=== PATIENT | male | born 1950 | race Caucasian/White ===

== ENCOUNTER 2017-11-11 05:39 | Day surgery (SDC) | payer OTHER ==
[2017-11-09 16:08] LABS: Absolute Lymphocytes (CBC) 1.5 K/uL (0.7-4.9); Absolute Monocytes 0.9 K/uL (0.1-1.3); Absolute Neutrophil 3.8 K/uL (1.8-8.0); Basophils % 0.4 % (0-1.3); Eosinophils % 5.4 % (0-4.4); Hematocrit 43.4 % (39.6-49.0); MCH 30.7 pg (27.0-35.0); MCV 90.7 fL (80-100); RBC Red Blood Cell Count 4.79 M/uL (4.33-5.43)
[2017-11-09 16:54] LABS: BUN Blood Urea Nitrogen 26 mg/dL (6-20); Bicarbonate 24 mEq/L (21-31); Glucose Level 98 mg/dL (65-120); Potassium 4.2 mEq/L (3.6-5.0); Sodium Level 141 mEq/L (135-145)
--- NOTE | 2017-11-09 18:35 | RAD REPORT ---
EXAM DESCRIPTION: Juma Hanley And Artis (2 Views)11/09/2017 3:52 pm CLINICAL HISTORY: Hypertension/preop COMPARISON: None FINDINGS: The lungs appear clear of acute infiltrate. The heart is normal size. The aorta is tortuo us/ectatic IMPRESSION: No acute abnormalities displayed
--- NOTE | 2017-11-09 21:25 | EKG ---
Test Date: 2017-11-09 Test Time: 15:40:46 Formula Weigher: ZULEIKA MEASUREMENT RESULTS: Intervals: Rate: 59 FL: 196 QRSD: 86 QT: 392 QTc: 388 [place]: P: -6 FL: 196 QRS: -25 T: 7 INTERPRETIVE STATEMENTS: Sinus bradycardia with occasional premature ventricular complexes Minimal voltage criteria for LVH, may be normal variant Borderline ECG No previous ECG available for comparison Electronically Signed On 11-09-17 21:24:33 CDT by Orville Jesus
[2017-11-11] MEDS ORDERED: Ringers Lactate 1,000 ML IV ONE (06:34)
[2017-11-11] MEDS ORDERED: Ciprofloxacin 200mg IV 400 MG/200 ML IV.SOLN. IV ONE (06:35)
[2017-11-11] MEDS ORDERED: Ciprofloxacin 200mg IV 200 MG/100 ML IV.SOLN. IV ONE (06:42)
[2017-11-11] MEDS ORDERED: CIPROFLOXACIN 400mg IV 400 MG/200 ML BAG IV ONE (06:42)
[2017-11-11] MEDS ORDERED: PROPOFOL 200 MG/20 ML VIAL IV ONE (07:20)
[2017-11-11] MEDS ORDERED: LIDOCAINE 2% MPF 5 ML VIAL ONE (07:21)
[2017-11-11] MEDS ORDERED: MIDAZOLAM HCL 2 MG/2 ML INJ ONE (07:21)
[2017-11-11] MEDS ORDERED: ROCURONIUM 50 MG/5 ML VIAL IV ONE (07:22)
[2017-11-11] MEDS ORDERED: FENTANYL CITR 100 MCG/2 ML ONE (07:22)
[2017-11-11] MEDS ORDERED: EPHEDRINE SULF 50 MG/5 ML SYR ONE (07:53)
[2017-11-11] MEDS ORDERED: GLYCOPYRROLATE 0.2 MG/ML SYR ONE (08:25)
[2017-11-11] MEDS ORDERED: NEOSTIGMINE 1 MG/ML -5 ML SYRINGE ONE (08:26)
--- NOTE | 2017-11-11 08:32 | P.BOP ---
Preoperative diagnosis: tender right inguinal hernia, incarcerated umbilical hernia Postoperative diagnosis: same Primary procedure: 1. Laparoscopic repair of tender right inguinal hernia with mesh Secondary procedure: 2. Open repair of incarcerated umbilical hernia Supervisor Delivery Department: DECLAN BALDWIN Estimated blood loss: <10cc Specimen: umbilical hernia Findings: as above Anesthesia: General Complications: None Drain(s): Other Implants: 3d mesh R Transferred to: Recovery Room Condition: Good
[2017-11-11] MEDS ORDERED: ONDANSETRON 4 MG/2 ML VIAL ONE (09:08)
[2017-11-11] MEDS ORDERED: HYDROCODONE/APAP 5/325 MG TAB ONE (09:46)
--- NOTE | 2017-11-11 21:09 | DS ---
Date of Discharge: 11/11/2017 Diagnoses: Tender right inguinal hernia and incarcerated umbilical hernia. Procedures: Laparoscopic repair of tender right inguinal hernia with mesh and open repair of incarce rated umbilical hernia. Disposition: Home. Activity: As tolerated. No heavy lifting. Followup: Follow up in my office in 1 week. Call for appointment [phone]. Discharge Instructions: Keep the area dry for 48 hours and then may shower. Keep Steri-Strips intac t. Discharge Medications: Bactrim DS p.o. b.i.d. and Vicodin q.4 hours p.r.n. pain. BALDO/ELIZABETH Voice ID: [id number] Report ID: [id number]
--- NOTE | 2017-11-11 21:20 | OP ---
Date of Procedure: 11/11/2017 Surgeon: Vincent Dia MD Computerized [place] Recorder: Elizabeth Noel Preoperative Diagnosis: Tender right inguinal hernia and also incarcerated umbilical hernia. Postoperative Diagnosis: Tender right inguinal hernia and also incarcerated umbilical hernia. Procedures: 1.Laparoscopic repair of tender right inguinal hernia with mesh. 2.Open repair of incarcerated umbilical hernia. Estimated Blood Loss: Less than 10 cc. Specimen: Umbilical hernia. Findings: As above. Anesthesia: General plus local. Implant: A 3D mesh on the right side. Indications: This is the case of a 67-year-old patient, who comes to us with 2 problems as mentioned above. Benefits, alternatives, and risks of repair of right inguinal hernia and umbilical hernia fu lly explained to the patient, which include but are not limited to infection, bleeding, damage to adj acent structures, anesthesia complication, recurrence, chronic pain, chronic numbness, testicular dam age, AR, and even . He also understands this may not relieve any symptoms. He might need more than one surgical intervention. He understands importance of no heavy lifting and not gaining weight . He was also explained that we may use mesh over the area. Pros and cons of mesh placement were ex plained to him and all the questions were answered to his satisfaction. Description Of Procedure: The patient was brought to the operating room and placed in supine positio n. Anesthesia was done without complication. A time-out was called. Abdominal area and inguinal re gion were prepped and draped in sterile fashion. Marcaine 0.5% was injected for local anesthetic in the infraumbilical region. Incision was carried down to subcutaneous tissue. We opened anterior rec tus sheath on the right side. Retracted muscle laterally to expose the posterior rectus sheath. The extraperitoneal space was gently developed with blunt dissection and a balloon-tipped catheter, Spac emaker was placed in that area directed to the pubic symphysis. This was guided with a laparoscope p laced at the same time. Insufflation of the balloon was done under direct visualization. The balloo n was then removed and a space was placed over the area carefully. A 5-mm trocar was placed on the p ubic symphysis and another one between the first and the second one. The preperitoneal space was fur ther developed by exposing the inferior epigastric vessels and keeping them anterior. Singh's ligam ent was dissected laterally to the junction with iliac veins. The dissection continued inferiorly to the iliopubic tract, avoiding damage to the femoral branch of the genitofemoral nerve and lateral fe moral cutaneous nerve. The cord structures were carefully identified and skeletonized. The hernia w as identified and retracted into the peritoneal space. A 3D mesh was placed over the area right side fit to proper size covering direct and indirect spaces. This mesh was secured in place with SorbaFi x fixation device laterally and superior to the iliopubic tract and inferomedial to the Singh's liga ment. No bleeding. An anesthetic spray was placed over the area. At that moment, I proceeded to re move the trocars under direct vision. Deflated the area. We made sure that on the deflation we hold the inferior aspect of the mesh to avoid the hernia sac going through, and after that, I went to the umbilical region. We identified umbilical hernia that was carefully opened. The hernia sac was ope joaquín. Incarcerated omentum reduced back into the abdominal cavity. The hernia sac was removed. The fascial edges were cleaned, and I proceeded to close the area with #1 Vicryl [id number]. Also, we closed the inguinal incisions with #1 Vicryl. The area was irrigated and closed with 3-0 chromic and skin approximated with 3-0 chromic and Steri-Strips on top. Sponge count and instrument count we re correct. The patient tolerated the procedure well. The patient was sent to Recovery in stable condition. ANNE-MARIE Voice ID: [id number] Report ID: [id number]
== END 2017-11-11 10:05 | disposition home or self-care (01) ==
LOC: OR 05:39 → EDBD 07:30 → OR 10:05
PROVIDERS: ATTEND Surgery
PROC: 0YU54JZ Supplement Right Inguinal Region with Synthetic Substitute, Percutaneous Endoscopic Approach (ICD-10-PCS; principal; 2017-11-11 07:30)
PROC: 0WQF0ZZ Repair Abdominal Wall, Open Approach (ICD-10-PCS; 2017-11-11 07:30)
DX: K40.90 Unilateral inguinal hernia, without obstruction or gangrene, not specified as recurrent (principal); K42.0 Umbilical hernia with obstruction, without gangrene; I10 Essential (primary) hypertension; I25.10 Atherosclerotic heart disease of native coronary artery without angina pectoris; Z88.0 Allergy status to penicillin; Z95.5 Presence of coronary angioplasty implant and graft; Z80.1 Family history of malignant neoplasm of trachea, bronchus and lung; Z80.8 Family history of malignant neoplasm of other organs or systems
CPT/HCPCS: 36415; 49587; 49650; 71046; 80048; 85025; 88302; 93005; J0744 ×3; J2250; J2405; J2710; J3010

== ENCOUNTER 2020-03-02 08:20 | Inpatient (IN) | payer OTHER ==
--- NOTE | 2020-03-02 12:07 | R.PREADM ---
PRE-ADMISSION SCREENING FORM SCREENING DATE AND TIME 03/02/2020 08:32 (CDT) ANTICIPATED REHAB ADMISSION DATE 03/04/2020 REFERRING FACILITY [facility] REFERRAL DATE AND TIME 02/27/2020 02:42 (CDT) REFERRAL ROOM# [id number] A ACUTE ADMIT DATE 02/15/2020 Previous Rehabilitation(s): No. 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 Naldo Snyder M.D. MR# [id number] NAME LINA SALAMANCA ADDRESS [address] [place] [address] PHONE [facility] [id number] DATE OF 1950 AGE 69 SSN# [id number] GENDER male MARITAL STATUS RACE white PREF. LANGUAGE (IF NON-VIETNAMESE) Romanian ADMIT FROM 02 - [facility] PRE-HOSPITAL LIVING SETTING 01 - Home (private home/apt. board/care, assisted living, usp, transitional living) HOME TYPE AND DETAILS Type of home: single family house # of levels in the residence: 1 # of steps to enter the residence: 1 # of steps within the residence: 0 PRE-HOSPITAL LIVING WITH Friends FAMILY SUPPORT Yes PRIMARY FAMILY CONTACT NAME Zenaida Salamanca PRIMARY FAMILY CONTACT PHONE PRIMARY FAMILY CONTACT RELATIONSHIP Spouse IS PRIMARY FAMILY CONTACT AUTH. REP.? no 1ST EMERGENCY CONTACT Zenaida Salamanca 1ST CONTACT PHONE 1ST CONTACT RELATIONSHIP Spouse IS 1ST CONTACT AUTH. REP.? no PHONE 2ND CONTACT ON ADM.? no PATIENT EMPLOYMENT STATUS Retired (for age) PATIENT EMPLOYER No Employer PAYOR INFORMATION: 1ST PAYOR NAME MEDICARE 1ST PAYOR PHONE 1ST PAYOR INJURY/ILLNESS DUE TO ACCIDENT? No ANOTHER GREEN PARTY RESPONSIBLE? No PRIMARY REHAB/ACUTE DIAGNOSIS: [place], R Knee Arthroplasty ONSET DATE 02/15/2020 REHAB IMPAIRMENT CATEGORY (OLINDA): 14 Cardiac does NOT meet 60% rule PRIMARY DIAGNOSIS-RELATED SURGERIES: Elective R Knee Arthroplasty - performed by Dr Hal Bonds on 02/15/2020 SUMMARY OF ACUTE HOSPITALIZATION: Pt. is a 69 yo Right-handed white male. He has past medical history significant for VA and R knee arthroscopy that failed conservative treatm ent. He elected for surgery, and on 02/15/2020 was admitted to [facility] for R Knee Arthroplast y by Dr Hal Bonds. The day after surgery, the patient suffered from cardiac arrest. Pre-morbidly, Pt. was independent/mod-I in Transfers Control and Locomotion; and he had good Balance, Safety Awareness, Social Cognition, Sphincter Control, and Communication. Currently, he has deficits of Transfers Control, Balance, Locomotion, Safety Awareness, and Self-Care . Pt. is now referred to [facility] for acute in-patient rehabilitation in order to maximize patient's functional independence in activities of daily living, strength, ROM, and mobi lity. Patient has realistic goal of being discharged at assistance level 6-Rafael to reside at Home with Spo use. PAST MEDICAL HISTORY Osteoarthritis of R knee HTN CAD Cardiogenic shock (R57.0) Cardiac Arrest Acute Hypoxemic respiratory failure Acute Renal Failure AFIB Pulmonary edema due to chemicals, gases, fumes and vapors (J68.1) Systolic CHF DVT of upper R extremity Leukocytosis HYPOKALEMIA HLD Diabetes Elevated LFT's PAST SURGICAL HISTORY: R KNEE REPLACEMENT abdominal sx amputation, R arm pacemaker inccertion, stent placement x 2 Spine SX MEDICATION ALLERGIES: Penicillin ENVIRONMENTAL ALLERGIES: None Known - Substance Allergies None Known - Other Allergies None Known CODE STATUS: DNR/DNI WEIGHT/HEIGHT/BMI: WEIGHT 253 lbs HEIGHT 5' 10" BMI 36.3 DIET: - Diet Type Regular - Diet - Solid Texture Regular - Diet - Liquid Texture Regular - Tube Feed N/A SKIN DIAGRAM: Incision on Right knee; extent - average; stage - NS(Not Stageable). Treatment - Per Physician's Orde rs. REVIEW OF SYSTEMS: - Gen Alert and awake Lying in bed No apparent distress Oriented to: person, time, and place - Vital Signs Vital signs stable, afebrile - CVS RRR VITAL SIGNS Temperature: 96.9 F SBP/DBP: 110/73 Pulse: 84 Resp: 20 Vital signs stable, afebrile MEDICATIONS/TREATMENT: Other- See attached MAR (Medication Administration Record). CURRENT SPHINCTER CONTROL: Pre-hospital bladder status: continent # of bladder accidents in the last 7 days prior to screenin Pre-hospital bowel status: continent # of bowel accidents in the last 7 days prior to screenin Last Bowel Movement Date: 03/02/2020 DETAILED CURRENT FUNCTIONAL STATUS: - Walking score based on distance walked: 0(N/A) - Wheelchair score based on distance traveled: 0(N/A) QI SCORES: - Self-Care A. Eating 05-Setup or clean-up assistance B. Oral hygiene 05-Setup or clean-up assistance C. Toileting hygiene 01-Dependent E. Shower/bathe self 02-Substantial/maximal assistance F. Upper body dressing 02-Substantial/maximal assistance G. Lower body dressing 01-Dependent H. Putting on/taking off footwear 01-Dependent - Mobility A. Roll left and right 02-Substantial/maximal assistance B. Sit to lying 02-Substantial/maximal assistance C. Lying to sitting on side of bed 02-Substantial/maximal assistance D. Sit to stand 02-Substantial/maximal assistance E. Chair/twt-iw-ohmhi transfer 02-Substantial/maximal assistance F. Toilet transfer 02-Substantial/maximal assistance G. Car transfer 88-Not attempted due to medical condition or safety concerns J. Walk 50 feet with two turns 88-Not attempted due to medical condition or safety concerns K. Walk 150 feet 88-Not attempted due to medical condition or safety concerns L. Walking 10 feet on uneven surfaces 88-Not attempted due to medical condition or safety concerns M. 1 step (curb) 88-Not attempted due to medical condition or safety concerns N. 4 steps 88-Not attempted due to medical condition or safety concerns O. 12 steps 88-Not attempted due to medical condition or safety concerns P. Picking up object 88-Not attempted due to medical condition or safety concerns - Bladder and Bowel Bladder continence 0-Always continent Bowel continence 0-Always continent - Endurance Poor - Balance Poor - Safety Awareness Poor CURRENT FUNC. DEFICITS: Self-Care, Mobility, Endurance, Balance, and Safety Awareness THERAPY NOTES FROM ACUTE CARE: Attached. SPECIAL NEEDS: - Safety Concerns Skin breakdown precautions needed due to skin breakdown risk PATIENT NEEDS ACTIVE AND ONGOING THERAPEUTIC INTERVENTION OF MULTIPLE THERAPY DISCIPLINES, INCLUDING: - Dietary and Nutrition Adequate Nutrition. Nutritional Education. Nutritional Supplements. PATIENT NEEDS CLOSE MEDICAL SUPERVISION BY A REHABILITATION PHYSICIAN FOR: Coordination of Treatment Team Post-Op Complications Wound Care PATIENT REQUIRES 24X7 REHAB NURSING FOR MEDICAL AND FUNCTIONAL MGT. OF THE FOLLOWING DEFICITS: Disease Management Medication Management Patient/Family Education Providing Safe Environment Skin Integrity PATIENT REQUIRES INTENSIVE, COORDINATED INTERDISCIPLINARY APPROACH TO REHAB: Arranging Home Equipment/Services Discharge Planning Family Intervention/Training Licensed Mental Health Professional/Case Management PATIENT REHAB POTENTIAL: Anthony SALAMANCA is able and expected to receive 3 hours of individualized therapy daily on at least 5 of e very 7 days Anthony SALAMANCA'geno prognosis for significant practical improvement within a reasonable period of time appea rs Good Expected level of measurable improvement will be of a practical value to Anthony SALAMANCA's functional capa city or adaptations to impairments Has a viable Discharge Plan Medically appropriate; condition is sufficiently stable to participate in intensive rehab program DISCHARGE PLAN: - Estimated Length of Stay (days) 10. - Consensus on plan Discharge plan has been discussed with primary caregiver. Patient/Family is in agreement with the kimmie n. Primary caregiver is in agreement with the plan. - Patient/Family Goals Return home with assistance. - Planned Living Setting Upon Discharge Home, to live with Spouse. RECOMMENDED CARE LEVEL: IRF RECOMMENDATION DETAILS: Recommended Admission to Comprehensive Rehabilitation Program to Increase Functional [place] SCREENER'S COMPLETENESS CONFIRMATION: - Screening Confirmation The patient data collection on this preadmission screening form is finished PHYSICIANS REVIEW AND ADMISSION DETERMINATION Admit - Based on my review of the Pre-Admission Screening results, in my medical judgment and experie nce, I concur with the findings and recommend admission to [facility], as this patient requires an IRF level of care. SIGNATURE PANEL: Business Services Manager - [electronically] signed by April Hansen Research Administrator on 03/02/2020 at 11:45 (CD T) Clinical Liaison - [electronically] signed by Nanda Bills RN on 03/02/2020 at 11:58 (CDT) Physician Reviewer - [electronically] signed by Dr. Naldo Snyder M.D. on 03/02/2020 at 12:06 (CDT )
--- NOTE | 2020-03-04 17:19 | R.PREADM ---
PRE-ADMISSION SCREENING FORM SCREENING DATE AND TIME 03/04/2020 17:08 (CDT) ANTICIPATED REHAB ADMISSION DATE 03/06/[address] [facility] REFERRAL DATE AND TIME 03/04/2020 17:09 (CDT) REFERRAL ROOM# [id number] A ACUTE ADMIT DATE 02/15/2020 Previous Rehabilitation(s): No. 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 Naldo Snyder M.D. MR# [id number] NAME LINA SALAMANCA ADDRESS [address] [place] [address] PHONE [facility] [id number] DATE OF 1950 AGE 69 SSN# [id number] GENDER male MARITAL STATUS RACE white PREF. LANGUAGE (IF NON-POLISH) Luxembourgish ADMIT FROM 02 - [facility] PRE-HOSPITAL LIVING SETTING 01 - Home (private home/apt. board/care, assisted living, halfway, transitional living) HOME TYPE AND DETAILS Type of home: single family house # of levels in the residence: 1 # of steps to enter the residence: 1 # of steps within the residence: 0 PRE-HOSPITAL LIVING WITH Friends FAMILY SUPPORT Yes PRIMARY FAMILY CONTACT NAME Zenaida Salamanca PRIMARY FAMILY CONTACT PHONE PRIMARY FAMILY CONTACT RELATIONSHIP Spouse IS PRIMARY FAMILY CONTACT AUTH. REP.? no 1ST EMERGENCY CONTACT Zenaida Salamanca 1ST CONTACT PHONE 1ST CONTACT RELATIONSHIP Spouse IS 1ST CONTACT AUTH. REP.? no PHONE 2ND CONTACT ON ADM.? no PATIENT EMPLOYMENT STATUS Retired (for age) PATIENT EMPLOYER No Employer PAYOR INFORMATION: 1ST PAYOR NAME MEDICARE 1ST PAYOR PHONE 1ST PAYOR INJURY/ILLNESS DUE TO ACCIDENT? No ANOTHER REPUBLICAN RESPONSIBLE? No PRIMARY REHAB/ACUTE DIAGNOSIS: [place], R Knee Arthroplasty ONSET DATE 02/15/2020 REHAB IMPAIRMENT CATEGORY (OLINDA): 14 Cardiac does NOT meet 60% rule PRIMARY DIAGNOSIS-RELATED SURGERIES: Elective R Knee Arthroplasty - performed by Dr Hal Bonds on 02/15/2020 SUMMARY OF ACUTE HOSPITALIZATION: Pt. is a 69 yo Right-handed white male. He has past medical history significant for ND and R knee arthroscopy that failed conservative treatm ent. He elected for surgery, and on 02/15/2020 was admitted to [facility] for R Knee Arthroplast y by Dr Hal Bonds. The day after surgery, the patient suffered from cardiac arrest. Pre-morbidly, Pt. was independent/mod-I in Transfers Control and Locomotion; and he had good Balance, Safety Awareness, Social Cognition, Sphincter Control, and Communication. Currently, he has deficits of Transfers Control, Balance, Locomotion, Safety Awareness, and Self-Care . Pt. is now referred to [facility] for acute in-patient rehabilitation in order to maximize patient's functional independence in activities of daily living, strength, ROM, and mobi lity. Patient has realistic goal of being discharged at assistance level 6-Rafael to reside at Home with Spo use. PAST MEDICAL HISTORY Osteoarthritis of R knee HTN CAD Cardiogenic shock (R57.0) Cardiac Arrest Acute Hypoxemic respiratory failure Acute Renal Failure AFIB Pulmonary edema due to chemicals, gases, fumes and vapors (J68.1) Systolic CHF DVT of upper R extremity Leukocytosis HYPOKALEMIA HLD Diabetes Elevated LFT's PAST SURGICAL HISTORY: R KNEE REPLACEMENT abdominal sx amputation, R arm pacemaker inccertion, stent placement x 2 Spine SX MEDICATION ALLERGIES: Penicillin ENVIRONMENTAL ALLERGIES: None Known - Substance Allergies None Known - Other Allergies None Known CODE STATUS: DNR/DNI WEIGHT/HEIGHT/BMI: WEIGHT 253 lbs HEIGHT 5' 10" BMI 36.3 DIET: - Diet Type Regular - Diet - Solid Texture Regular - Diet - Liquid Texture Regular - Tube Feed N/A SKIN DIAGRAM: Incision on Right knee; extent - average; stage - NS(Not Stageable). Treatment - Per Physician's Orde rs. REVIEW OF SYSTEMS: - Gen Alert and awake Lying in bed No apparent distress Oriented to: person, time, and place - Vital Signs Vital signs stable, afebrile - CVS RRR VITAL SIGNS Temperature: 96.9 F SBP/DBP: 110/73 Pulse: 84 Resp: 20 Vital signs stable, afebrile MEDICATIONS/TREATMENT: Other- See attached MAR (Medication Administration Record). CURRENT SPHINCTER CONTROL: Pre-hospital bladder status: continent # of bladder accidents in the last 7 days prior to screenin Pre-hospital bowel status: continent # of bowel accidents in the last 7 days prior to screenin Last Bowel Movement Date: 03/02/2020 DETAILED CURRENT FUNCTIONAL STATUS: - Walking score based on distance walked: 0(N/A) - Wheelchair score based on distance traveled: 0(N/A) QI SCORES: - Self-Care A. Eating 05-Setup or clean-up assistance B. Oral hygiene 05-Setup or clean-up assistance C. Toileting hygiene 01-Dependent E. Shower/bathe self 02-Substantial/maximal assistance F. Upper body dressing 02-Substantial/maximal assistance G. Lower body dressing 01-Dependent H. Putting on/taking off footwear 01-Dependent - Mobility A. Roll left and right 02-Substantial/maximal assistance B. Sit to lying 02-Substantial/maximal assistance C. Lying to sitting on side of bed 02-Substantial/maximal assistance D. Sit to stand 02-Substantial/maximal assistance E. Chair/inq-yg-hqaqm transfer 02-Substantial/maximal assistance F. Toilet transfer 02-Substantial/maximal assistance G. Car transfer 88-Not attempted due to medical condition or safety concerns J. Walk 50 feet with two turns 88-Not attempted due to medical condition or safety concerns K. Walk 150 feet 88-Not attempted due to medical condition or safety concerns L. Walking 10 feet on uneven surfaces 88-Not attempted due to medical condition or safety concerns M. 1 step (curb) 88-Not attempted due to medical condition or safety concerns N. 4 steps 88-Not attempted due to medical condition or safety concerns O. 12 steps 88-Not attempted due to medical condition or safety concerns P. Picking up object 88-Not attempted due to medical condition or safety concerns - Bladder and Bowel Bladder continence 0-Always continent Bowel continence 0-Always continent - Endurance Poor - Balance Poor - Safety Awareness Poor CURRENT FUNC. DEFICITS: Self-Care, Mobility, Endurance, Balance, and Safety Awareness THERAPY NOTES FROM ACUTE CARE: Attached. SPECIAL NEEDS: - Safety Concerns Skin breakdown precautions needed due to skin breakdown risk PATIENT NEEDS ACTIVE AND ONGOING THERAPEUTIC INTERVENTION OF MULTIPLE THERAPY DISCIPLINES, INCLUDING: - Dietary and Nutrition Adequate Nutrition. Nutritional Education. Nutritional Supplements. PATIENT NEEDS CLOSE MEDICAL SUPERVISION BY A REHABILITATION PHYSICIAN FOR: Coordination of Treatment Team Post-Op Complications Wound Care PATIENT REQUIRES 24X7 REHAB NURSING FOR MEDICAL AND FUNCTIONAL MGT. OF THE FOLLOWING DEFICITS: Disease Management Medication Management Patient/Family Education Providing Safe Environment Skin Integrity PATIENT REQUIRES INTENSIVE, COORDINATED INTERDISCIPLINARY APPROACH TO REHAB: Arranging Home Equipment/Services Discharge Planning Family Intervention/Training Last Repairer/Case Management PATIENT REHAB POTENTIAL: Anthony SALAMANCA is able and expected to receive 3 hours of individualized therapy daily on at least 5 of e very 7 days Anthony SALAMANCA'geno prognosis for significant practical improvement within a reasonable period of time appea rs Good Expected level of measurable improvement will be of a practical value to Anthony SALAMANCA's functional capa city or adaptations to impairments Has a viable Discharge Plan Medically appropriate; condition is sufficiently stable to participate in intensive rehab program DISCHARGE PLAN: - Estimated Length of Stay (days) 10. - Consensus on plan Discharge plan has been discussed with primary caregiver. Patient/Family is in agreement with the kimmie n. Primary caregiver is in agreement with the plan. - Patient/Family Goals Return home with assistance. - Planned Living Setting Upon Discharge Home, to live with Spouse. RECOMMENDED CARE LEVEL: IRF RECOMMENDATION DETAILS: Recommended Admission to Comprehensive Rehabilitation Program to Increase Functional [place] SCREENER'S COMPLETENESS CONFIRMATION: - Screening Confirmation The patient data collection on this preadmission screening form is finished PHYSICIANS REVIEW AND ADMISSION DETERMINATION Admit - Based on my review of the Pre-Admission Screening results, in my medical judgment and experie nce, I concur with the findings and recommend admission to [facility], as this patient requires an IRF level of care. SIGNATURE PANEL: Air Control/Anti Air Warfare Officer - [electronically] signed by April Hansen Seed Specialist on 03/04/2020 at 17:10 (CD T) Air Control/Anti Air Warfare Officer - [electronically] signed by Cee Henriquez RN on 03/04/2020 at 17:12 (CDT) Physician Reviewer - [electronically] signed by Dr. Nalod Snyder M.D. on 03/04/2020 at 17:18 (CDT )
--- OUTSIDE RECORDS SUMMARY | 2020-03-04 18:21 | XMS REPORT | Clinical Summary ---
:1950 Author Organization [facility] Address [address] [place] [address] Care Team Providers Name Role Phone Adilson Primary Care Provider Allergies Active Allergy Reactions Severity Noted Date Comments Penicillins Unknown Reaction 12/01/2019 Medications Medication Sig Dispensed Refills Start End Status Date Date atorvastatin nightly. 0 Active (LIPITOR) 40 mg 0 tablet metFORMIN 500 mg 2 (two) 0 Activ e (GLUCOPHAGE) 500 times a day with 0 mg tablet meals. amIODarone Take 1 tablet 60 tablet 0 Activ e (PACERONE) 200 MG (200 mg total) by 0 020 tablet mouth every 12 (twelve) hours for 30 days. apixaban (ELIQUIS) Take 1 tablet 60 tablet 0 Active 2.5 mg tablet (2.5 mg total) by 0 020 mouth 2 (two) times a day for 30 days. BUMETanide (BUMEX) Take 1 tablet (1 30 tablet 0 03/14 3/2 Active 1 MG tablet mg total) by 0 020 mouth daily for 30 days. digOXIN (LANOXIN) Take 1 tablet 16 tablet 0 Active 125 mcg (0.125 mg) (125 mcg total) 0 020 tablet by mouth 4 (four) times a week for 30 days. metoprolol Take 0.5 tablets 30 tablet 0 Ac tive tartrate (12.5 mg total) 0 020 (LOPRESSOR) 25 mg by mouth 2 (two) tablet times a day for 30 days. spironolactone Take 1 tablet (25 60 tablet 0 Active (ALDACTONE) 25 MG mg total) by 0 020 tablet mouth 2 (two) times a day for 30 days. ticagrelor Take 1 tablet (90 60 tablet 0 A ctive (BRILINTA) 90 mg mg total) by 0 020 tablet mouth 2 (two) times a day for 30 days. potassium chloride Take 20 mEq by 30 tablet 0 Active 20 mEq tablet mouth 2 (two) 0 020 extended release times a day for 30 days. acetaminophen Take 2 tablets 20 tablet 0 A ctive (TYLENOL) 325 MG (650 mg total) by 0 020 tablet mouth every 6 (six) hours as needed for moderate pain for up to 30 days. aspirin (ECOTRIN) aspirin 0 Di scontinued 81 MG enteric 020 (Stop Taking at coated tablet Discha rge) amLODIPine 5 mg 2 (two) 0 Discon tinued (NORVASC) 5 mg times a day. 0 020 (S top Taking at tablet Discharge) olmesartan 40 mg daily. 0 Discon tinued (BENICAR) 20 MG 0 020 (Sto p Taking at tablet Discharge) triamcinolone triamcinolone 0 Di scontinued (KENALOG) 0.1 % acetonide 0.1 % 020 (Discontinued cream topical cream by ano ther clinician) nut.tx.comp. Take 1 Bottle by 1 Box 0 Discontinued immune systm,reg mouth 3 (three) 0 020 (Stop Taking at (Impact Advanced times a day for 5 Discharge) Recovery) 0.1 days. gram-1.12 kcal/mL liquid HYDROcodone-acetam acute pain. Take 50 tablet 0 02/11 3/2 Discontinued inophen (NORCO) 1-2 tab po q 4-6 0 020 (Stop Taking at 10-325 mg per hrs prn # 50 Dis charge) tabletIndications: acute pain promethazine Take 1 tablet (25 30 tablet 0 Discontinued (PHENERGAN) 25 MG mg total) by 0 020 (Stop Taking at tablet mouth every 6 Discha rge) (six) hours as needed for nausea or vomiting for up to 10 days. enoxaparin Inject 0.4 mL (40 14 Syringe 0 Discontinued (Lovenox) 40 mg total) under 0 020 ( Stop Taking at mg/0.4 mL syringe the skin daily Discharge) for 14 days. Active Problems Problem Noted Date Atrial fibrillation with RVR 02/26/2020 Pulmonary edema 02/26/2020 Acute systolic CHF (congestive heart failure) 02/26/20 20 Acute deep vein thrombosis (DVT) of right upper extrem ity 02/26/2020 Acute deep vein thrombosis (DVT) of left upper extremi ty 02/26/2020 Leukocytosis 02/26/2020 Hypokalemia 02/26/2020 Hypocalcemia 02/26/2020 HLD (hyperlipidemia) 02/26/2020 DM (diabetes mellitus) 02/26/2020 Elevated LFTs 02/26/2020 Cardiogenic shock 02/18/2020 Cardiac arrest 02/18/2020 Acute hypoxemic respiratory failure 02/18/2020 ARF (acute renal failure) 02/18/2020 Knee osteoarthritis 02/15/2020 Hypertension 02/15/2020 CAD (coronary artery disease) 02/15/2020 Primary osteoarthritis of right knee 01/11/2020 Overview: Added automatically from request for masha brown [id number] Encounters Date Type Specialty Care Team Description 02/15/2020 - Surgery Procedural Ty, Tim Left heart cath w lv 02/16/2020 Cardiology Mercedes Noonan MD gram cors [[id number] (CPT)] 02/15/2020 Surgery General Surgery Seferino Chaudhry RIGHT TOTAL KNEE MD Abraham ARTHROPLASTY 02/15/2020 Anesthesia Event General Surgery Benson Horn MD Sardina, Maydee, NP 02/15/2020 - Hospital Encounter General Internal Seferino Chaudhry Cardi ogenic shock (HCC) (Primary Dx); 03/04/2020 Medicine MD Abraham Primary osteoarthritis of right knee; [place]is, Cardiac arrest (HCC) Aiden Santos MD 02/10/2020 Pre-Admit Testing Pre-Admission Seferino Chaudhry Preop josy smart (Primary Appointment Testing WMD Ajith Dx) 02/10/2020 Telephone Orthopedic Surgery Sanjay Moon MA 02/10/2020 Orders Only Orthopedic Surgery [place], Primary o steoarthritis DOMINGA Patel of right knee ( Primary Dx) 02/09/2020 Telephone Orthopedic Surgery Ravi Pressley MA 02/09/2020 Travel 02/09/2020 Telephone Orthopedic Surgery Ravi Pressley MA 01/11/2020 Telephone Orthopedic Surgery Ravi Pressley MA 01/11/2020 Transcribe Orders Orthopedic Surgery Seferino Chaudhry Prim lidia osteoarthritis MD Abraham of right knee ( Primary Dx) 12/16/2019 Hospital Encounter Radiology Seferino Chaudhry Primary o steoarthritis MD Abraham of right knee 12/16/2019 Travel 12/06/2019 Travel 12/02/2019 Orders Only Orthopedic Surgery Seferino Chaudhry Primary o stearnaldothritis MD Abraham of right knee ( Primary Dx) 12/01/2019 Hospital Encounter Radiology Seferino Chaudhry MD 12/01/2019 Hospital Encounter Radiology Seferino Chaudhry MD 12/01/2019 Office Visit Orthopedic Surgery Seferino Chaudhry Primary o steoarthritis of right knee (Primary Dx); MD Abraham Acute pain of r ight knee 12/01/2019 Travel 11/21/2019 Travel after 03/04/2019 Family History Medical History Relation Name Comments Cancer Brother Brent Rose Brain Cancer Diabetes Daughter Zoey Rose Cancer Mother Miriam Rose Bone Cancer Relation Name Status Comments Brother Brent Rose Daughter Zoey Rose Father Mother Miriam Rose Social History Tobacco Use Types Packs/Day Years Used Date Never Smoker 0 0 Smokeless Tobacco: Never Used Alcohol Use Drinks/Week oz/Week Comments Yes 0 Glasses of wine 2.0 2 Cans of beer 0 Shots of liquor 0 Standard drinks or equivalent Sex Assigned at Date Recorded Not on file Job Start Date Occupation Industry Not on file Not on file Not on file Travel History Travel Start Travel End No recent travel history available. COVID-19 Exposure Response Date Recorded In the last month, have you been in contact with No / Unsure 02/09/2020 3:02 PM CDT someone who was confirmed or suspected to have Coronavirus / COVID-19? Last Filed Vital Signs Vital Sign Reading Time Taken Comments Blood Pressure 107/65 03/04/2020 11:07 AM CDT Pulse 73 03/04/2020 11:07 AM CDT Temperature 36.6 C (97.8 F) 03/04/2020 11:07 AM CDT Respiratory Rate 18 03/04/2020 11:07 AM CDT Oxygen Saturation 97% 03/04/2020 11:07 AM CDT Inhaled Oxygen Concentration - - Weight 111 kg (243 lb 14.4 oz) 03/04/2020 5:45 AM CDT Height 177.8 cm (5' 10") 02/17/2020 7:00 AM CDT Body Mass Index 35 02/17/2020 7:00 AM CDT Plan of Treatment Date Type Specialty Care Team Description 03/08/2020 Office Visit [place] [id number] [place] [phone] Health Maintenance Due Date Last Done Comments DIABETIC RETINAL EYE EXAM 1950 DIABETIC FOOT EXAM 1961 URINE MICROALBUMIN 1961 COLONOSCOPY SCREENING 2001 SHINGLES VACCINES (#1) 2001 65+ PNEUMOCOCCAL VACCINE (1 of 2 - PCV13) 2016 INFLUENZA VACCINE 04/12/2020 Implants Implanted Type Area Enamel Shader Device Shelf Model / Identifier Expiration Serial / Date Lot Device Vasclr Clsr Vasoactive Intstnl Peptd 6fr Angio- Seal - [id number] Cardiovascular N/A: 10/10/2020 [id number] / Implanted: Qty: 1 on 02/15/2020 by Tim Jo Jr., MD at [facility] Implants N/A / [id number] Stent Coronary Syst Synergy (Mr) 3.50mm X 38mm - [id number] Coronary Stents N/A: BS 02/14/2021 [id number] / Implanted: Qty: 1 on 02/15/2020 by Tim Jo Jr., MD at [facility] N/A INTERVENTIONAL / CARDIOLOGY [id number] Stent Coronary Syst Synergy (Mr) 3.00mm X 32mm - [id number] Coronary Stents N/A: BS 05/29/2021 [id number] / Implanted: Qty: 1 on 02/15/2020 by Tim Jo Jr., MD at [facility] N/A INTERVENTIONAL / CARDIOLOGY [id number] Series A Pat Std 34 3 Peg - [id number] IMPLANT Right: [employer] 08/25/2024 [id number] / Implanted: Qty: 1 on 02/15/2020 by Seferino Chaudhry MD at [facility] DEVICES Knee / [id number] Ciaranperry Charan Ilok Fem-Rt 72.5 - [id number] [id number] IMPLANT Right: [employer] ET[employer] 03/02/2029 [id number] / Implanted: Qty: 1 on 02/15/2020 by Seferino Chaudhry MD at [facility] DEVICES Knee / [id number] Biomet Cc Cruciate Tray 79mm - [id number] [id number] IMPLANT Right: [employer] 12/11/2029 [id number] / Implanted: Qty: 1 on 02/15/2020 by Seferino Chaudhry MD at [facility] DEVICES Knee / [id number] Matthewd Charan Tib Brg 10x79/83 - [id number] [id number] IMPLANT Right: [employer] 10/04/2024 [id number] / Implanted: Qty: 1 on 02/15/2020 by Seferino Chaudhry MD at [facility] DEVICES Knee / [id number] Total Knee Arthrplsty Signature - [id number] Orthopedic N/A: [employer] 06/13/2020 [id number] / Implanted: Qty: 1 on 02/15/2020 by Seferino Chaudhry MD at [facility] Trauma Implants N/A / [id number] Cement Bone Full Dose Simplex P Radiopaque - [id number] Surgical Bone Right: ANILA 09/09/2021 [id number] [id number] / Implanted: Qty: 1 on 02/15/2020 by Seferino Chaudhry MD at [facility] Cement Knee ORTHOPEDICS / HIPS-KNEES [id number] Cement Bone Full Dose Simplex P Radiopaque - [id number] Surgical Bone Right: ANILA 09/09/2021 [id number] 010 / Implanted: Qty: 1 on 02/15/2020 by Seferino Chaudhry MD at [facility] Cement Knee ORTHOPEDICS / HIPS-KNEES [id number] Stent 2013 No Info Card Description:STENT 2013 no info card Procedures Procedure Name Priority Date/Time Associated Diagnosis Comme nts POC GLUCOSE Routine 03/04/2020 11:07 Results for this AM CDT procedure are i n the results section. POC GLUCOSE Routine 03/04/2020 7:16 Results for this AM CDT procedure are i n the results section. ESTIMATED GFR Routine 03/04/2020 6:00 Results fo r this AM CDT procedure are i n the results section. COMPREHENSIVE METABOLIC Routine 03/04/2020 6:00 Results for this PANEL AM CDT procedure are i n the results section. CBC WITH PLATELET AND Routine 03/04/2020 6:00 Re sults for this DIFFERENTIAL AM CDT procedure are i n the results section. POC GLUCOSE Routine 03/03/2020 8:56 Results for this PM CDT procedure are i n the results section. POC GLUCOSE Routine 03/03/2020 4:56 Results for this PM CDT procedure are i n the results section. POC GLUCOSE Routine 03/03/2020 4:20 Results for this PM CDT procedure are i n the results section. XR KNEE 1 OR 2 VW RIGHT Routine 03/03/2020 12:08 Results for this PM CDT procedure are i n the results section. POC GLUCOSE Routine 03/03/2020 11:40 Results for this AM CDT procedure are i n the results section. POC GLUCOSE Routine 03/03/2020 8:03 Results for this AM CDT procedure are i n the results section. ESTIMATED GFR Routine 03/03/2020 6:10 Results fo r this AM CDT procedure are i n the results section. COMPREHENSIVE METABOLIC Routine 03/03/2020 6:10 Results for this PANEL AM CDT procedure are i n the results section. HC COMPLETE BLD COUNT Routine 03/03/2020 6:10 Re sults for this W/AUTO DIFF AM CDT procedure are i n the results section. POC GLUCOSE Routine 03/02/2020 9:19 Results for this PM CDT procedure are i n the results section. POC GLUCOSE Routine 03/02/2020 7:01 Results for this PM CDT procedure are i n the results section. POC GLUCOSE Routine 03/02/2020 3:53 Results for this PM CDT procedure are i n the results section. POC GLUCOSE Routine 03/02/2020 11:44 Results for this AM CDT procedure are i n the results section. POC GLUCOSE Routine 03/02/2020 8:11 Results for this AM CDT procedure are i n the results section. XR CHEST 2 VW Routine 03/02/2020 8:05 Results fo r this AM CDT procedure are i n the results section. B NATRIURETIC PEPTIDE Routine 03/02/2020 5:30 Re sults for this AM CDT procedure are i n the results section. ESTIMATED GFR Routine 03/02/2020 5:30 Results fo r this AM CDT procedure are i n the results section. MAGNESIUM LEVEL Routine 03/02/2020 5:30 Results for this AM CDT procedure are i n the results section. COMPREHENSIVE METABOLIC Routine 03/02/2020 5:30 Results for this PANEL AM CDT procedure are i n the results section. POC GLUCOSE Routine 03/01/2020 8:48 Results for this PM CDT procedure are i n the results section. URINE CULTURE Routine 03/01/2020 7:18 Results fo r this PM CDT procedure are i n the results section. URINALYSIS SCREEN AND Routine 03/01/2020 6:57 Re sults for this MICROSCOPY, WITH REFLEX PM CDT proc edure are in TO CULTURE the results section. POC GLUCOSE Routine 03/01/2020 5:11 Results for this PM CDT procedure are i n the results section. POC GLUCOSE Routine 03/01/2020 11:51 Results for this AM CDT procedure are i n the results section. OCCULT BLOOD, STOOL Routine 03/01/2020 10:37 Resu lts for this AM CDT procedure are i n the results section. POC GLUCOSE Routine 03/01/2020 7:57 Results for this AM CDT procedure are i n the results section. ESTIMATED GFR Routine 03/01/2020 6:30 Results fo r this AM CDT procedure are i n the results section. MAGNESIUM LEVEL Routine 03/01/2020 6:30 Results for this AM CDT procedure are i n the results section. COMPREHENSIVE METABOLIC Routine 03/01/2020 6:30 Results for this PANEL AM CDT procedure are i n the results section. LIPID PANEL Routine 03/01/2020 6:30 Results for this AM CDT procedure are i n the results section. COVID-19 QUALITATIVE Routine 03/01/2020 6:30 Res ults for this PCR AM CDT procedure are i n the results section. POC GLUCOSE Routine 02/29/2020 8:40 Results for this PM CDT procedure are i n the results section. POC GLUCOSE Routine 02/29/2020 5:06 Results for this PM CDT procedure are i n the results section. POC GLUCOSE Routine 02/29/2020 11:49 Results for this AM CDT procedure are i n the results section. POC GLUCOSE Routine 02/29/2020 7:55 Results for this AM CDT procedure are i n the results section. ESTIMATED GFR Routine 02/29/2020 5:15 Results fo r this AM CDT procedure are i n the results section. MAGNESIUM LEVEL Routine 02/29/2020 5:15 Results for this AM CDT procedure are i n the results section. HC COMPLETE BLD COUNT Routine 02/29/2020 5:15 Re sults for this W/AUTO DIFF AM CDT procedure are i n the results section. IONIZED CALCIUM Routine 02/29/2020 5:15 Results for this AM CDT procedure are i n the results section. COMPREHENSIVE METABOLIC Routine 02/29/2020 5:15 Results for this PANEL AM CDT procedure are i n the results section. POC GLUCOSE Routine 02/28/2020 8:42 Results for this PM CDT procedure are i n the results section. POC GLUCOSE Routine 02/28/2020 4:45 Results for this PM CDT procedure are i n the results section. POC GLUCOSE Routine 02/28/2020 11:21 Results for this AM CDT procedure are i n the results section. POC GLUCOSE Routine 02/28/2020 7:57 Results for this AM CDT procedure are i n the results section. ESTIMATED GFR Routine 02/28/2020 4:45 Results fo r this AM CDT procedure are i n the results section. HC COMPLETE BLD COUNT Routine 02/28/2020 4:45 Re sults for this W/AUTO DIFF AM CDT procedure are i n the results section. IONIZED CALCIUM Routine 02/28/2020 4:45 Results for this AM CDT procedure are i n the results section. COMPREHENSIVE METABOLIC Routine 02/28/2020 4:45 Results for this PANEL AM CDT procedure are i n the results section. XR CHEST 1 VW PORTABLE Routine 02/27/2020 8:48 R esults for this PM CDT procedure are i n the results section. POC GLUCOSE Routine 02/27/2020 8:35 Results for this PM CDT procedure are i n the results section. HC CVL NON-TUNNELED Routine 02/27/2020 8:00 Cardiogenic shock Results for this INSERT 5YRS OR > PM CDT (HCC) procedure a re in the results section. HI INSERT NON-TUNNEL CV Routine 02/27/2020 8:00 Cardiogenic s hock Results for this CATH PM CDT (HCC) procedure are i n the results section. POC GLUCOSE Routine 02/27/2020 4:48 Results for this PM CDT procedure are i n the results section. POC GLUCOSE Routine 02/27/2020 11:23 Results for this AM CDT procedure are i n the results section. POC GLUCOSE Routine 02/27/2020 7:31 Results for this AM CDT procedure are i n the results section. ESTIMATED GFR Routine 02/27/2020 4:45 Results fo r this AM CDT procedure are i n the results section. HC COMPLETE BLD COUNT Routine 02/27/2020 4:45 Re sults for this W/AUTO DIFF AM CDT procedure are i n the results section. IONIZED CALCIUM Routine 02/27/2020 4:45 Results for this AM CDT procedure are i n the results section. COMPREHENSIVE METABOLIC Routine 02/27/2020 4:45 Results for this PANEL AM CDT procedure are i n the results section. B NATRIURETIC PEPTIDE Routine 02/27/2020 4:45 Re sults for this AM CDT procedure are i n the results section. MAGNESIUM LEVEL Routine 02/27/2020 4:45 Results for this AM CDT procedure are i n the results section. XR CHEST 1 VW PORTABLE STAT 02/26/2020 11:41 R esults for this PM CDT procedure are i n the results section. ESTIMATED GFR STAT 02/26/2020 11:40 Results fo r this PM CDT procedure are i n the results section. BASIC METABOLIC PANEL STAT 02/26/2020 11:40 Re sults for this PM CDT procedure are i n the results section. LACTIC ACID LEVEL STAT 02/26/2020 11:40 Result s for this PM CDT procedure are i n the results section. HC COMPLETE BLD COUNT STAT 02/26/2020 11:40 Re sults for this W/AUTO DIFF PM CDT procedure are i n the results section. ARTERIAL BLOOD GAS STAT 02/26/2020 11:40 Resul ts for this PM CDT procedure are i n the results section. POC GLUCOSE Routine 02/26/2020 9:29 Results for this PM CDT procedure are i n the results section. POC GLUCOSE Routine 02/26/2020 5:27 Results for this PM CDT procedure are i n the results section. URINALYSIS SCREEN AND Routine 02/26/2020 1:46 Re sults for this MICROSCOPY, WITH REFLEX PM CDT proc edure are in TO CULTURE the results section. URINE CULTURE Routine 02/26/2020 1:46 Results fo r this PM CDT procedure are i n the results section. POC GLUCOSE Routine 02/26/2020 1:15 Results for this PM CDT procedure are i n the results section. CT ANGIOGRAM PE CHEST Routine 02/26/2020 12:52 Re sults for this PM CDT procedure are i n the results section. POC GLUCOSE Routine 02/26/2020 7:09 Results for this AM CDT procedure are i n the results section. HC COMPLETE BLD COUNT Routine 02/26/2020 6:35 Re sults for this W/AUTO DIFF AM CDT procedure are i n the results section. ESTIMATED GFR Timed 02/26/2020 6:35 Results fo r this AM CDT procedure are i n the results section. IONIZED CALCIUM Timed 02/26/2020 6:35 Results for this AM CDT procedure are i n the results section. PHOSPHORUS LEVEL Timed 02/26/2020 6:35 Results for this AM CDT procedure are i n the results section. MAGNESIUM LEVEL Timed 02/26/2020 6:35 Results for this AM CDT procedure are i n the results section. BASIC METABOLIC PANEL Timed 02/26/2020 6:35 Re sults for this AM CDT procedure are i n the results section. POC GLUCOSE Routine 02/25/2020 8:39 Results for this PM CDT procedure are i n the results section. POC GLUCOSE Routine 02/25/2020 4:28 Results for this PM CDT procedure are i n the results section. POC GLUCOSE Routine 02/25/2020 11:37 Results for this AM CDT procedure are i n the results section. ESTIMATED GFR Timed 02/25/2020 11:00 Results fo r this AM CDT procedure are i n the results section. IONIZED CALCIUM Timed 02/25/2020 11:00 Results for this AM CDT procedure are i n the results section. PHOSPHORUS LEVEL Timed 02/25/2020 11:00 Results for this AM CDT procedure are i n the results section. MAGNESIUM LEVEL Timed 02/25/2020 11:00 Results for this AM CDT procedure are i n the results section. BASIC METABOLIC PANEL Timed 02/25/2020 11:00 Re sults for this AM CDT procedure are i n the results section. POC GLUCOSE Routine 02/25/2020 8:57 Results for this AM CDT procedure are i n the results section. XR CHEST 1 VW PORTABLE Routine 02/25/2020 6:04 R esults for this AM CDT procedure are i n the results section. POC GLUCOSE Routine 02/25/2020 4:38 Results for this AM CDT procedure are i n the results section. ESTIMATED GFR Routine 02/25/2020 3:10 Results fo r this AM CDT procedure are i n the results section. PROTHROMBIN TIME WITH Routine 02/25/2020 3:10 Re sults for this INR AM CDT procedure are i n the results section. IONIZED CALCIUM Routine 02/25/2020 3:10 Results for this AM CDT procedure are i n the results section. PHOSPHORUS LEVEL Routine 02/25/2020 3:10 Results for this AM CDT procedure are i n the results section. MAGNESIUM LEVEL Routine 02/25/2020 3:10 Results for this AM CDT procedure are i n the results section. HC COMPLETE BLD COUNT Routine 02/25/2020 3:10 Re sults for this W/AUTO DIFF AM CDT procedure are i n the results section. BASIC METABOLIC PANEL Routine 02/25/2020 3:10 Re sults for this AM CDT procedure are i n the results section. POC GLUCOSE Routine 02/25/2020 1:04 Results for this AM CDT procedure are i n the results section. CT ABDOMEN PELVIS WO STAT 02/24/2020 11:23 Res ults for this CONTRAST PM CDT procedure are i n the results section. PREPARE RBC STAT 02/24/2020 9:15 PM CDT PARTIAL THROMBOPLASTIN STAT 02/24/2020 9:15 R esults for this TIME (PTT) PM CDT procedure are i n the results section. PROTHROMBIN TIME WITH STAT 02/24/2020 9:15 Re sults for this INR PM CDT procedure are i n the results section. TYPE AND SCREEN STAT 02/24/2020 9:15 Results for this PM CDT procedure are i n the results section. HEMOGLOBIN & HEMATOCRIT STAT 02/24/2020 9:15 Results for this PM CDT procedure are i n the results section. POC GLUCOSE Routine 02/24/2020 8:34 Results for this PM CDT procedure are i n the results section. ANTI XA, UNFRACTIONATED STAT 02/24/2020 7:25 Results for this PM CDT procedure are i n the results section. ESTIMATED GFR Routine 02/24/2020 7:25 Results fo r this PM CDT procedure are i n the results section. IONIZED CALCIUM Routine 02/24/2020 7:25 Results for this PM CDT procedure are i n the results section. PHOSPHORUS LEVEL Routine 02/24/2020 7:25 Results for this PM CDT procedure are i n the results section. MAGNESIUM LEVEL Routine 02/24/2020 7:25 Results for this PM CDT procedure are i n the results section. BASIC METABOLIC PANEL Routine 02/24/2020 7:25 Re sults for this PM CDT procedure are i n the results section. HC CVL NON-TUNNELED Routine 02/24/2020 6:47 Cardiogenic shock Results for this INSERT 5YRS OR > PM CDT (HCC) procedure a re in the results section. HI INSERT NON-TUNNEL CV Routine 02/24/2020 6:47 Cardiogenic s hock Results for this CATH PM CDT (HCC) procedure are i n the results section. HI INSERT Routine 02/24/2020 6:46 Cardiogenic shock Result s for this CATH,ART,PERCUT,SHORTTE PM CDT (HCC) proc edure are in RM the results section. US DUPLEX VENOUS UPPER STAT 02/24/2020 6:07 R esults for this EXTREMITY BILATERAL PM CDT procedur e are in the results section. FL MODIFIED BARIUM Routine 02/24/2020 11:34 Resul ts for this SWALLOW AM CDT procedure are i n the results section. MANUAL DIFFERENTIAL Routine 02/24/2020 7:10 Resu lts for this AM CDT procedure are i n the results section. PHOSPHORUS LEVEL Routine 02/24/2020 7:10 Results for this AM CDT procedure are i n the results section. MAGNESIUM LEVEL Routine 02/24/2020 7:10 Results for this AM CDT procedure are i n the results section. ESTIMATED GFR Routine 02/24/2020 7:10 Results fo r this AM CDT procedure are i n the results section. IONIZED CALCIUM Routine 02/24/2020 7:10 Results for this AM CDT procedure are i n the results section. COMPREHENSIVE METABOLIC Routine 02/24/2020 7:10 Results for this PANEL AM CDT procedure are i n the results section. CBC WITH PLATELET AND Routine 02/24/2020 7:10 Re sults for this DIFFERENTIAL AM CDT procedure are i n the results section. XR CHEST 1 VW PORTABLE Routine 02/24/2020 5:17 R esults for this AM CDT procedure are i n the results section. POC GLUCOSE Routine 02/24/2020 4:44 Results for this AM CDT procedure are i n the results section. POC GLUCOSE Routine 02/24/2020 1:50 Results for this AM CDT procedure are i n the results section. POC GLUCOSE Routine 02/23/2020 9:52 Results for this PM CDT procedure are i n the results section. ESTIMATED GFR Timed 02/23/2020 4:30 Results fo r this PM CDT procedure are i n the results section. PHOSPHORUS LEVEL Timed 02/23/2020 4:30 Results for this PM CDT procedure are i n the results section. MAGNESIUM LEVEL Timed 02/23/2020 4:30 Results for this PM CDT procedure are i n the results section. BASIC METABOLIC PANEL Timed 02/23/2020 4:30 Re sults for this PM CDT procedure are i n the results section. TTE COMPLETE, W Routine 02/23/2020 3:07 Results for this CONTRAST, W DOPPLER PM CDT procedur e are in ([id number]) the results section. XR CHEST 1 VW PORTABLE Routine 02/23/2020 5:16 R esults for this AM CDT procedure are i n the results section. MANUAL DIFFERENTIAL Routine 02/23/2020 5:15 Resu lts for this AM CDT procedure are i n the results section. ESTIMATED GFR Routine 02/23/2020 5:15 Results fo r this AM CDT procedure are i n the results section. B NATRIURETIC PEPTIDE Routine 02/23/2020 5:15 Re sults for this AM CDT procedure are i n the results section. PROTHROMBIN TIME WITH Routine 02/23/2020 5:15 Re sults for this INR AM CDT procedure are i n the results section. PHOSPHORUS LEVEL Routine 02/23/2020 5:15 Results for this AM CDT procedure are i n the results section. MAGNESIUM LEVEL Routine 02/23/2020 5:15 Results for this AM CDT procedure are i n the results section. IONIZED CALCIUM Routine 02/23/2020 5:15 Results for this AM CDT procedure are i n the results section. CBC WITH PLATELET AND Routine 02/23/2020 5:15 Re sults for this DIFFERENTIAL AM CDT procedure are i n the results section. COMPREHENSIVE METABOLIC Routine 02/23/2020 5:15 Results for this PANEL AM CDT procedure are i n the results section. POC GLUCOSE Routine 02/23/2020 4:44 Results for this AM CDT procedure are i n the results section. POC GLUCOSE Routine 02/22/2020 11:57 Results for this PM CDT procedure are i n the results section. ESTIMATED GFR STAT 02/22/2020 11:50 Results fo r this PM CDT procedure are i n the results section. BASIC METABOLIC PANEL STAT 02/22/2020 11:50 Re sults for this PM CDT procedure are i n the results section. MAGNESIUM LEVEL STAT 02/22/2020 11:50 Results for this PM CDT procedure are i n the results section. IONIZED CALCIUM STAT 02/22/2020 11:50 Results for this PM CDT procedure are i n the results section. ESTIMATED GFR STAT 02/22/2020 10:00 Results fo r this PM CDT procedure are i n the results section. IONIZED CALCIUM STAT 02/22/2020 10:00 Results for this PM CDT procedure are i n the results section. MAGNESIUM LEVEL STAT 02/22/2020 10:00 Results for this PM CDT procedure are i n the results section. BASIC METABOLIC PANEL STAT 02/22/2020 10:00 Re sults for this PM CDT procedure are i n the results section. POC GLUCOSE Routine 02/22/2020 8:16 Results for this PM CDT procedure are i n the results section. POC GLUCOSE Routine 02/22/2020 4:56 Results for this PM CDT procedure are i n the results section. ESTIMATED GFR Timed 02/22/2020 2:33 Results fo r this PM CDT procedure are i n the results section. BASIC METABOLIC PANEL Timed 02/22/2020 2:33 Re sults for this PM CDT procedure are i n the results section. POC GLUCOSE Routine 02/22/2020 12:54 Results for this PM CDT procedure are i n the results section. POC GLUCOSE Routine 02/22/2020 8:56 Results for this AM CDT procedure are i n the results section. XR CHEST 1 VW PORTABLE Routine 02/22/2020 5:19 R esults for this AM CDT procedure are i n the results section. POC GLUCOSE Routine 02/22/2020 4:59 Results for this AM CDT procedure are i n the results section. MANUAL DIFFERENTIAL Routine 02/22/2020 4:40 Resu lts for this AM CDT procedure are i n the results section. IONIZED CALCIUM Routine 02/22/2020 4:40 Results for this AM CDT procedure are i n the results section. ESTIMATED GFR Routine 02/22/2020 4:40 Results fo r this AM CDT procedure are i n the results section. PARTIAL THROMBOPLASTIN Routine 02/22/2020 4:40 R esults for this TIME (PTT) AM CDT procedure are i n the results section. PROTHROMBIN TIME WITH Routine 02/22/2020 4:40 Re sults for this INR AM CDT procedure are i n the results section. PHOSPHORUS LEVEL Routine 02/22/2020 4:40 Results for this AM CDT procedure are i n the results section. MAGNESIUM LEVEL Routine 02/22/2020 4:40 Results for this AM CDT procedure are i n the results section. CBC WITH PLATELET AND Routine 02/22/2020 4:40 Re sults for this DIFFERENTIAL AM CDT procedure are i n the results section. COMPREHENSIVE METABOLIC Routine 02/22/2020 4:40 Results for this PANEL AM CDT procedure are i n the results section. POC GLUCOSE Routine 02/22/2020 12:42 Results for this AM CDT procedure are i n the results section. ESTIMATED GFR Timed 02/21/2020 10:53 Results fo r this PM CDT procedure are i n the results section. PHOSPHORUS LEVEL Timed 02/21/2020 10:53 Results for this PM CDT procedure are i n the results section. IONIZED CALCIUM Timed 02/21/2020 10:53 Results for this PM CDT procedure are i n the results section. MAGNESIUM LEVEL Timed 02/21/2020 10:53 Results for this PM CDT procedure are i n the results section. BASIC METABOLIC PANEL Timed 02/21/2020 10:53 Re sults for this PM CDT procedure are i n the results section. POC GLUCOSE Routine 02/21/2020 8:54 Results for this PM CDT procedure are i n the results section. POC GLUCOSE Routine 02/21/2020 4:48 Results for this PM CDT procedure are i n the results section. ESTIMATED GFR Timed 02/21/2020 2:55 Results fo r this PM CDT procedure are i n the results section. PHOSPHORUS LEVEL Timed 02/21/2020 2:55 Results for this PM CDT procedure are i n the results section. IONIZED CALCIUM Timed 02/21/2020 2:55 Results for this PM CDT procedure are i n the results section. MAGNESIUM LEVEL Timed 02/21/2020 2:55 Results for this PM CDT procedure are i n the results section. BASIC METABOLIC PANEL Timed 02/21/2020 2:55 Re sults for this PM CDT procedure are i n the results section. POC GLUCOSE Routine 02/21/2020 12:42 Results for this PM CDT procedure are i n the results section. ESTIMATED GFR Timed 02/21/2020 8:35 Results fo r this AM CDT procedure are i n the results section. PHOSPHORUS LEVEL Timed 02/21/2020 8:35 Results for this AM CDT procedure are i n the results section. IONIZED CALCIUM Timed 02/21/2020 8:35 Results for this AM CDT procedure are i n the results section. MAGNESIUM LEVEL Timed 02/21/2020 8:35 Results for this AM CDT procedure are i n the results section. BASIC METABOLIC PANEL Timed 02/21/2020 8:35 Re sults for this AM CDT procedure are i n the results section. POC GLUCOSE Routine 02/21/2020 8:14 Results for this AM CDT procedure are i n the results section. POC GLUCOSE Routine 02/21/2020 5:29 Results for this AM CDT procedure are i n the results section. XR CHEST 1 VW PORTABLE Routine 02/21/2020 3:19 R esults for this AM CDT procedure are i n the results section. MANUAL DIFFERENTIAL Routine 02/21/2020 1:13 Resu lts for this AM CDT procedure are i n the results section. LACTIC ACID LEVEL Routine 02/21/2020 1:13 Result s for this AM CDT procedure are i n the results section. ESTIMATED GFR Routine 02/21/2020 1:13 Results fo r this AM CDT procedure are i n the results section. IONIZED CALCIUM, Routine 02/21/2020 1:13 Results for this ARTERIAL AM CDT procedure are i n the results section. PARTIAL THROMBOPLASTIN Routine 02/21/2020 1:13 R esults for this TIME (PTT) AM CDT procedure are i n the results section. PROTHROMBIN TIME WITH Routine 02/21/2020 1:13 Re sults for this INR AM CDT procedure are i n the results section. PHOSPHORUS LEVEL Routine 02/21/2020 1:13 Results for this AM CDT procedure are i n the results section. MAGNESIUM LEVEL Routine 02/21/2020 1:13 Results for this AM CDT procedure are i n the results section. ARTERIAL BLOOD GAS Routine 02/21/2020 1:13 Resul ts for this AM CDT procedure are i n the results section. CBC WITH PLATELET AND Routine 02/21/2020 1:13 Re sults for this DIFFERENTIAL AM CDT procedure are i n the results section. COMPREHENSIVE METABOLIC Routine 02/21/2020 1:13 Results for this PANEL AM CDT procedure are i n the results section. POC GLUCOSE Routine 02/21/2020 12:40 Results for this AM CDT procedure are i n the results section. POC GLUCOSE Routine 02/20/2020 9:11 Results for this PM CDT procedure are i n the results section. POC GLUCOSE Routine 02/20/2020 3:48 Results for this PM CDT procedure are i n the results section. POC GLUCOSE Routine 02/20/2020 11:39 Results for this AM CDT procedure are i n the results section. POC GLUCOSE Routine 02/20/2020 7:32 Results for this AM CDT procedure are i n the results section. XR CHEST 1 VW PORTABLE Routine 02/20/2020 6:48 R esults for this AM CDT procedure are i n the results section. POC GLUCOSE Routine 02/20/2020 5:26 Results for this AM CDT procedure are i n the results section. IONIZED CALCIUM, Routine 02/20/2020 2:30 Results for this ARTERIAL AM CDT procedure are i n the results section. ESTIMATED GFR Routine 02/20/2020 2:30 Results fo r this AM CDT procedure are i n the results section. PROTHROMBIN TIME WITH Routine 02/20/2020 2:30 Re sults for this INR AM CDT procedure are i n the results section. PHOSPHORUS LEVEL Routine 02/20/2020 2:30 Results for this AM CDT procedure are i n the results section. MAGNESIUM LEVEL Routine 02/20/2020 2:30 Results for this AM CDT procedure are i n the results section. ARTERIAL BLOOD GAS Routine 02/20/2020 2:30 Resul ts for this AM CDT procedure are i n the results section. COMPREHENSIVE METABOLIC Routine 02/20/2020 2:30 Results for this PANEL AM CDT procedure are i n the results section. HC COMPLETE BLD COUNT Routine 02/20/2020 2:30 Re sults for this W/AUTO DIFF AM CDT procedure are i n the results section. POC GLUCOSE Routine 02/20/2020 1:07 Results for this AM CDT procedure are i n the results section. POC GLUCOSE Routine 02/19/2020 8:56 Results for this PM CDT procedure are i n the results section. ESTIMATED GFR Timed 02/19/2020 8:00 Results fo r this PM CDT procedure are i n the results section. COMPREHENSIVE METABOLIC Timed 02/19/2020 8:00 Results for this PANEL PM CDT procedure are i n the results section. POC GLUCOSE Routine 02/19/2020 4:37 Results for this PM CDT procedure are i n the results section. POC GLUCOSE Routine 02/19/2020 12:09 Results for this PM CDT procedure are i n the results section. ECG 12-LEAD Routine 02/19/2020 10:13 Results for this AM CDT procedure are i n the results section. ESTIMATED GFR Timed 02/19/2020 9:48 Results fo r this AM CDT procedure are i n the results section. COMPREHENSIVE METABOLIC Timed 02/19/2020 9:48 Results for this PANEL AM CDT procedure are i n the results section. POC GLUCOSE Routine 02/19/2020 7:50 Results for this AM CDT procedure are i n the results section. XR CHEST 1 VW PORTABLE STAT 02/19/2020 6:11 R esults for this AM CDT procedure are i n the results section. POC GLUCOSE Routine 02/19/2020 5:07 Results for this AM CDT procedure are i n the results section. ESTIMATED GFR Routine 02/19/2020 3:30 Results fo r this AM CDT procedure are i n the results section. COMPREHENSIVE METABOLIC Routine 02/19/2020 3:30 Results for this PANEL AM CDT procedure are i n the results section. IONIZED CALCIUM, Routine 02/19/2020 3:30 Results for this ARTERIAL AM CDT procedure are i n the results section. HC COMPLETE BLD COUNT Routine 02/19/2020 3:30 Re sults for this W/AUTO DIFF AM CDT procedure are i n the results section. PHOSPHORUS LEVEL Routine 02/19/2020 3:30 Results for this AM CDT procedure are i n the results section. MAGNESIUM LEVEL Routine 02/19/2020 3:30 Results for this AM CDT procedure are i n the results section. ARTERIAL BLOOD GAS Routine 02/19/2020 3:30 Resul ts for this AM CDT procedure are i n the results section. LIDOCAINE LEVEL Routine 02/19/2020 3:30 Results for this AM CDT procedure are i n the results section. POC GLUCOSE Routine 02/19/2020 12:22 Results for this AM CDT procedure are i n the results section. ECG 12-LEAD STAT 02/18/2020 11:06 Results for this PM CDT procedure are i n the results section. ESTIMATED GFR STAT 02/18/2020 9:55 Results fo r this PM CDT procedure are i n the results section. COMPREHENSIVE METABOLIC STAT 02/18/2020 9:55 Results for this PANEL PM CDT procedure are i n the results section. IONIZED CALCIUM STAT 02/18/2020 9:55 Results for this PM CDT procedure are i n the results section. PHOSPHORUS LEVEL STAT 02/18/2020 9:55 Results for this PM CDT procedure are i n the results section. MAGNESIUM LEVEL STAT 02/18/2020 9:55 Results for this PM CDT procedure are i n the results section. POC GLUCOSE Routine 02/18/2020 8:39 Results for this PM CDT procedure are i n the results section. POC GLUCOSE Routine 02/18/2020 5:04 Results for this PM CDT procedure are i n the results section. POC GLUCOSE Routine 02/18/2020 11:47 Results for this AM CDT procedure are i n the results section. POC GLUCOSE Routine 02/18/2020 7:52 Results for this AM CDT procedure are i n the results section. POC GLUCOSE Routine 02/18/2020 5:24 Results for this AM CDT procedure are i n the results section. MANUAL DIFFERENTIAL Timed 02/18/2020 4:00 Resu lts for this AM CDT procedure are i n the results section. IONIZED CALCIUM Routine 02/18/2020 4:00 Results for this AM CDT procedure are i n the results section. PROTHROMBIN TIME WITH Routine 02/18/2020 4:00 Re sults for this INR AM CDT procedure are i n the results section. ESTIMATED GFR Routine 02/18/2020 4:00 Results fo r this AM CDT procedure are i n the results section. MAGNESIUM LEVEL Routine 02/18/2020 4:00 Results for this AM CDT procedure are i n the results section. PHOSPHORUS LEVEL Routine 02/18/2020 4:00 Results for this AM CDT procedure are i n the results section. COMPREHENSIVE METABOLIC Routine 02/18/2020 4:00 Results for this PANEL AM CDT procedure are i n the results section. CBC WITH PLATELET AND Timed 02/18/2020 4:00 Re sults for this DIFFERENTIAL AM CDT procedure are i n the results section. ARTERIAL BLOOD GAS Timed 02/18/2020 4:00 Resul ts for this AM CDT procedure are i n the results section. LIDOCAINE LEVEL Routine 02/18/2020 4:00 Results for this AM CDT procedure are i n the results section. XR CHEST 1 VW PORTABLE Routine 02/18/2020 3:59 R esults for this AM CDT procedure are i n the results section. XR ABDOMEN 1 VW STAT 02/18/2020 3:55 Results for this AM CDT procedure are i n the results section. POC GLUCOSE Routine 02/18/2020 12:55 Results for this AM CDT procedure are i n the results section. ARTERIAL BLOOD GAS Timed 02/17/2020 10:07 Resul ts for this PM CDT procedure are i n the results section. POC GLUCOSE Routine 02/17/2020 9:13 Results for this PM CDT procedure are i n the results section. MANUAL DIFFERENTIAL Timed 02/17/2020 9:00 Resu lts for this PM CDT procedure are i n the results section. CBC WITH PLATELET AND Timed 02/17/2020 9:00 Re sults for this DIFFERENTIAL PM CDT procedure are i n the results section. ESTIMATED GFR Timed 02/17/2020 9:00 Results fo r this PM CDT procedure are i n the results section. COMPREHENSIVE METABOLIC Timed 02/17/2020 9:00 Results for this PANEL PM CDT procedure are i n the results section. POC GLUCOSE Routine 02/17/2020 4:26 Results for this PM CDT procedure are i n the results section. MANUAL DIFFERENTIAL Routine 02/17/2020 3:55 Resu lts for this PM CDT procedure are i n the results section. ESTIMATED GFR Routine 02/17/2020 3:55 Results fo r this PM CDT procedure are i n the results section. ARTERIAL BLOOD GAS Routine 02/17/2020 3:55 Resul ts for this PM CDT procedure are i n the results section. BASIC METABOLIC PANEL Routine 02/17/2020 3:55 Re sults for this PM CDT procedure are i n the results section. CBC WITH PLATELET AND Routine 02/17/2020 3:55 Re sults for this DIFFERENTIAL PM CDT procedure are i n the results section. POC GLUCOSE Routine 02/17/2020 12:19 Results for this PM CDT procedure are i n the results section. CREATININE LEVEL, Routine 02/17/2020 10:33 Result s for this URINE, RANDOM AM CDT procedure are in the results section. PROTEIN, URINE, RANDOM Routine 02/17/2020 10:33 R esults for this AM CDT procedure are i n the results section. URINE EOSINOPHILS Routine 02/17/2020 10:33 Result s for this AM CDT procedure are i n the results section. SODIUM LEVEL, URINE, Routine 02/17/2020 10:33 Res ults for this RANDOM AM CDT procedure are i n the results section. POC GLUCOSE Routine 02/17/2020 8:35 Results for this AM CDT procedure are i n the results section. THYROID STIMULATING Timed 02/17/2020 8:15 Resu lts for this HORMONE AM CDT procedure are i n the results section. ESTIMATED GFR Timed 02/17/2020 8:15 Results fo r this AM CDT procedure are i n the results section. ARTERIAL BLOOD GAS Routine 02/17/2020 8:15 Resul ts for this AM CDT procedure are i n the results section. COMPREHENSIVE METABOLIC Timed 02/17/2020 8:15 Results for this PANEL AM CDT procedure are i n the results section. ECG 12-LEAD Routine 02/17/2020 6:57 Results for this AM CDT procedure are i n the results section. POC GLUCOSE Routine 02/17/2020 6:28 Results for this AM CDT procedure are i n the results section. POC GLUCOSE Routine 02/17/2020 5:20 Results for this AM CDT procedure are i n the results section. POC GLUCOSE Routine 02/17/2020 4:50 Results for this AM CDT procedure are i n the results section. POC GLUCOSE Routine 02/17/2020 4:21 Results for this AM CDT procedure are i n the results section. XR CHEST 1 VW PORTABLE Routine 02/17/2020 3:37 R esults for this AM CDT procedure are i n the results section. POC GLUCOSE Routine 02/17/2020 3:01 Results for this AM CDT procedure are i n the results section. MANUAL DIFFERENTIAL Routine 02/17/2020 2:30 Resu lts for this AM CDT procedure are i n the results section. MAGNESIUM LEVEL Routine 02/17/2020 2:30 Results for this AM CDT procedure are i n the results section. IONIZED CALCIUM Routine 02/17/2020 2:30 Results for this AM CDT procedure are i n the results section. CBC WITH PLATELET AND Routine 02/17/2020 2:30 Re sults for this DIFFERENTIAL AM CDT procedure are i n the results section. ESTIMATED GFR Routine 02/17/2020 2:30 Results fo r this AM CDT procedure are i n the results section. ARTERIAL BLOOD GAS Routine 02/17/2020 2:30 Resul ts for this AM CDT procedure are i n the results section. PROTHROMBIN TIME WITH Routine 02/17/2020 2:30 Re sults for this INR AM CDT procedure are i n the results section. PARTIAL THROMBOPLASTIN Routine 02/17/2020 2:30 R esults for this TIME (PTT) AM CDT procedure are i n the results section. LIDOCAINE LEVEL Routine 02/17/2020 2:30 Results for this AM CDT procedure are i n the results section. COMPREHENSIVE METABOLIC Routine 02/17/2020 2:30 Results for this PANEL AM CDT procedure are i n the results section. TROPONIN Routine 02/17/2020 2:30 Results for this AM CDT procedure are i n the results section. POC GLUCOSE Routine 02/17/2020 1:03 Results for this AM CDT procedure are i n the results section. POC GLUCOSE Routine 02/16/2020 11:57 Results for this PM CDT procedure are i n the results section. POC GLUCOSE Routine 02/16/2020 11:15 Results for this PM CDT procedure are i n the results section. POC GLUCOSE Routine 02/16/2020 10:16 Results for this PM CDT procedure are i n the results section. MAGNESIUM LEVEL Timed 02/16/2020 10:05 Results for this PM CDT procedure are i n the results section. LACTIC ACID LEVEL STAT 02/16/2020 10:05 Result s for this PM CDT procedure are i n the results section. ESTIMATED GFR Timed 02/16/2020 10:05 Results fo r this PM CDT procedure are i n the results section. COMPREHENSIVE METABOLIC Timed 02/16/2020 10:05 Results for this PANEL PM CDT procedure are i n the results section. POC GLUCOSE Routine 02/16/2020 9:43 Results for this PM CDT procedure are i n the results section. POC GLUCOSE Routine 02/16/2020 9:15 Results for this PM CDT procedure are i n the results section. POC GLUCOSE Routine 02/16/2020 9:14 Results for this PM CDT procedure are i n the results section. POC GLUCOSE Routine 02/16/2020 7:37 Results for this PM CDT procedure are i n the results section. POC GLUCOSE Routine 02/16/2020 6:06 Results for this PM CDT procedure are i n the results section. POC GLUCOSE Routine 02/16/2020 4:57 Results for this PM CDT procedure are i n the results section. POC GLUCOSE Routine 02/16/2020 4:01 Results for this PM CDT procedure are i n the results section. MANUAL DIFFERENTIAL Routine 02/16/2020 3:55 Resu lts for this PM CDT procedure are i n the results section. ESTIMATED GFR Timed 02/16/2020 3:55 Results fo r this PM CDT procedure are i n the results section. LIDOCAINE LEVEL Routine 02/16/2020 3:55 Results for this PM CDT procedure are i n the results section. PROTHROMBIN TIME WITH Routine 02/16/2020 3:55 Re sults for this INR PM CDT procedure are i n the results section. CBC WITH PLATELET AND Routine 02/16/2020 3:55 Re sults for this DIFFERENTIAL PM CDT procedure are i n the results section. HEPATIC FUNCTION PANEL Timed 02/16/2020 3:55 R esults for this PM CDT procedure are i n the results section. TROPONIN Timed 02/16/2020 3:55 Results for this PM CDT procedure are i n the results section. BASIC METABOLIC PANEL Timed 02/16/2020 3:55 Re sults for this PM CDT procedure are i n the results section. LACTIC ACID LEVEL Timed 02/16/2020 3:55 Result s for this PM CDT procedure are i n the results section. POC GLUCOSE Routine 02/16/2020 3:03 Results for this PM CDT procedure are i n the results section. POC GLUCOSE Routine 02/16/2020 2:02 Results for this PM CDT procedure are i n the results section. POC GLUCOSE Routine 02/16/2020 12:56 Results for this PM CDT procedure are i n the results section. POC GLUCOSE Routine 02/16/2020 12:08 Results for this PM CDT procedure are i n the results section. IABP PLACEMENT Routine 02/16/2020 11:57 Cardiogenic shock Resu lts for this AM CDT (HCC) procedure are i n the results section. ECG 12-LEAD STAT 02/16/2020 11:06 Results for this AM CDT procedure are i n the results section. POC GLUCOSE Routine 02/16/2020 10:29 Results for this AM CDT procedure are i n the results section. BLOOD CULTURE, AEROBIC Routine 02/16/2020 10:20 R esults for this & ANAEROBIC AM CDT procedure are i n the results section. XR CHEST 1 VW PORTABLE STAT 02/16/2020 10:04 R esults for this AM CDT procedure are i n the results section. ESTIMATED GFR STAT 02/16/2020 10:00 Results fo r this AM CDT procedure are i n the results section. ARTERIAL BLOOD GAS Routine 02/16/2020 10:00 Resul ts for this AM CDT procedure are i n the results section. IONIZED CALCIUM STAT 02/16/2020 10:00 Results for this AM CDT procedure are i n the results section. PHOSPHORUS LEVEL STAT 02/16/2020 10:00 Results for this AM CDT procedure are i n the results section. MAGNESIUM LEVEL STAT 02/16/2020 10:00 Results for this AM CDT procedure are i n the results section. BASIC METABOLIC PANEL STAT 02/16/2020 10:00 Re sults for this AM CDT procedure are i n the results section. BLOOD CULTURE, AEROBIC Routine 02/16/2020 10:00 R esults for this & ANAEROBIC AM CDT procedure are i n the results section. POC GLUCOSE Routine 02/16/2020 9:04 Results for this AM CDT procedure are i n the results section. POC GLUCOSE Routine 02/16/2020 8:29 Results for this AM CDT procedure are i n the results section. TTE COMPLETE, WO STAT 02/16/2020 8:28 Results for this CONTRAST, W DOPPLER AM CDT procedur e are in [id number]) the results section. ANESTHESIA PERIPHERAL Routine 02/16/2020 7:48 Re sults for this BLOCK AM CDT procedure are i n the results section. HI AN PERIPHERAL BLOCK Routine 02/16/2020 7:48 R esults for this PROCEDURE FOR PAIN AM CDT procedure are in the results section. HI AN PERIPHERAL BLOCK Routine 02/16/2020 7:47 R esults for this PROCEDURE FOR PAIN AM CDT procedure are in the results section. POC GLUCOSE Routine 02/16/2020 7:29 Results for this AM CDT procedure are i n the results section. URINE CULTURE Routine 02/16/2020 7:08 Results fo r this AM CDT procedure are i n the results section. URINALYSIS SCREEN AND Routine 02/16/2020 6:48 Re sults for this MICROSCOPY, WITH REFLEX AM CDT proc edure are in TO CULTURE the results section. POC GLUCOSE Routine 02/16/2020 6:00 Results for this AM CDT procedure are i n the results section. POC GLUCOSE Routine 02/16/2020 4:45 Results for this AM CDT procedure are i n the results section. MANUAL DIFFERENTIAL Routine 02/16/2020 4:30 Resu lts for this AM CDT procedure are i n the results section. IONIZED CALCIUM, Routine 02/16/2020 4:30 Results for this ARTERIAL AM CDT procedure are i n the results section. ESTIMATED GFR Routine 02/16/2020 4:30 Results fo r this AM CDT procedure are i n the results section. ARTERIAL BLOOD GAS Routine 02/16/2020 4:30 Resul ts for this AM CDT procedure are i n the results section. MAGNESIUM LEVEL Routine 02/16/2020 4:30 Results for this AM CDT procedure are i n the results section. BASIC METABOLIC PANEL Routine 02/16/2020 4:30 Re sults for this AM CDT procedure are i n the results section. CBC WITH PLATELET AND Routine 02/16/2020 4:30 Re sults for this DIFFERENTIAL AM CDT procedure are i n the results section. LIDOCAINE LEVEL Routine 02/16/2020 4:30 Results for this AM CDT procedure are i n the results section. LACTIC ACID LEVEL Timed 02/16/2020 4:30 Result s for this AM CDT procedure are i n the results section. US DUPLEX VENOUS LOWER STAT 02/16/2020 4:15 R esults for this EXTREMITY BILATERAL AM CDT procedur e are in the results section. POC GLUCOSE Routine 02/16/2020 3:19 Results for this AM CDT procedure are i n the results section. POC GLUCOSE Routine 02/16/2020 2:36 Results for this AM CDT procedure are i n the results section. IONIZED CALCIUM, STAT 02/16/2020 2:25 Results for this ARTERIAL AM CDT procedure are i n the results section. ESTIMATED GFR Timed 02/16/2020 2:25 Results fo r this AM CDT procedure are i n the results section. BASIC METABOLIC PANEL Timed 02/16/2020 2:25 Re sults for this AM CDT procedure are i n the results section. PARTIAL THROMBOPLASTIN STAT 02/16/2020 2:25 R esults for this TIME (PTT) AM CDT procedure are i n the results section. PROTHROMBIN TIME WITH STAT 02/16/2020 2:25 Re sults for this INR AM CDT procedure are i n the results section. PHOSPHORUS LEVEL STAT 02/16/2020 2:25 Results for this AM CDT procedure are i n the results section. MAGNESIUM LEVEL STAT 02/16/2020 2:25 Results for this AM CDT procedure are i n the results section. ARTERIAL BLOOD GAS STAT 02/16/2020 2:25 Resul ts for this AM CDT procedure are i n the results section. XR ABDOMEN 1 VW STAT 02/16/2020 1:36 Results for this AM CDT procedure are i n the results section. LACTIC ACID LEVEL Timed 02/16/2020 1:30 Result s for this AM CDT procedure are i n the results section. BETA HYDROXYBUTYRATE STAT 02/16/2020 1:30 Res ults for this AM CDT procedure are i n the results section. ECG 12-LEAD STAT 02/16/2020 12:56 Results for this AM CDT procedure are i n the results section. POC GLUCOSE Routine 02/16/2020 12:49 Results for this AM CDT procedure are i n the results section. CV PCI STENT Routine 02/15/2020 11:47 Results for this PM CDT procedure are i n the results section. CV LEFT HEART CATH LV Routine 02/15/2020 11:47 Re sults for this GRAM WITH CORS PM CDT procedure are in the results section. ARTERIAL BLOOD GAS STAT 02/15/2020 10:40 Resul ts for this PM CDT procedure are i n the results section. ECG 12-LEAD STAT 02/15/2020 9:48 Results for this PM CDT procedure are i n the results section. XR CHEST 1 VW PORTABLE STAT 02/15/2020 9:17 R esults for this PM CDT procedure are i n the results section. IONIZED CALCIUM, STAT 02/15/2020 9:12 Results for this ARTERIAL PM CDT procedure are i n the results section. ARTERIAL BLOOD GAS STAT 02/15/2020 9:12 Resul ts for this PM CDT procedure are i n the results section. HC CVL NON-TUNNELED Routine 02/15/2020 9:05 Cardiac arrest (H CC) Results for this INSERT 5YRS OR > PM CDT procedure a re in the results section. HI INSERT NON-TUNNEL CV Routine 02/15/2020 9:05 Cardiac arres t (HCC) Results for this CATH PM CDT procedure are i n the results section. ESTIMATED GFR STAT 02/15/2020 9:00 Results fo r this PM CDT procedure are i n the results section. B NATRIURETIC PEPTIDE STAT 02/15/2020 9:00 Re sults for this PM CDT procedure are i n the results section. TROPONIN STAT 02/15/2020 9:00 Results for this PM CDT procedure are i n the results section. LACTIC ACID LEVEL STAT 02/15/2020 9:00 Result s for this PM CDT procedure are i n the results section. PROTHROMBIN TIME WITH STAT 02/15/2020 9:00 Re sults for this INR PM CDT procedure are i n the results section. MAGNESIUM LEVEL STAT 02/15/2020 9:00 Results for this PM CDT procedure are i n the results section. HC COMPLETE BLD COUNT STAT 02/15/2020 9:00 Re sults for this W/AUTO DIFF PM CDT procedure are i n the results section. COMPREHENSIVE METABOLIC STAT 02/15/2020 9:00 Results for this PANEL PM CDT procedure are i n the results section. 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 POC GLUCOSE Routine 02/15/2020 8:46 Results for this PM CDT procedure are i n the results section. INTUBATION Routine 02/15/2020 8:00 Primary Results for this PM CDT osteoarthritis of procedure are in right knee the results section. POC GLUCOSE Routine 02/15/2020 7:52 Results for this PM CDT procedure are i n the results section. POC GLUCOSE Routine 02/15/2020 5:04 Results for this PM CDT procedure are i n the results section. SURGICAL PATHOLOGY Routine 02/15/2020 1:14 Resul ts for this REQUEST PM CDT procedure are i n the results section. HI AN ELECTIVE Routine 02/15/2020 11:07 Results f or this SUPRAGLOTTIC AIRWAY AM CDT procedur e are in the results section. POC GLUCOSE Routine 02/15/2020 9:11 Results for this AM CDT procedure are i n the results section. ECG PRE/POST OP Routine 02/10/2020 1:02 Preop testing Results for this PM CDT procedure are i n the results section. ESTIMATED GFR Routine 02/10/2020 12:54 Results fo r this PM CDT procedure are i n the results section. BASIC METABOLIC PANEL Routine 02/10/2020 12:54 Preop testing R esults for this PM CDT procedure are i n the results section. TYPE AND SCREEN Routine 02/10/2020 12:54 Preop testing Results for this PM CDT procedure are i n the results section. HEMOGLOBIN A1C Routine 02/10/2020 12:54 Preop testing Results for this PM CDT procedure are i n the results section. HC COMPLETE BLD COUNT Routine 02/10/2020 12:54 Preop testing R esults for this W/AUTO DIFF PM CDT procedure are i n the results section. COVID-19 QUALITATIVE Routine 02/10/2020 12:35 Preop testing Re sults for this PCR PM CDT procedure are i n the results section. MRI SIGNATURE KNEE Routine 12/16/2019 1:09 Primary Resul ts for this RIGHT PM CDT osteoarthritis of procedure are in right knee the results section. MRI LOWER EXTREMITY Routine 11/29/2019 1:03 Resu lts for this EXTERNAL STUDY PM CDT procedure are in the results section. XR LOWER EXTREMITY Routine 09/15/2019 1:03 Resul ts for this EXTERNAL STUDY PM CYCLE SPECIALIST procedure are in the results section. after 03/04/2019 Results POC glucose (03/04/2020 11:07 AM CDT)Only the most recent of111 resultswithin the time period is included. Pathologist Sig nature POC glucose 117 (H) 65 - 99 mg/dL DUNCAN FENG Comment: [facility] Administrative Support Specialist Name: Joey Shi Device ID: [id number] Chartable: RN Notified Specimen Blood Performing Organization Address City/State/Zipcode Phone Number [facility] DEPARTMENT OF PATHOLOGY [address] [facility] [place] [address] AND [facility] [id number] [place] [phone] [facility] Estimated GFR (03/04/2020 6:00 AM CDT)Only the most recent of40 resultswithin the time period is included. Estimated GFR 87 mL/min/1.73 [facility] Comment: m2 [facility] Catergory Units Interpretation HOS PITAL G1 >=90 Normal or high G2 60-89 Mildly decreased G3a 45-59 Mildly to moderately decreas ed G3b 30-44 Moderately to severely decre ased G4 15-29 Severely decreased G5 <15 Kidney failure The eGFR was calculated using the Chronic Kidney Disea se Epidemiology Collaboration (CKD-EPI) equation. Interpretation is based on recommendations of the National Kidney Foundation-Kidney Disease Outcomes Kyle lity Initiative (NKF-KDOQI) published in 2014. Specimen Performing Organization Address City/State/Zipcode Phone Number [facility] DEPARTMENT OF PATHOLOGY [address] [facility] [place] [address] AND GENOMIC MEDICINE [facility] [id number] [place] [phone] [place] [address] CBC with platelet and differential (03/04/2020 6:00 AM CDT)Only the most recent of22 resultswithin the time period is included. WBC 9.0 4.5 - 11.0 k/uL [facility] RBC 2.90 (L) 4.40 - 6.00 [facility] m/uL [facility] HGB 8.9 (L) 14.0 - 18.0 [facility] g/dL [facility] HCT 28.1 (L) 41.0 - 51.0 % [facility] MCV 96.9 82.0 - 100.0 fL [facility] MCH 30.7 27.0 - 34.0 pg [facility] MCHC 31.7 31.0 - 37.0 [facility] g/dL [facility] RDW - SD 57.9 (H) 37.0 - 55.0 fL [facility] MPV 10.6 6.9 - 11.0 fL [facility] Platelet count 337 150 - 400 K/uL [facility] Nucleated RBC 0.00 /100 WBC [facility] Neutrophils 76.7 (H) 39.0 - 69.0 % [facility] Lymphocytes 12.0 (L) 25.0 - 45.0 % [facility] Monocytes 9.4 0.0 - 10.0 % [facility] Eosinophils 1.1 0.0 - 5.0 % [facility] Basophils 0.2 0.0 - 1.0 % [facility] Immature granulocytes 0.6 0.0 - 1.0 % [facility] Specimen Blood Performing Organization Address City/[facility]/Zipcode Phone Number [facility] DEPARTMENT OF PATHOLOGY [address] [facility] [place] [address] AND GENOMIC MEDICINE [facility] [address] [facility] [address] [facility] Comprehensive metabolic panel (03/04/2020 6:00 AM CDT)Only the most recent of22 resultswithin the time period is included. Pathologist Sig nature Sodium 135 135 - 148 mEq/L [facility] Potassium 4.0 3.5 - 5.0 mEq/L [facility] Chloride 102 98 - 112 mEq/L [facility] CO2 26 24 - 31 mEq/L [facility] Anion gap 7@ANIO 7 - 15 mEq/L [facility] BUN 14 8 - 23 mg/dL [facility] Creatinine 0.90 0.70 - 1.20 [facility] mg/dL [facility] Glucose 94 65 - 99 mg/dL [facility] Calcium 8.2 (L) 8.8 - 10.2 mg/dL [facility] Protein 5.4 (L) 6.3 - 8.3 g/dL [facility] Albumin 2.7 (L) 3.5 - 5.0 g/dL [facility] A/G ratio 1.0 0.7 - 3.8 [facility] Alkaline phosphatase 71 40 - 129 U/L [facility] AST 35 10 - 50 U/L [facility] ALT 101 (H) 5 - 50 U/L [facility] Total bilirubin 1.5 (H) 0.2 - 1.2 mg/dL [facility] Specimen Blood Performing Organization Address [facility]/State/Zipcode Phone Number [facility] DEPARTMENT OF PATHOLOGY [address] [facility] [place] [address] AND GENOMIC MEDICINE [place] [facility] [address] [facility] [place] [address] 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 Alignment is satisfactory. No evidence of hardware liseth lure or loosening. Small joint effusion and prominent prepatellar soft ti ssue swelling. Small prepatellar surgical clip is noted . [id number] Procedure Note Interface, Radiology Results Incoming - 03/03/2020 12:15 PM CDT EXAMINATION: XR KNEE 1 OR 2 VW RIGHT INDICATION: TKR with bleeding COMPARISON:Most recent prior IMPRESSION: Status post right total knee arthroplast y with patellar resurfacing. Alignment is satisfactory. No evidence of hardware failure or loosening. Small joint effusion and prominent prepatellar soft tissue swelling. Small prepatellar surgical clip is noted. [id number] Performing Organization Address City/[facility]/Zipcode Phone Number [facility] [address] [place] [address] XR Chest 2 Vw (03/02/2020 8:05 AM CDT) Specimen Narrative Performed At EXAMINATION: XR CHEST 2 VW [facility] CLINICAL HISTORY: 69 years Male Shortn ess of breath COMPARISON: Chest radiograph 02/27/2020 IMPRESSION: 1.Right IJ central venous catheter is identified with the tip overlying the SVC. 2.The lungs are well-inflated with no focal consolidat ion or pneumothorax.. There is blunting of the left costophre nick sulcus, best seen on the lateral view, and may represent pleural th ickening or a pleural effusion with associated cindy sive subsegmental atelectasis. 3.The mediastinal silhouette is within n ormal limits. 4.No acute osseous abnormality. [facility]-[id number] Procedure Note Interface, Radiology Results Incoming - 03/02/2020 8:11 AM CDT EXAMINATION: XR CHEST 2 VW CLINICAL HISTORY: 69 years Male Shortne ss of breath COMPARISON: Chest radiograph 02/27/2020 IMPRESSION: 1.Right IJ central venous catheter is id entified with the tip overlying the SVC. 2.The lungs are well-inflated with no fo natalya consolidation or pneumothorax.. There is blunting of the left costophrenic sulcus, best seen on the lateral view, and may represent pleural thickening or a pleural effusion with associated compressive subsegmental atelectasis. 3.The mediastinal silhouette is within n ormal limits. 4.No acute osseous abnormality. [facility]-[id number] Performing Organization Address City/[facility]/Zipcode Phone Number [facility]LEX[facility] [address] [place] [address] B natriuretic peptide (03/02/2020 5:30 AM CDT)Only the most recent of4 results within the time period is included. Pathologist Sig nature BNP 1,024 (H) 0 - 100 pg/mL [facility] Specimen Blood Performing Organization Address [facility] Phone Number [facility] DEPARTMENT OF PATHOLOGY [address] [place] [address] X [phone] [place] [address] HOSPITAL Magnesium level (03/02/2020 5:30 AM CDT)Only the most recent of28 resultswithin the time period is included. Pathologist Sig ricky Magnesium 1.9 1.6 - 2.4 mg/dL [facility] Specimen Blood Performing Organization Address [facility] Phone Number [facility] DEPARTMENT OF PATHOLOGY [address] [place] [address] X [phone] [place] [phone] HOSPITAL Urine culture (03/01/2020 7:18 PM CDT)Only the most recent of3 resultswithin the time period is included. Urine culture Mixed ferny <=10-3 col/cc (A) [facility] isolate Comment: HOSPITAL Specimen Information Specimen Source: Urine Specimen Site: Clean catch Urine culture Pseudomonas aeruginosa [facility] isolate 10-5 cfu/ml HOSPITAL The performance characteristics of this assay on this isolate were validated by the Microbiology Laboratory at [facility]. This source has not been approve d by the U.S. Food and Drug Administration. The results are n ot intended to be used as the sole means for clinical kale gnosis or patient management. The Microbiology Laboratory i s authorized under the clinical Laboratory Improvement Amendments of 1988 (CLIA-88) to perform high complexit y testing. (A) Specimen Urine Organism Antibiotic Method Susceptibility Pseudomonas aeruginosa Amikacin MATHEUS <=8 mcg/m L: Susceptible Pseudomonas aeruginosa Aztreonam MATHEUS 4 mcg/mL: Susceptible Pseudomonas aeruginosa Ceftazidime MATHEUS <=2 mcg/m L: Susceptible Pseudomonas aeruginosa Ciprofloxacin MATHEUS 0.5 mcg/m L: Susceptible Pseudomonas aeruginosa Cefepime MATHEUS 2 mcg/mL: Susceptible Pseudomonas aeruginosa Gentamicin MATHEUS <=2 mcg/m L: Susceptible Pseudomonas aeruginosa Levofloxacin MATHEUS <=0.5 mcg /mL: Susceptible Pseudomonas aeruginosa Meropenem MATHEUS <=0.5 mcg /mL: Susceptible Pseudomonas aeruginosa Tobramycin MATHEUS <=2 mcg/m L: Susceptible Pseudomonas aeruginosa Piperacillin/Tazobactam MATHEUS 4 /4 mcg/mL: Susceptible Performing Organization Address City/State/Zipcode Phone Number [facility] DEPARTMENT OF PATHOLOGY AND [address] [place] [phone] GENOMIC MEDICINE [address] [address] Urinalysis screen and microscopy, with reflex to culture (03/01/2020 6:57 PM CDT)Only the most recent of3 resultswithin the time period is included. Specimen site Clean catch [facility] Color, UA Yellow [facility] Appearance, UA Clear [facility] Specific gravity, UA 1.016 1.001 - 1.030 [facility] pH, UA 6.0 5.0 - 9.0 [facility] Protein, UA Negative Negative [facility] Glucose, UA Negative Negative [facility] Ketones, UA Negative Negative [facility] Bilirubin, UA Negative Negative [facility] Blood, UA Large (A) Negative [facility] Nitrite, UA Negative Negative [facility] Urobilinogen, UA 4.0 (A) <2.0 E.U./dL [facility] Leukocyte esterase, Trace (A) Negative [facility] Epithelial cells, UA 1 /HPF [facility] WBC, UA 29 (H) 0 - 1 /HPF [facility] RBC, UA >200 (H) 0 - 5 /HPF [facility] Bacteria, UA Few None seen [facility] Yeast, UA None seen [facility] Yeast with None seen [facility] pseudohyphae, UA [facility] Hyaline casts, UA 0-2 /LPF [facility] Specimen Urine Performing Organization Address City/[facility]/Zipcode Phone Number [facility] DEPARTMENT OF PATHOLOGY [address] [facility] [place] [address] [facility] [id number] [place] [phone] [place] [address] Occult blood, stool (03/01/2020 10:37 AM CDT) Occult blood, Negative for occult blood. [place] [facility] stool Comment: [facility] Specimen Information HOSPITAL Specimen Source: Stool Specimen Site: Not otherwise specified Specimen Stool - Not otherwise specified Performing Organization Address City/[facility]/Zipcode Phone Number [facility] DEPARTMENT OF PATHOLOGY [address] [facility] [place] [address] [facility] [id number] [place] [phone] [facility] COVID-19 qualitative PCR (03/01/2020 6:30 AM CDT)Only the most recent of2 resultswithin the time period is included. Interpretation Negative results do not prec lude 2019-nCoV infection and should not be used as the sole basis for treatment or other patient management decisions. Negative results must be combined with clinical observations, patient history, and epidemiological [place] information. [facility] COVID-19 qualitative Not-Detected Not-Detecte [place] PCR result d [facility] COVID-19 qualitative See link below for [place] PCR PDF Lab [facility] ReportComment: Case HOSPITAL Number: [id number] Specimen Nasopharyngeal swab Performing Organization Address City/State/Zipcode Phone Number [facility] DEPARTMENT OF PATHOLOGY AND [address] [place] [phone] [facility] [address] [place] [address] [facility] Lipid panel (03/01/2020 6:30 AM CDT) Cholesterol 86 0 - 199 [place] mg/dL [facility] Triglycerides 78 0 - 149 [place] mg/dL [facility] HDL cholesterol 21 (L) 40 - 99,999 [place] mg/dL [facility] LDL cholesterol 50 0 - 99 mg/dL [facility] Lipid panel See below [place] interpretation Comment: [facility] Total Cholesterol (mg/dL) [facility] <200 Desirable 200-239 Borderline-high >=240 High Triglycerides (mg/dL) <150 Normal 150-199 Borderline-high 200-499 High >=500 Very high HDL Cholesterol (mg/dL) <40 Low (male) <50 Low (female) LDL Cholesterol (mg/dL) <100 Optimal 100-129 Near or above optimal 130-159 Borderline-high 160-189 High >=190 Very high Risk Catergories that modify LDL goals. Risk Catergories LDL goal (mg/d L) CHD and CHD risk equivalent <100 (10-year risk >20%) Multiple (2+) risk factors <130 (10-year risk =<20%) 0-1 risk factors <160 (<10-year risk) Defining levels of lipids in metabolic syndrome Triglycerides >=150 mg/dL HDL Cholesterol Men <40 mg /dL Women <50 mg/ dL Non-HDL cholesterol is a second target for therapy in persons with high triglycerides (>=200 mg/dL) Specimen Blood Performing Organization Address City/[facility]/Zipcode Phone Number [facility] DEPARTMENT OF PATHOLOGY [address] [place] [phone] Ionized calcium (02/29/2020 5:15 AM CDT)Only the most recent of19 resultswithin the time period is included. Pathologist [facility] nature pH 7.41 [facility] Ionized calcium 1.08 (L) 1.11 - 1.32 [facility] mmol/L [facility] Specimen Blood Performing Organization Address City/[facility]/Zipcode Phone Number [facility] DEPARTMENT OF PATHOLOGY [address] [place] [phone] AND GENOMIC MEDICINE [phone] [place] [address] XR Chest 1 Vw Portable (02/27/2020 8:48 PM CDT)Only the most recent of13 resultswithin the time period is included. Specimen Narrative Performed At Examination: XR CHEST 1 VW PORTABLE HM [facility] Clinical history: "placement of centra l line" Comparison: 02/26/2020 IMPRESSION: Right IJ line's tip is in the lower SVC. There are no new alveolar opacities within either lung . Left lower lung infiltration is slightly improved. No pneumotho races are identified. The cardiomediastinal silhouette is unch anged. The bones of the chest are unchanged. [id number] Procedure Note Hm Interface, Radiology Results Incoming - 02/27/2020 8:57 PM CDT Examination: XR CHEST 1 VW PORTABLE Clinical history: "placement of central line" Comparison: 02/26/2020 IMPRESSION: Right IJ line's tip is in the lower SVC. There are no new alveolar opacities with in either lung. Left lower lung infiltration is slightly improved. No pneumothoraces are identified. The cardiomediastinal silhouette is unch anged. The bones of the chest are unchanged. RM-PRATIERRA Performing Organization Address City/State/Zipcode Phone Number [facility] [address] [place] [address] Central Line Insertion (02/27/2020 8:00 PM CDT) Narrative Performed At Ibeth Field NP-C 020 1:30 AM Central Line Insertion Performed by: Ibeth Field NP- C Authorized by: Ibeth Field NP -C Consent: Consent obtained: Written Consent given by: Patient Risks discussed: Arterial puncture, bleeding, incorrect placement, infection, nerve damage and pneumothorax Alternatives discussed: Delayed trey atment [place] protocol: Procedure explained and questions ans wered to patient or proxy's satisfaction: yes Relevant documents present and verifi ed: yes Test results available and properly l abeled: yes Imaging studies available: yes Required blood products, implants, de vices, and special equipment available: yes Site/side marked: yes Immediately prior to procedure, a sy mcnally out was called: yes Patient identity confirmed: Hospital-assigned aspen ntification number and arm band Pre-procedure details: Hand hygiene: Hand hygiene performed prior to insertion Sterile barrier technique: All elemen ts of maximal sterile technique followed Skin preparation: Chloraprep and 2% chlorhexidine Skin preparation agent: Skin preparation agent comp letely dried prior to procedure Sedation: Sedation Type: Narcotic Narcotic(s) used:: Fentanyl (25 uq IV x 1) Anesthesia (see MAR for exact dosages): Anesthesia method: Local infiltrati on Local anesthetic: Lidocaine 1% w/o epi Procedure details: Catheter type: Triple lumen Catheter size: 7.5 Fr Catheter length (cm): 16 cm Catheter site: internal jugular vein Catheter Site Laterality: Right Patient position: Flat Landmarks identified: yes Ultrasound guidance: yes Sterile ultrasound techniques: Sterile gel and ster ile probe covers were used Number of attempts: 1 Successful placement: yes Post-procedure details: Post-procedure: Dressing applied an d line sutured Assessment: Blood return through all ports, no pn eumothorax on x-ray, placement verified by x-ray and free flu id flow Patient tolerance of procedure: Juan Manuel erated well, no immediate complications Lactic acid level (02/26/2020 11:40 PM CDT)Only the most recent of7 results within the time period is included. Pathologist [facility] Lactic acid 1.8 0.5 - 2.2 mmol/L [facility] Specimen Blood Performing Organization Address [facility] Phone Number [facility] DEPARTMENT OF PATHOLOGY [address] [facility] X [phone] [facility] [id number] [place] [phone] [facility] Arterial blood gas (02/26/2020 11:40 PM CDT)Only the most recent of14 results within the time period is included. Pathologist Sig nature pH, arterial 7.53 (H) 7.35 - 7.45 [facility] pCO2, arterial 29 (L) 35 - 45 mmHg [facility] pO2, arterial 133 (H) 80 - 90 mmHg [facility] Bicarbonate, 23.8 21.0 - 28.0 [facility] arterial mmol/L [facility] Base excess, 2 -2 - 2 mEq/L [facility] O2 saturation, 99 95 - 100 % [facility] arterial [facility] Specimen Blood Performing Organization Address [facility]/Zipcode Phone Number [facility] DEPARTMENT OF PATHOLOGY [phone] [place] [phone] [facility] [phone] [place] [phone] [place] [address] Basic metabolic panel (02/26/2020 11:40 PM CDT)Only the most recent of18 results within the time period is included. Pathologist Sig nature Sodium 141 135 - 148 mEq/L [facility] Potassium 3.6 3.5 - 5.0 mEq/L [facility] Chloride 109 98 - 112 mEq/L [facility] CO2 24 24 - 31 mEq/L [facility] Anion gap 8@ANIO 7 - 15 mEq/L [facility] BUN 27 (H) 8 - 23 mg/dL [facility] Creatinine 1.04 0.70 - 1.20 mg/dL [facility] Glucose 133 (H) 65 - 99 mg/dL [facility] Calcium 7.8 (L) 8.8 - 10.2 mg/dL [facility] Specimen Blood Performing Organization Address City/[facility]/Zipcode Phone Number [facility] DEPARTMENT OF PATHOLOGY [phone] [place] [address] X [phone] [place] [address] CT Angiogram Pe Chest (02/26/2020 12:52 PM CDT) Specimen Narrative Performed At EXAMINATION: RADIANT CT ANGIOGRAM PE CHEST CLINICAL HISTORY: PE suspected high pretest prob TECHNIQUE: CT angiographic images of the chest were obtained duri ng intravenous administration of iodinated contrast. Computerized ref ormatted images and 3-D MIP images were also obtained and archived (CT pulmonary embolus protocol). DOSE REDUCTION: CT imaging was performed with iterativ e reconstruction technique and/or automated exposure cont rol to reduce radiation dose. COMPARISON: CT abdomen pelvis without contrast from 02/24/2020 and single view chest from 02/25/2020 FINDINGS: 1.Pulmonary artery opacification is good. Evaluation f or pulmonary embolus within the segmental and subsegmental pulmonar y arteries specifically within the lower lobes is limited by resp iratory motion. No pulmonary embolus is seen within the ad n or lobar pulmonary arteries. There is no evidence of a sa ddle embolus. There is no evidence of ventricular sept al bulging. 2.Trace bilateral pleural effusions are noted, left gr eater than right, which are unchanged compared to previous CT from 02/24/2020. 3.Consolidation within the left lower lobe is noted li daine representing atelectasis. 4.The trachea main bronchi are clear. No peribronchial thickening. No bronchiectasis. 5.No pneumothorax. 6.No mediastinal, hilar, or axillary lym phadenopathy. 7.The thoracic aorta is normal in caliber. The cardiac size is mildly enlarged. No pericardial effusion. A trace amount of f luid is seen within the superior pericardial recesses . 8.The thyroid is unremarkable. 9.The bones of the chest are within norm al limits. 10.No hiatal hernia. Remaining, limited evaluation of the upper abdomen demonstrates reflux of contrast into the inferior vena cava and hepatic veins, which is nonspecific. Nonspecific bilateral per inephric stranding is noted. IMPRESSION: 1.Limited evaluation for pulmonary embolism due to res piratory motion, however, no pulmonary embolus is seen within the main or lobar pulmonary arteries. 2.Trace bilateral pleural effusions, right greater javier n left with associated atelectasis. [facility]-[id number] Procedure Note [facility], Radiology Results Incoming - 02/26/2020 1:04 PM CDT EXAMINATION: CT ANGIOGRAM PE CHEST CLINICAL HISTORY: PE suspected high pretest prob TECHNIQUE: CT angiographic images of the chest were obtained during intravenous administration of iodinated contrast. Computerized reformatted images and 3-D MIP images were also obtained and archived (CT pulmonary embolus protocol). DOSE REDUCTION: CT imaging was performed with iterative reconstruction technique and/or automated exposure control to reduce radiation dose. COMPARISON: CT abdomen pelvis without contrast from 02/24/2020 and single view chest from 02/25/2020 FINDINGS: 1.Pulmonary artery opacification is good . Evaluation for pulmonary embolus within the segmental and subsegmental pulmonary arteries specifically within the lower lobes is limited by respiratory motion. No pulmonary embolus is seen within the main or lobar pulmonary arteries. There is no ev idence of a saddle embolus. There is no evidence of ventricular septal bulging. 2.Trace bilateral pleural effusions are noted, left greater than right, which are unchanged compared to previous CT from 02/24/2020. 3.Consolidation within the left lower lo be is noted likely representing atelectasis. 4.The trachea main bronchi are clear. No peribronchial thickening. No bronchiectasis. 5.No pneumothorax. 6.No mediastinal, hilar, or axillary lym phadenopathy. 7.The thoracic aorta is normal in calibe r. The cardiac size is mildly enlarged. No pericardial effusion. A trace amount of fluid is seen within the superior pericardial recesses. 8.The thyroid is unremarkable. 9.The bones of the chest are within norm al limits. 10.No hiatal hernia. Remaining, limited evaluation of the upper abdomen demonstrates reflux of contrast into the inferior vena cava and hepatic veins, which is nonspecific. Nonspecific bilateral perinephric stranding is noted. IMPRESSION: 1.Limited evaluation for pulmonary embol ism due to respiratory motion, however, no pulmonary embolus is seen within the main or lobar pulmonary arteries. 2.Trace bilateral pleural effusions, rig ht greater than left with associated atelectasis. [facility]-[id number] Performing Organization Address [facility] Phone Number [facility] [address] [place] [address] Phosphorus level (02/26/2020 6:35 AM CDT)Only the most recent of18 results within the time period is included. Pathologist Sig nature Phosphorus 3.1 2.4 - 4.5 mg/dL [facility] Specimen Blood Performing Organization Address [facility] Phone Number [facility] DEPARTMENT OF PATHOLOGY [phone] [place] [address] X [phone] AND [facility] [phone] [place] [phone] [place] [address] Prothrombin time with INR (02/25/2020 3:10 AM CDT)Only the most recent of11 resultswithin the time period is included. Prothrombin time 16.6 (H) 11.5 - 14.5 [facility] INR 1.3 [place] Comment: JUNG SAUCEDO The International Normalized Ratio (INR) is a [facility] monitoring tool for patients who are stable on oral anticoagulant therapy. An INR of 2.0-3.0 is suggested for deep vein thrombosis/pulmonary embolism. Specimen Blood Performing Organization Address [facility] Phone Number [facility] DEPARTMENT OF PATHOLOGY [address] [place] [phone] AND [facility]ICINE [facility] [place] [address] [facility] [address] [place] [address] [facility] CT Abdomen Pelvis Wo Contrast (02/24/2020 11:23 PM CDT) Specimen Narrative Performed At Examination: CT ABDOMEN PELVIS WO CONT RAST RADIANT Clinical History: R O Spontaneous retrop eritoneal bleeding Comparison: None. Findings: CT scans are performed using radiation dose reduction techniques. Technical factors are evaluated and adjusted to ensu re appropriate moderation of exposure. Automated dose management te chnology is applied to adjust radiation exposure whi le achieving a diagnostic quality image. CT imaging was performed wit h iterative reconstruction techniques and/or automated exposure co ntrol to reduce radiation dose. CT scan of the abdomen and pelvis was performed withou t intravenous contrast. The liver, spleen, pancreas, and adrenal glands are un remarkable. Gallbladder shows vicarious excretion fr om prior study. The kidneys are within normal limits without hydroneph rosis or urinary calculus. The appendix is unremarkable. Scattered colonic divert iculi are noted. No bowel thickening or fat stranding is seen. No bowel dilatation is seen. No free air or fluid is seen. Urinary bladder is not w ell-distended due to Nino catheter. Mild subcutaneous edema is seen bilatera lly at the lateral aspect. No retroperitoneal or intraperitoneal he matoma or hemorrhage is seen. The visualized lung bases show small bilateral effusio ns and bilateral dependent atelectasis. IMPRESSION: 1. No retroperitoneal or intraperitoneal hematoma identified. 2. Mild diffuse subcutaneous edema. 3. Small bilateral pleural effusions wit h mild dependent atelectasis. [id number] Procedure Note Interface, Radiology Results Incoming - 02/24/2020 11:41 PM CDT Examination: CT ABDOMEN PELVIS WO CONTRAST Clinical History: R O Spontaneous retrop eritoneal bleeding Comparison: None. Findings: CT scans are performed using radiation d ose reduction techniques. Technical factors are evaluated and adjusted to ensure appropriate moderation of exposure. Automated dose management technology is applied to adjust radiation exposure while achie ving a diagnostic quality image. CT imaging was performed with iterative reconstruction techniques and/or automated exposure control to reduce radiation dose. CT scan of the abdomen and pelvis was pe rformed without intravenous contrast. The liver, spleen, pancreas, and adrenal glands are unremarkable. Gallbladder shows vicarious excretion from prior study. The kidneys are within normal limits wit hout hydronephrosis or urinary calculus. The appendix is unremarkable. Scattered colonic diverticuli are noted. No bowel thickening or fat stranding is seen. No bowel dilatation is seen. No free air or fluid is seen. Urinary bl adder is not well-distended due to Nino catheter. Mild subcutaneous edema is seen bilatera lly at the lateral aspect. No retroperitoneal or intraperitoneal he matoma or hemorrhage is seen. The visualized lung bases show small ruma ateral effusions and bilateral dependent atelectasis. IMPRESSION: 1. No retroperitoneal or intraperitoneal hematoma identified. 2. Mild diffuse subcutaneous edema. 3. Small bilateral pleural effusions wit h mild dependent atelectasis. [id number] Performing Organization Address City/[facility]/Zipcode Phone Number [facility] [address] [place] [address] Hemoglobin & hematocrit (02/24/2020 9:15 PM CDT) Pathologist Sig nature HGB 11.4 (L) 14.0 - 18.0 g/dL [facility] HCT 34.8 (L) 41.0 - 51.0 % [facility] Specimen Blood Performing Organization Address [facility]/Zipcode Phone Number [facility] DEPARTMENT OF PATHOLOGY [address] [place] [address] [phone] Partial thromboplastin time, activated (02/24/2020 9:15 PM CDT)Only the most recent of5 resultswithin the time period is included. PTT 202.5 (HH) 23.0 - 36.0 [facility] Comment: sec [facility] PTT therapeutic range for unfractionated heparin is HOSPITAL 61.0-112.0 seconds which corresponds to Anti-Xa 0.3-0.7 U/ml. PTT results called to and read back by JOSE FRANCISCO WALTERS, RN/MARGOTHU at 02/24/2020 21:41 by [facility] Specimen Blood Performing Organization Address [facility]/Zipcode Phone Number [facility] DEPARTMENT OF PATHOLOGY [address] [place] [phone] Type and screen (02/24/2020 9:15 PM CDT)Only the most recent of2 resultswithin the time period is included. Pathologist Sig nature ABO grouping AComment: Blood [place] [facility] is available. [facility] 02/24/20 22:13 Vi Myalil Rh type POS [facility] Antibody screen NEG [facility] (gel) [facility] Specimen Blood Performing Organization Address [facility] Phone Number [facility] DEPARTMENT OF PATHOLOGY [phone] [place] [phone] [facility] [phone] [place] [phone] [facility] Anti Xa, unfractionated (02/24/2020 7:25 PM CDT) Anti Xa, <0.10Comment: U/mL [place] unfractionated Therapeutic Range: [place] 0.30 - 0.70 U/mL [facility] Specimen Blood Performing Organization Address [facility] Phone Number [facility] DEPARTMENT OF PATHOLOGY [phone] [place] [phone] [facility] [phone] [place] [phone] [facility] Central Line Insertion (02/24/2020 6:47 PM CDT) Narrative Performed At Sophy Mcfarland NP 02/24/20 6:48 PM Central Line Insertion Performed by: Sophy Mcfarland NP Authorized by: Sophy Mcfarland N P Consent: Consent obtained: Verbal and writte n Consent given by: Patient Risks discussed: Arterial puncture, bleeding, incorrect placement, infection and nerve damage Alternatives discussed: No treatmen t [place] protocol: Procedure explained and questions ans wered to patient or proxy's satisfaction: yes Relevant documents present and verifi ed: yes Test results available and properly l abeled: yes Imaging studies available: yes Required blood products, implants, de vices, and special equipment available: yes Site/side marked: yes Immediately prior to procedure, a sy mcnally out was called: yes Patient identity confirmed: Verball y with patient, arm band and hospital-assigned identification number Pre-procedure details: Hand hygiene: Hand hygiene performed prior to insertion Sterile barrier technique: All elemen ts of maximal sterile technique followed Skin preparation: Chloraprep Skin preparation agent: Skin preparation agent comp letely dried prior to procedure Anesthesia (see MAR for exact dosages): Anesthesia method: None Procedure details: Catheter type: Triple lumen Catheter size: 6 Fr Catheter site: femoral vein Catheter Site Laterality: Right Ultrasound guidance: yes Sterile ultrasound techniques: Sterile gel and ster ile probe covers were used Number of attempts: 1 Successful placement: yes Post-procedure details: Post-procedure: Dressing applied Patient tolerance of procedure: Juan Manuel erated well, no immediate complications Comments: Quiana Martinez Arterial Line Insertion (02/24/2020 6:46 PM CDT)Only the most recent of2 resultswithin the time period is included. Narrative Performed At Sophy Mcfarland NP 02/24/20 6:47 PM Arterial Line Insertion Date/Time: 02/24/2020 6:46 PM Performed by: Sophy Mcfarland NP Authorized by: Sophy Mcfarland N P Consent: Consent obtained: Verbal and writte n Consent given by: Patient Risks discussed: Bleeding, ischemia , infection, pain and repeat procedure Indications: Indications: hemodynamic monitoring Pre-procedure details: Skin preparation: 2% Chlorhexidine Procedure details: Location: R femoral Needle gauge: 18 G Ultrasound guidance: yes Number of attempts: 1 Transducer: waveform confirmed Post-procedure details: Post-procedure: Sutured Patient tolerance of procedure: Juan Manuel erated well, no immediate complications Comments: Quiana Martinez Us duplex venous upper extremity (02/24/2020 6:07 PM CDT) Specimen Narrative Performed At EXAMINATION: US DUPLEX VENOUS UPPER EX TREMITY BILATERAL HM RADIANT CLINICAL HISTORY: Arm swelling or pain DVT suspected COMPARISON: None. TECHNIQUE: Grayscale, color Doppler, and spectral wa veform analysis of the bilateral upper extremity deep venou s systems was performed. FINDINGS: The left upper extremity, there is occlusive thrombus in the left axillary vein, cephalic vein, basilic vein, and ulnar vein. The left internal jugular vein, brachial vein, ra dial vein are patent. Patent right internal jugular, subclavian, axillary, b rachial, basilic, cephalic, and forearm. IMPRESSION: Occlusive left upper extremity deep vein thrombosis. Findings were discussed with PASTORA Spencer at 02/24/2020 6 :10 PM who verbalized understanding. [id number] Procedure Note Hm Interface, Radiology Results Incoming - 02/24/2020 6:15 PM CDT EXAMINATION: US DUPLEX VENOUS UPPER EXTREMITY BILATERAL CLINICAL HISTORY: Arm swelling or pain DVT suspected COMPARISON: None. TECHNIQUE: Grayscale, color Doppler, an d spectral waveform analysis of the bilateral upper extremity deep venous systems was performed. FINDINGS: The left upper extremity, there is occlu sive thrombus in the left axillary vein, cephalic vein, basilic vein, and ulnar vein. The left internal jugular vein, brachial vein, radial vein are patent. Patent right internal jugular, subclavia n, axillary, brachial, basilic, cephalic, and forearm. IMPRESSION: Occlusive left upper extremity deep vein thrombosis. Findings were discussed with PASTORA Spencer at 02/24/2020 6:10 PM who verbalized understanding. [facility] Performing Organization Address [facility] Phone Number [employer] [phone] [place] [address] [place] Modified Barium Swallow (02/24/2020 11:34 AM CDT) Specimen Narrative Performed At EXAMINATION: [place] MODIFIED BARIUM SWALLO W RADIANT CLINICAL HISTORY: Dysphagia unexplai joaquín COMPARISON: None. Reference air kerma: 8.75 mGy FINDINGS: The patient swallowed varying consistencies of barium under direct lateral fluoroscopic evaluation. The study was perform ed in conjunction with speech pathology. IMPRESSION: There is penetration with residue in the valleculae wi th swallowing the thin liquid consistency. The patient swallowed other c onsistencies of barium without evidence of laryngeal pen etration or aspiration. Please refer to Speech Pathology report for further details. [facility]-[id number] Procedure Note Interface, Radiology Results Incoming - 02/24/2020 3:51 PM CDT EXAMINATION: [place] MODIFIED BARIUM SWALLOW CLINICAL HISTORY: Dysphagia unexplaine d COMPARISON: None. Reference air kerma: 8.75 mGy FINDINGS: The patient swallowed varying consisten cies of barium under direct lateral fluoroscopic evaluation. The study was performed in conjunction with speech pathology. IMPRESSION: There is penetration with residue in the valleculae with swallowing the thin liquid consistency. The patient swallowed other consistencies of barium without evidence of laryngeal penetration or aspiration. Please refer to Speech Pathology report for further details. [facility]-[id number] Performing Organization Address [facility] Phone Number [employer] [phone] [place] [address] Manual differential (02/24/2020 7:10 AM CDT)Only the most recent of10 results within the time period is included. Manual differential PERFORMED [facility] Neutrophils 92.0 (H) 39.0 - 69.0 % [facility] Lymphocytes 4.0 (L) 25.0 - 45.0 % [facility] Monocytes 4.0 0.0 - 10.0 % [facility] Eosinophils 1.0 0.0 - 5.0 % [facility] Basophils 0.0 0.0 - 1.0 % [facility] Platelet slide review Decreased (A) [facility] Anisocytosis Moderate [facility] Polychromasia Moderate [facility] Spherocytes Occasional [facility] Ovalocytes Moderate [facility] Jakob cells Moderate (A) [facility] Enlarged platelets Moderate (A) [facility] Specimen Performing Organization Address City/State/Zipcode Phone Number [facility] DEPARTMENT OF PATHOLOGY [address] [facility], [place] [address] AND [facility] [address] [facility] [facility] [address] [address] [facility] Transthoracic Echocardiogram Complete, (w Contrast, Strain and 3D if needed) (02/23/2020 3:07 PM CDT) Pathologist Sig nature AoV Area, Vmax 3.46 cm2 SYNGO AoV Area, VTI 3.63 cm2 SYNGO AoV Mean PG 3.00 mmHg SYNGO AoV Peak PG 5.11 mmHg SYNGO AoV Vmax 1.13 m/s HM SYNGO AoV VTI 0.16 m HM SYNGO IVS,d 0.99 cm HM SYNGO IVS/LVPW,2D 0.98 HM SYNGO Left Atrium Dimension Anterior 3.20 cm HM SYNGO LV,d 5.36 cm HM SYNGO LV EF,2D 64.65 % HM SYNGO LV,s 3.79 cm HM SYNGO LVOT area 3.80 cm2 HM SYNGO LVOT Diam,S 2.20 cm HM SYNGO LVOT Vmax 1.03 m/s HM SYNGO LVOT VTI 0.15 m HM SYNGO LVPWD,d 1.01 cm HM SYNGO TR Vpeak 2.27 mm/s HM SYNGO MV E A ratio 2.82 HM SYNGO TR pk grad 20.61 mmHg HM SYNGO E wave decelartion time 180.00 msec HM SYNGO MV Peak A Gurvinder 0.30 m/s HM SYNGO MV valve area p 1/2 method 4.21 cm2 HM SYNGO MV Peak E Gurvinder 0.84 m/s HM SYNGO MV stenosis pressure 1/2 time 52.20 ms HM SYNGO AV LVOT peak gradient 4.24 mmHg HM SYNGO Ao Root,d,2D 4.10 cm HM SYNGO LV SYS VOL 61.56 ml HM SYNGO LV BUNN VOL 138.91 ml HM SYNGO LV SV Teich 2D 77.35 ml HM SYNGO LV Vol s Teich PSAX 61.56 ml HM SYNGO AoV Vmn 0.84 HM SYNGO LV FS Teich 2D 29.29 HM SYNGO MV AE ratio 0.35 HM SYNGO LV FS Cube 2D 29.29 HM SYNGO LVOT Vmn 0.62 HM SYNGO Aov area Vmn 2.79 cm2 HM SYNGO LVOT mean grad 2.00 mmHg HM SYNGO MAX Pred HR 151.27 HM SYNGO 85 of MPHR 128.58 HM SYNGO Ao d LA s ratio 1.28 HM SYNGO Calc MPHR 151.27 bpm HM SYNGO LV SV Cube 2D 99.55 ml HM SYNGO LV vol d cube 2D 153.99 ml HM SYNGO LV vol s cube 2D 54.44 ml HM SYNGO MV Decel slope 4.67 m/s2 HM SYNGO Pred Exer Dur R1 7.37 HM SYNGO Pred METS R1 7.69 HM SYNGO Velocity Ratio (V1/V2) 0.91 m/s HM SYNGO EF 55.68 % HM SYNGO E/A ratio 2.80 SYNGO Specimen Narrative Performed At This result has an attachment that is no t available. Left ventricular systolic function is moderately impaired. HM SYNGO Left Ventricular ejection fraction may be 40% There is mild sclerosis of the aortic valve leaflet s. Anteroapical moderate to severe hypokinesia No pericardial effusion Mild tricuspid insufficiency Performing Organization Address City/State/Zipcode Phone Number SYNGO [address] [place] [address], Ionized calcium, arterial (02/21/2020 1:13 AM CDT)Only the most recent of6 resultswithin the time period is included. Pathologist Sig nature Ionized calcium, 0.97 (L) 1.11 - 1.32 [facility] arterial mmol/L [facility] Specimen Blood Performing Organization Address City/[facility]/Zipcode Phone Number [facility] DEPARTMENT OF PATHOLOGY [address] [facility], [place] [address] AND [facility] [address] [facility] X [address] HOSPITAL ECG 12 lead (02/19/2020 10:13 AM CDT)Only the most recent of6 resultswithin the time period is included. Pathologist Sig nature Ventricular rate 86 [facility] Atrial rate 86 [facility] HI interval 144 [facility] QRSD interval 24 [facility] QT interval 242 [facility] QTC interval 289 [facility] P axis 1 25 [facility] QRS axis 1 0 [facility] T wave axis 54 [facility] EKG impression Sinus rhythm with marked sin us arrhythmia-Biatrial enlargement- Indeterminate axis--Abnormal ECG-In automated comparison with ECG of 18-FEB-2020 23:06,-Sinus rhythm has replaced Atrial fibrillation-Right H MUSE bundle branch block is no longer present-Criteria for Anteroseptal infarct are no longer present- Specimen Narrative Performed At This result has an attachment that is no t available. Performing Organization Address [facility] Phone Number [facility] MUSE [address] [place] [address] Lidocaine level (02/19/2020 3:30 AM CDT)Only the most recent of5 resultswithin the time period is included. Pathologist Sig nature Lidocaine 0.77 (L) 1.50 - 5.00 ug/mL [facility] Specimen Blood Performing Organization Address City/[facility]/Zipcode Phone Number [facility] DEPARTMENT OF PATHOLOGY AND [address] [place], [place] [address] [facility] [address] [place] [address] XR Abdomen 1 Vw (02/18/2020 3:55 AM CDT)Only the most recent of2 resultswithin the time period is included. Specimen Narrative Performed At EXAMINATION: XR ABDOMEN 1 VW RADIANT HISTORY: 69 years Male Feeding tube pl acement COMPARISON: Abdominal radiograph from 02/16/2020. FINDINGS: A feeding tube has been placed with the side port in t he body the stomach. A small bowel loop in the included upper abdo men is prominent measuring up to 2.9 cm in diameter. IMPRESSION: Feeding tube in place with side port in the body the stomach. [facility]-[id number] Procedure Note Hm Interface, Radiology Results Incoming - 02/18/2020 4:05 AM CDT EXAMINATION: XR ABDOMEN 1 VW HISTORY: 69 years Male Feeding tube kimmie cement COMPARISON: Abdominal radiograph from . FINDINGS: A feeding tube has been placed with the side port in the body the stomach. A small bowel loop in the included upper abdomen is prominent measuring up to 2.9 cm in diameter. IMPRESSION: Feeding tube in place with side port in the body the stomach. [facility]-[id number] Performing Organization Address City/[facility]/Zipcode Phone Number RADIANT [address] [place] [address] Urine eosinophils (02/17/2020 10:33 AM CDT) Pathologist Sig nature Eosinophils, urine NONE [facility] ITAL Specimen Urine Performing Organization Address City/[facility]/Zipcode Phone Number [facility] DEPARTMENT OF PATHOLOGY AND [address] [place], [place] [address] [address] Sodium level, urine, random (02/17/2020 10:33 AM CDT) Total volume, urine 10 mL [facility] Urine sodium <33 mEq/L [facility] Urine sodium excretion SEE COMMENT [facility] Comment: [place] Varies with diet. HOSPITAL Unable to calculate excretion due to low analyte ellen ntration. Specimen Urine Performing Organization Address City/State/Zipcode Phone Number [facility] DEPARTMENT OF PATHOLOGY [address] [facility] [place] [address] AND GENOMIC [facility] [address] [facility] [place] [address] [facility] Protein, urine, random (02/17/2020 10:33 AM CDT) Pathologist Sig nature Total volume, urine 10 mL [facility] Urine protein 178 mg/dL [facility] Urine protein excretion 18 mg/vol [facility] Specimen Urine Performing Organization Address City/[facility]/Zipcode Phone Number [facility] DEPARTMENT OF PATHOLOGY [address] [place] [address] [address] Creatinine level, urine, random (02/17/2020 10:33 AM CDT) Pathologist [facility] Total volume, urine 10 mL [facility] Urine creatinine 166 mg/dL [facility] Urine creatinine excretion 17 mg/vol [facility] Specimen Urine Performing Organization Address [facility] Phone Number [facility] DEPARTMENT OF PATHOLOGY [address] [place] [address] Thyroid stimulating hormone (02/17/2020 8:15 AM CDT) Pathologist [facility] TSH 0.51 0.27 - 4.20 uIU/mL [facility] Specimen Performing Organization Address [facility] Phone Number [facility] DEPARTMENT OF PATHOLOGY [address] [place] [address] X [facility] AND [address] Troponin (02/17/2020 2:30 AM CDT)Only the most recent of3 resultswithin the time period is included. Troponin >250.000 () 0.000 - 0.040 [facility] Comment: ng/mL [facility] In patients suspected of having a myocardial infarctio n, along with all other appropriate clinical measures and actions includ ing ECG and other diagnostics as appropriate, measure Ultra TnI at 0 hrs and at 3 hrs. Myocardial infarction VERY LIKELY The 0 hr TnI level is > 0.10 ng/mL Myocardial infarction LIKELY The 0 hr TnI level is > 0.04 ng/mL and 3 hr level is i ncreased or decreased by at least 0.020 ng/mL Myocardial infarction VERY UNLIKELY Both the 0 hr and 3 hr TnI levels <= 0.04 ng/mL(within normal limits) OR 0 hr is > 0.04 ng/mL and 3 hr is increased OR decreased by less than 0.020 ng/mL Final results called to and read back by PASTORA CELESTIN 02/17/2020 04:32 [place] Specimen Blood Performing Organization Address [facility]/Zipcode Phone Number [facility] DEPARTMENT OF PATHOLOGY [address] [place] [address] AND GENOMIC MEDICINE [address] Hepatic function panel (02/16/2020 3:55 PM CDT) [facility] Albumin 3.5 3.5 - 5.0 g/dL [facility] Total bilirubin 1.0 0.2 - 1.2 mg/dL [facility] Bilirubin direct 0.4 (H) 0.0 - 0.3 mg/dL [facility] Alkaline phosphatase 58 40 - 129 U/L [facility] Protein 5.6 (L) 6.3 - 8.3 g/dL [facility] ALT 346 (H) 5 - 50 U/L [facility] AST 987 (H) 10 - 50 U/L [facility] Specimen Blood Performing Organization Address City/[facility]/Zipcode Phone Number [facility] DEPARTMENT OF PATHOLOGY [address] [place] [address] [id number] [place] [address] IABP PLACEMENT (02/16/2020 11:57 AM CDT) Narrative Performed At Sigifredo Garcia Jr., MD 02/15 12:00 PM IABP placement Date/Time: 02/16/2020 11:57 AM Performed by: Sigifredo Garcia Jr., MD Authorized by: Sigifredo Garcia Jr, MD Consent: Consent obtained: Emergent situatio n Consent given by: Spouse Risks discussed: Pneumothorax, hemo rrhage, arrhythmia and local hematoma Alternatives discussed: No treatmen t and delayed treatment [place] protocol: Procedure explained and questions ans wered to patient or proxy's satisfaction: yes Relevant documents present and verifi ed: yes Test results available and properly l abeled: yes Imaging studies available: yes Required blood products, implants, de vices, and special equipment available: yes Immediately prior to procedure a time out was called: yes Site/side marked: yes Patient identity confirmed: Verbally with patient , arm band, provided demographic data and hospital-assigned i dentification number Pre-procedure details: Indications: Ventricular assist Anesthesia (see MAR for exact dosages): Anesthesia method: Local infiltrati on Local anesthetic: Lidocaine 1% WITH epi Procedure details: Skin preparation: Skin prepped with 2% chlorhexadine Skin prep agent dried: Skin prep agen t completely dried prior to procedure Sterile barriers: All five maximal sterile barriers used - gloves, gown, cap, mask and large sterile sheet Hand hygiene: Hand hygiene performed prior to IABP insertion Location: left femoral Site selection rationale: Wired out previous arterial line Patient position: Flat Catheter size: 7 Fr Number of attempts: 1 Successful placement: Yes Post-procedure: Post-procedure: Line sutured and st erile dressing applied Assessment: Blood return through all parts and pl acement verified by x-ray Patient tolerance: Patient tolerated the procedure well with no immediate complications Comments: Wired out previously placed arterial line. Blood culture, aerobic & anaerobic (02/16/2020 10:20 AM CDT)Only the most recent of2 resultswithin the time period is included. Blood culture No growth after 5 days of incubation. MICKI FENG isolate Comment: HOSPITAL Specimen Information Specimen Source: Blood Specimen Site: Unspecified Specimen Blood Performing Organization Address City/State/Zipcode Phone Number [facility] DEPARTMENT OF PATHOLOGY AND [address] [place], [place] [address] GENOMIC MEDICINE [facility] [address] [place] [address] Transthoracic Echocardiogram Complete, (w Contrast, Strain and 3D if needed) (02/16/2020 8:28 AM CDT) Pathologist Sig [facility] Ao Root Diameter 4.53 cm HM SYNGO AoV Area, Vmax 2.82 cm2 HM SYNGO AoV Area, VTI 3.16 cm2 HM SYNGO AoV Mean PG 4.05 mmHg HM SYNGO AoV Peak PG 6.40 mmHg HM SYNGO AoV Vmax 1.27 m/s HM SYNGO AoV VTI 0.14 m HM SYNGO IVS,d 1.25 cm HM SYNGO IVS/LVPW,2D 1.01 HM SYNGO Left Atrium Dimension Anterior 3.03 cm HM SYNGO LA Area d A4C 26.60 cm2 HM SYNGO LV,d 4.71 cm HM SYNGO LV EF,2D 63.07 % HM SYNGO LV,s 3.38 cm HM SYNGO LVOT area 3.40 cm2 HM SYNGO LVOT Diam,S 2.08 cm HM SYNGO LVOT Vmax 1.05 m/s HM SYNGO LVOT VTI 0.13 m HM SYNGO LVPWD,d 1.24 cm HM SYNGO TR Vpeak 1.27 mm/s HM SYNGO MV E A ratio 0.51 HM SYNGO TR pk grad 6.49 mmHg HM SYNGO E wave decelartion time 132.82 msec HM SYNGO MV Peak A Gurvinder 0.87 m/s HM SYNGO MV valve area p 1/2 method 5.71 cm2 HM SYNGO MV Peak E Gurvinder 0.45 m/s HM SYNGO MV stenosis pressure 1/2 time 38.52 ms HM SYNGO AV LVOT peak gradient 4.40 mmHg HM SYNGO Ascending aorta 4.28 cm HM SYNGO Ao Root Diameter 4.53 cm HM SYNGO LV SYS VOL 46.73 ml HM SYNGO LV BUNN VOL 102.83 ml HM SYNGO LV SV Teich 2D 56.11 ml HM SYNGO LV Vol s Teich PSAX 46.73 ml HM SYNGO AoV Vmn 0.98 HM SYNGO LV FS Teich 2D 28.25 HM SYNGO MV AE ratio 1.96 HM SYNGO LV FS Cube 2D 28.25 HM SYNGO LVOT Vmn 0.74 HM SYNGO Aov area Vmn 2.58 cm2 HM SYNGO LA Vol d MOD A4C 80.29 ml HM SYNGO LVOT mean grad 2.38 mmHg HM SYNGO MAX Pred HR 151.29 HM SYNGO 85 of MPHR 128.59 HM SYNGO Calc MPHR 151.29 bpm HM SYNGO LV SV Cube 2D 65.86 ml HM SYNGO LV vol d cube 2D 104.44 ml HM SYNGO LV vol s cube 2D 38.57 ml HM SYNGO MV Decel slope 3.36 m/s2 HM SYNGO Pred Exer Dur R1 7.37 HM SYNGO Pred METS R1 7.69 HM SYNGO Velocity Ratio (V1/V2) 0.83 m/s HM SYNGO EF 54.56 % HM SYNGO E/A ratio 0.52 HM SYNGO Specimen Narrative Performed At This result has an attachment that is no t available. Left ventricular systolic function is moderately impaired. HM SYNGO There is mild left ventricular hypertrophy Left Ventricular ejection fraction is 30 - 35%. No pericardial effusion Anteroapical hypokinesia Slightly difficult study Performing Organization Address City/State/[facility] Phone Number HM SYNGO [address] [place] [address], Peripheral Block (02/16/2020 7:48 AM CDT) Narrative Performed At Benson Horn MD 02/16/2020 7:48 AM Peripheral Block Performed by: Benson Horn MD Authorized by: Benson Horn MD Patient Location: Pre-op Reason for Block: at surgeon's request, post-op pain management Staff: Anesthesiologist: Benson Horn M D Performed by: Anesthesiologist Preprocedure: patient identified, IV hans cked, site and side verified, risks and benefits discussed, procedure verified, surgical consent complete, patient position confirmed, mo nitors and equipment checked, pre-op evaluation complete and site seferino ed Peripheral Nerve Block: Patient Position: Supine Prep: DuraPrep Block Type: Femoral (Adductor Canal Ca theter Right) Laterality: Right Injection Technique: Catheter insertio n Procedures: ultrasound guided Ultrasound documentation: Printed/plac ed in chart Local Infiltration (See MAR for details) : Ropivacaine Loss of Twitch: 0 mA Needle: Needle Type: Valeriy Needle Gauge: 19 G Needle Length: 10 cm Catheter at Skin Depth: 6 cm Assessment: Injection Assessment: Visualized needle/local ane sthetic surrounding nerve, visualized pertinent vascular str uctures and nerves, needle tip visualized at all times during injection of medication, intermittent aspiration during local anesthetic admin istration and no symptoms of intraneural/intravenous injection Heart Rate Change: No Slow Fractionated Injection: Yes Block outcome: No apparent complica tions, patient comfortable and patient tolerated procedure well Notes: Time Out done immediately before procedu re 20cc 0.5N and 4mg decadron Peripheral Block (02/16/2020 7:48 AM CDT) Narrative Performed At Benson Horn MD 02/16/2020 7:48 AM Peripheral Block Performed by: Benson Horn MD Authorized by: Benson Horn MD Patient Location: Block room Reason for Block: at surgeon's request, post-op pain management Staff: Anesthesiologist: Benson Horn M D Performed by: Anesthesiologist Preprocedure: patient identified, IV hans cked, site and side verified, risks and benefits discussed, procedure verified, surgical consent complete, patient position confirmed, mo nitors and equipment checked, pre-op evaluation complete, site marked and coagulatio n status reviewed Peripheral Nerve Block: Patient Position: Supine Prep: ChloraPrep Monitoring: Blood pressure monitoring, continuous pulse oximetry and heart rate Anesthesia block type: Right Anterior Fe moral Cutaneous. Laterality: Right Injection Technique: Single injection Procedures: ultrasound guided Ultrasound documentation: Printed/plac ed in chart Local Infiltration (See MAR for details) : Ropivacaine Needle: Needle Type: Long-bevel and Pajunk Needle Gauge: 22 G Needle Length: 10 cm Assessment: Injection Assessment: Visualized needle/local ane sthetic surrounding nerve, needle tip visualized at all times during injec tion of medication, visualized pertinent vascular structures and nerves, intermittent aspiration during local anesthetic admin istration and no symptoms of intraneural/intravenous injection Heart Rate Change: No Slow Fractionated Injection: Yes Block outcome: No apparent complica tions, patient comfortable and patient tolerated procedure well Notes: Time out Done Immediately Before Pro cedure Peripheral Block (02/16/2020 7:47 AM CDT) Narrative Performed At Benson Horn MD 02/16/2020 7:48 AM Peripheral Block Performed by: Benson Horn MD Authorized by: Benson Horn MD Patient Location: Block room Reason for Block: at surgeon's request, post-op pain management Staff: Anesthesiologist: Benson Horn M D Preprocedure: patient identified, IV hans cked, site and side verified, risks and benefits discussed, procedure verified, surgical consent complete, patient position confirmed, mo nitors and equipment checked, pre-op evaluation complete and site seferino ed Peripheral Nerve Block: Patient Position: Supine Prep: ChloraPrep Monitoring: Blood pressure monitoring, continuous pulse oximetry and heart rate Block Type: Sciatic (Right IPACK Sciat ic) Laterality: Right Injection Technique: Single injection Procedures: ultrasound guided Ultrasound documentation: Printed/plac ed in chart Local Infiltration (See MAR for details) : Bupivacaine Needle: Needle Type: Long-bevel Needle Gauge: 22 G Needle Length: 15 cm Assessment: Injection Assessment: Visualized needle/local ane sthetic surrounding nerve, visualized pertinent vascular str uctures and nerves, needle tip visualized at all times during injection of medication, intermittent aspiration during local anesthetic admin istration and no symptoms of intraneural/intravenous injection Heart Rate Change: No Slow Fractionated Injection: Yes Block outcome: No apparent complica tions, patient comfortable and patient tolerated procedure well Notes: Time out done immediately before Pro cedure used Us duplex venous lower extremity (02/16/2020 4:15 AM CDT) Specimen Narrative Performed At EXAMINATION: US DUPLEX VENOUS LOWER EX TREMITY BILATERAL HM RADIANT CLINICAL HISTORY: PE suspected low p retest prob COMPARISON: None. TECHNIQUE: Grayscale, color Doppler, and spectral wa veform analysis of the bilateral lower extremity deep venous systems was performed. The bilateral common femoral, superficial femoral, proxima l deep femoral, greater saphenous, and popliteal veins w ere evaluated. The calf vessels were also e valuated. FINDINGS: Right femoral vein mid and distal segments, right popl iteal vein, right peroneal vein, right posterior tibial left common femo ral vein, left deep femoral vein not visualized due to overlying bandages and lines. The right common femoral, visualized bilateral superfi cial femoral, and left popliteal veins are compressible. They demonstrat e normal venous waveforms and response to augmentation. There is flow in the visualized left calf veins. There is no evidence of a popliteal or B tavia's cyst. IMPRESSION: There is no evidence of deep venous thrombosis in the visualized veins of the bilateral lower extremities. Multiple bilateral lower extremity veins not visualized as above. [facility]-[id number] Procedure Note Interface, Radiology Results Incoming - 02/16/2020 4:51 AM CDT EXAMINATION: US DUPLEX VENOUS LOWER EXTREMITY BILATERAL CLINICAL HISTORY: PE suspected low pre test prob COMPARISON: None. TECHNIQUE: Grayscale, color Doppler, an d spectral waveform analysis of the bilateral lower extremity deep venous systems was performed. The bilateral common femoral, superficial femoral, proximal deep femoral, greater saphenous, and popliteal veins w ere evaluated. The calf vessels were also e valuated. FINDINGS: Right femoral vein mid and distal segmen ts, right popliteal vein, right peroneal vein, right posterior tibial left common femoral vein, left deep femoral vein not visualized due to overlying bandages and lines. The right common femoral, visualized ruma ateral superficial femoral, and left popliteal veins are compressible. They demonstrate normal venous waveforms and response to augmentation. There is flow in the visualized left calf veins. There is no evidence of a popliteal or B tavia's cyst. IMPRESSION: There is no evidence of deep venous thro mbosis in the visualized veins of the bilateral lower extremities. Multiple bilateral lower extremity veins not visualized as above. [facility]-[id number] Performing Organization Address City/[facility]/Zipcode Phone Number [facility] [address] [place] [address] Beta hydroxybutyrate (02/16/2020 1:30 AM CDT) Pathologist Sig nature Beta hydroxybutyrate 1.05 (H) 0.02 - 0.27 [facility] mmol/L [facility] Specimen Blood Performing Organization Address City/[facility]/Zipcode Phone Number [facility] DEPARTMENT OF PATHOLOGY [address] [facility], X [address] AND GENOMIC [facility] [address] [facility] [place] [address] 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 CARDIOLOGY NOTE RIN A 69-year-old gentleman admitted in the laborer [facility] of tachyarrhythmia. PROCEDURE IN DETAIL: The patient was seen in the laborer [place] [facility] under standard as eptic conditions with fluoroscopy. Under local anesthesia, we inserted a 6 -[place] sheath into right femoral artery. We then cannulated left coronary sys tem. Single view of this artery was obtained and showed a totally occluded LAD, right coronary catheter was used to cannulate the RCA. Single shot was obtai joaquín. Later on, LV angiogram was done in [place] and [place]IAN projections.. FINDINGS: Include the followin. There was anteroapical hypokinesia, ejection frac tion could be about 40%, possibly on pressors. 2. The right coronary artery was a small nondominant system. It was patent. 3. The circumflex was patent. Left main was patent . The ramus was patent. The LAD was totally occluded. RODRICK flow was 0. We then proceeded to coronary intervention. We start ed the procedure by giving this patient intracoronary Alteplase 2 mg and then we switched over to guiding catheter. We were able to cross the lesion with a 2. 5 balloon and a whisper wire, predilated the lesion. We also noted that dist ally, there was another lesion that we had to take care of in the mid LAD. A fter predilating the lesions, we then advanced a stent. The first stent w as deployed in the mid LAD that was deployed to about 3.4 mm in diameter. It wa s 32 mm long. A second stent was then deployed proximally. It was 38 mm laney g. It was deployed requiring a post-dilatation with an NC balloon to a 4. 2 mm in diameter. Repeat injection showed RODRICK flow improving from 0 to about 2 to 2.5. It was not very brisk flow. There was evidence of slow flow, no krista er what. Right sheath injection allowed us to attempt a closure device; paulino so, closure device did not take. CONCLUSION: 1. Acute myocardial infarction, anterior wall. 2. Totally occluded LAD, treated with coronary stent ing 4.2 x 38 mm long. Proximally, a 3.4 x 32 in the mid LAD. 3. Ejection fraction could be about 35% to 40%. PLAN OF MANAGEMENT: The patient will need an NG tube for Brilinta. We wi ll give this patient Angiomax until he gets to the floor and an NG tube is available. He was also given intracoronary alteplase twice during the angiopl asty and stent. Performing Organization Address City/State/Zipcode Phone Number [facility] [address] [place] [address] Central Line Insertion (02/15/2020 9:05 PM CDT) Narrative Performed At Tino Maurice NP-C 11:49 PM Central Line Insertion Performed by: Tino Maurice NP -C Authorized by: Tino Maurice N P-C Consent: Consent obtained: Verbal and emerge nt situation Consent given by: Healthcare agent Risks discussed: Arterial puncture, incorrect kimmie cement, nerve damage, bleeding and infection Alternatives discussed: No treatmen t [place] protocol: Procedure explained and questions ans wered to patient or proxy's satisfaction: yes Relevant documents present and verifi ed: yes Test results available and properly l abeled: yes Imaging studies available: yes Required blood products, implants, de vices, and special equipment available: yes Site/side marked: yes Immediately prior to procedure, a sy mcnally out was called: yes Patient identity confirmed: Lucio alejandra and hospital-assigned identification number Pre-procedure details: Skin preparation agent: Skin preparation agent comp letely dried prior to procedure Anesthesia (see MAR for exact dosages): Anesthesia method: Local infiltrati on Local anesthetic: Lidocaine 1% w/o epi Procedure details: Catheter type: Triple lumen Catheter size: 7 Fr Catheter length (cm): 16 Catheter site: femoral vein Catheter Site Laterality: Right Site selection rationale: Emergent; s/p cardiac a rrest with refractory V-fib Patient position: Trendelenburg Landmarks identified: yes Ultrasound guidance: yes Sterile ultrasound techniques: Sterile gel and ster ile probe covers were used Number of attempts: 1 Successful placement: yes Post-procedure details: Post-procedure: Dressing applied an d line sutured Assessment: Blood return through al l ports Patient tolerance of procedure: Juan Manuel erated well, no immediate complications Intubation (02/15/2020 8:00 PM CDT) Narrative Performed At Ibeth Field NP-C 02/15/20 20 11:19 PM Intubation Date/Time: 02/15/2020 8:00 PM Performed by: Ibeth Field NP- C Authorized by: Ibeth Field NP -C Consent: Consent obtained: Emergent situatio n Alternatives discussed: No treatmen t [place] protocol: Patient identity confirmed: Mauro pablo protocol, patient vented/unresponsive Pre-procedure details: Patient status: Unresponsive Mallampati score: 1 Pretreatment medications: None Induction: None Paralytics: None Procedure details: Preoxygenation: Bag valve mask CPR in progress: yes Intubation method: Oral Technique: Video laryngoscopy Grade view: 1 Difficult airway?: No Tube size (mm): 7.5 Tube type: Cuffed Number of attempts: 1 Ventilation between attempts: no Cricoid pressure: no Tube visualized through cords: yes Placement assessment: ETT to lip: 24 cm Tube secured with: ETT lu Breath sounds: Equal Placement verification: chest rise, c ondensation, CXR verification, direct visualization, equal breath sound s and ETCO2 detector CXR findings: ETT in proper place Post-procedure details: Patient tolerance of procedure: Juan Manuel erated well, no immediate complications Surgical pathology request (02/15/2020 1:14 PM CDT) [facility] DEPARTMENT OF PATHOLOGY AND GENOMIC MEDICINE Surgical pathology See link below [facility] DEPARTMENT OF report for PDF Lab PATHOLOGY AND Report GENOMIC MEDICINE Result status This is Final [facility] DEPARTMENT OF Report for PATHOLOGY AND [id number] GENOMIC MEDICINE Specimen Performing Organization Address City/State/Zipcode Phone Number [facility] DEPARTMENT OF PATHOLOGY [id number] [facility] [place] [address] AND GENOMIC MEDICINE Airway (02/15/2020 11:07 AM CDT) Narrative Performed At Sayra De La Garza CRNA 02/15/2020 11:08 AM Airway Performed by: Sayra De La Garza CRNA Authorized by: Benson Horn MD Location: OR Urgency: Elective Difficult Airway: No Resident/OUTSOLE COMPRESSOR/AA: Sayra De La Garza CRNA Performed by: resident/OUTSOLE COMPRESSOR/AA Preoxygenated with 100% O2: Yes Mask Ventilation: Not attempted Final Airway Type: Supraglottic airway Final LMA: I-Gel LMA Size: 5 Number of Attempts at Approach: 1 ECG Pre/Post Op (02/10/2020 1:02 PM CDT) Pathologist Sig nature Ventricular rate 78 [facility] Atrial rate 258 [facility] QRSD interval 86 [facility] QT interval 378 [facility] QTC interval 430 [facility] QRS axis 1 -39 [facility] T wave axis 36 [facility] EKG impression Atrial [facility] fibrillation-Left axis deviation-Nonspecific T wave abnormality , probably digitalis effect-Abnormal ECG-No previous ECGs available-Electronicall y Signed By Dann Boothe MD ([id number]) on 02/13/2020 9:12:49 AM Specimen Narrative Performed At This result has an attachment that is no t available. Performing Organization Address City/State/Zipcode Phone Number [facility] [address] [place] [address] Hemoglobin A1c (02/10/2020 12:54 PM CDT) Hemoglobin A1C 5.7 (H) 4.0 - 5.6 % DUNCAN FENG Comment: VANDERBILT HbA1c cutoffs for diagnosing diabetes: HO SPITAL 4.0% - 5.6% = normal 5.7% - 6.4% = increased risk for diabetes (prediabetes )9 >=6.5% = diabetes9 Goals for glycemic control (ADA 2016) < 7.0% Target for non adults with diabetes. More or less stringent targets may be appropriate for individual patients. <7.5% Target for Children and adolescents with type 1 diabetes. Specimen Blood Performing Organization Address City/State/Zipcode Phone Number [facility] DEPARTMENT OF PATHOLOGY [address] [facility] [employer] [id number] AND GENOMIC MEDICINE [facility] [address] [facility] [employer] [id number] HOSPITAL MRI Signature Knee Right (12/16/2019 1:09 PM CDT) Specimen Narrative Performed At EXAMINATION: MRI SIGNATURE KNEE RIGHT [facility] CLINICAL HISTORY: M17.11 Unilateral primary osteoart hritis right knee, osteoarthritis of the right knee COMPARISON: 11/29/2019 TECHNIQUE: Sagittal 3-D T1 weighted fat saturated high resolution images of the knee were obtained. Axial T1 weighted images of the ankle and hip were also obtained. The study was performed using the [employer] signature protocol for preoperative planning. FINDINGS: 1.Limited images through the knee demonstrate evidence of advanced tricompartmental osteoarthrosis, most severe in the me dial femorotibial compartment. Multiple intra-articular gabriel dies are noted. 2.Limited images through the ankle demonstrate no susp icious bony or soft tissue abnormality. 3.Limited images through the pelvis and hips demonstra te no suspicious bony abnormality. Diverticulosis involving the imaged portion of the sigmoid colon. IMPRESSION: Imaging performed for operative planning demonstrates advanced osteoarthrosis of the knee. HMRM-MPHYMAT Procedure Note Hm Interface, Radiology Results Incoming - 12/16/2019 2:49 PM CDT EXAMINATION: MRI SIGNATURE KNEE RIGHT CLINICAL HISTORY: M17.11 Unilateral ashley sanjay osteoarthritis right knee, osteoarthritis of the right knee COMPARISON: 11/29/2019 TECHNIQUE: Sagittal 3-D T1 weighted fat saturated high resolution images of the knee were obtained. Axial T1 weighted images of the ankle and hip were also obtained. The study was performed using the [employer] signature protocol for preoperative planning. FINDINGS: 1.Limited images through the knee demons trate evidence of advanced tricompartmental osteoarthrosis, most severe in the medial femorotibial compartment. Multiple intra-articular bodies are noted. 2.Limited images through the ankle demon strate no suspicious bony or soft tissue abnormality. 3.Limited images through the pelvis and hips demonstrate no suspicious bony abnormality. Diverticulosis involving the imaged portion of the sigmoid colon. IMPRESSION: Imaging performed for operative planning demonstrates advanced osteoarthrosis of the knee. HMRM-MPHYMAT Performing Organization Address [facility] Phone Number [facility] [address] [place] [address] MRI Lower Extremity External Study (11/29/2019 1:03 PM CDT) Specimen Narrative Performed At This exam was not acquired at a [facility] t facility and has not been HM [facility] interpreted by a Latter-Day Provider. T he exam was imported into our imaging system. 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 T he exam was imported into our imaging system. 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
--- OUTSIDE RECORDS SUMMARY | 2020-03-04 18:24 | XMS REPORT | Continuity of Care Document ---
:1950 Author Organization [facility] t Address [address] [place] [address] Care Team Providers Name Role Phone Adilson Primary Care Physician Abraham Chaudhry MD Attending Clinician Isis TA PAjith Attending Clinician Mercedes Jo MD Attending Clinician Kory TA M Attending Clinician Jeri JACOBO Attending Clinician Red ORR Attending Clinician Unavailable Mykel ORR Attending Clinician Unavailable Lupe Pressley MA Attending Clinician Unavailable HONEY Attending Clinician Unavailable YUE Admitting Clinician Unavailable Payers Payer Name Policy Policy Number Effective Expiration Source Type Date Date [facility] xxxxxxxxxx 2015 [facility] 00:00:00 Method ist LIFE INSURANCExxxxxxxxxx07/13-PresentCommercia l MEDICAREMEDICARE PART xxxxxxxxxxx 2016 [place] 00:[place]:00 [facility] Wwjpzdodadbu39/1/2016[place] [facility] Problems Condition Condition Condition Status Onset Resolution Last Treating Co mments Source Name Details Category Date Date Treatment Clinician Date Atrial Atrial Disease Active [place] fibrillati fibrillati 8-16 Me thodi on with on with 00:00: st RVR RVR 00 Pulmonary Pulmonary Disease Active Roxann ston edema edema 8-16 Methodi 00:00: st 00 Acute Acute Disease Active [place] systolic systolic 8-16 Method i CHF CHF 00:00: st (congestiv (congestiv 00 e heart e heart failure) failure) Acute deep Acute deep Disease Active H rj vein vein 816 Methodi thrombosis thrombosis 00:00: st (DVT) of (DVT) of 00 right right upper upper extremity extremity Acute deep Acute deep [facility] thrombosis thrombosis 00:00: st (DVT) of (DVT) of 00 left upper left upper extremity extremity Leukocytos Leukocytos Disease Active H rj is is 02-25 Methodi 00:00: st Hypokalemi Hypokalemi Disease Active H rj a a 02-25 Methodi 00:00: st Hypocalcem Hypocalcem Disease Active H rj ia ia 02-25 Methodi 00:00: st 00 HLD HLD Disease Active [place] (hyperlipi (hyperlipi 02-25 Me thodi demia) demia) 00:00: st DM DM Disease Active [place] (diabetes (diabetes 16 Meth fito mellitus) mellitus) 00:00: st 00 Elevated Elevated Disease Active [facility] on LFTs LFTs 02-25 Methodi 00:00: st Cardiogeni Cardiogeni [facility] shock c shock 02-17 Methodi 00:00: st 00 Cardiac Cardiac Disease Active [place] arrest arrest 02-17 Methodi 00:00: st 00 Acute Acute Disease Active [place] hypoxemic hypoxemic 02-17 Meth fito respirator respirator 00:00: st y failure y failure 00 ARF (acute ARF (acute Disease Active rj renal renal 02-17 Methodi failure) failure) 00:00: st 00 Knee Knee Disease Active [place] osteoarthr osteoarthr 8-05 Me thodi itis itis 00:00: st Hypertensi Hypertensi Disease Active H rj on on 02-14 Methodi 00:00: st 00 CAD CAD Disease Active [place] (coronary (coronary 805 Meth fito artery artery 00:00: st disease) disease) 00 Primary Primary Disease Active Overview: [place] osteoarthr osteoarthr 7 Added Me thodi itis of itis of 00:00: automatic st right knee right knee 00 ally from request for surgery [id number] Hyperlipid Hyperlipid Problem Active 2019-0 M [place]lexa [place] 7-12 da 00:00: [facility] History of History of Problem Resolve [facility] high high d ity of cholestero cholestero [place] [facility] ans Rupture of Rupture of Problem Active U nivers left left ity of biceps biceps [place] tendon, tendon, Physici initial initial ans encounter encounter Rotator Rotator Problem Active Univers cuff tear, cuff tear, it y of left left [place] Physici ans Left Left Problem Active [facility] shoulder shoulder ity of pain pain [place] Physici ans History of History of Problem Active M alexa right Right da below below [facility] elbow Elbow al amputation Amputation He alth Outreac h Program Allergies, Adverse Reactions, Alerts Allergy Allergy Status Severity Reaction(s) Onset Inactive Treating Comm ents Source Name Type Date Date Clinician Penicill Propensi Active Unknown [place] ins ty to Reaction 5- Methodi adverse 00:00: st reaction 00 s to drug Penicill Allergy Active Univers ins to drug ity of (finding [place] ) Physici ans Family History Family Member Diagnosis Comments Start Date Stop Date Source Natural brother Cancer [facility] ethodist Natural daughter Diabetes [facility] Natural mother Cancer [facility] thodist Social History Social Habit Start Date Stop Date Quantity Comments Source Sex Assigned At [facility] ethodist Exposure to Not sure [place] Metho dist SARS-CoV-2 (event) Alcohol intake 2020-02-17 2020-02-17 Current drinker [place] [facility] 00:00:00 00:00:00 of alcohol (finding) Smoking Status Start Date Stop Date Source Never smoker [facility] t Medications Ordered Filled Start Stop Current Ordering Indication Dosage Frequency Signature Comments Components Source Medication Medication Date Date Medication? Clinician (SIG) Name Name aspirin 2020- No aspirin Nikhil n (ECOTRIN) 03-04 Methodi 81 MG 14:01: 00:00 st enteric 30 :00 coated tablet amIODarone 2019- Yes 200mg Q.5D Take 1 Roxann ston (PACERONE) 03-04 tablet Method i 200 MG 00:00: 23:59 ([address] tablet 00 :00 total) by mouth every 12 (twelve) hours for 30 days. apixaban 2019-0 2020- Yes 2.5mg Q.5D Take 1 [place] (ELIQUIS) 03-04 tablet Methodi 2.5 mg 00:00: 23:59 (2.[address] tablet 00 :00 total) by mouth 2 (two) times a day for 30 days. metoprolol 2019-0 2020- Yes 12.5mg Q.5D Take 0.5 [place] tartrate 03-04 tablets Methodi (LOPRESSOR) 00:00: 23:59 (12.5 mg s t 25 mg 00 :00 total) by tablet mouth 2 (two) times a day for 30 days. spironolact 2019-0 2020- Yes 25mg Q.5D Take 1 R[place]ann ston one 03-04 tablet (25 [facility]i (ALDACTONE) 00:00: 23:59 mg total) st 25 MG 00 :00 by mouth 2 tablet (two) times a day for 30 days. ticagrelor 2020- Yes 90mg Q.5D Take 1 [place] (BRILINTA) 03-04 tablet (90 Me thodi 90 mg 00:00: 23:59 mg total) st tablet 00 :00 by mouth 2 (two) times a day for 30 days. potassium 2019- 2020- Yes 20meq Q.5D Take 20 [place] ston chloride 20 03-04 mEq by Metho di mEq tablet 00:00: 23:[address] extended 00 :00 (two) release times a day for 30 days. acetaminoph 2020- Yes 650mg Q6H Take 2 [place] en 03-04 tablets Methodi (TYLENOL) 00:00: 23:59 ([address] 325 MG 00 :00 total) by tablet mouth every 6 (six) hours as needed for moderate pain for up to 30 days. triamcinolo 2020- No triamcinol Nate foley 02-14 one Methodi (KENALOG) 17:19: 00:[address] 0.1 % cream 02 :00 0.1 % topical cream HYDROcodone 2019- No acute pain acute [place] -acetaminop 02-14 pain. Take M artis boone (NORCO) 00:00: 00:00 1-[address] 10-325 mg 00 :00 q 4-6 hrs per tablet prn # 50 promethazin 2019-0 2020- No 25mg Q6H Take 1 Roxann ston e 02-14 tablet (25 Methodi (PHENERGAN) 00:00: 00:00 mg total) st 25 MG 00 :00 by mouth tablet every 6 (six) hours as needed for nausea or vomiting for up to 10 days. enoxaparin 2019-0 2019- No 40mg QD Inject 0.4 [place] (Lovenox) 02-14 mL (40 mg Meth fito 40 mg/0.4 00:00: 00:00 total) st mL syringe 00 :00 under the skin daily for 14 days. nut.tx.comp 2019- 2020- No 1{bottl [id number] Take 1 [place] . immune 02-09 e} [id number] Bottle by Radha gill,reg 00:00: 00:[address] (Impact 00 :00 (three) Advanced times a Recovery) day for 5 0.1 days. gram-1.12 kcal/mL liquid olmesartan 2019-0 2020- No 40mg QD 40 mg [place] (BENICAR) 11-26 daily. Methodi 20 MG 00:00: 00:00 st tablet 00 :00 metFORMIN 2019-0 Yes 500mg Q.5D 500 mg 2 Roxann ston (GLUCOPHAGE 5-13 (two) Methodi ) 500 mg 00:00: times a st tablet 00 day with meals. amLODIPine 2019-0 2020- No 5mg Q.5D 5 mg 2 [place] (NORVASC) 5 11-08 (two) Method i mg tablet 00:00: 00:[address] 00 :00 day. atorvastati 2020-0 Yes QD nightly. [place] (LIPITOR) 4-24 Methodi 40 mg 00:00: st tablet 00 Olmesartan Olmesartan Yes Uni vers Medoxomil Medoxomil ity o f 20 MG Oral 20 MG Oral Tao as Tablet Tablet Physici ans metFORMIN metFORMIN Yes Unive rs HCl - 500 HCl - 500 ity o f MG Oral MG Oral [place] Tablet Tablet Physici ans amLODIPine amLODIPine Yes Uni vers Besylate 5 Besylate 5 ity of MG Oral MG Oral [place] Tablet Tablet Physici ans Atorvastati Atorvastati Yes U nivers n Calcium n Calcium ity o f 40 MG Oral 40 MG Oral Tao as Tablet Tablet Physici ans Aspirin 81 Aspirin 81 Yes Uni vers MG TABS MG TABS ity of [place] Physici ans amlodipine amlodipine No amlodipine [place] 5 mg tablet 5 mg tablet 5 mg d a Take 1 Take 1 tablet [facility] tablet tablet Take 1 al every day every day tablet Hea lth by oral by oral every day Outr eac route for route for by oral h 90 days. 90 days. route for Pr ogram 90 days. Asprin Ec Asprin Ec No 1 Q1D Asprin Ec [place] Low Dose 81 Low Dose 81 Low Dose da mg mg 81 mg [facility] tablet,janice tablet,janice tablet,del al yed release yed release ayed H ealth Take 1 Take 1 release Outreac tablet tablet Take 1 h every day every day tablet Pro gram by oral by oral every day route. route. by oral route. atorvastati atorvastati No atorvastat [place] n 40 mg n 40 mg in 40 mg da tablet Take tablet Take tablet [facility] 1 tablet 1 tablet Take 1 al every day every day tablet Hea lth by oral by oral every day Outr eac route for route for by oral h 90 days. 90 days. route for Pr ogram 90 days. indomethaci indomethaci No indomethac [place] n 25 mg n 25 mg in 25 mg da capsule capsule capsule [facility] p Take 1 Take 1 Take 1 al capsule 3 capsule 3 capsule 3 Health times a day times a day times a Outreac with food with food day with h as an as an food as an Program anti-inflam anti-inflam anti-infla matory matory mmatory metformin metformin No 1 BID metformin [place] 500 mg 500 mg 500 mg da tablet Take tablet Take tablet [facility] 1 tablet 1 tablet Take 1 al twice a day twice a day tablet Health by oral by oral twice a Outrea c route. route. day by h oral Program route. olmesartan olmesartan No olmesartan [place] 20 mg 20 mg 20 mg da tablet Take tablet Take tablet [facility] 1 tablet 1 tablet Take 1 al twice a day twice a day tablet Health by oral by oral twice a Outrea c route. route. day by h oral Program route. Immunizations Ordered Immunization Filled Immunization Date Status Commen ts Source Name Name Tdap Tdap 2019-02-25 Completed [place] 11:27:17 [facility] Vital Signs Vital Name Observation Time Observation Value Comments Source BP Diastolic 2019-09-09 00:00:00 88 mm[Hg] [place] [facility] Height 2019-09-09 00:00:00 70 [in_i] [place] [facility] BMI (Body Mass 2019-09-09 00:00:00 34.7 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 BP Systolic 2019-09-09 00:00:00 142 mm[Hg] [place] [facility] Body Weight 2019-09-09 00:00:00 242.1 [lb_av] [place] [facility] BP Diastolic 2019-06-14 00:00:00 85 mm[Hg] [place] [facility] Height 2019-06-14 00:00:00 70 [in_i] [place] [facility] BMI (Body Mass 2019-06-14 00:00:00 34.6 kg/m2 [place]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) [facility] BP Systolic 2019-06-14 00:00:00 161 mm[Hg] [place] [facility] Body Weight 2019-06-14 00:00:00 241 [lb_av] [place] [facility] Systolic blood 2020-03-04 11:07:47 107 mm[Hg] Nikhil cisneros [facility] pressure Diastolic blood 2020-03-04 11:07:47 65 mm[Hg] Dipti shah [facility] pressure Heart rate 2020-03-04 11:07:47 73 /min Nate Mixon Body temperature 2020-03-04 11:07:47 36.56 Rosa Maria Donya crowder [facility] Respiratory rate 2020-03-04 11:07:47 18 /min Donya crowder [facility] Oxygen saturation in 2020-03-04 11:07:47 97 /min Nate Mixon Arterial blood by Pulse oximetry Body weight 2020-03-04 05:45:20 110.632 kg Nate Mixon BMI 2020-03-04 05:45:20 35.00 kg/m2 Nate Mixon Body height 2020-02-17 07:00:00 177.8 cm Nate Mixon Body height 2019-09-29 13:58:00 70 [in_us] [facility] Physician s Weight 2019-09-29 13:58:00 242 [lb_av] [facility] Physician s Body mass index 2019-09-29 13:58:00 34.72 kg/m2 Unive rsity of (BMI) [Ratio] [place] Physicia ns Procedures Procedure Date / Time Performing Clinician Source Performed POC GLUCOSE 2020-03-04 11:07:00 Tito Marinelli ethodist POC GLUCOSE 2020-03-04 07:16:00 Tito Marinelli ethodist CBC WITH PLATELET AND 2020-03-04 06:00:00 Hanna Adams DIFFERENTIAL COMPREHENSIVE METABOLIC 2020-03-04 06:00:00 Hanna Adams [facility] PANEL ESTIMATED GFR 2020-03-04 06:00:00 Hanna Adams odist POC GLUCOSE 2020-03-03 20:56:00 Tito Marinelli ethodist POC GLUCOSE 2020-03-03 16:56:00 Tito Marinelli ethodist POC GLUCOSE 2020-03-03 16:20:00 Tito Marinelli ethodist XR KNEE 1 OR 2 VW RIGHT 2020-03-03 12:08:31 Hanna Adams [facility] POC GLUCOSE 2020-03-03 11:40:00 Tito Marinelli ethodist POC GLUCOSE 2020-03-03 08:03:00 Tito Marinelli ethodist HC COMPLETE BLD COUNT 2020-03-03 06:10:00 Hanna Adams W/AUTO DIFF COMPREHENSIVE METABOLIC 2020-03-03 06:10:00 Hanna Adams [facility] PANEL ESTIMATED GFR 2020-03-03 06:10:00 Hanna Adams Meth odist POC GLUCOSE 2020-03-02 21:19:00 Isis Tito Danielle Pearce ethodist POC GLUCOSE 2020-03-02 19:01:00 IsisTito ethodist POC GLUCOSE 2020-03-02 15:53:00 IsisTito ethodist POC GLUCOSE 2020-03-02 11:44:00 IsisTito ethodist POC GLUCOSE 2020-03-02 08:11:00 IsisRobelir Danielle Pearce ethodist XR CHEST 2 VW 2020-03-02 08:05:36 Ty, Tim Mercedes Dukes odist COMPREHENSIVE METABOLIC 2020-03-02 05:30:00 Jennifer Parish [facility] PANEL Tajdin MAGNESIUM LEVEL 2020-03-02 05:30:00 JemJennifer mcmillan Wa thodist Tajdin ESTIMATED GFR 2020-03-02 05:30:00 JemJennifer mcmillan Wa thodist Tajdin B NATRIURETIC PEPTIDE 2020-03-02 05:30:00 Mj Sandy [facility] POC GLUCOSE 2020-03-01 20:48:00 Isis Tito P. Nate Pearce ethodist URINE CULTURE 2020-03-01 19:18:00 Ty, Tim lange URINALYSIS SCREEN AND 2020-03-01 18:57:00 Ty, Tim cisneros [facility] MICROSCOPY, WITH REFLEX TO CULTURE POC GLUCOSE 2020-03-01 17:11:00 Tito Marinelli Nate Pearce ethodist POC GLUCOSE 2020-03-01 11:51:00 Tito Marinelli Nate Pearce ethodist OCCULT BLOOD, STOOL 2020-03-01 10:37:00 TyTimist POC GLUCOSE 2020-03-01 07:57:00 IsisRobelir Danielle Pearce ethodist COVID-19 QUALITATIVE PCR 2020-03-01 06:30:00 Jennifer Parish [facility] [place]din LIPID PANEL 2020-03-01 06:30:00 Tim Jo Meth odist COMPREHENSIVE METABOLIC 2020-03-01 06:30:00 Jennifer Parish cheikh [facility] PANEL Tajdin MAGNESIUM LEVEL 2020-03-01 06:30:00 Jennifer Parish Wa thodist Tajdin ESTIMATED GFR 2020-03-01 06:30:00 JemJennifer mcmillan [facility] thodist Tajdin POC GLUCOSE 2020-02-29 20:40:00 Tito Marinelli ethodist POC GLUCOSE 2020-02-29 17:06:00 Tito Marinelli ethodist POC GLUCOSE 2020-02-29 11:49:00 Tito Marinelli ethodist POC GLUCOSE 2020-02-29 07:55:00 Tito Marinelli ethodist COMPREHENSIVE METABOLIC 2020-02-29 05:15:00 Dana Skylar Moorechase salamanca [facility] PANEL IONIZED CALCIUM 2020-02-29 05:15:00 Syklar Cortez Wa thodist HC COMPLETE BLD COUNT 2020-02-29 05:15:00 Skylar Cortez [facility] W/AUTO DIFF MAGNESIUM LEVEL 2020-02-29 05:15:00 Tito Marinelli ethodist ESTIMATED GFR 2020-02-29 05:15:00 Tito Marinelli ethodist POC GLUCOSE 2020-02-28 20:42:00 Tito Marinelli ethodist POC GLUCOSE 2020-02-28 16:45:00 Tito Marinelli ethodist POC GLUCOSE 2020-02-28 11:21:00 Tito Marinelli ethodist POC GLUCOSE 2020-02-28 07:57:00 Tito Marinelli ethodist COMPREHENSIVE METABOLIC 2020-02-28 04:45:00 Skylar Cortez [facility] PANEL IONIZED CALCIUM 2020-02-28 04:45:00 Skylar Cortez Wa thodist HC COMPLETE BLD COUNT 2020-02-28 04:45:00 Skylar Cortez [facility] W/AUTO DIFF ESTIMATED GFR 2020-02-28 04:45:00 Skylar Cortez Wa thodist XR CHEST 1 VW PORTABLE 2020-02-27 20:48:03 Tito Marinelli [facility] POC GLUCOSE 2020-02-27 20:35:00 Tito Marinelli ethodist HC CVL NON-TUNNELED INSERT 2020-02-27 20:00:00 RashidaStevanIbeth Casi rj [facility] 5YRS OR > [place] POC GLUCOSE 2020-02-27 16:48:00 Tito Marinelli ethodist POC GLUCOSE 2020-02-27 11:23:00 Tito Marinelli ethodist POC GLUCOSE 2020-02-27 07:31:00 Tito Marinelli ethodist MAGNESIUM LEVEL 2020-02-27 04:45:00 Tim Jo Meth odist B NATRIURETIC PEPTIDE 2020-02-27 04:45:00 Ty, Tim cisneros [facility] COMPREHENSIVE METABOLIC 2020-02-27 04:45:00 Skylar Cortez Renato salamanca [facility] PANEL IONIZED CALCIUM 2020-02-27 04:45:00 Skylar Cortez Me thodist HC COMPLETE BLD COUNT 2020-02-27 04:45:00 Skylar Cortez [facility] W/AUTO DIFF ESTIMATED GFR 2020-02-27 04:45:00 Tim Jo Meth odist XR CHEST 1 VW PORTABLE 2020-02-26 23:41:40 Arley Flores [facility] Renate ARTERIAL BLOOD GAS 2020-02-26 23:40:00 Arley Flores M ethodist Renate HC COMPLETE BLD COUNT 2020-02-26 23:40:00 Arley Flores [facility] W/AUTO DIFF Renate LACTIC ACID LEVEL 2020-02-26 23:40:00 Arley Flores Wa thodist Renate BASIC METABOLIC PANEL 2020-02-26 23:40:00 Mark, Arley Lorenzoine ESTIMATED GFR 2020-02-26 23:40:00 Arley Flores odjannie Renate POC GLUCOSE 2020-02-26 21:29:00 Tito Marinelli Nate Pearce ethodist POC GLUCOSE 2020-02-26 17:27:00 Tito Marinelli Nate Pearce ethodist URINE CULTURE 2020-02-26 13:46:00 Skylar Cortez Christian Nate Wa thodist URINALYSIS SCREEN AND 2020-02-26 13:46:00 Skylar Cortez [facility] MICROSCOPY, WITH REFLEX TO CULTURE POC GLUCOSE 2020-02-26 13:15:00 Maffelupe, Emanuel lange CT ANGIOGRAM PE CHEST 2020-02-26 12:52:20 Skylar Cortez [facility] POC GLUCOSE 2020-02-26 07:09:00 Maffet, Emanuel Dukes odist BASIC METABOLIC PANEL 2020-02-26 06:35:00 Quiana Lacey [facility] MAGNESIUM LEVEL 2020-02-26 06:35:00 AbhijitQuiana Wa thodist PHOSPHORUS LEVEL 2020-02-26 06:35:00 AbhijitQuiana ethodist IONIZED CALCIUM 2020-02-26 06:35:00 AbhijitQuiana Wa thodist ESTIMATED GFR 2020-02-26 06:35:00 AbhijitQuiana Wa thodist HC COMPLETE BLD COUNT 2020-02-26 06:35:00 Maffet, Emanuel Mixon W/AUTO DIFF POC GLUCOSE 2020-02-25 20:39:00 Maffet, Emanuel Dukes odist POC GLUCOSE 2020-02-25 16:28:00 Maffet, Emanuel Sullivan Meth odist POC GLUCOSE 2020-02-25 11:37:00 Maffet, Emanuel Dukes odist BASIC METABOLIC PANEL 2020-02-25 11:00:00 Quiana Lacey [facility] MAGNESIUM LEVEL 2020-02-25 11:00:00 AbhijitQuiana Wa thodist PHOSPHORUS LEVEL 2020-02-25 11:00:00 AbhijitQuiana ethodist IONIZED CALCIUM 2020-02-25 11:00:00 Quiana Lacey Me thodist ESTIMATED GFR 2020-02-25 11:00:00 AbhijitQuiana Me thodist POC GLUCOSE 2020-02-25 08:57:00 Emanuel Chaudhry Meth odist XR CHEST 1 VW PORTABLE 2020-02-25 06:04:54 Nima Garcia [place] [facility] POC GLUCOSE 2020-02-25 04:38:00 Emanuel Chaudhry Meth odist BASIC METABOLIC PANEL 2020-02-25 03:10:00 JoseNima dillard [place] [facility] HC COMPLETE BLD COUNT 2020-02-25 03:10:00 JoseNima dillard [place] [facility] W/AUTO DIFF MAGNESIUM LEVEL 2020-02-25 03:10:00 Nima Garcia Met hodist PHOSPHORUS LEVEL 2020-02-25 03:10:00 Nima Garcia Me thodist IONIZED CALCIUM 2020-02-25 03:10:00 Nima Garcia Met hodist PROTHROMBIN TIME WITH INR 2020-02-25 03:10:00 Nima Garcia H rj [facility] ESTIMATED GFR 2020-02-25 03:10:00 Nima Garcia Met hodist POC GLUCOSE 2020-02-25 01:04:[address] ABDOMEN PELVIS WO 2020-02-24 23:23:55 Nima Garciato n [facility] CONTRAST HEMOGLOBIN & HEMATOCRIT 2020-02-24 21:15:00 Nima Garcia Roxann ston [facility] PROTHROMBIN TIME WITH INR 2020-02-24 21:15:00 Nima Garcia [place] [facility] PARTIAL THROMBOPLASTIN 2020-02-24 21:15:00 Nima Garcia [place] [facility] TIME (PTT) PREPARE RBC 2020-02-24 21:15:00 Nima Garcia Met hodist POC GLUCOSE 2020-02-24 20:34:00 Emanuel Chaudhry Meth odist BASIC METABOLIC PANEL 2020-02-24 19:25:00 Amira Herring [facility] MAGNESIUM LEVEL 2020-02-24 19:25:00 Amira Herring Nate Mixon PHOSPHORUS LEVEL 2020-02-24 19:25:00 Amira Herring Babs cisneros [facility] IONIZED CALCIUM 2020-02-24 19:25:00 HerringAmira Nate Mixon ESTIMATED GFR 2020-02-24 19:25:00 Amira Herring Nate [facility] ANTI XA, UNFRACTIONATED 2020-02-24 19:25:00 Jas Carcamo HC CVL NON-TUNNELED INSERT 2020-02-24 18:47:08 Sophy Mcfarland 5YRS OR > [place] INSERT 2020-02-24 18:46:11 Sophy Mcfarland odjannie CATH,ART,PERCUT,SHORTTERM [place] DUPLEX VENOUS UPPER 2020-02-24 18:07:53 Jas Carcamo EXTREMITY BILATERAL FL MODIFIED BARIUM SWALLOW 2020-02-24 11:34:51 Leta Marquez Destiny CBC WITH PLATELET AND 2020-02-24 07:10:00 Raeann Araujo DIFFERENTIAL COMPREHENSIVE METABOLIC 2020-02-24 07:10:00 Raeann Araujo PANEL IONIZED CALCIUM 2020-02-24 07:10:00 Raeann Araujo ESTIMATED GFR 2020-02-24 07:10:00 Raeann Araujo MAGNESIUM LEVEL 2020-02-24 07:10:00 Raeann Araujo PHOSPHORUS LEVEL 2020-02-24 07:10:00 Raeann Araujo MANUAL DIFFERENTIAL 2020-02-24 07:10:00 Raeann Araujo XR CHEST 1 VW PORTABLE 2020-02-24 05:17:23 Raeann Araujo POC GLUCOSE 2020-02-24 04:44:00 Emanuel Chaudhry odist POC GLUCOSE 2020-02-24 01:50:00 Emanuel Chaudhry odist POC GLUCOSE 2020-02-23 21:52:00 MaffetEmanuel Meth odist BASIC METABOLIC PANEL 2020-02-23 16:30:00 Lizzie Funk Renato salamanca [facility] MAGNESIUM LEVEL 2020-02-23 16:30:00 Lizzie Funk Nate [facility] PHOSPHORUS LEVEL 2020-02-23 16:30:00 Lizzie Funk [place] [facility] ESTIMATED GFR 2020-02-23 16:30:00 Lizzie Funk [facility] TTE COMPLETE, W CONTRAST, 2020-02-23 15:07:08 Jas Carcamo [facility] W DOPPLER ([id number]) XR CHEST 1 VW PORTABLE 2020-02-23 05:16:17 Rashida, Ibeth Resendez on [facility] [place] COMPREHENSIVE METABOLIC 2020-02-23 05:15:00 Rashida, Ibeth Naqvi ton [facility] PANEL [place] CBC WITH PLATELET AND 2020-02-23 05:15:00 Rashida, Ibeth Tejeda n [facility] DIFFERENTIAL [place] IONIZED CALCIUM 2020-02-23 05:15:00 Rashida, Ibeth [place] Meth odist [place] MAGNESIUM LEVEL 2020-02-23 05:15:00 Rashida, Ibeth [place] Meth odist [place] PHOSPHORUS LEVEL 2020-02-23 05:15:00 Rashida, Ibeth Sullivan Met hodist [place] PROTHROMBIN TIME WITH INR 2020-02-23 05:15:00 Rashida, Ibeth Gross ton [facility] [place] B NATRIURETIC PEPTIDE 2020-02-23 05:15:00 Ty, Tim Tejeda n [facility] ESTIMATED GFR 2020-02-23 05:15:00 Ty, Tim [place] Meth odist MANUAL DIFFERENTIAL 2020-02-23 05:15:00 Ty, Tim Sullivan [facility] POC GLUCOSE 2020-02-23 04:44:00 MaffetEmanuel Meth odist POC GLUCOSE 2020-02-22 23:57:00 MaffetEmanuel Meth odist IONIZED CALCIUM 2020-02-22 23:50:00 Raeann Araujo [facility] MAGNESIUM LEVEL 2020-02-22 23:50:00 Raeann Araujo [facility] BASIC METABOLIC PANEL 2020-02-22 23:50:00 Raeann Araujo ESTIMATED GFR 2020-02-22 23:50:00 Raeann Araujo [facility] BASIC METABOLIC PANEL 2020-02-22 22:00:00 Raeann Araujoist MAGNESIUM LEVEL 2020-02-22 22:00:00 Raeann Araujo IONIZED CALCIUM 2020-02-22 22:00:00 Raeann Araujo ESTIMATED GFR 2020-02-22 22:00:00 Raeann Araujo POC GLUCOSE 2020-02-22 20:16:00 Emanuel Chaudhry odist POC GLUCOSE 2020-02-22 16:56:00 Emanuel Chaudhry Meth odist BASIC METABOLIC PANEL 2020-02-22 14:33:00 Ibeth Field [facility] [place] ESTIMATED GFR 2020-02-22 14:33:00 Ibeth Field Meth odist [place] POC GLUCOSE 2020-02-22 12:54:00 MaffetEmanuel Meth odist POC GLUCOSE 2020-02-22 08:56:00 Emanuel Chaudhry odjannie XR CHEST 1 VW PORTABLE 2020-02-22 05:19:12 Ibeth Field on [facility] [place] POC GLUCOSE 2020-02-22 04:59:00 Emanuel Chaudhry odist COMPREHENSIVE METABOLIC 2020-02-22 04:40:00 Ibeth Field [facility] PANEL [place] CBC WITH PLATELET AND 2020-02-22 04:40:00 Ibeth Field n [facility] DIFFERENTIAL [place] MAGNESIUM LEVEL 2020-02-22 04:40:00 Ibeth Field odist [place] PHOSPHORUS LEVEL 2020-02-22 04:40:00 Ibeth Field hodist [place] PROTHROMBIN TIME WITH INR 2020-02-22 04:40:00 Ibeth Field [facility] [place] PARTIAL THROMBOPLASTIN 2020-02-22 04:40:00 Ibeth Field on [facility] TIME (PTT) Rayna ESTIMATED GFR 2020-02-22 04:40:[address] IONIZED CALCIUM 2020-02-22 04:40:00 El-Victor ManuelDaniel MANUAL DIFFERENTIAL 2020-02-22 04:40:00 Ibeth Fieldhinajovanny POC GLUCOSE 2020-02-22 00:42:00 Emanuel Chaudhry odist BASIC METABOLIC PANEL 2020-02-21 22:53:00 El-Qaddoumi, Daniel de la rosa [facility] MAGNESIUM LEVEL 2020-02-21 22:53:00 El-Qaddoumi, Daniel Sullivan [facility] IONIZED CALCIUM 2020-02-21 22:53:00 El-Qaddoumi, Daniel Sullivan [facility] PHOSPHORUS LEVEL 2020-02-21 22:53:00 El-QaddoumiDaniel n [facility] ESTIMATED GFR 2020-02-21 22:53:00 El-QamanuelouDaniel carlin [facility] POC GLUCOSE 2020-02-21 20:54:00 Emanuel Chaudhry odist POC GLUCOSE 2020-02-21 16:48:00 Emanuel Chaudhry odist BASIC METABOLIC PANEL 2020-02-21 14:55:00 El-Qaddoumi, Daniel de la rosa Advent MAGNESIUM LEVEL 2020-02-21 14:55:00 El-Qaddoumi, Daniel Sullivan [facility] IONIZED CALCIUM 2020-02-21 14:55:00 El-Qaddoumi, Daniel Sullivan [facility] PHOSPHORUS LEVEL 2020-02-21 14:55:00 El-Qaddoumi, Daniel Naqvito n Advent ESTIMATED GFR 2020-02-21 14:55:00 El-Qaddoumi, Daniel Sullivan [facility] POC GLUCOSE 2020-02-21 12:42:00 Emanuel Chaudhry Meth odist BASIC METABOLIC PANEL 2020-02-21 08:35:00 El-Qaddoumi, Daniel de la rosa Advent MAGNESIUM LEVEL 2020-02-21 08:35:00 El-QaDaniel wade Advent IONIZED CALCIUM 2020-02-21 08:35:00 El-QaddDaniel damian Advent PHOSPHORUS LEVEL 2020-02-21 08:35:00 El-QaddnatiDaniel n Advent ESTIMATED GFR 2020-02-21 08:35:00 Jg-Daniel Rush [facility] POC GLUCOSE 2020-02-21 08:14:00 Maffet, Emanuel Sullivan Meth odist POC GLUCOSE 2020-02-21 05:29:00 Maffet, Emanuel Sullivan Meth odist XR CHEST 1 VW PORTABLE 2020-02-21 03:19:49 Rashida, Ibeth Resendez on Advent [place] COMPREHENSIVE METABOLIC 2020-02-21 01:13:00 Rashida, Ibeth crowder [facility] PANEL [place] CBC WITH PLATELET AND 2020-02-21 01:13:00 RashidaIbeth [facility] DIFFERENTIAL [place] ARTERIAL BLOOD GAS 2020-02-21 01:13:00 Rashida, Ibeth Sullivan M ethodist [place] MAGNESIUM LEVEL 2020-02-21 01:13:00 RashidaIbeth Meth odist [place] PHOSPHORUS LEVEL 2020-02-21 01:13:00 Ibeth Field Met hodist [place] PROTHROMBIN TIME WITH INR 2020-02-21 01:13:00 RashidaIbeth Advent [place] PARTIAL THROMBOPLASTIN 2020-02-21 01:13:00 Ibeth Field on [facility] TIME (PTT) [place] IONIZED CALCIUM, ARTERIAL 2020-02-21 01:13:00 RashidaIbeth [facility] [place] ESTIMATED GFR 2020-02-21 01:13:00 Ibeth Field Meth odist [place] LACTIC ACID LEVEL 2020-02-21 01:13:00 El-QamanuelfloraraeganDaniel on Advent MANUAL DIFFERENTIAL 2020-02-21 01:13:00 Ibeth Field [facility] [place] POC GLUCOSE 2020-02-21 00:40:00 Maffet, Emanuel Sullivan Meth odist POC GLUCOSE 2020-02-20 21:11:00 MaffetEmanuel Meth odist POC GLUCOSE 2020-02-20 15:48:00 MaffetEmanuel Meth odist POC GLUCOSE 2020-02-20 11:39:00 MaffetEmanuel Meth odist POC GLUCOSE 2020-02-20 07:32:00 MaffeEmanuel andrade odist XR CHEST 1 VW PORTABLE 2020-02-20 06:48:38 Raeann Araujo [facility] POC GLUCOSE 2020-02-20 05:26:00 MaffeEmanuel andrade Meth odist HC COMPLETE BLD COUNT 2020-02-20 02:30:00 Raeann Araujo W/AUTO DIFF COMPREHENSIVE METABOLIC 2020-02-20 02:30:00 Raeann Araujo PANEL ARTERIAL BLOOD GAS 2020-02-20 02:30:00 Raeann Araujo Advent MAGNESIUM LEVEL 2020-02-20 02:30:00 Raeann Araujo PHOSPHORUS LEVEL 2020-02-20 02:30:00 Raeann Araujo PROTHROMBIN TIME WITH INR 2020-02-20 02:30:00 Raeann Araujo ESTIMATED GFR 2020-02-20 02:30:00 Raeann Araujo IONIZED CALCIUM, ARTERIAL 2020-02-20 02:30:00 Raeann Araujoist POC GLUCOSE 2020-02-20 01:07:00 MaffeEmanuel andrade Meth odist POC GLUCOSE 2020-02-19 20:56:00 MaffetEmanuel Meth odist COMPREHENSIVE METABOLIC 2020-02-19 20:00:00 Hal Bonds [facility] PANEL Vincent ESTIMATED GFR 2020-02-19 20:00:00 Hal Bonds odist Vincent POC GLUCOSE 2020-02-19 16:37:00 MaffeEmanuel andrade Meth odist POC GLUCOSE 2020-02-19 12:09:00 MaffetEmanuel Meth odist ECG 12-LEAD 2020-02-19 10:13:34 Amira Herring Nate [facility] COMPREHENSIVE METABOLIC 2020-02-19 09:48:00 Hal Bonds [facility] PANEL Vinctiarra ESTIMATED GFR 2020-02-19 09:48:00 Hal Bonds odjannie Pate POC GLUCOSE 2020-02-19 07:50:00 Emanuel Chaudhry odjannie XR CHEST 1 VW PORTABLE 2020-02-19 06:11:57 Raeann Araujo [facility] POC GLUCOSE 2020-02-19 05:07:00 MaffetEmanuel odist LIDOCAINE LEVEL 2020-02-19 03:30:00 Ibeth Field Nate Dukes odjannie [place] ARTERIAL BLOOD GAS 2020-02-19 03:30:00 Raeann Araujo on [facility] MAGNESIUM LEVEL 2020-02-19 03:30:00 Raeann Araujo [facility] PHOSPHORUS LEVEL 2020-02-19 03:30:00 Raeann Araujo [facility] HC COMPLETE BLD COUNT 2020-02-19 03:30:00 Raeann Araujo [place] Advent W/AUTO DIFF IONIZED CALCIUM, ARTERIAL 2020-02-19 03:30:00 Raeann Araujo COMPREHENSIVE METABOLIC 2020-02-19 03:30:00 Raeann Araujo [facility] PANEL ESTIMATED GFR 2020-02-19 03:30:00 Raeann Araujo [facility] POC GLUCOSE 2020-02-19 00:22:00 Emanuel Chaudhry ECG 12-LEAD 2020-02-18 23:06:30 Raeann Araujo [facility] MAGNESIUM LEVEL 2020-02-18 21:55:00 Raeann Araujo [facility] PHOSPHORUS LEVEL 2020-02-18 21:55:00 Raeann Araujo IONIZED CALCIUM 2020-02-18 21:55:00 Raeann Araujo [facility] COMPREHENSIVE METABOLIC 2020-02-18 21:55:00 Raeann Araujo [facility] PANEL ESTIMATED GFR 2020-02-18 21:55:00 Raeann Araujo [facility] POC GLUCOSE 2020-02-18 20:39:00 Maffet, Emanuel Sullivan Meth odist POC GLUCOSE 2020-02-18 17:04:00 Maffet, Emanuel Sullivan Meth odist POC GLUCOSE 2020-02-18 11:47:00 Maffet, Emanuel Sullivan Meth odist POC GLUCOSE 2020-02-18 07:52:00 Maffet, Emanuel Sullivan Meth odist POC GLUCOSE 2020-02-18 05:24:00 Maffet, Emanuel Sullivan Meth odist LIDOCAINE LEVEL 2020-02-18 04:00:00 Ibeth Field Meth odist [place] ARTERIAL BLOOD GAS 2020-02-18 04:00:00 Hal Bondsodist Rhondaent CBC WITH PLATELET AND 2020-02-18 04:00:00 Hal Bonds n Advent DIFFERENTIAL Vincent COMPREHENSIVE METABOLIC 2020-02-18 04:00:00 Lee Olson [facility] PANEL PHOSPHORUS LEVEL 2020-02-18 04:00:00 Denys Davis Met hodist Radha MAGNESIUM LEVEL 2020-02-18 04:00:00 Denys Davis Meth odist Radha ESTIMATED GFR 2020-02-18 04:00:00 Denys Davis Meth odist Radha PROTHROMBIN TIME WITH INR 2020-02-18 04:00:00 Denys Davis Advent Radha IONIZED CALCIUM 2020-02-18 04:00:00 Ibeth Field odist [place] MANUAL DIFFERENTIAL 2020-02-18 04:00:00 Hal Bonds Vincent XR CHEST 1 VW PORTABLE 2020-02-18 03:59:46 Allison Lees on Advent Javid XR ABDOMEN 1 VW 2020-02-18 03:55:57 Lee Olson Meth odist POC GLUCOSE 2020-02-18 00:55:00 MaffeEmanuel andrade Meth odist ARTERIAL BLOOD GAS 2020-02-17 22:07:00 Hal Bonds ethodist Vincent POC GLUCOSE 2020-02-17 21:13:00 Emanuel Chaudhry Meth odist COMPREHENSIVE METABOLIC 2020-02-17 21:00:00 Hal Bonds [facility] PANEL Vincent ESTIMATED GFR 2020-02-17 21:00:00 Hal Bonds Meth odist Vincent CBC WITH PLATELET AND 2020-02-17 21:00:00 Hal Bonds [facility] DIFFERENTIAL Vincent MANUAL DIFFERENTIAL 2020-02-17 21:00:00 Hal Bonds [facility] Vincent POC GLUCOSE 2020-02-17 16:26:00 Emanuel Chaudhry Meth odist CBC WITH PLATELET AND 2020-02-17 15:55:00 Hal Bonds n Advent DIFFERENTIAL Vincent BASIC METABOLIC PANEL 2020-02-17 15:55:00 Hal Bonds Advent Vincent ARTERIAL BLOOD GAS 2020-02-17 15:55:00 Hal Bonds M ethodist Vincent ESTIMATED GFR 2020-02-17 15:55:00 Hal Bonds Meth odist Vincent MANUAL DIFFERENTIAL 2020-02-17 15:55:00 Hal Bonds [facility] Vincent POC GLUCOSE 2020-02-17 12:19:00 Emanuel Chaudhry odist SODIUM LEVEL, URINE, 2020-02-17 10:33:00 Denys Davisist RANDOM Radha URINE EOSINOPHILS 2020-02-17 10:33:00 Denys Davis Me thodist Radha PROTEIN, URINE, RANDOM 2020-02-17 10:33:00 Denys Davis on Advent Radha CREATININE LEVEL, URINE, 2020-02-17 10:33:00 Denys Davisu ston Advent RANDOM Radha POC GLUCOSE 2020-02-17 08:35:00 Emanuel Chaudhry Meth odist COMPREHENSIVE METABOLIC 2020-02-17 08:15:00 Hal Bonds [facility] PANEL Vincent ARTERIAL BLOOD GAS 2020-02-17 08:15:00 Lee Olson ethodist ESTIMATED GFR 2020-02-17 08:15:00 Hal Bonds Meth odist Vincent THYROID STIMULATING 2020-02-17 08:15:00 [place], Hal Sullivan Advent HORMONE Vincent ECG 12-LEAD 2020-02-17 06:57:30 Allison Lees Meth odist Javid POC GLUCOSE 2020-02-17 06:28:00 Maffet, Emanuel Sullivan Meth odist POC GLUCOSE 2020-02-17 05:20:00 Maffet, Emanuel Sullivan Meth odist POC GLUCOSE 2020-02-17 04:50:00 Maffet, Emanuel Sullivan Meth odist POC GLUCOSE 2020-02-17 04:21:00 Maffet, Emanuel Sullivan Meth odist XR CHEST 1 VW PORTABLE 2020-02-17 03:37:20 Allison Lees on Advent Javid POC GLUCOSE 2020-02-17 03:01:00 Emanuel Chaudhry Meth odist TROPONIN 2020-02-17 02:30:00 Lee Olson Meth odist COMPREHENSIVE METABOLIC 2020-02-17 02:30:00 Lee Olson [facility] PANEL LIDOCAINE LEVEL 2020-02-17 02:30:00 Tim Jo Meth odist PARTIAL THROMBOPLASTIN 2020-02-17 02:30:00 Allison Lees on Advent TIME (PTT) Javid PROTHROMBIN TIME WITH INR 2020-02-17 02:30:00 Allison Lees Advent Javid ARTERIAL BLOOD GAS 2020-02-17 02:30:00 Lee Olson M ethodist ESTIMATED GFR 2020-02-17 02:30:00 Lee Olson Meth odist CBC WITH PLATELET AND 2020-02-17 02:30:00 Lee Olson n Advent DIFFERENTIAL IONIZED CALCIUM 2020-02-17 02:30:00 Lee Olson Meth odist MAGNESIUM LEVEL 2020-02-17 02:30:00 Lee Olson Meth odist MANUAL DIFFERENTIAL 2020-02-17 02:30:00 Lee Olson Advent POC GLUCOSE 2020-02-17 01:03:00 Maffelupe, Emanuel Sullivan Meth odist POC GLUCOSE 2020-02-16 23:57:00 MaffeEmanuel andrade Meth odist POC GLUCOSE 2020-02-16 23:15:00 MaffetEmanuel Meth odist POC GLUCOSE 2020-02-16 22:16:00 MafEmanuel jacob odist COMPREHENSIVE METABOLIC 2020-02-16 22:05:00 Hal Bonds [facility] PANEL Vincent ESTIMATED GFR 2020-02-16 22:05:00 Hal Bonds odist Vincent LACTIC ACID LEVEL 2020-02-16 22:05:00 Allison Lees Nate Me thodist Javid MAGNESIUM LEVEL 2020-02-16 22:05:00 Hal Bonds odist Vincent POC GLUCOSE 2020-02-16 21:43:00 Maffet, Emanuel Sullivan Meth odist POC GLUCOSE 2020-02-16 21:15:00 Maffet, Emanuel Sullivan Meth odist POC GLUCOSE 2020-02-16 21:14:00 Maffet, Emanuel Sullivan Meth odist POC GLUCOSE 2020-02-16 19:37:00 Maffet, Emanuel Sullivan Meth odist POC GLUCOSE 2020-02-16 18:06:00 Maffet, Emanuel Sullivan Meth odist POC GLUCOSE 2020-02-16 16:57:00 Maffet, Emanuel Sullivan Meth odist POC GLUCOSE 2020-02-16 16:01:00 Maffet, Emanuel Sullivan Meth odist LACTIC ACID LEVEL 2020-02-16 15:55:00 Amira Herring [facility] BASIC METABOLIC PANEL 2020-02-16 15:55:00 Amira Herring [place] [facility] TROPONIN 2020-02-16 15:55:00 Amira Herring [facility] HEPATIC FUNCTION PANEL 2020-02-16 15:55:00 Amira Herring [facility] CBC WITH PLATELET AND 2020-02-16 15:55:00 Hal Bonds [facility] DIFFERENTIAL Vincent PROTHROMBIN TIME WITH INR 2020-02-16 15:55:00 Hal Bonds [facility] Vincent LIDOCAINE LEVEL 2020-02-16 15:55:00 Hal Bonds odist Vincent ESTIMATED GFR 2020-02-16 15:55:00 Amira Herring [facility] MANUAL DIFFERENTIAL 2020-02-16 15:55:00 Hal Bonds Vincent POC GLUCOSE 2020-02-16 15:03:00 Maffet, Emanuel Sulliavn Meth odist POC GLUCOSE 2020-02-16 14:02:00 Maffet, Emanuel Sullivan Meth odist POC GLUCOSE 2020-02-16 12:56:00 Maffet, Emanuel Sullivan Meth odist POC GLUCOSE 2020-02-16 12:08:00 Maffet, Emanuel Sullivan Meth odist IABP PLACEMENT 2020-02-16 11:57:38 Sigifredo Garcia Meth odist Adis ECG 12-LEAD 2020-02-16 11:06:24 BryanTombeth Sullivan Meth odist POC GLUCOSE 2020-02-16 10:29:00 Maffet, Emanuel Sullivan Meth odist BLOOD CULTURE, AEROBIC & 2020-02-16 10:20:00 RashidaIbeth ANAEROBIC [place] XR CHEST 1 VW PORTABLE 2020-02-16 10:04:04 Sigifredo Garcia on Advent Adis BLOOD CULTURE, AEROBIC & 2020-02-16 10:00:00 RashidaIbeth Advent ANAEROBIC [place] BASIC METABOLIC PANEL 2020-02-16 10:00:00 Tino Maurice Advent [place] MAGNESIUM LEVEL 2020-02-16 10:00:00 Tino Maurice Meth odist [place] PHOSPHORUS LEVEL 2020-02-16 10:00:00 Josafat Tinomelita Sullivan Met hodist [place] IONIZED CALCIUM 2020-02-16 10:00:00 JosafatSabrinaTino Sullivan Meth odist [place] ARTERIAL BLOOD GAS 2020-02-16 10:00:00 Hal Bonds ethodist Vincent ESTIMATED GFR 2020-02-16 10:00:00 Josafat Tinomelita Sullivan Meth odist [place] POC GLUCOSE 2020-02-16 09:04:00 Maffet, Emanuel Sullivan Meth odist POC GLUCOSE 2020-02-16 08:29:00 Maffelupe, Emanuel Sullivan Meth odist TTE COMPLETE, WO CONTRAST, 2020-02-16 08:28:54 Hal Bonds DOPPLER ([id number]) Vincent ANESTHESIA PERIPHERAL 2020-02-16 07:48:35 Benson Horn BLOCK NH AN PERIPHERAL BLOCK 2020-02-16 07:48:15 Benson Horn on [facility] PROCEDURE FOR PAIN NH AN PERIPHERAL BLOCK 2020-02-16 07:47:49 Benson Horn on [facility] PROCEDURE FOR PAIN POC GLUCOSE 2020-02-16 07:29:00 Maffelupe, Emanuel Dukes odist URINE CULTURE 2020-02-16 07:08:00 Tino Maurice odist [place] URINALYSIS SCREEN AND 2020-02-16 06:48:00 Tino Maurice [facility] MICROSCOPY, WITH REFLEX TO [place] CULTURE POC GLUCOSE 2020-02-16 06:00:00 Maffelupe, Emanuel Dukes odist POC GLUCOSE 2020-02-16 04:45:00 Maffelupe, Emanuel Dukes odist LACTIC ACID LEVEL 2020-02-16 04:30:00 RashidaIbeth thodist [place] LIDOCAINE LEVEL 2020-02-16 04:30:00 Tim Jo odist CBC WITH PLATELET AND 2020-02-16 04:30:00 Tino Maurice [facility] DIFFERENTIAL [place] BASIC METABOLIC PANEL 2020-02-16 04:30:00 Tino Maurice [facility] [place] MAGNESIUM LEVEL 2020-02-16 04:30:00 Tino Maurice odist [place] ARTERIAL BLOOD GAS 2020-02-16 04:30:00 Tino Maurice ethodist [place] ESTIMATED GFR 2020-02-16 04:30:00 Tino Maurice odist [place] IONIZED CALCIUM, ARTERIAL 2020-02-16 04:30:00 Tino Maurice [facility] [place] MANUAL DIFFERENTIAL 2020-02-16 04:30:00 Tino Maurice [place] US DUPLEX VENOUS LOWER 2020-02-16 04:15:00 RashidaIbeth on Advent EXTREMITY BILATERAL [place] POC GLUCOSE 2020-02-16 03:19:00 MaffeEmanuel andrade odist POC GLUCOSE 2020-02-16 02:36:00 MaffeEmanuel andrade odist ARTERIAL BLOOD GAS 2020-02-16 02:25:00 Tino Maurice ethodist [place] MAGNESIUM LEVEL 2020-02-16 02:25:00 Tino Maurice odist [place] PHOSPHORUS LEVEL 2020-02-16 02:25:00 JosafatSabrinaTino Sullivan hodist Stephen PROTHROMBIN TIME WITH INR 2020-02-16 02:25:00 JosafatSabrinaTino Renato cheikh Advent [place] PARTIAL THROMBOPLASTIN 2020-02-16 02:25:00 Josafat Tino Resendez on Advent TIME (PTT) [place] BASIC METABOLIC PANEL 2020-02-16 02:25:00 Rashida, Ibeth Tejeda n Advent [place] ESTIMATED GFR 2020-02-16 02:25:00 Rashida, Ibeth Sullivan Meth odist [place] IONIZED CALCIUM, ARTERIAL 2020-02-16 02:25:00 Tino Mauriceist [place] XR ABDOMEN 1 VW 2020-02-16 01:36:41 Rashida, Ibeth Sullivan Meth odist [place] BETA HYDROXYBUTYRATE 2020-02-16 01:30:00 Rashida, Ibeth Sullivan [facility] [place] LACTIC ACID LEVEL 2020-02-16 01:30:00 Rashida, Ibeth Brothers thodist [place] ECG 12-LEAD 2020-02-16 00:56:20 JosafatTino Ernst odist [place] POC GLUCOSE 2020-02-16 00:49:00 Emanuel Chaudhry odist CV LEFT HEART CATH LV GRAM 2020-02-15 23:47:00 Ty, Tim Mixon WITH CORS CV PCI STENT 2020-02-15 23:47:00 Ty, Tim Dukes odist ARTERIAL BLOOD GAS 2020-02-15 22:40:00 Tino Maurice ethodist [place] ECG 12-LEAD 2020-02-15 21:48:01 Josafat Tinomelita Dukes odist [place] XR CHEST 1 VW PORTABLE 2020-02-15 21:17:03 Rashida, Ibeth Resendez on [facility] [place] ARTERIAL BLOOD GAS 2020-02-15 21:12:00 Rashida Ibethgeorge Pearce ethodist [place] IONIZED CALCIUM, ARTERIAL 2020-02-15 21:12:00 Rashida, Ibeth salamanca Advent Maghirafaely HC CVL NON-TUNNELED INSERT 2020-02-15 21:05:00 Tino Maurice 5YRS OR > Chen[place] COMPREHENSIVE METABOLIC 2020-02-15 21:00:00 Ibeth Field [facility] PANEL [place] HC COMPLETE BLD COUNT 2020-02-15 21:00:00 Ibeth Fieldciro n Advent W/AUTO DIFF [place] MAGNESIUM LEVEL 2020-02-15 21:00:00 Ibeth Field odist [place] PROTHROMBIN TIME WITH INR 2020-02-15 21:00:00 Ibeth Field Advent [place] LACTIC ACID LEVEL 2020-02-15 21:00:00 Ibeth Field Me thodist [place] TROPONIN 2020-02-15 21:00:00 Ibeth Field odist [place] B NATRIURETIC PEPTIDE 2020-02-15 21:00:00 Ibeth Field [facility] [place] ESTIMATED GFR 2020-02-15 21:00:00 Ibeth Field Ernst odist [place] NH INSERT 2020-02-15 20:50:00 Tino Maurice odist CATH,ART,PERCUT,SHORTTERM [place] POC GLUCOSE 2020-02-15 20:46:00 Emanuel Chaudhry odist INTUBATION 2020-02-15 20:00:00 RashidaIbeth carrasquillo Ernst odist [place] POC GLUCOSE 2020-02-15 19:52:00 Emanuel Chaudhry odist POC GLUCOSE 2020-02-15 17:04:00 Emanuel Chaudhry SURGICAL PATHOLOGY REQUEST 2020-02-15 13:14:00 Emanuel Chaudhry NH AN ELECTIVE 2020-02-15 11:07:39 Sayra De La Garza Met latosha SUPRAGLOTTIC AIRWAY [place] POC GLUCOSE 2020-02-15 09:11:00 Emanuel Chaudhry ECG PRE/POST OP 2020-02-10 13:02:49 Donna Carey Met latosha HC COMPLETE BLD COUNT 2020-02-10 12:54:00 Donna Carey on Advent W/AUTO DIFF HEMOGLOBIN A1C 2020-02-10 12:54:00 Donna Carey Met latosha TYPE AND SCREEN 2020-02-10 12:54:00 AurelioDonna Met latosha BASIC METABOLIC PANEL 2020-02-10 12:54:00 AurelioDonna Dipti on Advent ESTIMATED GFR 2020-02-10 12:54:00 Donna Carey Met latosha COVID-19 QUALITATIVE PCR 2020-02-10 12:35:00 Emanuel Chaudhry MRI SIGNATURE KNEE RIGHT 2019-12-16 13:09:42 Emanuel Chaudhry MRI LOWER EXTREMITY 2019-11-29 13:03:52 Emanuel Chaudhry EXTERNAL STUDY XR LOWER EXTREMITY 2019-09-15 13:03:36 Emanuel Chaudhry ethodist EXTERNAL STUDY XR, knee, 3 view 2019-09-09 00:00:00 [facility] MRI, shoulder, w/o 2019-09-09 00:00:00 [place] [facility] XR, shoulder, 2 or more 2019-08-29 00:00:00 Ledesma vidhya [facility] Colonoscopy 2018-10-11 00:00:00 [place] [facility]ial [facility] Phys[facility] History of Upper extremity [facility] amputation Physicians Hernia Repair W/mesh [place] [facility] Amputation of Upper [place] [facility] Plan of Care Planned Activity Planned Date Details Comments Source Future Scheduled 2020-04-12 INFLUENZA VACCINE Nikhil cisneros [facility] Test 00:00:00 [code = INFLUENZA VACCINE] Future Scheduled 2016 65+ PNEUMOCOCCAL Nate [facility] Test 00:00:00 VACCINE (1 of 2 - PCV13) [code = 65+ PNEUMOCOCCAL VACCINE (1 of 2 - PCV13)] Future Scheduled 2001 COLONOSCOPY SCREENING Renato salamanca Advent Test 00:00:00 [code = COLONOSCOPY SCREENING] Future Scheduled 2001 SHINGLES VACCINES Nikhil cisneros [facility] Test 00:00:00 (#1) [code = SHINGLES VACCINES (#1)] Future Scheduled 1961 DIABETIC FOOT EXAM [place] [facility] Test 00:00:00 [code = DIABETIC FOOT EXAM] Future Scheduled 1961 URINE MICROALBUMIN [place] [facility] Test 00:00:00 [code = URINE MICROALBUMIN] Future Scheduled 1951 DIABETIC RETINAL EYE Roxann ston [facility] Test 00:00:00 EXAM [code = DIABETIC RETINAL EYE EXAM] Medication 2020-03-05 BUMETanide (BUMEX) 1 [place] [facility] 00:00:00 MG tablet [code = 559644] Medication 2020-03-05 digOXIN (LANOXIN) 125 [place] [facility] 00:00:00 mcg (0.125 mg) tablet [code = 041975] Encounters Start End Encounter Admission Attending Care Care Encounter Source Date/Time Date/Time Type Type Clinicians Facility Department ID 2020-02-15 2020-03-04 Inpatient ISIS [facility] [id number] [place] 00:00:00 00:00:00 TITO 526 Method i 2020-02-10 2020-02-10 Outpatient MAFFET, [facility] [id number] [place] 00:00:00 00:00:00 EMANUEL 790 Method i 2019-12-16 2019-12-16 [id number] [place] 00:00:00 00:00:00 EMANUEL 190 Method i 2019-12-01 2019-12-01 [facility] [id number] [place] 00:00:00 00:00:00 EMANUEL 110 Method i 2019-12-01 2019-12-01 Outpatient MAFFET, [facility] [id number] [place] 00:00:00 00:00:00 EAMNUEL 711 Method i 2019-12-01 2019-12-01 [facility] [id number] [place] 00:00:00 00:00:00 EMANUEL 742 Method i 2019-09-29 2019-09-29 AppointELOISE [facility] [id number] [facility] 13:30:00 13:30:00 t; KIRT MÉNDEZ, - Sugar ity o cheyenne MORALEZ M.D. [address] ans 2019-09-09 2019-09-09 Sarah SHAH [place] - [id number] M atagor 00:00:00 00:00:00 Rose Cunha, [facility] TIRE SETTER: [address], [facility] [phone] Progr am , Ph. 2019-06-14 2019-06-14 Ravi SHAH [place] - [id number] 3 [place] 00:00:00 00:00:00 Matteo PA: Nataliya elias [address] [facility] [facility], [facility] [place] [phone] Progr am , Ph. Results Test Description Test Time Test Comments Results Result Comments Source POC glucose 2020-03-04 11:08:33 Test Item Value Reference Range Interpretation Comme nts POC glucose (test code = 117 mg/dL 65-99 H Ope rator Name: Joey Li [id number]) ID: [id number] hartable: RN Notified Lab Interpretation (test code = Abnormal 86980-2) [place] [facility] [id number] 07:17:59 Test Item Value Reference Range Interpretation Comments Sodium (test code = 2951-2) 135 135- 148 mEq/L Potassium (test code = 2823-3) 4.0 3.5- 5.0 mEq/L Chloride (test code = 2075-0) 102 98- 112 mEq/L CO2 (test code = 2027-9) 26 24- 31 mEq/L Anion gap (test code = 33217-8) 7@ANIO 7- 15 mEq/L BUN (test code = 3094-0) 14 mg/dL 8-23 Creatinine (test code = 2160-0) 0.90 mg/dL 0.7-1.2 Glucose (test code = 2345-7) 94 mg/dL 65-99 Calcium (test code = 88191-7) 8.2 mg/dL 8.8-10.2 L Protein (test code = 2885-2) 5.4 g/dL 6.3-8.3 L Albumin (test code = 1751-7) 2.7 g/dL 3.5-5 L A/G ratio (test code = 1759-0) 1.0 0.7-3.8 Alkaline phosphatase (test code = 71 U/L 40-129 6768-6) AST (test code = 1920-8) 35 U/L 10-50 ALT (test code = 1742-6) 101 U/L 5-50 H Total bilirubin (test code = 1.5 mg/dL 0.2-1.2 H 1974-08) Lab Interpretation (test code = Abnormal 73008-7) Nate MethodistEstimated [id number] 07:17:59 Test Item Value Reference Range Interpretation Comments Estimated GFR (test 87 mL/min/1.73 m2 [facility] code = 5488) InterpretationG 1 >=90 Normal or highG2 60-89 Mildly [id number] 45-59 Mildly to mode rately [id number] 30-44 Moderately to severely decreasedG4 15-29 Severely decre asedG5 <15 Kidn ey failureThe eGFR was calculated carmela alcaraz the Chronic Kidney Disease Epidemiology Co llaboration (CKD-EPI) equat ion. Interpretation is based on recommendations of the National Kidney Foundation-Kidn ey Disease Outcomes Qualit y Initiative (NKF-KDOQI) pub lished in 2014. [facility] with platelet and [id number] 06:31:14 Test Item Value Reference Range Interpretation Comments WBC (test code = 95107-0) 9.0 4.5- 11.0 k/uL RBC (test code = 22498-3) 2.90 m/uL 4.4-6 L HGB (test code = 718-7) 8.9 g/dL 14-18 L HCT (test code = 4544-3) 28.1 % 41-51 L MCV (test code = 787-2) 96.9 fL 82-100 MCH (test code = 785-6) 30.7 pg 27-34 MCHC (test code = 786-4) 31.7 g/dL 31-37 RDW - SD (test code = 05082-8) 57.9 fL 37-55 H MPV (test code = 18998-5) 10.6 fL 6.9-11 Platelet count (test code = 337 K/uL 150-400 59609-4) Nucleated RBC (test code = 57569-3) 0.00 /100 WBC Neutrophils (test code = 57274-9) 76.7 % 39-69 H Lymphocytes (test code = 76373-8) 12.0 % 25-45 L Monocytes (test code = 93894-7) 9.4 % 0-10 Eosinophils (test code = 95663-4) 1.1 % 0-5 Basophils (test code = 03320-6) 0.2 % 0-1 Immature granulocytes (test code = 0.6 % 0-1 31755-5) Lab Interpretation (test code = Abnormal 71455-1) [facility] K[facility] 1 Or 2 Vw [id number] 12:12:43Hm Interface, Radiology Results 03/03/2020 12:15 PM CDTEXAMINATION: XR KNEE 1 OR 2 VW RIGHTINDICATION: TKR with bleedingCOMPARISON:Most recent priorIMPRESSION:Status post right total knee arthroplasty with patellar resurfacing. Alignment is satisfactory. No evidence of hardware failure or loosening. Small joint effusion and prominent prepatellar soft tissue swelling. Small prepatellar surgical clip is noted.[id number] [facility] Chest 2 [id number] 08:08:32Hm Interface, Radiology Results 03/02/2020 8:11 AM CDTEXAMINATION: XR CHEST 2 VWCLINICAL HISTORY: 69 years Male Shortness of breathCOMPARISON: Chest radiograph 02/27/2020IMPRESSION:1.Right IJ central venous catheter is identified with the tip overlying the SVC.2.The lungs are well-inflated with no focal consolidation or pneumothorax.. There is blunting of the left costophrenic sulcus, best seen on the lateral view, and may represent pleural thickening or a pleural effusion with associated compressive subsegmental atelectasis.3.The mediastinal silhouette is within normal limits.4.No acute osseous abnormality.[id number] [facility] natriuretic [id number] 07:23:47 Test Item Value Reference Range Interpretation Comments BNP (test code = 98516-1) 1024 pg/mL 0-100 H Lab Interpretation (test code = Abnormal 99691-2) [facility] [id number] 07:23:31 Test Item Value Reference Range Interpretation Comments Magnesium (test code = 70204-3) 1.9 mg/dL 1.6-2.4 [place] [facility] screen and microscopy, with reflex to culture 2020-03-01 19:20:22 Test Item Value Reference Range Interpretation Comments Specimen site (test code = Clean catch [id number]) Color, UA (test code = 5778-6) Yellow Appearance, UA (test code = Clear 5767-9) Specific gravity, UA (test code = 1.016 1.001-1.030 5811-5) pH, UA (test code = 5803-2) 6.0 5.0-9.0 Protein, UA (test code = 97040-1) Negative Negative Glucose, UA (test code = 63012-4) Negative Negative Ketones, UA (test code = 2514-8) Negative Negative Bilirubin, UA (test code = Negative Negative 5770-3) Blood, UA (test code = 5794-3) Large Negative A Nitrite, UA (test code = 5802-4) Negative Negative Urobilinogen, UA (test code = 4.0 <2.0 E.U./dL A 93556-1) Leukocyte esterase, UA (test code Trace Negative A = 5799-2) Epithelial cells, UA (test code = 1 /HPF 5787-7) WBC, UA (test code = 5821-4) 29 0- 1 /HPF H RBC, UA (test code = 77644-2) >200 0- 5 /HPF H Bacteria, UA (test code = Few None seen 13452-3) Yeast, UA (test code = 18644-4) None seen Yeast with pseudohyphae, UA (test None seen code = 38720-3) Hyaline casts, UA (test code = 0-2 /LPF 5796-8) Lab Interpretation (test code = Abnormal 97824-8) [facility] Rose MarieistCOVID-19 qualitative [id number] 14:25:21 Test Item Value Reference Range Interpretation Comments Interpretation (test Negative results do code = 1768436) not preclude 2019-nCoV infection and should not be used as the sole basis for treatment or other patient management decisions. Negative results must be combined with clinical observations, patient history, and epidemiological information. COVID-19 qualitative Not-Detected Not-Detected PCR result (test code = 53330-1) COVID-19 qualitative See link below for C ase Number: PCR (test code = PDF Lab Report [id number]) Nate MixonOccult blood, ttsul5251-71-47 12:23:37 Test Item Value Reference Range Interpretation Comments Occult blood, Negative for Specimen stool (test occult blood. InformationSpe cimen code = Source: StoolSp ecimen 2334-1) Site: Not other andres specified [place] MethodistLipid robet4536-38-58 11:25:08 Test Item Value Reference Interpretation Comments Range Cholesterol (test 86 mg/dL 0-199 code = 2093-3) Triglycerides (test 78 mg/dL 0-149 code = 2571-8) HDL cholesterol 21 mg/dL 40-54032 L (test code = 2085-9) LDL cholesterol 50 mg/dL 0-99 (test code = 2089-1) Lipid panel See below Total Cholester ol (mg/dL) interpretation (test < 200 code = 37922-0) Desirable 200-239 Borderline -high >=240 Hi gh Triglyceri queenie (mg/dL) <150 No rmal 150-199 Borderline-high 200-499 High >=500 Very high HDL Choles terol (mg/dL) <40 Low (male) < 50 Low (female) L DL Cholesterol (mg /dL) <100 Optimal 1 00-129 Near or above o ptimal 130-159 Borderline-high 160-189 High >=190 Very high Risk Cat ergories that modify LDL goals.Risk Catergories LDL goal (mg/dL )CHD and CHD risk equiva lent <100 (10-year risk >20%)Multiple ( 2+) risk factors < 130 (10-year risk = <20%)0-1 risk factors <160 (<10-ye ar risk) Defining levels of lipids in metabolic syndromeTriglyc erides > =150 mg/dLHDL Choles terol Men <40 mg/dL Women <50 mg/dL Non-HDL cholest radha is a second target f or therapy in personswith high triglycerides ( >=200 mg/dL) Lab Interpretation Abnormal (test code = 69327-4) [place] MethodistIonized vbfcqtp9399-36-53 05:47:37 Test Item Value Reference Range Interpretation Comments pH (test code = 2753-2) 7.41 Ionized calcium (test code = 1.08 mmol/L 1.11-1.32 L ) Lab Interpretation (test code = Abnormal 47781-3) Nate MethodistXR Chest 1 Vw Anknmojg8417-69-93 20:53:56Hm Interface, Radiology Results 02/27/2020 8:57 PM CDTExamination: XR CHEST 1 VW PORTABLEClinical history: "placement of central line" Comparison: 02/26/2020 IMPRESSION: Right IJ line's tipis in the lower SVC.There are no new alveolar opacities within either lung. Left lower lung infiltration is slightly improved. No pneumothoraces are identified.The cardiomediastinal silhouette is unchanged. The bones of the chest are unchanged. [facility]iley MethodistCentral Line Txtmbutdk5656-43-29 20:00:00Ibeth Field NP-C 02/28/2020 1:30 AMCentral Line InsertionPerformed by: Ibeth Field NP-CAuthorized by: Ibeth Field NP-C Consent: Consent obtained: Written Consent given by: Patient Risks discussed: Arterial puncture, bleeding, incorrect placement, infection,nerve damage and pneumothorax Alternatives discussed: Delayed treatmentUniversal protocol: Procedure explained and questions answered to patient or proxy's satisfaction: yes Relevant documents present and verified: yes Test results available and properly labeled: yes Imaging studies available: yes Required blood products, implants, devices, and special equipment available: yes Site/side marked: yes Immediately prior to procedure, a time out was called: yes Patient identity confirmed: Hospital-assigned identification number and arm bandPre-procedure details: Hand hygiene:Hand hygiene performed prior to insertion Sterile barrier technique: All elements of maximal sterile technique followed Skin preparation: Chloraprep and 2% chlorhexidine Skin preparation agent:Skin preparation agent completely dried prior to procedure Sedation: Sedation Type: Narcotic Narcotic(s) used:: Fentanyl (25 uq IV x 1)Anesthesia (see MAR for exact dosages): Anesthesia method: Local infiltration Local anesthetic: Lidocaine 1% w/o epiProcedure details: Catheter type: Triple lumen Catheter size: 7.5 Fr Catheter length (cm): 16 cm Catheter site: internal jugular vein Catheter Site Laterality: Right Patient position: Flat Landmarks identified: yes Ultrasound guidance: yes Sterile ultrasound techniques: Sterile gel and sterile probe covers were used Number of attempts: 1 Successful placement: yes Post-procedure details: Post-procedure: Dressingapplied and line sutured Assessment: Blood return through all ports, no pneumothorax on x-ray, placement verified by x-ray and free fluid flow Patient tolerance of procedure: Tolerated well, no immediate complicationsSavannah MethodistLactic acid xmhkj6811-46-92 00:29:58 Test Item Value Reference Range Interpretation Comments Lactic acid (test code = 01626-2) 1.8 mmol/L 0.5-2.2 [place] MethodistBasic metabolic pgddv8042-06-23 00:10:04 Test Item Value Reference Range Interpretation Comments Sodium (test code = 2951-2) 141 135- 148 mEq/L Potassium (test code = 2823-3) 3.6 3.5- 5.0 mEq/L Chloride (test code = 2075-0) 109 98- 112 mEq/L CO2 (test code = 8-9) 24 24- 31 mEq/L Anion gap (test code = 82436-5) 8@ANIO 7- 15 mEq/L BUN (test code = 3094-0) 27 mg/dL 8-23 H Creatinine (test code = 2160-0) 1.04 mg/dL 0.7-1.2 Glucose (test code = 2345-7) 133 mg/dL 65-99 H Calcium (test code = 34038-0) 7.8 mg/dL 8.8-10.2 L Lab Interpretation (test code = Abnormal 41799-2) [place] MethodistArterial blood [id number] 23:52:53 Test Item Value Reference Range Interpretation Comments pH, arterial (test code = 2744-1) 7.53 7.35-7.45 H pCO2, arterial (test code = 29 35- 45 mmHg L 2019-02) pO2, arterial (test code = 133 80- 90 mmHg H 3-7) Bicarbonate, arterial (test code 23.8 mmol/L 21-28 = 1960-4) Base excess, arterial (test code 2 -2 - 2 mEq-L = 1925-7) O2 saturation, arterial (test 99 % 95-100 code = 2708-6) Lab Interpretation (test code = Abnormal 12201-3) [facility] Angiogram Pe Gkluz7561-14-58 13:01:09Hm Interface, Radiology Results 02/26/2020 1:04 PM CDTEXAMINATION:CT ANGIOGRAM PE CHESTCL INICAL HISTORY:PE suspected high pretest probTECHNIQUE:CT angiographic images of the chest were obtained during intravenous administration of iodinated contrast. Computerized reformatted images and 3-D MIP images were also obtained and archived (CT pulmonary embolus protocol).DOSE REDUCTION: CT imaging was performed with iterative reconstruction technique and/or automated exposure control to reduce radiation dose.COMPARISON:CT abdomen pelvis without contrast from 02/24/2020 and single view chest from 02/25/2020FINDINGS:1.Pulmonary artery opacification is good. Evaluation for pulmonary embolus withinthe segmental and subsegmental pulmonary arteries specifically within the lower lobes is limited by respiratory motion. No pulmonary embolus is seen within the main or lobar pulmonary arteries. There is no evidence of a saddle embolus. There is no evidence of ventricular septal bulging. 2.Trace bilateral pleural effusions are noted, left greater than right, which are unchanged compared to previous CTfrom 02/24/2020.3.Consolidation within the left lower lobe is noted likely representing atelectasis.4.The trachea main bronchi are clear. No peribronchial thickening. No bronchiectasis.5.No pneumothorax.6.No mediastinal, hilar, or axillary lymphadenopathy.7.The thoracic aorta is normal in caliber. The cardiac size is mildly enlarged. No pericardial effusion. A trace amount of fluid is seen within the superior pericardial recesses.8.The thyroid is unremarkable.9.The bones of the chest are within normal limits.10.No hiatal hernia. Remaining, limited evaluation of the upper abdomen demonstrates reflux o f contrast into the inferior vena cava and hepatic veins, which is nonspecific. Nonspecific bilateral perinephric stranding is noted.IMPRESSION:1.Limited evaluation for pulmonary embolism due to respiratory motion, however, no pulmonary embolus is seen within the main or lobar pulmonary arteries.2.Trace bilateral pleural effusions, right greater than left with associated atelectasis.[facility]-[id number] MethodistPhosphorus fhgdn3937-89-97 07:13:08 Test Item Value Reference Range Interpretation Comments Phosphorus (test code = 2777-1) 3.1 mg/dL 2.4-4.5 Nate TrotteristProthrombin time with JEY0748-23-06 03:33:15 Test Item Value Reference Range Interpretation Comments Prothrombin time (test 16.6 11.5- 14.5 sec H code = 5902-2) INR (test code = 1.3 [facility] 22516[facility]) Normalized Rati o (INR) is a therapeuti c monitoring tool for patients who ar e stable on oral anticoagulant t herapy. An INR of 2.0-3 .0 is suggested for d eep vein thrombosis/pulm onary embolism. Lab Interpretation Abnormal (test code = 37458-1) Sullivan MethodistCT Abdomen Pelvis Wo Ksbzgtoc8597-49-61 23:37:52Hm Interface, Radiology Results 02/24/2020 11:41 PM CDTExamination: CT ABDOMEN PELVIS WOCONTRASTClinical History: R O Spontaneous retroperitoneal bleedingComparison: None.Findings:CT scansare performed using radiation dose reduction techniques. Technical factors are evaluated and adjusted to ensure appropriate moderation of exposure. Automated dose management technology is applied to adjust radiation exposure while achieving a diagnostic quality image. CT imaging was performed with iterative reconstruction techniques and/or automated exposure control to reduce radiation dose.CT scanof the abdomen and pelvis was performed without intravenous contrast.The liver, spleen, pancreas, and adrenal glands are unremarkable. Gallbladder shows vicarious excretion from prior study.The kidneysare within normal limits without hydronephrosis or urinary calculus.The appendix is unremarkable. Scattered colonic diverticuli are noted. No bowel thickening or fat stranding is seen. No bowel dilatation is seen.No free air or fluid is seen. Urinary bladder is not well-distended due to Nino catheter.Mild subcutaneous edema is seen bilaterally at the lateral aspect.No retroperitoneal or intraperitoneal hematoma or hemorrhage is seen.The visualized lung bases show small bilateral effusions and bilateral dependent atelectasis.IMPRESSION:1. No retroperitoneal or intraperitoneal hematoma identified.2.Mild diffuse subcutaneous edema.3. Small bilateral pleural effusions with mild dependent atelectasis.[id number] MethodistType and vpjnmw2354-11-30 22:12:00 Test Item Value Reference Range Interpretation Comments ABO grouping (test code A Bloo d is available. = 883-9) 02/24/20 22:13 Vi Myalil Rh type (test code = POS 15393-9) Antibody screen (gel) NEG (test code = 890-4) Nate MethodistPartial thromboplastin time, xtluwhqya0859-50-33 21:41:55 Test Item Value Reference Range Interpretation Comments PTT (test code = 202.5 23.0- 36.0 sec HH PTT thera peutic range 3173-2) for unfractiona tawanna heparin is61.0- 112.0 seconds which corresponds to Anti-Xa0.3-0.7 U/ml.PTT result s called to and r ead back by JOSE FRANCISCO HINTON RN/L ICU at 02/24/2020 21: 41 by [facility]. Lab Interpretation Abnormal (test code = 00731-6) Nate MethodistHemoglobin & ujwkdforsq0239-31-65 21:26:53 Test Item Value Reference Range Interpretation Comments HGB (test code = 718-7) 11.4 g/dL 14-18 L HCT (test code = 4544-3) 34.8 % 41-51 L Lab Interpretation (test code = Abnormal 43450-1) Nate MethodistAnti Xa, [id number] 19:48:36 Test Item Value Reference Range Interpretation Comments Anti Xa, unfractionated <0.10 U/mL Ther apeutic Range: (test code = 3274-8) 0.30 - 0.70 U/mL Nate MethodistCentral Line Jvskqcvpq0024-55-91 18:47:08Sophy Mcfarland NP 02/24/2020 6:48 PMCentral Line InsertionPerformed by: Sophy Mcfarland NPAuthorized by: Sophy Mcfarland NP Consent: Consent obtained: Verbal and written Consent given by: Patient Risks discussed: Arterial puncture, bleeding, incorrect placement, infection and nerve damage Alternatives discussed: No treatmentUniversal protocol: Procedure explained and questions answered to patient or proxy's satisfaction: yes Relevant documents present and verified: yes Test results available and properly labeled: yes Imaging studies available: yes Required blood products, implants, devices, and special equipment available: yes Site/side marked: yes Immediately prior to procedure, a time out was called: yes Patient identity confirmed: Verbally with patient, arm band and hospital-assigned identification numberPre-procedure details: Hand hygiene: Hand hygiene performed prior to insertion Sterile barrier technique: All elements of m aximal sterile technique followed Skin preparation: Chloraprep Skin preparation agent: Skin preparation agent completely dried prior to procedure Anesthesia (see MAR for exact dosages): Anesthesia method: NoneProcedure details: Catheter type: Triple lumen Catheter size: 6 Fr Catheter site: femoral vein Catheter Site Laterality: Right Ultrasound guidance: yes Sterile ultrasound techniques: Sterile gel and sterile probe covers were used Number of attempts: 1 Successful placement: yes Post-procedure details: Post-procedure: Dressing applied Patient tolerance of procedure: Tolerated well, no immediate complicationsComments: Quiana MartinezistArterial Line Ijbhqobid1016-93-30 18:46:11RobSophy richard NP 02/24/2020 6:47 PMArterial Line InsertionDate/Time: 02/24/2020 6:46 PMPerformed by: Sophy Mcfarland NPAuthorized by: Sophy Mcfarland NP Consent: Consentobtained: Verbal and written Consent given by: Patient Risks discussed: Bleeding, ischemia, infection, pain and repeat procedureIndications: Indications: hemodynamic monitoring Pre-procedure det ails: Skin preparation: 2% ChlorhexidineProcedure details: Location: R femoral Needle gauge:18 G Ultrasound guidance: yes Number of attempts: 1 Transducer: waveform confirmed Post-procedure details: Post-procedure: Sutured Patient tolerance of procedure: Tolerated well, no immediate complicationsComments: Quiana MartinezistUs duplex venous upper fwmlvhthn3605-04-05 18:12:00Hm Interface, Radiology Results 02/24/2020 6:15 PM CDTEXAMINATION: US DUPLEX VENOUS UPPER EXTREMITY BILATERALCLINICAL HISTORY: Arm swelling or pain DVT suspectedCOMPARISON: None.TECHNIQUE: Grayscale, color Doppler, and spectral waveform analysis of the bilateral upper extremity deep venous systems was performed.FINDINGS:The left upper extremity, there is occlusive thrombus in the left axillary vein, cephalic vein, basilic vein, and ulnar vein. The left internal jugular vein, brachial vein, radial vein are patent.Patent right internal jugular, subclavian, axillary, brachial, basilic, cephalic, and forearm.IMPRESSION:Occlusive left upper extremity deep vein thrombosis.Findings were discussed with PASTORA Spencer at 02/24/2020 6:10 PM who verbalized understanding.[facility]-MPHYMATHousvel MixonFL Modified Barium Ezupcjl2252-77-87 15:48:10Hm Interface, Radiology Results 02/24/2020 3:51 PM CDTEXAMINATION: FL MODIFIED BARIUM SW ALLOWCLINICAL HISTORY: Dysphagia unexplained COMPARISON: None.Reference air kerma: 8.75 mGyFINDINGS: The patient swallowed varying consistencies of barium under direct lateral fluoroscopic evaluation. The study was performed in conjunction with speech pathology.IMPRESSION:There is penetration withresidue in the valleculae with swallowing the thin liquid consistency. The patient swallowed other consistencies of barium without evidence of laryngeal penetration or aspiration.Please refer to Speech Pathology report for further details.[facility]-[id number] MethodistManual ippcplrrpbca4691-95-97 07:48:49 Test Item Value Reference Range Interpretation Comments Manual differential (test code = PERFORMED 99277-4) Neutrophils (test code = 30230-9) 92.0 % 39-69 H Lymphocytes (test code = 53708-7) 4.0 % 25-45 L Monocytes (test code = 86175-8) 4.0 % 0-10 Eosinophils (test code = 10174-1) 1.0 % 0-5 Basophils (test code = 73032-9) 0.0 % 0-1 Platelet slide review (test code = Decreased A 15216-4) Anisocytosis (test code = 702-1) Moderate Polychromasia (test code = Moderate 30378-8) Spherocytes (test code = 802-9) Occasional Ovalocytes (test code = 774-0) Moderate Jakob cells (test code = 7790-9) Moderate A Enlarged platelets (test code = Moderate A 76495-0) Lab Interpretation (test code = Abnormal 14322-9) Nate TrotteristTransthoracic Echocardiogram Complete, (w Contrast, Strain and 3D if needed)2020-02-23 17:19:04 Test Item Value Reference Range Interpretation Comments AoV Area, Vmax (test 3.46 cm2 code = 3492765877) AoV Area, VTI (test 3.63 cm2 code = 9572016892) AoV Mean PG (test code 3.00 mmHg = 5765640785) AoV Peak PG (test code 5.11 mmHg = 2837922776) AoV Vmax (test code = 1.13 m/s 9455240913) AoV VTI (test code = 0.16 m 4986831213) IVS,d (test code = 0.99 cm 2319692567) IVS/LVPW,2D (test code 0.98 = 4665070597) Left Atrium Dimension 3.20 cm Anterior (test code = 6737072552) LV,d (test code = 5.36 cm 4607810870) LV EF,2D (test code = 64.65 % 1105175324) LV,s (test code = 3.79 cm 9483896566) LVOT area (test code = 3.80 cm2 9350766286) LVOT Diam,S (test code 2.20 cm = 0857880398) LVOT Vmax (test code = 1.03 m/s 9055935352) LVOT VTI (test code = 0.15 m 9222898030) LVPWD,d (test code = 1.01 cm 3403605363) TR Vpeak (test code = 2.27 mm/s 1191783628) MV E A ratio (test 2.82 code = 3711745186) TR pk grad (test code 20.61 mmHg = 0244048739) E wave decelartion 180.00 msec time (test code = 2499369333) MV Peak A Gurvinder (test 0.30 m/s code = 9469016959) MV valve area p 1/2 4.21 cm2 method (test code = 8333751093) MV Peak E Gurvinder (test 0.84 m/s code = 3448124735) MV stenosis pressure 52.20 ms 1/2 time (test code = 6565911900) AV LVOT peak gradient 4.24 mmHg (test code = 3189259946) Ao Root,d,2D (test 4.10 cm code = 2296071641) LV SYS VOL (test code 61.56 ml = 8788305374) LV BUNN VOL (test code 138.91 ml = 4435729494) LV SV Teich 2D (test 77.35 ml code = 0067192600) LV Vol s Teich PSAX 61.56 ml (test code = 1462833024) AoV Vmn (test code = 0.84 6917327495) LV FS Teich 2D (test 29.29 code = 9728867576) MV AE ratio (test code 0.35 = 4743070625) LV FS Cube 2D (test 29.29 code = 7427708581) LVOT Vmn (test code = 0.62 1135968232) Aov area Vmn (test 2.79 cm2 code = 1576932690) LVOT mean grad (test 2.00 mmHg code = 1076701339) MAX Pred HR (test code 151.27 = 7219750530) 85 of MPHR (test code 128.58 = 0092857606) Ao d LA s ratio (test 1.28 code = 9156989887) Calc MPHR (test code = 151.27 bpm 9702158212) LV SV Cube 2D (test 99.55 ml code = 5347639594) LV vol d cube 2D (test 153.99 ml code = 7753761212) LV vol s cube 2D (test 54.44 ml code = 9882895265) MV Decel slope (test 4.67 m/s2 code = 3825936482) Pred Exer Dur R1 (test 7.37 code = 1585615108) Pred METS R1 (test 7.69 code = 6839922488) Velocity Ratio (V1/V2) 0.91 m/s (test code = 4689) EF (test code = 55.68 % 0075473108) E/A ratio (test code = 2.80 4201862044) UMU (test code = UMU) Left ventricular systolic function is moderately impaired. Left Ventricular ejection fraction may be 40% There is mild sclerosis of the aortic valve leaflets. Anteroapical moderate to severe hypokinesia No pericardial effusion Mild tricuspid insufficiency Nate MethodistBlood culture, aerobic & qgqcvzejj2485-30-24 14:33:02 Test Item Value Reference Range Interpretation Comments Blood culture No growth Specimen isolate (test after 5 days InformationSpe [facility] code = 600-7) of Source: BloodS pecimen incubation. [facility] MethodistIonized calcium, axcxkvdt1286-38-55 01:28:25 Test Item Value Reference Range Interpretation Comments Ionized calcium, arterial (test 0.97 mmol/L 1.11-1.32 L code = 66610-2) Lab Interpretation (test code = Abnormal 11253-3) Nate MixonECG 12 aozl2768-38-65 15:19:41 Test Item Value Reference Range Interpretation Comments Ventricular rate (test 86 code = 253) Atrial rate (test code 86 = 255) NH interval (test code 144 = 266) QRSD interval (test 24 code = 260) QT interval (test code 242 = 264) QTC interval (test 289 code = 265) P axis 1 (test code = 25 267) QRS axis 1 (test code 0 = 268) T wave axis (test code 54 = 270) EKG impression (test Sinus rhythm with code = 273) marked sinus arrhythmia-Biatrial enlargement-Indetermina te axis--Abnormal ECG-In automated comparison with ECG of 18-FEB-2020 23:06,-Sinus rhythm has replaced Atrial fibrillation-Right bundle branch block is no longer present-Criteria for Anteroseptal infarct are no longer present- Sullivan Rose MarieistLidocaine jkpcf3254-22-16 12:38:08 Test Item Value Reference Range Interpretation Comments Lidocaine (test code = 3714-3) 0.77 ug/mL 1.5-5 L Lab Interpretation (test code = Abnormal 87356-1) Nate MixonXR Abdomen 1 Ol3771-02-12 04:02:21Hm Interface, Radiology Results - 02/18/2020 4:05 AM CDTEXAMINATION: XR ABDOMEN 1 VWHISTORY: 69 years Male Feeding tube placementCOMPARISON: Abdominal radiograph from 02/16/2020.FINDINGS: Afeeding tube has been placed with the side port in the body the stomach. A small bowel loop in the included upper abdomen is prominent measuring up to 2.9 cm in diameter.IMPRESSION: Feeding tube in place with side port in the body the stomach.[facility]-[id number] MethodistUrine eosinophils 2020-02-17 22:43:05 Test Item Value Reference Range Interpretation Comments Eosinophils, urine (test code = NONE 14771-6) [place] MethodistSurgical pathology hggpqvg2684-10-17 17:54:16 Test Item Value Reference Range Interpretation Comments Case number (test code = [id number]) Surgical pathology See link below for report (test code = PDF Lab Report 2254) Result status (test code This is Final Report = [id number]) for [id number] Nate MethodistCreatinine level, urine, phybix0212-06-85 13:24:57 Test Item Value Reference Range Interpretation Comments Total volume, urine (test code = 10 mL 25908-1) Urine creatinine concentration 166 mg/dL (test code = 42754-1) Urine creatinine excretion (test 17 mg/vol code = 17757-6) Sullivan MethodistProtein, urine, jbqqlv3782-92-94 13:24:57 Test Item Value Reference Range Interpretation Comments Total volume, urine (test code = 10 mL 89740-9) Urine protein concentration (test 178 mg/dL code = 55173-8) Urine protein excretion (test code 18 mg/vol = 2448) Sullivan MethodistSodium level, urine, mtlhjr2034-42-86 13:24:57 Test Item Value Reference Range Interpretation Comments Total volume, urine 10 mL (test code = 74898-7) Urine sodium <33 mEq/L concentration (test code = 91895-0) Urine sodium excretion SEE COMMENT Varie s with (test code = 43160-1) diet.U nable to calculate excre tion due to low anal yte concentration. Nate TrotteristThyroid stimulating rioedxa3216-40-04 09:29:26 Test Item Value Reference Range Interpretation Comments TSH (test code = 3016-3) 0.51 0.27- 4.20 uIU/mL Sullivan OywdthxsgZgxugudn3912-10-44 04:32:26 Test Item Value Reference Range Interpretation Comments Troponin (test code = >250.000 0-0.04 HH In pat ients suspected 35123-7) of having a myocardial infarction, vee ng with all other appropriate cli nical measures and ac tions including ECG a nd other diagnosti cs as appropriate, me asure Ultra TnI at 0 hrs and at 3 hrs.Myocardial infarction VERY LIKELYThe 0 hr TnI level is > 0.10 ng/mL ------ ------ ------ M yocard ial infarction LIKELYThe 0 hr TnI level is > 0.04 ng/mL and 3 hr level is increased or decreased by at least 0.020 ng/mL ------ ------ ------ ---------Myocar dial infarction VERY UNLIKELYBoth th e 0 hr and 3 hr TnI le vels <= 0.04 ng/mL(w ithin normal limits) OR 0 hr is > 0.04 ng /mL and 3 hr is inc reased OR decreased by less than 0.020 ng/m LFinal results called to and read back by PASTORA CELESTIN 02/17/2020 04: 32 AR Lab Interpretation (test Abnormal code = 03767-2) [facility] ijtxf9731-08-30 16:50:08 Test Item Value Reference Range Interpretation Comments Albumin (test code = 1751-7) 3.5 g/dL 3.5-5 Total bilirubin (test code = 1.0 mg/dL 0.2-1.2 1975-2) Bilirubin direct (test code = 0.4 mg/dL 0-0.3 H 1968-7) Alkaline phosphatase (test code = 58 U/L 40-129 6768-6) Protein (test code = 2885-2) 5.6 g/dL 6.3-8.3 L ALT (test code = 1742-6) 346 U/L 5-50 H AST (test code = 1920-8) 987 U/L 10-50 H Lab Interpretation (test code = Abnormal 51041-9) [facility] ouegikegi2821-27-35 13:44:23CARDIOLOGY NOTEA 69-year-old gentleman 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 Under local anesthesia, we inserted a 6-Haitian sheath into rightfemoral artery. We then cannulated left coronary system. Single view of thisartery was obtained and showed a totally occluded LAD, right coronary catheterwas used to cannulate the RCA. Single shot was obtained. Later on, LVangiogram wasdone in [place] and LETITIA projections..FINDINGS:Include the followin. There was anteroapical hypokinesia, ejection fraction could be about 40%,possibly on pressors.2. The right coronary artery was a small nondominant system. It was patent.3. The circumflex was patent. Left main was patent. The ramus was patent. The LAD was totally occluded. RODRICK flow was 0.We then proceeded to coronary intervention. We started the procedure by givingthis patient intracoronary Alteplase 2 mg and then we switchedover to guidingcatheter. We were able to cross the lesion with a 2.5 balloon and a whisperwire, predilated the lesion. We also noted that distally, there was anotherlesion that we had to take care ofin the mid LAD. After predilating thelesions, we then advanced a stent. The first stent was deployed in the mid LADthat was deployed to about 3.4 mm in diameter. It was 32 mm long. A secondstent was then deployed proximally. It was 38 mm long. It was deployedrequiring a post-dilatation with an NC balloon to a 4.2 mm in diameter. Repeatinjection showed RODRICK flow improving from 0 to about 2 to 2.5. It was not verybrisk flow. There was evidence of slow flow, no matter what. Right sheathinjection allowed us to attempt a closure device; however, closure device didnot take.CONCLUSION:1. Acute myocardial infarction, anterior wall.2. Totally occluded LAD, treated with coronary stenting 4.2 x 38 mm long. Proximally, a 3.4 x 32 in the mid LAD.3. Ejection fraction could be about 35% to 40%.PLAN OF MANAGEMENT:The patient will need an NG tube for Brilinta. We will give this patientAngiomax until he gets to the floor and an NG tube is available. He was alsogiven intracoronary alteplase twice during the angioplasty and stent.Nate MethodjannieTransthoracic Echocardiogram Complete, (w Contrast, Strain and 3D if needed)2020-02-16 13:43:03 Test Item Value Reference Range Interpretation Comments Ao Root Diameter (test 4.53 cm code = 6732419604) AoV Area, Vmax (test 2.82 cm2 code = 5126485397) AoV Area, VTI (test 3.16 cm2 code = 1689032254) AoV Mean PG (test code 4.05 mmHg = 1699805560) AoV Peak PG (test code 6.40 mmHg = 5137109973) AoV Vmax (test code = 1.27 m/s 5144124776) AoV VTI (test code = 0.14 m 0602349778) IVS,d (test code = 1.25 cm 0333861030) IVS/LVPW,2D (test code 1.01 = 2747688629) Left Atrium Dimension 3.03 cm Anterior (test code = 4077594056) LA Area d A4C (test 26.60 cm2 code = 8158145130) LV,d (test code = 4.71 cm 0996470888) LV EF,2D (test code = 63.07 % 6352622412) LV,s (test code = 3.38 cm 8180961581) LVOT area (test code = 3.40 cm2 9062345353) LVOT Diam,S (test code 2.08 cm = 3265347792) LVOT Vmax (test code = 1.05 m/s 9923035370) LVOT VTI (test code = 0.13 m 8985838178) LVPWD,d (test code = 1.24 cm 1767085821) TR Vpeak (test code = 1.27 mm/s 1298908466) MV E A ratio (test 0.51 code = 4004065176) TR pk grad (test code 6.49 mmHg = 7855025783) E wave decelartion 132.82 msec time (test code = 3266367394) MV Peak A Gurvinder (test 0.87 m/s code = 3728032547) MV valve area p 1/2 5.71 cm2 method (test code = 3407369575) MV Peak E Gurvinder (test 0.45 m/s code = 2851252477) MV stenosis pressure 38.52 ms 1/2 time (test code = 3018390796) AV LVOT peak gradient 4.40 mmHg (test code = 3194134894) Ascending aorta (test 4.28 cm code = 9577698892) Ao Root Diameter (test 4.53 cm code = 7120494787) LV SYS VOL (test code 46.73 ml = 2743443943) LV BUNN VOL (test code 102.83 ml = 9202036461) LV SV Teich 2D (test 56.11 ml code = 9676518517) LV Vol s Teich PSAX 46.73 ml (test code = 8919510650) AoV Vmn (test code = 0.98 0166371132) LV FS Teich 2D (test 28.25 code = 1047937089) MV AE ratio (test code 1.96 = 3215030725) LV FS Cube 2D (test 28.25 code = 9230949298) LVOT Vmn (test code = 0.74 8749923576) Aov area Vmn (test 2.58 cm2 code = 0310191685) LA Vol d MOD A4C (test 80.29 ml code = 9691769755) LVOT mean grad (test 2.38 mmHg code = 5941186716) MAX Pred HR (test code 151.29 = 3466836589) 85 of MPHR (test code 128.59 = 2786763552) Calc MPHR (test code = 151.29 bpm 2240184761) LV SV Cube 2D (test 65.86 ml code = 9280063929) LV vol d cube 2D (test 104.44 ml code = 2059154945) LV vol s cube 2D (test 38.57 ml code = 6370858917) MV Decel slope (test 3.36 m/s2 code = 4134285471) Pred Exer Dur R1 (test 7.37 code = 6645574316) Pred METS R1 (test 7.69 code = 8029649113) Velocity Ratio (V1/V2) 0.83 m/s (test code = 4689) EF (test code = 54.56 % 3490433602) E/A ratio (test code = 0.52 9709773862) UMU (test code = UMU) Left ventricular systolic function is moderately impaired. There is mild left ventricular hypertrophy Left Ventricular ejection fraction is 30 - 35%. No pericardial effusion Anteroapical hypokinesia Slightly difficult study [facility] [id number] 11:57:38Sigifredo Garcia Jr., MD 02/16/2020 12:00 PMIABP placementDate/Time: 02/16/2020 11:57 AMPerformed by: Sigifredo Garcia Jr., MDAuthorized by: Sigifredo Garcia Jr., MD Consent: Consent obtained: Emergent situation Consent given by: Spouse Risks discussed: Pneumothorax, hemorrhage, arrhythmia and local hematoma Alternatives discussed: No treatment and delayed treatmentUniversal protocol: Procedure explained and questions answered to patient or proxy's satisfaction: yes Relevant documents present and verified: yes Test results available and properly labeled: yes Imaging studies available: yes Required blood products, implants, devices, and special equipment available: yes Immediately prior to procedure a time out was called: yes Site/side marked: yesPatient identity confirmed: Verbally with patient, arm band, provided demographic data and hospital-assigned identification numberPre-procedure details: Indications: Ventricular assistAnesthesia (see MAR for exact dosages): Anesthesia method: Local infiltration Local anesthetic: Lidocaine 1% WITH epiProcedure details: Skin preparation: Skin prepped with 2% chlorhexadine Skin prep agent dried: Skin prep agent completely dried prior to procedure Sterile barriers: All five maximal sterile barriers used - gloves, gown, cap, mask and large sterile sheet Hand hygiene: Hand hygiene performed prior to IABP insertion Location: left femoral Site selection rationale: Wired out previous arterial line Patient position: Flat Catheter size: 7 Fr Number of attempts: 1 Successful placement: Yes Post-procedure: Post-procedure: Line sutured and sterile dressing applied Assessment: Blood return through all parts and placement verified by x-ray Patient tolerance: Patient tolerated the procedure well with no immediate complications Comments: Wired out previously placed arterial line.[facility] Corporationipheral Ddwmt0676-16-38 07:48:35Benson Horn MD 02/16/2020 7:48 AMPeripheral BlockPerformed by: Benson Horn MDAuthorized by: Benson Horn MD Patient Location: Pre-opReason for Block: at surgeon's request, post-op pain management Staff: Anesthesiologist: Benson Horn MD Performed by: AnesthesiologistPreprocedure: patient identified, IV checked, site and side verified, risks and benefits discussed, procedure verified, surgical consent complete, patient position confirmed, monitors and equipment checked, pre-op evaluation complete and site marked Peripheral Nerve Block: Patient Position: Supine Prep: DuraPrep Block Type: Femoral (Adductor Canal Catheter Right)Laterality: RightInjection Technique: Catheter insertionProcedures: ultrasound guided Ultrasound documentation: Printed/placed in chartLocal Infiltration (See MAR for details): RopivacaineLoss of Twitch: 0 mANeedle: Needle Type: Pajunk Needle Gauge: 19 G Needle Length: 10 cm Catheter at Skin Depth: 6 cmAssessment: Injection Assessment: Visualized needle/local anesthetic surrounding nerve, visualized pertinent vascular structures and nerves, needle tip visualized at all times during injection of medication, intermittent aspiration during local anesthetic administration and no symptoms of intraneural/intravenous injection Heart Rate Change: No Slow Fractionated Injection: Yes Block outcome: No apparent complications, patient comfortable and patient tolerated procedure wellNotes: Time Out done immediately before atcjhigmg10vo 0.5N and 4mg decadronHouston MethodistPeripheral Byqcm2849-37-85 07:48:15GrBenson malik MD 02/16/2020 7:48 AMPeripheral BlockPerformed by: Benosn Horn MDAuthorized by: Benson Horn MD Patient Location: Block roomReason for Block: at surgeon's request, post-op pain management Staff: Anesthesiologist: Benson Horn MD Performed by: AnesthesiologistPreprocedure: patient identified, IV checked, site and side verified, risks and benefits discussed, procedure verified, surgical consent complete, patient position confirmed, monitors and equipment checked, pre-op evaluation complete, site marked and coagulation status reviewed Peripheral Nerve Block: Patient Position: Supine Prep: ChloraPrep Monitoring: Blood pressure monitoring, continuous pulse oximetry and heart rateAnesthesia block type: Right Anterior Femoral Cutaneous.Laterality: RightInjection Technique: Single injectionProcedures: ultrasound guided Ultrasound documentation: Printed/placed in chartLocal Infiltration (See MAR for details): RopivacaineNeedle: Needle Type: Long-bevel and Pajunk Needle Gauge: 22 G Needle Length: 10 cmAssessment: Injection Assessment: Visualized needle/local anesthetic surrounding nerve, needle tip visualized at all times during injection of medication, visualized pertinent vascular structures and nerves, intermittent aspiration during localanesthetic administration and no symptoms of intraneural/intravenous injection Heart Rate Change: No Slow Fractionated Injection: Yes Block outcome: No apparent complications, patient comfortable and patient tolerated procedure wellNotes: Time out Done Immediately Before ProcedureSavannah MethodistPeripheral Block 2020-02-16 07:47:49Benson Horn MD 02/16/2020 7:48 AMPeripheral BlockPerformed by: Benson Horn MDAuthorized by: Benson Horn MD Patient Location: Block roomReason for Block: at surgeon's request, post-op pain management Staff: Anesthesiologist: Benson Horn MDPreprocedure: patient identified, IV checked, site and side verified, risks and benefits discussed, procedure verified, surgical consent complete, patient position confirmed, monitors and equipment checked, pre-op evaluation complete and site marked Peripheral Nerve Block: Patient Position: Supine Prep: ChloraPrep Monitoring: Bloodpressure monitoring, continuous pulse oximetry and heart rateBlock Type: Sciatic (Right IPACK Sciatic)Laterality: RightInjection Technique: Single injectionProcedures: ultrasound guided Ultrasound d ocumentation: Printed/placed in chartLocal Infiltration (See MAR for details): BupivacaineNeedle: Needle Type: Long-bevel Needle Gauge: 22 G Needle Length: 15 cmAssessment: Injection Assessment: Visualized needle/local anesthetic surrounding nerve, visualized pertinent vascular structures and nerves, needle tip visualized at all times during injection of medication, intermittent aspiration during local anesthetic administration and no symptoms of intraneural/intravenous injection Heart Rate Change: No Slow Fractionated Injection: Yes Block outcome: No apparent complications, patient comfortable and patient tolerated procedure wellNotes: Time out done immediately before ProcedureusedHouworcester state hospital Rose MariejannieUs duplex venous lower azxduqjuu4993-75-56 04:48:12Hm Interface, Radiology Results 02/16/2020 4:51 AM CDTEXAMINATION: US DUPLEX VENOUS LOWER EXTREMITY BILATERALCLINICAL HISTORY: PE suspected low pretest probCOMPARISON: None.TECHNIQUE: Grayscale, color Doppler, and spectral waveform analysis of the bilateral lower extremity deep venoussystems was performed. The bilateral common femoral, superficial femoral, proximal deep femoral, greater saphenous, and popliteal veins were evaluated. The calf vessels were also evaluated.FINDINGS:Right femoral vein mid and distal segments, right popliteal vein, right peroneal vein, right posterior tibial left common femoral vein, left deep femoral vein not visualized due to overlying bandages and lines.The right common femoral, visualized bilateral superficial femoral, and left popliteal veins arecompressible. They demonstrate normal venous waveforms and response to augmentation. There is flow in the visualized left calf veins.There is no evidence of a popliteal or Jones's cyst.IMPRESSION:Thereis no evidence of deep venous thrombosis in the visualized veins of the bilateral lower extremities.Multiple bilateral lower extremity veins not visualized as above.[facility]-[id number] AdventBeta rcjixpoweuparcj6669-19-35 03:18:45 Test Item Value Reference Range Interpretation Comments Beta hydroxybutyrate (test code = 1.05 mmol/L 0.02-0.27 H 6873-4) Lab Interpretation (test code = Abnormal 93495-8) [facility] MethodistCentral Line [id number] 21:05:00Tino Maurice NP-C 02/15/2020 11:49 PMCentral Line InsertionPerformed by: Tino Maurice NP-CAuthorized by: Tino Maurice NP-C Consent: Consent obtained: Verbal and emergent situation Consent given by: Healthcare agent Risks discussed: Arterial puncture, incorrect placement, nerve damage, bleeding and infection Alternatives discussed: No treatmentUniversal protocol: Procedure explained and questions answered to patient or proxy's satisfaction: yes Relevant documents present and verified: yes Test results available and properly labeled: yes Imagingstudies available: yes Required blood products, implants, devices, and special equipment available: yes Site/side marked: yes Immediately prior to procedure, a time out was called: yes Patient identity confirmed: Arm band and hospital-assigned identification numberPre-procedure details:Skin preparation agent: Skin preparation agent completely dried prior to procedure Anesthesia (see MAR for exact dosages): Anesthesia method: Local infiltration Local anesthetic: Lidocaine 1% w/o epiProcedure details: Catheter type: Triple lumen Catheter size: 7 Fr Catheter length (cm): 16 Catheter site: femoral vein Catheter Site Laterality: Right Site selection rationale: Emergent; s/p cardiac arrest with refractory V-fib Patient position: Trendelenburg Landmarks identified:yes Ultrasound guidance: yes Sterile ultrasound techniques: Sterile gel and sterile probe covers were used Number of attempts: 1 Successful placement: yes Post-procedure details: Post-procedure: Dressing applied and line sutured Assessment: Blood return through all ports Patient tolerance of procedure: Tolerated well, no immediate complicationsHouston Advent Lbelctzsgc3076-65-89 20:00:00Ibeth Field NP-C 02/15/2020 11:19 PMIntubationDate/Time: 02/15/2020 8:00 PMPerformed by: Ibeth Field NP- CAuthorized by: Ibeth Field NP-C Consent: Consent obtained: E mergent situation Alternatives discussed: No treatmentUniversal protocol: Patient identity confirmed: Anonymous protocol, patient vented/unresponsivePre- procedure details: Patient status: Unresponsive Mallampati score: 1 Pretreatment medications: None Induction: None Paralytics: NoneProcedure details: Preoxygenation: Bag valve mask CPR in progress: yes Intubation method: OralTechnique: Video laryngoscopy Grade view: 1 Difficult airway?: No Tube size (mm): 7.5 Tube type: Cuffed Number of attempts: 1 Ventilation between attempts: no Cricoid pressure: no Tube visualized through cords: yes Placement assessment: ETT to lip: 24 cm Tube secured with: ETThadarsher Breath sounds: Equal Placement verification: chest rise, condensation, CXR verification, direct visualization, equal breath sounds and ETCO2 detector CXR findings: ETT in proper placePost-procedure details: Patient tolerance of procedure: Tolerated well, no immediate complications [place] QkjbyxsvhIkecki0949-21-69 11:07:39Sayra De La Garza CRNA 02/15/2020 11:08 AMAirwayPerformed by: Sayra De La Garza CRNAAuthorized by: Benson Horn MD Location: ORUrgency: ElectiveDifficult Airway: No Resident/NEMATOLOGY TEACHER/AA: Sayra De La Garza CRNAPerformed by: resident/NEMATOLOGY TEACHER/AAPreoxygenated with 100% O2:Yes Mask Ventilation: Not attemptedFinal Airway Type: Supraglottic airwayFinal LMA: I-GelLMA Size: 5Number of Attempts at Approach: [address] [place] [address] [facility]G Pre/Post [id number] 09:12:53 Test Item Value Reference Range Interpretation Comments Ventricular rate (test 78 code = 253) Atrial rate (test code 258 = 255) QRSD interval (test 86 code = 260) QT interval (test code 378 = 264) QTC interval (test code 430 = 265) QRS axis 1 (test code = -39 268) T wave axis (test code 36 = 270) EKG impression (test Atrial code = 273) fibrillation-Left axis deviation-Nonspecific T wave abnormality , probably digitalis effect-Abnormal ECG-No previous ECGs available-Electronical ly Signed By Dann Boothe MD ([id number]) on 02/13/2020 9:12:49 AM [facility] MethodistHemoglobin [id number] 13:37:43 Test Item Value Reference Range Interpretation Comments Hemoglobin A1C (test 5.7 % 4-5.6 H HbA1c c utoffs for code = 28834-8) diagnosing diabetes:4.0% - 5.6% = normal5.7% - 6.4% = increased risk for diabetes (prediabetes)9> =6.5% = leprtbez1Nmaa s for glycemic contro l (ADA 2016)< 7.0% Ta rget for non adults with kale betes. More or less stringent targe ts may be appropriate for individual hossein ents. <7.5% Target for Children and adolescents wit h type 1 diabetes. Lab Interpretation (test Abnormal code = 25709-9) [facility] HospitalSmartAssetCOREWELL [facility] Signature Knee Lhufm8905-20-19 14:45:58Hm Interface, Radiology Results - 12/16/2019 2:49 PM CDTEXAMINATION: MRI SIGNATURE KNEE RIGHTCLINICAL HISTORY: M17.11 Unilateral primary osteoarthritis right knee, osteoarthritis of the right kneeCOMPARISON: 11/29/2019TECHNIQUE: Sagittal 3-D T1 weighted fat saturated high resolution images of the knee were obtained. Axial T1 weighted images of the ankle and hip were also obtained. The study was performed using the [employer] signature protocol for preoperative planning.FINDINGS:1.Limited images through the knee demonstrate evidence of advanced tricompartmental osteoarthrosis, most severe in the medial femorotibial compartment. Multiple intra-articular bodies are noted.2.Limited images through the ankle demonstrate no suspicious bony or soft tissue abnormality.3.Limited images through thepelvis and hips demonstrate no suspicious bony abnormality. Diverticulosis involving the imaged portion of the sigmoid colon.IMPRESSION:Imaging performed for operative planning demonstrates advanced osteoarthrosis of the knee.[facility] MED[facility] CENTERRORYLubbock Heart & Surgical [facility] Lower Extremity External Valfw6015-17-72 13:04:04This exam was not acquired at a [facility] facility and has not been interpreted by a [facility] Provider. The exam was imported into our imaging system.Nate MixonXR Lower Extremity External Zihdt4931-24-14 13:03:45This exam was not acquired at a [facility] facility and has not been interpreted by a [facility] Provider. The exam was imported into our imaging system.[place] MethodistHemoglobin A1c/Hemoglobin.total in Blood 2019-09-06 00:00:00 Test Item Value Reference Range Interpretation Comments Hemoglobin A1c/Hemoglobin.total in 5.8 % 4.8-5.6 H Blood (test code = 4548-4) [facility] Centerwritten xleufvtqbqklo2244-27-32 00:00:00 Test Item Value Reference Range Interpretation Comments written authorization (test code = comment written authorization) [facility] CenterCyclic citrullinated peptide IgA+IgG Ab [Units/volume] in Serum or Plasma by Clmahxxizuw5104-84-34 00:00:00 Test Item Value Reference Range Interpretation Comments Cyclic citrullinated peptide IgA+IgG 13 units 0-19 Ab [Units/volume] in Serum or Plasma by Immunoassay (test code = 77534-0) [facility] CenterNuclear Ab [Presence] in Serum 2019-08-31 00:00:00 Test Item Value Reference Range Interpretation Comments Nuclear Ab [Presence] in Serum (test negative negative code = 8061-4) [facility] CenterCBC W Auto Differential panel - Blood 2019-08-30 00:00:00 Test Item Value Reference Range Interpretation Comments Leukocytes [#/volume] in Blood 5.8 x10e3/uL 3.4-10.8 by Automated count (test code = 6690-2) Erythrocytes [#/volume] in 5.22 x10e6/uL 4.14-5.80 Blood by Automated count (test code = 789-8) Hemoglobin [Mass/volume] in 15.2 g/dL 13.0-17.7 Blood (test code = 718-7) Hematocrit [Volume Fraction] of 46.8 % 37.5-51.0 Blood by Automated count (test code = 4544-3) Erythrocyte mean corpuscular 90 fL 79-97 volume [Entitic volume] by Automated count (test code = 787-2) Erythrocyte mean corpuscular 29.1 pg 26.6-33.0 hemoglobin [Entitic mass] by Automated count (test code = 785-6) Erythrocyte mean corpuscular 32.5 g/dL 31.5-35.7 hemoglobin concentration [Mass/volume] by Automated count (test code = 786-4) Erythrocyte distribution width 13.9 % 11.6-15.4 [Ratio] by Automated count (test code = 788-0) Platelets [#/volume] in Blood 210 x10e3/uL 150-450 by Automated count (test code = 777-3) Neutrophils/100 leukocytes in 57 % not estab. Blood by Automated count (test code = 770-8) Lymphocytes/100 leukocytes in 27 % not estab. Blood by Automated count (test code = 736-9) Monocytes/100 leukocytes in 9 % not estab. Blood by Automated count (test code = 5905-5) Eosinophils/100 leukocytes in 6 % not estab. Blood by Automated count (test code = 713-8) Basophils/100 leukocytes in 1 % not estab. Blood by Automated count (test code = 706-2) immature cells (test code = 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 immature cells) Neutrophils [#/volume] in Blood 3.3 x10e3/uL 1.4-7.0 by Automated count (test code = 751-8) Lymphocytes [#/volume] in Blood 1.6 x10e3/uL 0.7-3.1 by Automated count (test code = 731-0) Monocytes [#/volume] in Blood 0.5 x10e3/uL 0.1-0.9 by Automated count (test code = 742-7) Eosinophils [#/volume] in Blood 0.4 x10e3/uL 0.0-0.4 by Automated count (test code = 711-2) Basophils [#/volume] in Blood 0.0 x10e3/uL 0.0-0.2 by Automated count (test code = 704-7) immature granulocytes (test 0 % not estab. code = immature granulocytes) Granulocytes Immature 0.0 x10e3/uL 0.0-0.1 [#/volume] in Blood by Automated count (test code = 51720-3) Nucleated erythrocytes/100 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 leukocytes [Ratio] in Blood by Automated count (test code = 48884-2) Morphology [interpretation] in 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 Blood Narrative (test code = 93773-6) [facility] 2000 [facility] - Serum or [id number] 00:00:00 Test Item Value Reference Range Interpretation Comments Glucose [Mass/volume] in Serum 103 mg/dL 65-99 H or Plasma (test code = 2345-7) Urea nitrogen [Mass/volume] in 20 mg/dL 8-27 Serum or Plasma (test code = 3094-0) Creatinine [Mass/volume] in 1.02 mg/dL 0.76-1.27 Serum or Plasma (test code = 2160-0) eGFR if nonafricn AM (test 75 mL/min/1.73 >59 code = eGFR if nonafricn AM) eGFR if africn AM (test code = 87 mL/min/1.73 >59 eGFR if africn AM) Urea nitrogen/Creatinine [Mass 20 10-24 Ratio] in Serum or Plasma (test code = 3097-3) Sodium [Moles/volume] in Serum 142 mmol/L 134-144 or Plasma (test code = 2951-2) Potassium [Moles/volume] in 4.4 mmol/L 3.5-5.2 Serum or Plasma (test code = 2823-3) Chloride [Moles/volume] in 104 mmol/L 96-106 Serum or Plasma (test code = 2075-0) Carbon dioxide, total 21 mmol/L 20-29 [Moles/volume] in Serum or Plasma (test code = 2027-9) Calcium [Mass/volume] in Serum 9.3 mg/dL 8.6-10.2 or Plasma (test code = 13332-9) Protein [Mass/volume] in Serum 6.6 g/dL 6.0-8.5 or Plasma (test code = 2885-2) Albumin [Mass/volume] in Serum 4.3 g/dL 3.8-4.8 or Plasma (test code = 1751-7) Globulin [Mass/volume] in 2.3 g/dL 1.5-4.5 Serum by calculation (test code = 40900-2) Albumin/Globulin [Mass Ratio] 1.9 1.2-2.2 in Serum or Plasma (test code = 1759-0) Bilirubin.total [Mass/volume] 0.4 mg/dL 0.0-1.2 in Serum or Plasma (test code = 1975-2) Alkaline phosphatase 94 IU/L 39-117 [Enzymatic activity/volume] in Serum or Plasma (test code = 6768-6) Aspartate aminotransferase 26 IU/L 0-40 [Enzymatic activity/volume] in Serum or Plasma (test code = 1920-8) Alanine aminotransferase 30 IU/L 0-44 [Enzymatic activity/volume] in Serum or Plasma (test code = 1742-6) [facility] 1996 [facility] - [facility] or Plasma 2019-08-30 00:00:00 Test Item Value Reference Range Interpretation Comments Cholesterol [Mass/volume] in Serum 100 mg/dL 100-199 or Plasma (test code = 2093-3) Triglyceride [Mass/volume] in Serum 52 mg/dL 0-149 or Plasma (test code = 2571-8) Cholesterol in HDL [Mass/volume] in 44 mg/dL >39 Serum or Plasma (test code = 2085-9) Cholesterol in VLDL [Mass/volume] 10 mg/dL 5-40 in Serum or Plasma by calculation (test code = 36079-2) Cholesterol in LDL [Mass/volume] in 46 mg/dL 0-99 Serum or Plasma by calculation (test code = 66633-8) comment: (test code = comment:) 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 [facility] ProgramRheumatoid factor [Units/volume] in Serum or [id number] 00:00:00 Test Item Value Reference Range Interpretation Comments Rheumatoid factor [Units/volume] in <10.0 0.0-13.9 Serum or Plasma (test code = 37770-2) [facility] ProgramProstate specific Ag [Mass/volume] in Serum or [id number] 00:00:00 Test Item Value Reference Range Interpretation Comments Prostate specific Ag [Mass/volume] 2.8 NG/mL 0.0-4.0 in Serum or Plasma (test code = 2857-1) [facility] ProgramUrate [Mass/volume] in Serum or [id number] 00:00:00 Test Item Value Reference Range Interpretation Comments Urate [Mass/volume] in Serum or 6.0 mg/dL 3.7-8.6 Plasma (test code = 3084-1) [facility]ryth[facility] sedimentation rate 2019-08-30 00:00:00 Test Item Value Reference Range Interpretation Comments Erythrocyte sedimentation rate by 18 mm/HR 0-30 Westergren method (test code = 4537-7) [facility] reactive protein [Mass/volume] in Serum or [id number] 00:00:00 Test Item Value Reference Range Interpretation Comments C reactive protein [Mass/volume] in 2 mg/L 0-10 Serum or Plasma (test code = 1988-5) [facility] panel, [id number] 00:00:00 Test Item Value Reference Range Interpretation Comments interpretation (test code = note interpretation) pdf image (test code = pdf not applicable image) [facility]
[2020-03-04 19:55] LABS: Urine Appearance CLEAR; Urine Bilirubin NEGATIVE (NEG); Urine Blood NEGATIVE (NEG); Urine Color DK YELLOW; Urine Glucose NEGATIVE (NEG); Urine Protein NEGATIVE (NEG); Urine Specific Gravity 1.015 (1.005-1.030); Urine pH 6.5 (5.0-7.0)
[2020-03-04 20:07] LABS: Urine Bacteria 20-50 /HPF (NONE SEEN); Urine Culture Reflex Order NOT NEEDED; Urine RBC NONE SEEN /HPF (NONE SEEN)
[2020-03-04] MEDS: ACETAMINOPHEN 325 MG TABLET PO PRN (21:59)
[2020-03-04] MEDS: ATORVASTATIN 40 MG TAB PO SCH (21:59)
[2020-03-04] MEDS: AMIODARONE HCL 200 MG TAB PO SCH (21:59)
[2020-03-04] MEDS: APIXABAN 2.5 MG TABLET PO SCH (22:15)
[2020-03-05] MEDS: METOPROLOL TAR 25 MG TAB PO SCH ×2 (05:27→17:00)
[2020-03-05] MEDS: ACETAMINOPHEN 325 MG TABLET PO PRN ×2 (08:18→13:49)
[2020-03-05] MEDS: APIXABAN 2.5 MG TABLET PO SCH ×2 (08:19→21:00)
[2020-03-05] MEDS: BUMETANIDE 1 MG TABLET PO SCH (08:19)
[2020-03-05] MEDS: POTASSIUM CL SA 10 MEQ TAB PO SCH ×2 (08:19→17:13)
[2020-03-05] MEDS: SPIRONOLACTONE 25 MG TABLET PO SCH ×2 (08:20→21:00)
[2020-03-05] MEDS: AMIODARONE HCL 200 MG TAB PO SCH ×2 (08:20→21:01)
[2020-03-05] MEDS: METFORMIN HCL 500 MG TAB PO SCH ×2 (08:20→17:13)
[2020-03-05] MEDS: DIGOXIN 0.125 MG TABLET PO SCH (08:20)
[2020-03-05] MEDS: TICAGRELOR 90 MG TABLET PO SCH ×2 (08:20→21:01)
[2020-03-05] MEDS ORDERED: DOCUSATE NA/SENNA CONC 1 TAB PO PRN (14:29)
--- NOTE | 2020-03-05 17:12 | R.HP ---
HISTORY AND PHYSICAL FACILITY: [facility] ENCOUNTER DATE AND TIME: 03/05/2020 17:06 (CDT) MR#: [id number] NAME LINA SALAMANCA ADDRESS: [address] [place] [address] CITY: [place]IP [id number] PHONE: DATE OF : 1950 AGE: 69 SSN# [id number] GENDER: Male DEXTERITY Right-handed MARITAL STATUS RACE White PRE-HOSPITAL LIVING SETTING 01 - Home (private home/apt. board/care, assisted living, snf, transitional living) PRE-HOSPITAL LIVING [facility] ENCOUNTER PHYSICIAN: Dr. Naldo Snyder M.D. REFERRING DOCTOR: Dr Hal Bonds DATE OF ADMISSION: 03/04/2020 16:18 (CDT) REFERRING FACILITY [facility] TYPE AND DETAILS: Type of home: single family house # of levels in the residence: 1 # of steps to enter the residence: 1 # of steps within the residence: 0 ONSET DATE: 02/15/2020 PRIMARY DIAGNOSIS-RELATED SURGERIES: Elective R Knee Arthroplasty - performed by Dr Hal Bonds on 02/15/2020 HISTORY OF PRESENT ILLNESS (HPI): Pt. is a 69 yo Right-handed white male. He has past medical history significant for KS and R knee arthroscopy that failed conservative treatm ent. He elected for surgery, and on 02/15/[address] [facility] for R Knee Arthroplast y by Dr Hal Bonds. The day after surgery, the patient suffered from cardiac arrest. Pre-morbidly, Pt. was independent/mod-I in Transfers Control and Locomotion; and he had good Balance, Safety Awareness, Social Cognition, Sphincter Control, and Communication. Currently, he has deficits of Transfers Control, Balance, Locomotion, Safety Awareness, and Self-Care . Pt. is now referred to [facility] for acute in-patient rehabilitation in order to maximize patient's functional independence in activities of daily living, strength, ROM, and mobi lity. Patient has realistic goal of being discharged at assistance level 6-Rafael to reside at Home with Spo use. MEDICATION ALLERGIES: Penicillin ENVIRONMENTAL ALLERGIES: None Known - Substance Allergies None Known - Other Allergies None Known PAST MEDICAL HISTORY: Osteoarthritis of R knee HTN CAD Cardiogenic shock (R57.0) Cardiac Arrest Acute Hypoxemic respiratory failure Acute Renal Failure AFIB Pulmonary edema due to chemicals, gases, fumes and vapors (J68.1) Systolic CHF DVT of upper R extremity Leukocytosis HYPOKALEMIA HLD Diabetes Elevated LFT's PAST SURGICAL HISTORY: R KNEE REPLACEMENT abdominal sx amputation, R arm pacemaker inccertion, stent placement x 2 Spine SX REVIEW OF SYSTEMS: - Gen No Chills Fatigue No Fever - Eyes No Double Vision No itchiness - ENMT No Difficulty Swallowing - CVS No Chest Discomfort No Chest Pain No Fatigue No Weight Gain - Resp No Cough No Shortness of Breath - GI Continent No Abdominal Pain Constipation No Diarrhea - Continent No Kidney Pain No Painful Urination No Urinary Urgency - MSK No Joint Pain Muscle Cramps Stiffness - Skin No Itching No Rash No Suspicious Lesions - Neuro No Coordination Difficulty No Difficulty with Concentration No Memory Loss No Seizures Weakness - Psych No Anxiety No Depression No HIV Exposure No Persistent Infections No Seasonal Allergies - Endo No Cold/Heat Intolerance No Excessive Hunger No Excessive Thirst No Excessive Urination PHYSICAL EXAM - Gen Alert and awake Lying in bed No apparent distress Oriented to: person, time, and place - Skin Right knee bandage in place with good hemostasis. Normacephalic - Eyes No abnormalities - ENMT No abnormalities - Neck No abnormalities - CVS RRR - Chest No abnormalities - Resp Clear to auscultation - Abd Soft - GI nondistended Deferred - No abnormalities - Ext Right knee surgical site has good hemostasis. - MSK 4+/5 weakness in right lower extremity - Neuro 4/5 strength right lower extremity. - Psych No abnormalities VITAL SIGNS Temperature: 98.0 F SBP/DBP: 97/49 Pulse: 74 Resp: 20 NURSING: - Shower allowing shower ACTIVITIES OOB only with supervision QI SCORES: - Self-Care A. Eating 05-Setup or clean-up assistance B. Oral hygiene 05-Setup or clean-up assistance C. Toileting hygiene 01-Dependent E. Shower/bathe self 02-Substantial/maximal assistance F. Upper body dressing 02-Substantial/maximal assistance G. Lower body dressing 01-Dependent H. Putting on/taking off footwear 01-Dependent - Mobility A. Roll left and right 02-Substantial/maximal assistance B. Sit to lying 02-Substantial/maximal assistance C. Lying to sitting on side of bed 02-Substantial/maximal assistance D. Sit to stand 02-Substantial/maximal assistance E. Chair/oli-tj-jbghm transfer 02-Substantial/maximal assistance F. Toilet transfer 02-Substantial/maximal assistance G. Car transfer 88-Not attempted due to medical condition or safety concerns J. Walk 50 feet with two turns 88-Not attempted due to medical condition or safety concerns K. Walk 150 feet 88-Not attempted due to medical condition or safety concerns L. Walking 10 feet on uneven surfaces 88-Not attempted due to medical condition or safety concerns M. 1 step (curb) 88-Not attempted due to medical condition or safety concerns N. 4 steps 88-Not attempted due to medical condition or safety concerns O. 12 steps 88-Not attempted due to medical condition or safety concerns P. Picking up object 88-Not attempted due to medical condition or safety concerns - Bladder and Bowel Bladder continence 0-Always continent Bowel continence 0-Always continent - Endurance Poor - Balance Poor - Safety Awareness Poor CURRENT FUNC. DEFICITS: Self-Care, Mobility, Endurance, Balance, and Safety Awareness MEDICATIONS: - Other See attached MAR (Medication Administration Record) ASSESSMENT: Pt. is a 69 yo Right-handed white male.He has past medical history significant for KS and R knee arth roscopy that failed conservative treatment.He elected for surgery, and on 02/15/2020 was admitted to [facility] for R Knee Arthroplasty by Dr Hal Bonds. The day after surgery, the patient s uffered from cardiac arrest.Pre-morbidly, Pt. was independent/mod-I in Transfers Control and Locomoti on; and he had good Balance, Safety Awareness, Social Cognition, Sphincter Control, and Communication .Currently, he has deficits of Transfers Control, Balance, Locomotion, Safety Awareness, and Self-Car e.Pt. is now referred to [facility] for acute in-patient rehabilitation in ord er to maximize patient's functional independence in activities of daily living, strength, ROM, and mo bility.- Rehab Goal Patient has realistic goal of being discharged at assistance level 6-Rafael to reside at Home with Spo use. REHAB PLAN: - Physical Therapy Gait dysfunction - to improve, our physical therapists will perform initial evaluation of pt's status upon admission and devise an individualized program for Gait Training, and Wheel Chair mobility Inability to transfer - to improve, our physical therapists will perform initial evaluation of pt's s tatus upon admission and devise an individualized program for Bed mobility Need for home safety evaluation - to improve, our physical therapists will perform initial evaluation of pt's status upon admission and devise an individualized program for Home Evaluation Need in caregiver upon discharge - to improve, our physical therapists will perform initial evaluatio n of pt's status upon admission and devise an individualized program for Caregiver Training New precaution - to improve, our physical therapists will perform initial evaluation of pt's status u ling admission and devise an individualized program for Patient precaution education Poor balance - to improve, our physical therapists will perform initial evaluation of pt's status upo n admission and devise an individualized program for Balance Training Weakness - to improve, our physical therapists will perform initial evaluation of pt's status upon ad mission and devise an individualized program for Aquatic Therapy, Neuromuscular Reeducation, and Stre ngthening Achieving independence - to improve, our physical therapists will perform initial evaluation of pt's status upon admission and devise an individualized program for Community Reintegration Activities - Occupational Therapy ADL deficits - to improve, our occupation therapists will perform initial evaluation of pt's status u ling admission and devise an individualized program for Bathing, Bed mobility, Community Reintegration , Cooking, Dressing, Eating, Fine Motor Skills, Grooming, Homemaking, Kitchen Mobility, Laundry, Aurora ent Education, Safety Awareness, Splinting - Positioning, Transfers(Toilet, Tub, Shower), and Wheel C hair Management Need for customer care manager - to improve, our occupation therapists will perform initial evaluation of pt's s tatus upon admission and devise an individualized program for Caregiver Training Weakness - to improve, our occupation therapists will perform initial evaluation of pt's status upon admission and devise an individualized program for Aquatic Therapy, Balance, Endurance, UE ROM, and U E strengthening MEDICAL PLAN: - Diet Type Start Regular - Diet - Liquid Texture Start Regular - Tube Feed Start N/A - Other See attached MAR (Medication Administration Record) - Diet - Solid Texture Regular - Shower shower DISCHARGE PLAN: - Estimated Length of Stay (days) 10. - Consensus on plan Discharge plan has been discussed with primary caregiver. Patient/Family is in agreement with the kimmie n. Primary caregiver is in agreement with the plan. - Patient/Family Goals Return home with assistance. - Planned Living Setting Upon Discharge Home, to live with Spouse. SIGNATURE PANEL: (CDT)
--- NOTE | 2020-03-05 17:14 | PAPE ---
POST ADMISSION PHYSICIAN EVALUATION PATIENT: [facility] MR# [id number] REFERRING DOCTOR Dr Hal Bonds EVALUATION DATE AND TIME 03/05/2020 17:12 (CDT) NAME LINA SALAMANCA DATE OF 1950 AGE 69 PHONE SSN# [id number] GENDER male EVALUATING PHYSICIAN Dr. Naldo Snyder M.D. ADMISSION DIAGNOSIS: [place], R Knee Arthroplasty ONSET DATE 02/15/2020 POST-ADMISSION FUNCTIONAL/MEDICAL STATUS: - Walking Same score based on distance walked: 0(N/A) - Wheelchair Same score based on distance traveled: 0(N/A) STATUS CHANGE EVALUATION: No change in Functional or Medical Status is identified compared with Pre-Admission screening. PATIENT NEEDS CLOSE MEDICAL SUPERVISION BY A REHABILITATION PHYSICIAN FOR: Coordination of Treatment Team Post-Op Complications Wound Care PATIENT REQUIRES 24X7 REHAB NURSING FOR MEDICAL AND FUNCTIONAL MGT. OF THE FOLLOWING DEFICITS: Disease Management Medication Management Patient/Family Education Providing Safe Environment Skin Integrity PATIENT REQUIRES INTENSIVE, COORDINATED INTERDISCIPLINARY APPROACH TO REHAB: Arranging Home Equipment/Services Discharge Planning Family Intervention/Training Commissary Steward/Case Management LIST OF IDENTIFIED AND POTENTIAL PROBLEMS: Alteration in leisure activities Infection, Actual or Potential Mobility Impaired Pain, Alteration in Comfort Self Care Deficit Skin Integrity, Actual or Potential Urinary Tract Infection (UTI), Actual or Potential PATIENT COULD BE AT RISK FOR COMPLICATIONS FROM ADVERSE MEDICAL CONDITIONS DUE TO HIS/HER COMORBIDITI ES AND THE RIGORS OF THE INTENSIVE REHABILLITATION PROGRAM. METHODS OR INTERVENTIONS TO AVOID COMPLIC ATIONS INCLUDE: - Bleeding Assess lab values and manage abnormalities. Nursing to teach precautions for anti-coagulation therapy . Wound to be assessed every shift. - Infection Clinical staff to assess and manage the signs and symptoms of infection including fever, redness, war mth, etc. - Urinary Tract Infection - Falls Patient will be evaluated for Fall Precautions and will be placed on Fall Precautions as indicated pe r protocol. - Skin Breakdown Nursing will assess skin daily using assessment tool and will place on Skin Breakdown Precautions as indicated per protocol. - Pain Clinical staff may employ non-medication methods such as massage, distraction, decrease stimulus, etc . as needed. Clinical staff will assess patient's pain level every shift per protocol to assess and e nsure pain management effectiveness. Medications will be given and the pain level re-assessed. PRELIMINARY PLAN OF CARE: - Physical Therapy Patient needs Physical Therapy for a daily minimum of 1.5 hours at least 5 out of 7 days, to improve: Mobility, Strengthening, Transfers, Stretching, ROM, Endurance, Ability to manage stairs, Gait, and Balance. - Speech Therapy Patient needs Speech Therapy for a daily minimum of 0.5 hours at least 5 out of 7 days, to improve: S wallowing, Cognition, Language Skills, and Compensatory Strategies. - Rehabilitation Nursing Patient requires 24x7 Rehabilitation Nursing for: Pain Issues, Identifying and preventing risk factor s, Monitoring and reporting current medical conditions, Assisting with ambulation and transfer, Ursula ting with all ADL-s, Teaching patients about disease process and medications, Family teaching, Provid ing safe environment, Bowel and Bladder Issues, Skin Integrity, and Medication Management. Patient needs Commissary Steward and/or Case Management for: Discharge Planning, Arranging Home Equipmen t or Services, and Family Interventions. - Dietary and Nutrition Services Patient needs Dietary and Nutrition Services for: Adequate Nutrition, Nutritional Supplements, and Nu tritional Education. - Occupational Therapy Patient needs Occupational Therapy for a daily minimum of 1.5 hours at least 5 out of 7 days, to impr ove Activities of Daily Living, including: Eating, Grooming, Bathing, Dressing, Toileting, Toilet Tra nsfers, Community Reintegration, Higher functional activities, Adaptive Equipment, Splinting, Househo ld Tasks, and Other activities as determined. QI SCORES: - Self-Care A. Eating 05-Setup or clean-up assistance B. Oral hygiene 05-Setup or clean-up assistance C. Toileting hygiene 01-Dependent E. Shower/bathe self 02-Substantial/maximal assistance F. Upper body dressing 02-Substantial/maximal assistance G. Lower body dressing 01-Dependent H. Putting on/taking off footwear 01-Dependent - Mobility A. Roll left and right 02-Substantial/maximal assistance B. Sit to lying 02-Substantial/maximal assistance C. Lying to sitting on side of bed 02-Substantial/maximal assistance D. Sit to stand 02-Substantial/maximal assistance E. Chair/mni-hg-oldez transfer 02-Substantial/maximal assistance F. Toilet transfer 02-Substantial/maximal assistance G. Car transfer 88-Not attempted due to medical condition or safety concerns J. Walk 50 feet with two turns 88-Not attempted due to medical condition or safety concerns K. Walk 150 feet 88-Not attempted due to medical condition or safety concerns L. Walking 10 feet on uneven surfaces 88-Not attempted due to medical condition or safety concerns M. 1 step (curb) 88-Not attempted due to medical condition or safety concerns N. 4 steps 88-Not attempted due to medical condition or safety concerns O. 12 steps 88-Not attempted due to medical condition or safety concerns P. Picking up object 88-Not attempted due to medical condition or safety concerns - Bladder and Bowel Bladder continence 0-Always continent Bowel continence 0-Always continent - Endurance Poor - Balance Poor - Safety Awareness Poor POTENTIAL FUNCTIONAL GOALS FOR PATIENT TO ACHIEVE BY DISCHARGE: - Safety Precaution Patient will remain free from falls or injury at time of discharge. - Bed Mobility Patient will perform bed mobility at 4-Osvaldo level of assistance. - Transfers Patient will complete transfers from bed to chair at 4-Osvaldo level of assistance. - Mobility Patient will ambulate 150 ft with 4-Osvaldo level of assistance with RW. PATIENT REHAB POTENTIAL Anthony SALAMANCA is able and expected to receive 3 hours of individualized therapy daily on at least 5 of e very 7 days Anthony HARTMANs prognosis for significant practical improvement within a reasonable period of time appea rs Good Expected level of measurable improvement will be of a practical value to Anthony SALAMANCA's functional capa city or adaptations to impairments Has a viable Discharge Plan Medically appropriate; condition is sufficiently stable to participate in intensive rehab program DISCHARGE PLAN: - Estimated Length of Stay (days) 10. - Consensus on plan Discharge plan has been discussed with primary caregiver. Patient/Family is in agreement with the kimmie n. Primary caregiver is in agreement with the plan. - Patient/Family Goals Return home with assistance. - Planned Living Setting Upon Discharge Home, to live with Spouse. CONCLUSION ON REHABILITATION NECESSITY: I have evaluated patient's pre-admission functional status and, comparing it to the patient's post-ad mission functional status now, I conclude that the pre-admission assessment was accurate. Patient's c ondition on admission supports the medical necessity of admission to IRF. It is safe to proceed with patient's therapy program. SIGNATURE PANEL: (CDT)
[2020-03-05] MEDS: CRANBERRY FRUIT EXTRACT 200 MG CAP PO SCH (21:00)
[2020-03-05] MEDS: GABAPENTIN 300 MG CAP PO SCH (21:00)
[2020-03-05] MEDS: ATORVASTATIN 40 MG TAB PO SCH (21:01)
--- NOTE | 2020-03-06 02:22 | FAST ---
[employer] FORM SHIFT START DATE/TIME: 03/05/2020 19:00 (CDT) SHIFT END DATE/TIME: 03/06/2020 07:00 (CDT) NAME LINA SALAMANCA DATE OF : 1950 DATE OF ADMISSION: 03/04/2020 16:18 (CDT) PHONE: AGE: 69 N# [id number] GENDER: Male ENCOUNTER PHYSICIAN: Dr. Naldo Snyder M.D. ADMISSION DIAGNOSIS: - Cardiac 09 - Cardiac Disorders () [place], R Knee Arthroplasty. EATING: Not assessed/no information CODE: - ORAL HYGIENE: Not assessed/no information CODE: - TOILETING HYGIENE: TOILETING HYGIENE - STEP 1: Does the patient complete the activity by him/herself with no assistance (physical, verbal/nonverbal cueing, setup/clean-up)? No. TOILETING HYGIENE - STEP 2: Does the patient need only setup/clean-up assistance from one helper? No. TOILETING HYGIENE - STEP 3: Does the patient need only verbal/nonverbal cueing or touching/steadying/contact guard assistance fro m one helper? Yes. 1. [id number] ADMISSION PERFORMANCE: Supervision or touching assistance CODE: 04 BATHING: Not assessed/no information CODE: - DRESSING - UPPER BODY: Not assessed/no information CODE: - DRESSING - LOWER BODY: Not assessed/no information CODE: - PUTTING ON/TAKING OFF FOOTWEAR: Not assessed/no information CODE: - TRANSFERS: CAR: Not assessed/no information CODE: - WALK 10 FEET: Not assessed/no information CODE: - 1 STEP (CURB): Not assessed/no information CODE: - PICKING UP OBJECT: Not assessed/no information CODE: - DOES THE PATIENT USE A WHEELCHAIR/SCOOTER? CODE: EXPR WHEEL 50 FEET WITH TWO TURNS: Not assessed/no information CODE: - INDICATE THE TYPE OF WHEELCHAIR/SCOOTER USED: CODE: EXPR WHEEL 150 FEET: Not assessed/no information CODE: - INDICATE THE TYPE OF WHEELCHAIR/SCOOTER USED: CODE: EXPR BLADDER AND BOWEL: H350. BLADDER CONTINENCE (3-DAY ASSESSMENT PERIOD): Always continent (no documented incontinence) CODE: 0 H400. BOWEL CONTINENCE (3-DAY ASSESSMENT PERIOD): Always continent CODE: 0
[2020-03-06] MEDS: METOPROLOL TAR 25 MG TAB PO SCH ×2 (05:09→17:36)
[2020-03-06] MEDS: SPIRONOLACTONE 25 MG TABLET PO SCH ×2 (08:00→19:56)
[2020-03-06] MEDS: GABAPENTIN 300 MG CAP PO SCH ×2 (09:37→20:00)
[2020-03-06] MEDS: POTASSIUM CL SA 10 MEQ TAB PO SCH ×2 (09:37→17:36)
[2020-03-06] MEDS: DIGOXIN 0.125 MG TABLET PO SCH (09:37)
[2020-03-06] MEDS: BUMETANIDE 1 MG TABLET PO SCH (09:37)
[2020-03-06] MEDS: METFORMIN HCL 500 MG TAB PO SCH ×2 (09:38→17:37)
[2020-03-06] MEDS: TICAGRELOR 90 MG TABLET PO SCH ×2 (09:38→19:56)
[2020-03-06] MEDS: AMIODARONE HCL 200 MG TAB PO SCH ×2 (09:38→19:55)
[2020-03-06] MEDS: APIXABAN 2.5 MG TABLET PO SCH ×2 (09:38→19:56)
[2020-03-06] MEDS: CRANBERRY FRUIT EXTRACT 200 MG CAP PO SCH ×2 (09:38→19:55)
[2020-03-06 15:25] LABS: Albumin 2.6 g/dL (3.4-5.0); Potassium 4.4 mmol/L (3.5-5.1); Prealbumin 11.2 mg/dL (20-40)
[2020-03-06 15:31] LABS: Absolute Lymphocytes (CBC) 0.9 K/uL (0.7-4.9); Basophils % 0.4 % (0-1.3); Hematocrit 28.9 % (39.6-49.0); Lymphocytes % 13.8 % (15.3-44.8); RBC Red Blood Cell Count 3.07 M/uL (4.33-5.43)
--- NOTE | 2020-03-06 18:18 | R.PN ---
PROGRESS NOTES ENCOUNTER DATE AND TIME: 03/06/2020 18:10 (CDT) NAME LINA SALAMANCA DATE OF : 1950 DATE OF ADMISSION: 03/04/2020 16:18 (CDT) [place], R Knee ArthroplastyCHIEF COMPLAINT: Right knee arthroplasty SUBJECTIVE: Pt denied any depression. Pt denied any Shortness of Breath. WBC 6.9, Hgb 9.3, prealbumin 11.2, Ca 8.1, glucose 107, trace esterase, bacteria 20-50. Ambulated 750' with standby assistance using a bilateral platform rolling walker. Ambulated 550' with contact guard assistance using a rolling walker. VITAL SIGNS Temperature: 98.0 F SBP/DBP: 96/52 Pulse: 70 Resp: 16 MEDICATION ALLERGIES: Penicillin ENVIRONMENTAL ALLERGIES: None Known - Substance Allergies None Known - Other Allergies None Known NURSING: - Shower allowing shower ACTIVITIES OOB only with supervision THERAPIES: - Dietary and Nutrition Adequate Nutrition. Nutritional Education. Nutritional Supplements. PHYSICAL EXAM - Gen Alert and awake Lying in bed No apparent distress Oriented to: person, time, and place - Skin Right knee bandage in place with good hemostasis. Normacephalic - Eyes No abnormalities - ENMT No abnormalities - Neck No abnormalities - CVS RRR - Chest No abnormalities - Resp Clear to auscultation - Abd Soft - GI nondistended Deferred - No abnormalities - Ext Right knee surgical site has good hemostasis. - MSK 4+/5 weakness in right lower extremity - Neuro 4/5 strength right lower extremity. - Psych No abnormalities ASSESSMENT: Pt. is a 69 yo Right-handed white male.He has past medical history significant for [place] and R knee arth roscopy that failed conservative treatment.He elected for surgery, and on 02/15/2020 was admitted to [facility] for R Knee Arthroplasty by Dr Hal Bonds. The day after surgery, the patient s uffered from cardiac arrest.Pre-morbidly, Pt. was independent/mod-I in Transfers Control and Locomoti on; and he had good Balance, Safety Awareness, Social Cognition, Sphincter Control, and Communication .Currently, he has deficits of Transfers Control, Balance, Locomotion, Safety Awareness, and Self-Car e.Pt. is now referred to [facility] for acute in-patient rehabilitation in ord er to maximize patient's functional independence in activities of daily living, strength, ROM, and mo bility.- Rehab Goal Patient has realistic goal of being discharged at assistance level 6-Rafael to reside at Home with Spo use. MDM/PLAN: - Physical Therapy Gait dysfunction - to improve, our physical therapists will perform initial evaluation of pt's statu s upon admission and devise an individualized program for Gait Training, and Wheel Chair mobility Inability to transfer - to improve, our physical therapists will perform initial evaluation of pt's status upon admission and devise an individualized program for Bed mobility Need for home safety evaluation - to improve, our physical therapists will perform initial evaluatio n of pt's status upon admission and devise an individualized program for Home Evaluation Need in caregiver upon discharge - to improve, our physical therapists will perform initial evaluati on of pt's status upon admission and devise an individualized program for Caregiver Training New precaution - to improve, our physical therapists will perform initial evaluation of pt's status upon admission and devise an individualized program for Patient precaution education Poor balance - to improve, our physical therapists will perform initial evaluation of pt's status up on admission and devise an individualized program for Balance Training Weakness - to improve, our physical therapists will perform initial evaluation of pt's status upon a dmission and devise an individualized program for Aquatic Therapy, Neuromuscular Reeducation, and Str engthening Achieving independence - to improve, our physical therapists will perform initial evaluation of pt's status upon admission and devise an individualized program for Community Reintegration Activities - Occupational Therapy ADL deficits - to improve, our occupation therapists will perform initial evaluation of pt's status upon admission and devise an individualized program for Bathing, Bed mobility, Community Reintegratio n, Cooking, Dressing, Eating, Fine Motor Skills, Grooming, Homemaking, Kitchen Mobility, Laundry, Pat ient Education, Safety Awareness, Splinting - Positioning, Transfers(Toilet, Tub, Shower), and Wheel Chair Management Need 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 child care center assistant director - to improve, our occupation therapists will perform initial evaluation of pt's status upon admission and devise an individualized program for Caregiver Training Weakness - to improve, our occupation therapists will perform initial evaluation of pt's status upon admission and devise an individualized program for Aquatic Therapy, Balance, Endurance, UE ROM, and UE strengthening - Other See attached MAR (Medication Administration Record) - Diet Type Continue Regular - Diet - Liquid Texture Continue Regular - Tube Feed Continue N/A - Diet - Solid Texture Continue Regular - Shower allowing shower FUNCTIONAL STATUS: UPDATED AT WEEKLY TEAM CONFERENCE - Walking Same score based on distance walked: 0(N/A) - Wheelchair Same score based on distance traveled: 0(N/A) FUNCTIONAL STATUS: - Self-Care A. Eating Rafael B. Grooming sup C. Bathing modA D. Dressing - Upper Osvaldo E. Dressing - Lower modA F. Toileting modA - Sphincter Control G. Bladder control Osvaldo H. Bowel control Osvaldo - Transfers Control I. Bed/Chair/Wheelchair Osvaldo J. Toilet Osvaldo K. Tub/Shower modA - Locomotion L. Walk/Wheelchair (B) Osvaldo M. Stairs ADNO - Communication N. Comprehension (B) Rafael O. Expression (B) Rafael - Social Cognition P. Social Interaction Rafael Q. Problem Solving Rafael R. Memory Rafael - Endurance Fair - Balance Poor - Safety Awareness Fair QI SCORES: - Self-Care A. Eating 05-Setup or clean-up assistance B. Oral hygiene 05-Setup or clean-up assistance C. Toileting hygiene 01-Dependent E. Shower/bathe self 02-Substantial/maximal assistance F. Upper body dressing 02-Substantial/maximal assistance G. Lower body dressing 01-Dependent H. Putting on/taking off footwear 01-Dependent - Mobility A. Roll left and right 02-Substantial/maximal assistance B. Sit to lying 02-Substantial/maximal assistance C. Lying to sitting on side of bed 02-Substantial/maximal assistance D. Sit to stand 02-Substantial/maximal assistance E. Chair/zux-li-[id number] transfer 02-Substantial/maximal assistance F. Toilet transfer 02-Substantial/maximal assistance G. Car transfer 88-Not attempted due to medical condition or safety concerns J. Walk 50 feet with two turns 88-Not attempted due to medical condition or safety concerns K. Walk 150 feet 88-Not attempted due to medical condition or safety concerns L. Walking 10 feet on uneven surfaces 88-Not attempted due to medical condition or safety concerns M. 1 step (curb) 88-Not attempted due to medical condition or safety concerns N. 4 steps 88-Not attempted due to medical condition or safety concerns O. 12 steps 88-Not attempted due to medical condition or safety concerns P. Picking up object 88-Not attempted due to medical condition or safety concerns - Bladder and Bowel Bladder continence 0-Always continent Bowel continence 0-Always continent - Endurance Poor - Balance Poor - Safety Awareness Poor CURRENT FUNC. DEFICITS: Self-Care, Mobility, Endurance, Balance, and Safety Awareness SIGNATURE PANEL: (CDT)
[2020-03-06] MEDS: MAGNESIUM OXIDE 400 MG TAB PO SCH (19:55)
[2020-03-06] MEDS: ATORVASTATIN 40 MG TAB PO SCH (19:55)
[2020-03-06] MEDS: TRAMADOL HCL 50 MG TAB PO PRN (20:00)
[2020-03-06] MEDS: MELATONIN 3 MG TABLET PO PRN (20:00)
[2020-03-06] MEDS: PROMOD 30 ML DOSE PO SCH (20:02)
[2020-03-07] MEDS: METOPROLOL TAR 25 MG TAB PO SCH ×3 (08:00→20:00)
[2020-03-07] MEDS: TRAMADOL HCL 50 MG TAB PO PRN (08:34)
[2020-03-07] MEDS: MAGNESIUM OXIDE 400 MG TAB PO SCH ×2 (08:35→20:46)
[2020-03-07] MEDS: GABAPENTIN 300 MG CAP PO SCH (08:35)
[2020-03-07] MEDS: DIGOXIN 0.125 MG TABLET PO SCH (08:35)
[2020-03-07] MEDS: CRANBERRY FRUIT EXTRACT 200 MG CAP PO SCH ×2 (08:35→20:46)
[2020-03-07] MEDS: TICAGRELOR 90 MG TABLET PO SCH ×2 (08:35→20:47)
[2020-03-07] MEDS: SPIRONOLACTONE 25 MG TABLET PO SCH ×3 (08:36→22:06)
[2020-03-07] MEDS: AMIODARONE HCL 200 MG TAB PO SCH ×2 (08:36→20:47)
[2020-03-07] MEDS: BUMETANIDE 1 MG TABLET PO SCH (08:36)
[2020-03-07] MEDS: METFORMIN HCL 500 MG TAB PO SCH ×2 (08:36→17:08)
[2020-03-07] MEDS: POTASSIUM CL SA 10 MEQ TAB PO SCH (08:36)
[2020-03-07] MEDS: APIXABAN 2.5 MG TABLET PO SCH ×2 (08:36→20:47)
[2020-03-07] MEDS: PROMOD 30 ML DOSE PO SCH ×2 (08:37→20:00)
[2020-03-07] MEDS: levoFLOXacin 500 MG TAB PO SCH (16:11)
--- NOTE | 2020-03-07 19:37 | R.PN ---
PROGRESS NOTES ENCOUNTER DATE AND TIME: 03/07/2020 19:33 (CDT) NAME LINA SALAMANCA DATE OF : 1950 DATE OF ADMISSION: 03/04/2020 16:18 (CDT) [place], R Knee ArthroplastyCHIEF COMPLAINT: Right knee arthroplasty SUBJECTIVE: Pt denied any depression. Pt denied any Shortness of Breath. WBC 6.9, Hgb 9.3, prealbumin 11.2, Ca 8.1, glucose 96 to 129, trace esterase, bacteria 20-50. Ambulated 100' with standby assistance using a bilateral platform rolling walker. The patients current medical condition including all medications were discussed with his daughter. VITAL SIGNS Temperature: 97.2 F SBP/DBP: 96/53 Pulse: 68 Resp: 16 MEDICATION ALLERGIES: Penicillin ENVIRONMENTAL ALLERGIES: None Known - Substance Allergies None Known - Other Allergies None Known NURSING: - Shower allowing shower ACTIVITIES OOB only with supervision THERAPIES: - Dietary and Nutrition Adequate Nutrition. Nutritional Education. Nutritional Supplements. PHYSICAL EXAM - Gen Alert and awake Lying in bed No apparent distress Oriented to: person, time, and place - Skin Right knee bandage in place with good hemostasis. Normacephalic - Eyes No abnormalities - ENMT No abnormalities - Neck No abnormalities - CVS RRR - Chest No abnormalities - Resp Clear to auscultation - Abd Soft - GI nondistended Deferred - No abnormalities - Ext Right knee surgical site has good hemostasis. - MSK 4+/5 weakness in right lower extremity - Neuro 4/5 strength right lower extremity. - Psych No abnormalities ASSESSMENT: Pt. is a 69 yo Right-handed white male.He has past medical history significant for [place] and R knee arth roscopy that failed conservative treatment.He elected for surgery, and on 02/15/2020 was admitted to [facility] for R Knee Arthroplasty by Dr Hal Bonds. The day after surgery, the patient s uffered from cardiac arrest.Pre-morbidly, Pt. was independent/mod-I in Transfers Control and Locomoti on; and he had good Balance, Safety Awareness, Social Cognition, Sphincter Control, and Communication .Currently, he has deficits of Transfers Control, Balance, Locomotion, Safety Awareness, and Self-Car e.Pt. is now referred to [facility] for acute in-patient rehabilitation in ord er to maximize patient's functional independence in activities of daily living, strength, ROM, and mo bility.- Rehab Goal Patient has realistic goal of being discharged at assistance level 6-Rafael to reside at Home with Spo use. MDM/PLAN: - Physical Therapy Gait dysfunction - to improve, our physical therapists will perform initial evaluation of pt's statu s upon admission and devise an individualized program for Gait Training, and Wheel Chair mobility Inability to transfer - to improve, our physical therapists will perform initial evaluation of pt's status upon admission and devise an individualized program for Bed mobility Need for home safety evaluation - to improve, our physical therapists will perform initial evaluatio n of pt's status upon admission and devise an individualized program for Home Evaluation Need in caregiver upon discharge - to improve, our physical therapists will perform initial evaluati on of pt's status upon admission and devise an individualized program for Caregiver Training New precaution - to improve, our physical therapists will perform initial evaluation of pt's status upon admission and devise an individualized program for Patient precaution education Poor balance - to improve, our physical therapists will perform initial evaluation of pt's status up on admission and devise an individualized program for Balance Training Weakness - to improve, our physical therapists will perform initial evaluation of pt's status upon a dmission and devise an individualized program for Aquatic Therapy, Neuromuscular Reeducation, and Str engthening Achieving independence - to improve, our physical therapists will perform initial evaluation of pt's status upon admission and devise an individualized program for Community Reintegration Activities - Occupational Therapy ADL deficits - to improve, our occupation therapists will perform initial evaluation of pt's status upon admission and devise an individualized program for Bathing, Bed mobility, Community Reintegratio n, Cooking, Dressing, Eating, Fine Motor Skills, Grooming, Homemaking, Kitchen Mobility, Laundry, Pat ient Education, Safety Awareness, Splinting - Positioning, Transfers(Toilet, Tub, Shower), and Wheel Chair Management Need for morning caregiver - to improve, our occupation therapists will perform initial evaluation of pt's status upon admission and devise an individualized program for Caregiver Training Weakness - to improve, our occupation therapists will perform initial evaluation of pt's status upon admission and devise an individualized program for Aquatic Therapy, Balance, Endurance, UE ROM, and UE strengthening - Other See attached MAR (Medication Administration Record) - Diet Type Continue Regular - Diet - Liquid Texture Continue Regular - Tube Feed Continue N/A - Diet - Solid Texture Continue Regular - Shower allowing shower FUNCTIONAL STATUS: UPDATED AT WEEKLY TEAM CONFERENCE - Walking Same score based on distance walked: 0(N/A) - Wheelchair Same score based on distance traveled: 0(N/A) FUNCTIONAL STATUS: - Self-Care A. Eating Rafael B. Grooming sup C. Bathing modA D. Dressing - Upper Osvaldo E. Dressing - Lower modA F. Toileting modA - Sphincter Control G. Bladder control Osvaldo H. Bowel control Osvaldo - Transfers Control I. Bed/Chair/Wheelchair Osvaldo J. Toilet Osvaldo K. Tub/Shower modA - Locomotion L. Walk/Wheelchair (B) Osvaldo M. Stairs ADNO - Communication N. Comprehension (B) Rafael O. Expression (B) Rafael - Social Cognition P. Social Interaction Rafael Q. Problem Solving Rafael R. Memory Rafael - Endurance Fair - Balance Poor - Safety Awareness Fair QI SCORES: - Self-Care A. Eating 05-Setup or clean-up assistance B. Oral hygiene 05-Setup or clean-up assistance C. Toileting hygiene 01-Dependent E. Shower/bathe self 02-Substantial/maximal assistance F. Upper body dressing 02-Substantial/maximal assistance G. Lower body dressing 01-Dependent H. Putting on/taking off footwear 01-Dependent - Mobility A. Roll left and right 02-Substantial/maximal assistance B. Sit to lying 02-Substantial/maximal assistance C. Lying to sitting on side of bed 02-Substantial/maximal assistance D. Sit to stand 02-Substantial/maximal assistance E. Chair/vcw-hg-uieco transfer 02-Substantial/maximal assistance F. Toilet transfer 02-Substantial/maximal assistance G. Car transfer 88-Not attempted due to medical condition or safety concerns J. Walk 50 feet with two turns 88-Not attempted due to medical condition or safety concerns K. Walk 150 feet 88-Not attempted due to medical condition or safety concerns L. Walking 10 feet on uneven surfaces 88-Not attempted due to medical condition or safety concerns M. 1 step (curb) 88-Not attempted due to medical condition or safety concerns N. 4 steps 88-Not attempted due to medical condition or safety concerns O. 12 steps 88-Not attempted due to medical condition or safety concerns P. Picking up object 88-Not attempted due to medical condition or safety concerns - Bladder and Bowel Bladder continence 0-Always continent Bowel continence 0-Always continent - Endurance Poor - Balance Poor - Safety Awareness Poor CURRENT FUNC. DEFICITS: Self-Care, Mobility, Endurance, Balance, and Safety Awareness SIGNATURE PANEL: (CDT)
[2020-03-07] MEDS: ATORVASTATIN 40 MG TAB PO SCH (20:47)
[2020-03-08 07:21] LABS: Basophils % 0.6 % (0-1.3); Hematocrit 28.7 % (39.6-49.0); Lymphocytes % 17.2 % (15.3-44.8); MPV 8.4 fL (7.6-11.3); RBC Red Blood Cell Count 3.08 M/uL (4.33-5.43)
[2020-03-08 07:38] LABS: Albumin 2.4 g/dL (3.4-5.0); Potassium 4.7 mmol/L (3.5-5.1); Prealbumin 11.2 mg/dL (20-40)
[2020-03-08] MEDS: TRAMADOL HCL 50 MG TAB PO PRN ×2 (08:23→17:53)
[2020-03-08] MEDS: TICAGRELOR 90 MG TABLET PO SCH ×2 (08:24→20:14)
[2020-03-08] MEDS: levoFLOXacin 500 MG TAB PO SCH (08:25)
[2020-03-08] MEDS: BUMETANIDE 1 MG TABLET PO SCH (08:25)
[2020-03-08] MEDS: CRANBERRY FRUIT EXTRACT 200 MG CAP PO SCH ×2 (08:25→20:14)
[2020-03-08] MEDS: POTASSIUM CL SA 10 MEQ TAB PO SCH (08:25)
[2020-03-08] MEDS: DIGOXIN 0.125 MG TABLET PO SCH (08:25)
[2020-03-08] MEDS: APIXABAN 2.5 MG TABLET PO SCH ×2 (08:25→20:12)
[2020-03-08] MEDS: AMIODARONE HCL 200 MG TAB PO SCH ×2 (08:26→20:14)
[2020-03-08] MEDS: METFORMIN HCL 500 MG TAB PO SCH ×2 (08:26→17:14)
[2020-03-08] MEDS: SPIRONOLACTONE 25 MG TABLET PO SCH ×2 (08:26→20:14)
[2020-03-08] MEDS: MAGNESIUM OXIDE 400 MG TAB PO SCH ×2 (08:26→20:12)
[2020-03-08] MEDS: METOPROLOL TAR 25 MG TAB PO SCH ×2 (08:27→20:15)
[2020-03-08] MEDS: PROMOD 30 ML DOSE PO SCH ×2 (08:28→20:15)
[2020-03-08 08:33] LABS: Blood Morphology Comment NOT SEEN (NOT SEEN); Platelet Estimate ADEQ
[2020-03-08] MEDS: MELATONIN 3 MG TABLET PO PRN (20:14)
[2020-03-08] MEDS: ATORVASTATIN 40 MG TAB PO SCH (20:14)
[2020-03-09] MEDS: POTASSIUM CL SA 10 MEQ TAB PO SCH (08:00)
[2020-03-09] MEDS: BUMETANIDE 1 MG TABLET PO SCH (09:22)
[2020-03-09] MEDS: METOPROLOL TAR 25 MG TAB PO SCH ×2 (09:23→20:42)
[2020-03-09] MEDS: MAGNESIUM OXIDE 400 MG TAB PO SCH ×2 (09:23→20:42)
[2020-03-09] MEDS: AMIODARONE HCL 200 MG TAB PO SCH ×2 (09:23→20:43)
[2020-03-09] MEDS: SPIRONOLACTONE 25 MG TABLET PO SCH ×2 (09:23→20:43)
[2020-03-09] MEDS: METFORMIN HCL 500 MG TAB PO SCH ×2 (09:23→17:00)
[2020-03-09] MEDS: levoFLOXacin 500 MG TAB PO SCH (09:23)
[2020-03-09] MEDS: CRANBERRY FRUIT EXTRACT 200 MG CAP PO SCH ×2 (09:24→20:43)
[2020-03-09] MEDS: TICAGRELOR 90 MG TABLET PO SCH ×2 (09:24→20:44)
[2020-03-09] MEDS: APIXABAN 2.5 MG TABLET PO SCH ×2 (09:24→20:43)
[2020-03-09] MEDS: DIGOXIN 0.125 MG TABLET PO SCH (09:24)
[2020-03-09] MEDS: PROMOD 30 ML DOSE PO SCH ×2 (09:25→20:00)
[2020-03-09] MEDS: ACETAMINOPHEN 325 MG TABLET PO PRN (09:32)
[2020-03-09] MEDS: TRAMADOL HCL 50 MG TAB PO PRN ×2 (09:33→17:46)
--- NOTE | 2020-03-09 10:09 | P.RH.PN ---
Estimated Length of Stay: 11 Expected Discharge Date: 03/14/20 Discharge Disposition Plan: Home Family Support: Yes Shelter Goal: Mobility, Transfers, Self Care Vital Signs: Last Vital Signs Temp 97.6 F 03/09/20 07:49 Pulse 69 03/09/20 09:23 Resp 16 03/09/20 07:49 BP 112/66 03/09/20 09:23 Pulse Ox 96 03/09/20 07:49 Laboratory: Laboratory Last Values WBC 5.9 K/uL (4.3-10.9) D 03/08/20 06:54 RBC 3.08 M/uL (4.33-5.43) L 03/08/20 06:54 Hgb 9.4 g/dL (13.6-17.9) L 03/08/20 06:54 Hct 28.7 % (39.6-49.0) L 03/08/20 06:54 MCV 93.2 fL (80-100) 03/08/20 06:54 MCH 30.6 pg (27.0-35.0) 03/08/20 06:54 MCHC 32.8 g/dL (32.0-36.0) 03/08/20 06:54 RDW 16.8 % (12.1-15.2) H 03/08/20 06:54 Plt Count 286 K/uL (152-406) 03/08/20 06:54 MPV 8.4 fL (7.6-11.3) 03/08/20 06:54 Neutrophils % 64.1 % (41.7-73.7) 03/08/20 06:54 Lymphocytes % 17.2 % (15.3-44.8) 03/08/20 06:54 Monocytes % 15.7 % (3.3-12.3) H 03/08/20 06:54 Eosinophils % 2.4 % (0-4.4) 03/08/20 06:54 Basophils % 0.6 % (0-1.3) 03/08/20 06:54 Absolute Neutrophils 3.8 K/uL (1.8-8.0) 03/08/20 06:54 Segmented Neutrophils 61 % (40-80) 03/08/20 06:54 Absolute Lymphocytes 1.0 K/uL (0.7-4.9) 03/08/20 06:54 Lymphocytes 20 % (15-42) 03/08/20 06:54 Monocytes 19 % (0-10) H 03/08/20 06:54 Absolute Monocytes 0.9 K/uL (0.1-1.3) 03/08/20 06:54 Absolute Eosinophils 0.1 K/uL (0-0.5) 03/08/20 06:54 Absolute Basophils 0.0 K/uL (0-0.5) 03/08/20 06:54 Diff Path Review Cancelled 03/05/20 06:00 Morphology Comment Not seen (NOT SEEN) 03/08/20 06:54 Sodium 136 mmol/L (136-145) 03/08/20 06:54 Potassium 4.7 mmol/L (3.5-5.1) 03/08/20 06:54 Chloride 104 mmol/L (98-107) 03/08/20 06:54 Carbon Dioxide 23 mmol/L (21-32) 03/08/20 06:54 BUN 19 mg/dL (7-18) H 03/08/20 06:54 Creatinine 1.09 mg/dL (0.55-1.3) 03/08/20 06:54 Estimated GFR 67 mL/min (=/>90) L 03/08/20 06:54 Glucose 96 mg/dL (74-106) 03/08/20 06:54 POC Glucose 94 mg/dL (65-120) 03/09/20 07:29 Calcium 7.8 mg/dL (8.5-10.1) L 03/08/20 06:54 Magnesium 2.0 mg/dL (1.8-2.4) 03/06/20 14:30 Albumin 2.4 g/dL (3.4-5.0) L 03/08/20 06:54 Prealbumin 11.2 mg/dL (20-40) L 03/08/20 06:54 Urine Color Dk yellow 03/04/20 18:25 Urine Appearance Clear 03/04/20 18:25 Urine pH 6.5 (5.0-7.0) 03/04/20 18:25 Ur Specific Patterson 1.015 (1.005-1.030) 03/04/20 18:25 Glucose (UA)(Auto) Negative (NEG) 03/04/20 18:25 Urine Ketones Negative (NEG) 03/04/20 18:25 Urine Blood Negative (NEG) 03/04/20 18:25 Urine Nitrite Negative (NEG) 03/04/20 18:25 Urine Bilirubin Negative (NEG) 03/04/20 18:25 Urine Urobilinogen 4.0 mg/dL (0.2-1.0) H 03/04/20 18:25 Ur Leukocyte Esterase Trace (NEG) H 03/04/20 18:25 Urine RBC None seen /HPF (NONE SEEN) 03/04/20 18:25 Urine WBC 5-10 /HPF (<5) H 03/04/20 18:25 Ur Squamous Epith Cells <5 /HPF (NONE SEEN) 03/04/20 18:25 Urine Bacteria 20-50 /HPF (NONE SEEN) H 03/04/20 18:25 Urine Culture Reflexed Not needed 03/04/20 18:25 Urine Total Protein Negative (NEG) 03/04/20 18:25 SARS-CoV-2 RNA (RT-PCR) Negative (NEGATIVE) 03/04/20 18:25 Weight: 246 lb Wound Present: Yes Closed Surgical Incision Present: Yes Negative Pressure Wound Therapy Present: No Physician Update: Labs reviewed and are stable except for low Hgb and prealbumin. He is at standby assitance with transfers and walking. He has the knee immobilizer. He will needs help for lower body dressing and VIRGILIO hose. He requires maximim assistance with socks and foot wear. Summary: Patient's care plan and half-way goals have been reviewed and revised as necessary. Please see the Rehabilitation Signature page for all necessary signatures.
--- NOTE | 2020-03-09 12:21 | FAST ---
OT QI REPORT FORM ENCOUNTER DATE AND TIME: 03/09/2020 08:00 (CDT) NAME LINA SALAMANCA DATE OF : 1950 DATE OF ADMISSION: 03/04/2020 16:18 (CDT) PHONE: AGE: 69 N# [id number] GENDER: Male ENCOUNTER PHYSICIAN: Dr. Naldo Snyder M.D. ADMISSION DIAGNOSIS: - Cardiac 09 - Cardiac Disorders (09) [place], R Knee Arthroplasty. EATING: Not assessed/no information CODE: - ORAL HYGIENE: Not assessed/no information CODE: - TOILETING HYGIENE: Not assessed/no information CODE: - BATHING: SHOWER/BATHE SELF - STEP 1: Does the patient complete the activity by him/herself with no assistance (physical, verbal/nonverbal cueing, setup/clean-up)? No. SHOWER/BATHE SELF - STEP 2: Does the patient need only setup/clean-up assistance from one helper? No. SHOWER/BATHE SELF - STEP 3: Does the patient need only verbal/nonverbal cueing or touching/steadying/contact guard assistance fro m one helper? Yes. 1. [id number] ADMISSION PERFORMANCE: Supervision or touching assistance CODE: 04 DRESSING - UPPER BODY: DRESSING - UPPER BODY - STEP 1: Does the patient complete the activity by him/herself with no assistance (physical, verbal/nonverbal cueing, setup/clean-up)? No. DRESSING - UPPER BODY - STEP 2: Does the patient need only setup/clean-up assistance from one helper? Yes. 1. [id number] ADMISSION PERFORMANCE: Setup or clean-up assistance CODE: 05 DRESSING - LOWER BODY: DRESSING - LOWER BODY - STEP 1: Does the patient complete the activity by him/herself with no assistance (physical, verbal/nonverbal cueing, setup/clean-up)? Yes. 1. [id number] ADMISSION PERFORMANCE: Independent CODE: 06 PUTTING ON/TAKING OFF FOOTWEAR: FOOTWEAR - STEP 1: Does the patient complete the activity by him/herself with no assistance (physical, verbal/nonverbal cueing, setup/clean-up)? No. FOOTWEAR - STEP 2: Does the patient need only setup/clean-up assistance from one helper? No. FOOTWEAR - STEP 3: Does the patient need only verbal/nonverbal cueing or touching/steadying/contact guard assistance fro m one helper? No. FOOTWEAR - STEP 4: Does the patient need physical assistance - for example lifting or trunk support from one helper - wi th the helper providing less than half of the effort? No. FOOTWEAR - STEP 5: Does the patient need physical assistance - for example lifting or trunk support from one helper - wi th the helper providing more than half of the effort? Yes. 1. [id number] ADMISSION PERFORMANCE: Substantial/maximal assistance CODE: 02 DOES THE PATIENT USE A WHEELCHAIR/SCOOTER? CODE: EXPR INDICATE THE TYPE OF WHEELCHAIR/SCOOTER USED: CODE: EXPR INDICATE THE TYPE OF WHEELCHAIR/SCOOTER USED: CODE: EXPR BLADDER AND BOWEL: CODE: EXPR CODE: EXPR SIGNATURE PANEL: The following modified sections: 1. [id number] Admission Performance, 1. [id number] Admission Performance, 1. [id number] Admission Performance, 1. [id number] Admission Performance, 1. [id number] Admission Performance were [electronically] signed by Yany Romano OT on ThuMar 09 2020 12:20:25 GMT-0500 ([facility] Daylight Time)
[2020-03-09] MEDS: MELATONIN 3 MG TABLET PO PRN (20:43)
[2020-03-09] MEDS: ATORVASTATIN 40 MG TAB PO SCH (20:43)
[2020-03-10] MEDS: TRAMADOL HCL 50 MG TAB PO PRN (08:36)
[2020-03-10] MEDS: TICAGRELOR 90 MG TABLET PO SCH ×2 (08:36→21:54)
[2020-03-10] MEDS: PROMOD 30 ML DOSE PO SCH ×2 (08:36→21:54)
[2020-03-10] MEDS: DIGOXIN 0.125 MG TABLET PO SCH (08:37)
[2020-03-10] MEDS: CRANBERRY FRUIT EXTRACT 200 MG CAP PO SCH ×2 (08:37→21:53)
[2020-03-10] MEDS: BUMETANIDE 1 MG TABLET PO SCH (08:37)
[2020-03-10] MEDS: MAGNESIUM OXIDE 400 MG TAB PO SCH ×2 (08:37→21:52)
[2020-03-10] MEDS: POTASSIUM CL SA 10 MEQ TAB PO SCH (08:38)
[2020-03-10] MEDS: APIXABAN 2.5 MG TABLET PO SCH ×2 (08:38→21:52)
[2020-03-10] MEDS: METOPROLOL TAR 25 MG TAB PO SCH ×2 (08:38→20:00)
[2020-03-10] MEDS: SPIRONOLACTONE 25 MG TABLET PO SCH ×2 (08:39→21:52)
[2020-03-10] MEDS: AMIODARONE HCL 200 MG TAB PO SCH ×2 (08:39→21:53)
[2020-03-10] MEDS: METFORMIN HCL 500 MG TAB PO SCH ×2 (08:40→17:43)
[2020-03-10] MEDS: ATORVASTATIN 40 MG TAB PO SCH (21:53)
[2020-03-10] MEDS: levoFLOXacin 500 MG TAB PO SCH (21:53)
[2020-03-11] MEDS: METOPROLOL TAR 25 MG TAB PO SCH ×2 (08:00→21:22)
[2020-03-11] MEDS: DIGOXIN 0.125 MG TABLET PO SCH (08:57)
[2020-03-11] MEDS: APIXABAN 2.5 MG TABLET PO SCH ×2 (08:58→21:24)
[2020-03-11] MEDS: MAGNESIUM OXIDE 400 MG TAB PO SCH ×2 (08:58→21:23)
[2020-03-11] MEDS: CRANBERRY FRUIT EXTRACT 200 MG CAP PO SCH ×2 (08:58→21:22)
[2020-03-11] MEDS: AMIODARONE HCL 200 MG TAB PO SCH ×2 (08:59→21:24)
[2020-03-11] MEDS: METFORMIN HCL 500 MG TAB PO SCH ×2 (08:59→17:17)
[2020-03-11] MEDS: TICAGRELOR 90 MG TABLET PO SCH ×2 (09:00→21:24)
[2020-03-11] MEDS: POTASSIUM CL SA 10 MEQ TAB PO SCH (09:00)
[2020-03-11] MEDS: PROMOD 30 ML DOSE PO SCH ×2 (09:01→21:25)
[2020-03-11] MEDS: BUMETANIDE 1 MG TABLET PO SCH (10:50)
[2020-03-11] MEDS: SPIRONOLACTONE 25 MG TABLET PO SCH ×2 (10:51→21:22)
--- NOTE | 2020-03-11 17:01 | FAST ---
[employer] FORM SHIFT START DATE/TIME: 03/11/2020 07:00 (CDT) SHIFT END DATE/TIME: 03/11/2020 19:00 (CDT) NAME LINA SALAMANCA DATE OF : 1950 DATE OF ADMISSION: 03/04/2020 16:18 (CDT) PHONE: AGE: 69 N# [id number] GENDER: Male ENCOUNTER PHYSICIAN: Dr. Naldo Snyder M.D. ADMISSION DIAGNOSIS: - Cardiac 09 - Cardiac Disorders () NM, R Knee Arthroplasty. EATING: EATING - STEP 1: Does the patient complete the activity by him/herself with no assistance (physical, verbal/nonverbal cueing, setup/clean-up)? No. EATING - STEP 2: Does the patient need only setup/clean-up assistance from one helper? Yes. 1. [id number] ADMISSION PERFORMANCE: Setup or clean-up assistance CODE: 05 ORAL HYGIENE: ORAL HYGIENE - STEP 1: Does the patient complete the activity by him/herself with no assistance (physical, verbal/nonverbal cueing, setup/clean-up)? Yes. 1. [id number] ADMISSION PERFORMANCE: Independent CODE: 06 TOILETING HYGIENE: TOILETING HYGIENE - STEP 1: Does the patient complete the activity by him/herself with no assistance (physical, verbal/nonverbal cueing, setup/clean-up)? No. TOILETING HYGIENE - STEP 2: Does the patient need only setup/clean-up assistance from one helper? Yes. 1. [id number] ADMISSION PERFORMANCE: Setup or clean-up assistance CODE: 05 BATHING: Not assessed/no information CODE: - DRESSING - UPPER BODY: DRESSING - UPPER BODY - STEP 1: Does the patient complete the activity by him/herself with no assistance (physical, verbal/nonverbal cueing, setup/clean-up)? No. DRESSING - UPPER BODY - STEP 2: Does the patient need only setup/clean-up assistance from one helper? Yes. 1. [id number] ADMISSION PERFORMANCE: Setup or clean-up assistance CODE: 05 DRESSING - LOWER BODY: DRESSING - LOWER BODY - STEP 1: Does the patient complete the activity by him/herself with no assistance (physical, verbal/nonverbal cueing, setup/clean-up)? No. DRESSING - LOWER BODY - STEP 2: Does the patient need only setup/clean-up assistance from one helper? Yes. 1. [id number] ADMISSION PERFORMANCE: Setup or clean-up assistance CODE: 05 PUTTING ON/TAKING OFF FOOTWEAR: FOOTWEAR - STEP 1: Does the patient complete the activity by him/herself with no assistance (physical, verbal/nonverbal cueing, setup/clean-up)? No. FOOTWEAR - STEP 2: Does the patient need only setup/clean-up assistance from one helper? No. FOOTWEAR - STEP 3: Does the patient need only verbal/nonverbal cueing or touching/steadying/contact guard assistance fro m one helper? No. FOOTWEAR - STEP 4: Does the patient need physical assistance - for example lifting or trunk support from one helper - wi th the helper providing less than half of the effort? No. FOOTWEAR - STEP 5: Does the patient need physical assistance - for example lifting or trunk support from one helper - wi th the helper providing more than half of the effort? Yes. 1. [id number] ADMISSION PERFORMANCE: Substantial/maximal assistance CODE: 02 ROLL LEFT AND RIGHT: ROLL LEFT AND RIGHT - STEP 1: Does the patient complete the activity by him/herself with no assistance (physical, verbal/nonverbal cueing, setup/clean-up)? Yes. 1. [id number] ADMISSION PERFORMANCE: Independent CODE: 06 SIT TO LYING: SIT TO LYING - STEP 1: Does the patient complete the activity by him/herself with no assistance (physical, verbal/nonverbal cueing, setup/clean-up)? Yes. 1. [id number] ADMISSION PERFORMANCE: Independent CODE: 06 LYING TO SITTING: LYING TO SITTING ON SIDE OF BED - STEP 1: Does the patient complete the activity by him/herself with no assistance (physical, verbal/nonverbal cueing, setup/clean-up)? Yes. 1. [id number] ADMISSION PERFORMANCE: Independent CODE: 06 SIT TO STAND: SIT TO STAND - STEP 1: Does the patient complete the activity by him/herself with no assistance (physical, verbal/nonverbal cueing, setup/clean-up)? Yes. 1. [id number] ADMISSION PERFORMANCE: Independent CODE: 06 TRANSFERS: BED, CHAIR: CHAIR/SAN-YL-YHMEL TRANSFER - STEP 1: Does the patient complete the activity by him/herself with no assistance (physical, verbal/nonverbal cueing, setup/clean-up)? Yes. 1. [id number] ADMISSION PERFORMANCE: Independent CODE: 06 TRANSFER TOILET: TOILET TRANSFER - STEP 1: Does the patient complete the activity by him/herself with no assistance (physical, verbal/nonverbal cueing, setup/clean-up)? Yes. 1. [id number] ADMISSION PERFORMANCE: Independent CODE: 06 TRANSFERS: CAR: Not assessed/no information CODE: - WALK 10 FEET: Not assessed/no information CODE: - 4 STEPS: Not assessed/no information CODE: - 12 STEPS: PICKING UP OBJECT: Not assessed/no information CODE: - DOES THE PATIENT USE A WHEELCHAIR/SCOOTER? Q1. DOES THE PATIENT USE A WHEELCHAIR/SCOOTER?: Yes CODE: 1 WHEEL 50 FEET WITH TWO TURNS: WHEEL 50 FEET WITH TWO TURNS - STEP 1: Does the patient complete the activity by him/herself with no assistance (physical, verbal/nonverbal cueing, setup/clean-up)? Yes. 1. [id number] ADMISSION PERFORMANCE: Independent CODE: 06 INDICATE THE TYPE OF WHEELCHAIR/SCOOTER USED: RR1. INDICATE THE TYPE OF WHEELCHAIR/SCOOTER USED.: Manual CODE: 1 WHEEL 150 FEET: WHEEL 150 FEET - STEP 1: Does the patient complete the activity by him/herself with no assistance (physical, verbal/nonverbal cueing, setup/clean-up)? Yes. 1. [id number] ADMISSION PERFORMANCE: Independent CODE: 06 INDICATE THE TYPE OF WHEELCHAIR/SCOOTER USED: SS1. INDICATE THE TYPE OF WHEELCHAIR/SCOOTER USED.: Manual CODE: 1 BLADDER AND BOWEL: H350. BLADDER CONTINENCE (3-DAY ASSESSMENT PERIOD): Always continent (no documented incontinence) CODE: 0 H400. BOWEL CONTINENCE (3-DAY ASSESSMENT PERIOD): Always continent CODE: 0 SIGNATURE PANEL: The following modified sections: 1. [id number] Admission Performance, 1. [id number] Admission Performance, 1. [id number] Admission Performance, 1. IO4212b Admission Performance, 1. DW5073t Admission Performance, 1. HA2216c Admission Performance, 1. GL5548B Admission Performance, 1. [id number] Admission Performance , 1. [id number] Admission Performance, 1. CG2194F Admission Performance, 1. [id number] Admission Performanc e, 1. HR0104A Admission Performance, Q1. Does the patient use a wheelchair/scooter?, 1. [id number] Admis zain Performance, RR1. Indicate the type of wheelchair/scooter used., 1. [id number] Admission Performanc e, Code, SS1. Indicate the type of wheelchair/scooter used., H350. Bladder Continence (3-day assessme nt period), H400. Bowel Continence (3-day assessment period) were [electronically] signed by Yuniel ErazoNRichy on ThuMar 11 2020 17:00:33 GMT-0500 (Central Daylight Time)
[2020-03-11 19:50] VITALS: BMI 32.7
[2020-03-11] MEDS: ATORVASTATIN 40 MG TAB PO SCH (21:23)
[2020-03-11] MEDS: levoFLOXacin 500 MG TAB PO SCH (21:24)
[2020-03-12] MEDS: PROMOD 30 ML DOSE PO SCH ×2 (08:14→19:19)
[2020-03-12] MEDS: METFORMIN HCL 500 MG TAB PO SCH ×2 (08:14→17:12)
[2020-03-12] MEDS: TICAGRELOR 90 MG TABLET PO SCH ×2 (08:14→19:18)
[2020-03-12] MEDS: DIGOXIN 0.125 MG TABLET PO SCH (08:15)
[2020-03-12] MEDS: METOPROLOL TAR 25 MG TAB PO SCH ×2 (08:15→19:18)
[2020-03-12] MEDS: SPIRONOLACTONE 25 MG TABLET PO SCH ×2 (08:15→19:19)
[2020-03-12] MEDS: BUMETANIDE 1 MG TABLET PO SCH (08:16)
[2020-03-12] MEDS: TRAMADOL HCL 50 MG TAB PO PRN ×3 (08:17→19:27)
[2020-03-12] MEDS: AMIODARONE HCL 200 MG TAB PO SCH ×2 (08:17→19:18)
[2020-03-12] MEDS: POTASSIUM CL SA 10 MEQ TAB PO SCH (08:17)
[2020-03-12] MEDS: APIXABAN 2.5 MG TABLET PO SCH ×2 (08:17→19:18)
[2020-03-12] MEDS: MAGNESIUM OXIDE 400 MG TAB PO SCH ×2 (08:17→19:18)
[2020-03-12] MEDS: CRANBERRY FRUIT EXTRACT 200 MG CAP PO SCH ×2 (08:20→19:18)
[2020-03-12] MEDS ORDERED: ONDANSETRON 4 MG (ODT) TAB PO PRN (13:50)
--- NOTE | 2020-03-12 18:23 | R.PN ---
PROGRESS NOTES ENCOUNTER DATE AND TIME: 03/12/2020 18:20 (CDT) NAME LINA SALAMANCA DATE OF : 1950 DATE OF ADMISSION: 03/04/2020 16:18 (CDT) [place], R Knee ArthroplastyCHIEF COMPLAINT: Right knee arthroplasty SUBJECTIVE: Pt denied any depression. Pt denied any Shortness of Breath. WBC 6.9, Hgb 9.3, prealbumin 11.2, Ca 8.1, glucose 92 to 102, trace esterase, bacteria 20-50. Ambulated 1500' with standby assistance using a bilateral platform rolling walker. The patients current medical condition including all medications were discussed with his daughter. VITAL SIGNS Temperature: 97.1 F SBP/DBP: 97/57 Pulse: 68 Resp: 16 MEDICATION ALLERGIES: Penicillin ENVIRONMENTAL ALLERGIES: None Known - Substance Allergies None Known - Other Allergies None Known NURSING: - Shower allowing shower ACTIVITIES OOB only with supervision THERAPIES: - Dietary and Nutrition Adequate Nutrition. Nutritional Education. Nutritional Supplements. PHYSICAL EXAM - Gen Alert and awake Lying in bed No apparent distress Oriented to: person, time, and place - Skin Right knee bandage in place with good hemostasis. Normacephalic - Eyes No abnormalities - ENMT No abnormalities - Neck No abnormalities - CVS RRR - Chest No abnormalities - Resp Clear to auscultation - Abd Soft - GI nondistended Deferred - No abnormalities - Ext Right knee surgical site has good hemostasis. - MSK 4+/5 weakness in right lower extremity - Neuro 4/5 strength right lower extremity. - Psych No abnormalities ASSESSMENT: Pt. is a 69 yo Right-handed white male.He has past medical history significant for [place] and R knee arth roscopy that failed conservative treatment.He elected for surgery, and on 02/15/2020 was admitted to [facility] for R Knee Arthroplasty by Dr Hal Bonds. The day after surgery, the patient s uffered from cardiac arrest.Pre-morbidly, Pt. was independent/mod-I in Transfers Control and Locomoti on; and he had good Balance, Safety Awareness, Social Cognition, Sphincter Control, and Communication .Currently, he has deficits of Transfers Control, Balance, Locomotion, Safety Awareness, and Self-Car e.Pt. is now referred to [facility] for acute in-patient rehabilitation in ord er to maximize patient's functional independence in activities of daily living, strength, ROM, and mo bility.- Rehab Goal Patient has realistic goal of being discharged at assistance level 6-Rafael to reside at Home with Spo use. MDM/PLAN: - Physical Therapy Gait dysfunction - to improve, our physical therapists will perform initial evaluation of pt's statu s upon admission and devise an individualized program for Gait Training, and Wheel Chair mobility Inability to transfer - to improve, our physical therapists will perform initial evaluation of pt's status upon admission and devise an individualized program for Bed mobility Need for home safety evaluation - to improve, our physical therapists will perform initial evaluatio n of pt's status upon admission and devise an individualized program for Home Evaluation Need in caregiver upon discharge - to improve, our physical therapists will perform initial evaluati on of pt's status upon admission and devise an individualized program for Caregiver Training New precaution - to improve, our physical therapists will perform initial evaluation of pt's status upon admission and devise an individualized program for Patient precaution education Poor balance - to improve, our physical therapists will perform initial evaluation of pt's status up on admission and devise an individualized program for Balance Training Weakness - to improve, our physical therapists will perform initial evaluation of pt's status upon a dmission and devise an individualized program for Aquatic Therapy, Neuromuscular Reeducation, and Str engthening Achieving independence - to improve, our physical therapists will perform initial evaluation of pt's status upon admission and devise an individualized program for Community Reintegration Activities - Occupational Therapy ADL deficits - to improve, our occupation therapists will perform initial evaluation of pt's status upon admission and devise an individualized program for Bathing, Bed mobility, Community Reintegratio n, Cooking, Dressing, Eating, Fine Motor Skills, Grooming, Homemaking, Kitchen Mobility, Laundry, Pat ient Education, Safety Awareness, Splinting - Positioning, Transfers(Toilet, Tub, Shower), and Wheel Chair Management Need for director of career services - to improve, our occupation therapists will perform initial evaluation of pt's status upon admission and devise an individualized program for Caregiver Training Weakness - to improve, our occupation therapists will perform initial evaluation of pt's status upon admission and devise an individualized program for Aquatic Therapy, Balance, Endurance, UE ROM, and UE strengthening - Other See attached MAR (Medication Administration Record) - Diet Type Continue Regular - Diet - Liquid Texture Continue Regular - Tube Feed Continue N/A - Diet - Solid Texture Continue Regular - Shower allowing shower FUNCTIONAL STATUS: UPDATED AT WEEKLY TEAM CONFERENCE - Walking Same score based on distance walked: 0(N/A) - Wheelchair Same score based on distance traveled: 0(N/A) FUNCTIONAL STATUS: - Self-Care A. Eating Rafael B. Grooming sup C. Bathing modA D. Dressing - Upper Osvaldo E. Dressing - Lower modA F. Toileting modA - Sphincter Control G. Bladder control Osvaldo H. Bowel control Osvaldo - Transfers Control I. Bed/Chair/Wheelchair Osvaldo J. Toilet Osvaldo K. Tub/Shower modA - Locomotion L. Walk/Wheelchair (B) Osvaldo M. Stairs ADNO - Communication N. Comprehension (B) Rafael O. Expression (B) Rafael - Social Cognition P. Social Interaction Rafael Q. Problem Solving Rafael R. Memory Rafael - Endurance Fair - Balance Poor - Safety Awareness Fair QI SCORES: - Self-Care A. Eating 05-Setup or clean-up assistance B. Oral hygiene 05-Setup or clean-up assistance C. Toileting hygiene 01-Dependent E. Shower/bathe self 02-Substantial/maximal assistance F. Upper body dressing 02-Substantial/maximal assistance G. Lower body dressing 01-Dependent H. Putting on/taking off footwear 01-Dependent - Mobility A. Roll left and right 02-Substantial/maximal assistance B. Sit to lying 02-Substantial/maximal assistance C. Lying to sitting on side of bed 02-Substantial/maximal assistance D. Sit to stand 02-Substantial/maximal assistance E. Chair/[id number]-[id number] transfer 02-Substantial/maximal assistance F. Toilet transfer 02-Substantial/maximal assistance G. Car transfer 88-Not attempted due to medical condition or safety concerns J. Walk 50 feet with two turns 88-Not attempted due to medical condition or safety concerns K. Walk 150 feet 88-Not attempted due to medical condition or safety concerns L. Walking 10 feet on uneven surfaces 88-Not attempted due to medical condition or safety concerns M. 1 step (curb) 88-Not attempted due to medical condition or safety concerns N. 4 steps 88-Not attempted due to medical condition or safety concerns O. 12 steps 88-Not attempted due to medical condition or safety concerns P. Picking up object 88-Not attempted due to medical condition or safety concerns - Bladder and Bowel Bladder continence 0-Always continent Bowel continence 0-Always continent - Endurance Poor - Balance Poor - Safety Awareness Poor CURRENT FUNC. DEFICITS: Self-Care, Mobility, Endurance, Balance, and Safety Awareness SIGNATURE PANEL: (CDT)
[2020-03-12] MEDS: MELATONIN 3 MG TABLET PO PRN (19:18)
[2020-03-12] MEDS: ATORVASTATIN 40 MG TAB PO SCH (19:18)
[2020-03-12] MEDS: levoFLOXacin 500 MG TAB PO SCH (19:18)
[2020-03-13] MEDS: METOPROLOL TAR 25 MG TAB PO SCH ×2 (08:00→20:03)
[2020-03-13] MEDS: SPIRONOLACTONE 25 MG TABLET PO SCH ×2 (08:00→20:05)
[2020-03-13] MEDS: BUMETANIDE 1 MG TABLET PO SCH (08:00)
[2020-03-13] MEDS: PROMOD 30 ML DOSE PO SCH ×2 (08:00→20:06)
[2020-03-13] MEDS: CRANBERRY FRUIT EXTRACT 200 MG CAP PO SCH ×2 (08:15→20:03)
[2020-03-13] MEDS: APIXABAN 2.5 MG TABLET PO SCH ×2 (08:16→20:04)
[2020-03-13] MEDS: MAGNESIUM OXIDE 400 MG TAB PO SCH ×2 (08:16→20:05)
[2020-03-13] MEDS: POTASSIUM CL SA 10 MEQ TAB PO SCH (08:16)
[2020-03-13] MEDS: TRAMADOL HCL 50 MG TAB PO PRN ×2 (08:17→20:04)
[2020-03-13] MEDS: AMIODARONE HCL 200 MG TAB PO SCH ×2 (08:17→20:04)
[2020-03-13] MEDS: DIGOXIN 0.125 MG TABLET PO SCH (08:17)
[2020-03-13] MEDS: TICAGRELOR 90 MG TABLET PO SCH ×2 (08:18→20:03)
[2020-03-13] MEDS: METFORMIN HCL 500 MG TAB PO SCH ×2 (08:18→17:26)
--- NOTE | 2020-03-13 17:59 | R.PN ---
PROGRESS NOTES ENCOUNTER DATE AND TIME: 03/13/2020 17:57 (CDT) NAME LINA SALAMANCA DATE OF : 1950 DATE OF ADMISSION: 03/04/2020 16:18 (CDT) [place], R Knee ArthroplastyCHIEF COMPLAINT: Right knee arthroplasty SUBJECTIVE: Pt denied any depression. Pt denied any Shortness of Breath. WBC 6.9, Hgb 9.3, prealbumin 11.2, Ca 8.1, glucose 94 to 103, trace esterase, bacteria 20-50. Ambulated 1500' with independence using a bilateral platform rolling walker. The patients current medical condition including all medications were discussed with his daughter. VITAL SIGNS Temperature: 97.2 F SBP/DBP: 100/51 Pulse: 63 Resp: 16 MEDICATION ALLERGIES: Penicillin ENVIRONMENTAL ALLERGIES: None Known - Substance Allergies None Known - Other Allergies None Known NURSING: - Shower allowing shower ACTIVITIES OOB only with supervision THERAPIES: - Dietary and Nutrition Adequate Nutrition. Nutritional Education. Nutritional Supplements. PHYSICAL EXAM - Gen Alert and awake Lying in bed No apparent distress Oriented to: person, time, and place - Skin Right knee bandage in place with good hemostasis. Normacephalic - Eyes No abnormalities - ENMT No abnormalities - Neck No abnormalities - CVS RRR - Chest No abnormalities - Resp Clear to auscultation - Abd Soft - GI nondistended Deferred - No abnormalities - Ext Right knee surgical site has good hemostasis. - MSK 4+/5 weakness in right lower extremity - Neuro 4/5 strength right lower extremity. - Psych No abnormalities ASSESSMENT: He has past medical history significant for [place] and R knee arthroscopy that failed conservative treatm ent.He elected for surgery, and on 02/15/2020 was admitted to [facility] for R Knee Arthrop lasty by Dr Hal Bonds. The day after surgery, the patient suffered from cardiac arrest.Pre-morbidl y, Pt. was independent/mod-I in Transfers Control and Locomotion; and he had good Balance, Safety Faby reness, Social Cognition, Sphincter Control, and Communication.Pt. is now referred to [facility] for acute in-patient rehabilitation in order to maximize patient's functional inde pendence in activities of daily living, strength, ROM, and mobility.Pt. is a 69 yo Right-handed white male.Currently, he has deficits of Transfers Control, Balance, Locomotion, Safety Awareness, and Jeane f-Care.- Rehab Goal Patient has realistic goal of being discharged at assistance level 6-Rafael to reside at Home with Spo use. MDM/PLAN: - Physical Therapy Achieving independence - to improve, our physical therapists will perform initial evaluation of pt's status upon admission and devise an individualized program for Community Reintegration Activities Gait dysfunction - to improve, our physical therapists will perform initial evaluation of pt's statu s upon admission and devise an individualized program for Gait Training, and Wheel Chair mobility Inability to transfer - to improve, our physical therapists will perform initial evaluation of pt's status upon admission and devise an individualized program for Bed mobility Need for home safety evaluation - to improve, our physical therapists will perform initial evaluatio n of pt's status upon admission and devise an individualized program for Home Evaluation Need in caregiver upon discharge - to improve, our physical therapists will perform initial evaluati on of pt's status upon admission and devise an individualized program for Caregiver Training New precaution - to improve, our physical therapists will perform initial evaluation of pt's status upon admission and devise an individualized program for Patient precaution education Poor balance - to improve, our physical therapists will perform initial evaluation of pt's status up on admission and devise an individualized program for Balance Training Weakness - to improve, our physical therapists will perform initial evaluation of pt's status upon a dmission and devise an individualized program for Aquatic Therapy, Neuromuscular Reeducation, and Str engthening - Occupational Therapy ADL deficits - to improve, our occupation therapists will perform initial evaluation of pt's status upon admission and devise an individualized program for Bathing, Bed mobility, Community Reintegratio n, Cooking, Dressing, Eating, Fine Motor Skills, Grooming, Homemaking, Kitchen Mobility, Laundry, Pat ient Education, Safety Awareness, Splinting - Positioning, Transfers(Toilet, Tub, Shower), and Wheel Chair Management Need for career agent - to improve, our occupation therapists will perform initial evaluation of pt's status upon admission and devise an individualized program for Caregiver Training Weakness - to improve, our occupation therapists will perform initial evaluation of pt's status upon admission and devise an individualized program for Aquatic Therapy, Balance, Endurance, UE ROM, and UE strengthening - Other See attached MAR (Medication Administration Record) - Diet Type Continue Regular - Diet - Liquid Texture Continue Regular - Tube Feed Continue N/A - Diet - Solid Texture Continue Regular - Shower allowing shower FUNCTIONAL STATUS: UPDATED AT WEEKLY TEAM CONFERENCE - Walking Same score based on distance walked: 0(N/A) - Wheelchair Same score based on distance traveled: 0(N/A) FUNCTIONAL STATUS: - Self-Care A. Eating Rafael B. Grooming sup C. Bathing modA D. Dressing - Upper Osvaldo E. Dressing - Lower modA F. Toileting modA - Sphincter Control G. Bladder control Osvaldo H. Bowel control Osvaldo - Transfers Control I. Bed/Chair/Wheelchair Osvaldo J. Toilet Osvaldo K. Tub/Shower modA - Locomotion L. Walk/Wheelchair (B) Osvaldo M. Stairs ADNO - Communication N. Comprehension (B) Rafael O. Expression (B) Rafael - Social Cognition P. Social Interaction Rafael Q. Problem Solving Rafael R. Memory Rafael - Endurance Fair - Balance Poor - Safety Awareness Fair QI SCORES: - Self-Care A. Eating 05-Setup or clean-up assistance B. Oral hygiene 05-Setup or clean-up assistance C. Toileting hygiene 01-Dependent E. Shower/bathe self 02-Substantial/maximal assistance F. Upper body dressing 02-Substantial/maximal assistance G. Lower body dressing 01-Dependent H. Putting on/taking off footwear 01-Dependent - Mobility M. 1 step (curb) 88-Not attempted due to medical condition or safety concerns N. 4 steps 88-Not attempted due to medical condition or safety concerns O. 12 steps 88-Not attempted due to medical condition or safety concerns P. Picking up object 88-Not attempted due to medical condition or safety concerns A. Roll left and right 02-Substantial/maximal assistance B. Sit to lying 02-Substantial/maximal assistance C. Lying to sitting on side of bed 02-Substantial/maximal assistance D. Sit to stand 02-Substantial/maximal assistance E. Chair/[id number] transfer 02-Substantial/maximal assistance F. Toilet transfer 02-Substantial/maximal assistance G. Car transfer 88-Not attempted due to medical condition or safety concerns J. Walk 50 feet with two turns 88-Not attempted due to medical condition or safety concerns K. Walk 150 feet 88-Not attempted due to medical condition or safety concerns L. Walking 10 feet on uneven surfaces 88-Not attempted due to medical condition or safety concerns - Bladder and Bowel Bladder continence 0-Always continent Bowel continence 0-Always continent - Endurance Poor - Balance Poor - Safety Awareness Poor CURRENT FUNC. DEFICITS: Self-Care, Mobility, Endurance, Balance, and Safety Awareness SIGNATURE PANEL: (CDT)
[2020-03-13] MEDS: ATORVASTATIN 40 MG TAB PO SCH (20:05)
[2020-03-13] MEDS: levoFLOXacin 500 MG TAB PO SCH (20:05)
[2020-03-14 07:18] VITALS: BP 92/54; TEMP 98
[2020-03-14] MEDS: TRAMADOL HCL 50 MG TAB PO PRN (08:16)
[2020-03-14] MEDS: MAGNESIUM OXIDE 400 MG TAB PO SCH (08:17)
[2020-03-14] MEDS: METOPROLOL TAR 25 MG TAB PO SCH (08:17)
[2020-03-14] MEDS: BUMETANIDE 1 MG TABLET PO SCH (08:18)
[2020-03-14] MEDS: DIGOXIN 0.125 MG TABLET PO SCH (08:18)
[2020-03-14] MEDS: POTASSIUM CL SA 10 MEQ TAB PO SCH (08:18)
[2020-03-14] MEDS: SPIRONOLACTONE 25 MG TABLET PO SCH (08:19)
[2020-03-14] MEDS: APIXABAN 2.5 MG TABLET PO SCH (08:19)
[2020-03-14] MEDS: AMIODARONE HCL 200 MG TAB PO SCH (08:19)
[2020-03-14] MEDS: TICAGRELOR 90 MG TABLET PO SCH (08:19)
[2020-03-14] MEDS: METFORMIN HCL 500 MG TAB PO SCH (08:19)
[2020-03-14] MEDS: PROMOD 30 ML DOSE PO SCH (08:20)
[2020-03-14] MEDS: CRANBERRY FRUIT EXTRACT 200 MG CAP PO SCH (08:21)
[2020-03-14 08:54] VITALS: O2SAT 94
--- NOTE | 2020-03-14 17:52 | R.PN ---
PROGRESS NOTES ENCOUNTER DATE AND TIME: 03/14/2020 17:47 (CDT) NAME LINA SALAMANCA DATE OF : 1950 DATE OF ADMISSION: 03/04/2020 16:18 (CDT) UT, R Knee ArthroplastyCHIEF COMPLAINT: Right knee arthroplasty SUBJECTIVE: Pt denied any depression. Pt denied any Shortness of Breath. WBC 6.9, Hgb 9.3, prealbumin 11.2, Ca 8.1, glucose 91 to 103, potassium 4.9, trace esterase, bacteria 20-50. Ambulated 1750' with independence using a bilateral platform rolling walker. His left shoulder wound is still oozing cloudy serous fluid. Will continue his Levaquin for 7 more da ys. He will be discharged home today with correction to get wound culture and CBC with different ial. VITAL SIGNS Temperature: 98.0 F SBP/DBP: 92/54 Pulse: 61 Resp: 16 MEDICATION ALLERGIES: Penicillin ENVIRONMENTAL ALLERGIES: None Known - Substance Allergies None Known - Other Allergies None Known NURSING: - Shower allowing shower ACTIVITIES OOB only with supervision THERAPIES: - Dietary and Nutrition Adequate Nutrition. Nutritional Education. Nutritional Supplements. PHYSICAL EXAM - Gen Alert and awake Lying in bed No apparent distress Oriented to: person, time, and place - Skin Right knee bandage in place with good hemostasis. Normacephalic - Eyes No abnormalities - ENMT No abnormalities - Neck No abnormalities - CVS RRR - Chest No abnormalities - Resp Clear to auscultation - Abd Soft - GI nondistended Deferred - No abnormalities - Ext Right knee surgical site has good hemostasis. - MSK 4+/5 weakness in right lower extremity - Neuro 4/5 strength right lower extremity. - Psych No abnormalities ASSESSMENT: He has past medical history significant for UT and R knee arthroscopy that failed conservative treatm ent.He elected for surgery, and on 02/15/[address] [facility] for R Knee Arthrop lasty by Dr Hal Bonds. The day after surgery, the patient suffered from cardiac arrest.Pre-morbidl y, Pt. was independent/mod-I in Transfers Control and Locomotion; and he had good Balance, Safety Faby reness, Social Cognition, Sphincter Control, and Communication.Pt. is now referred to [facility] for acute in-patient rehabilitation in order to maximize patient's functional inde pendence in activities of daily living, strength, ROM, and mobility.Currently, he has deficits of Tra nsfers Control, Balance, Locomotion, Safety Awareness, and Self-Care.Pt. is a 69 yo Right-handed whit e male.- Rehab Goal Patient has realistic goal of being discharged at assistance level 6-Rafael to reside at Home with Spo use. MDM/PLAN: - Physical Therapy Achieving independence - to improve, our physical therapists will perform initial evaluation of pt's status upon admission and devise an individualized program for Community Reintegration Activities Gait dysfunction - to improve, our physical therapists will perform initial evaluation of pt's statu s upon admission and devise an individualized program for Gait Training, and Wheel Chair mobility Inability to transfer - to improve, our physical therapists will perform initial evaluation of pt's status upon admission and devise an individualized program for Bed mobility Need for home safety evaluation - to improve, our physical therapists will perform initial evaluatio n of pt's status upon admission and devise an individualized program for Home Evaluation Need in caregiver upon discharge - to improve, our physical therapists will perform initial evaluati on of pt's status upon admission and devise an individualized program for Caregiver Training New precaution - to improve, our physical therapists will perform initial evaluation of pt's status upon admission and devise an individualized program for Patient precaution education Poor balance - to improve, our physical therapists will perform initial evaluation of pt's status up on admission and devise an individualized program for Balance Training Weakness - to improve, our physical therapists will perform initial evaluation of pt's status upon a dmission and devise an individualized program for Aquatic Therapy, Neuromuscular Reeducation, and Str engthening - Occupational Therapy ADL deficits - to improve, our occupation therapists will perform initial evaluation of pt's status upon admission and devise an individualized program for Bathing, Bed mobility, Community Reintegratio n, Cooking, Dressing, Eating, Fine Motor Skills, Grooming, Homemaking, Kitchen Mobility, Laundry, Pat ient Education, Safety Awareness, Splinting - Positioning, Transfers(Toilet, Tub, Shower), and Wheel Chair Management Need for customer care assistant - to improve, our occupation therapists will perform initial evaluation of pt's status upon admission and devise an individualized program for Caregiver Training Weakness - to improve, our occupation therapists will perform initial evaluation of pt's status upon admission and devise an individualized program for Aquatic Therapy, Balance, Endurance, UE ROM, and UE strengthening - Other See attached MAR (Medication Administration Record) - Diet Type Continue Regular - Diet - Liquid Texture Continue Regular - Tube Feed Continue N/A - Diet - Solid Texture Continue Regular - Shower allowing shower FUNCTIONAL STATUS: UPDATED AT WEEKLY TEAM CONFERENCE - Walking Same score based on distance walked: 0(N/A) - Wheelchair Same score based on distance traveled: 0(N/A) FUNCTIONAL STATUS: - Self-Care A. Eating Rafael B. Grooming sup C. Bathing modA D. Dressing - Upper Osvaldo E. Dressing - Lower modA F. Toileting modA - Sphincter Control G. Bladder control Osvaldo H. Bowel control Osvaldo - Transfers Control I. Bed/Chair/Wheelchair Osvaldo J. Toilet Osvaldo K. Tub/Shower modA - Locomotion L. Walk/Wheelchair (B) Osvaldo M. Stairs ADNO - Communication N. Comprehension (B) Rafael O. Expression (B) Rafael - Social Cognition P. Social Interaction Rafael Q. Problem Solving Rafael R. Memory Rafael - Endurance Fair - Balance Poor - Safety Awareness Fair QI SCORES: - Self-Care A. Eating 05-Setup or clean-up assistance B. Oral hygiene 05-Setup or clean-up assistance C. Toileting hygiene 01-Dependent E. Shower/bathe self 02-Substantial/maximal assistance F. Upper body dressing 02-Substantial/maximal assistance G. Lower body dressing 01-Dependent H. Putting on/taking off footwear 01-Dependent - Mobility M. 1 step (curb) 88-Not attempted due to medical condition or safety concerns N. 4 steps 88-Not attempted due to medical condition or safety concerns O. 12 steps 88-Not attempted due to medical condition or safety concerns P. Picking up object 88-Not attempted due to medical condition or safety concerns A. Roll left and right 02-Substantial/maximal assistance B. Sit to lying 02-Substantial/maximal assistance C. Lying to sitting on side of bed 02-Substantial/maximal assistance D. Sit to stand 02-Substantial/maximal assistance E. Chair/[id number] transfer 02-Substantial/maximal assistance F. Toilet transfer 02-Substantial/maximal assistance G. Car transfer 88-Not attempted due to medical condition or safety concerns J. Walk 50 feet with two turns 88-Not attempted due to medical condition or safety concerns K. Walk 150 feet 88-Not attempted due to medical condition or safety concerns L. Walking 10 feet on uneven surfaces 88-Not attempted due to medical condition or safety concerns - Bladder and Bowel Bladder continence 0-Always continent Bowel continence 0-Always continent - Endurance Poor - Balance Poor - Safety Awareness Poor CURRENT FUNC. DEFICITS: Self-Care, Mobility, Endurance, Balance, and Safety Awareness SIGNATURE PANEL: (CDT)
--- NOTE | 2020-03-16 13:55 | R.DS ---
DISCHARGE SUMMARY FACILITY [facility] MR# [id number] NAME LINA SALAMANCA ADDRESS [address] [facility] [address] [place] [address] [address] [id number] PHONE DATE OF 1950 AGE 69 SSN# [id number] GENDER Male DEXTERITY Right-handed MARITAL STATUS RACE White ENCOUNTER PHYSICIAN Dr. Naldo Snyder M.D. REFERRING DOCTOR Dr Hal Bonds REFERRING FACILITY [facility] DISCHARGE DIAGNOSIS: - Cardiac 09 - Cardiac Disorders (09) LA, R Knee Arthroplasty. DATE OF ADMISSION 03/04/2020 16:18 (CDT) MEDICATION ALLERGIES: Penicillin ENVIRONMENTAL ALLERGIES: None Known - Substance Allergies None Known - Other Allergies None Known DISCHARGE MEDICATIONS: Other- ContinueSee attached MAR (Medication Administration Record). NURSING: - Shower allowing shower ACTIVITIES OOB only with supervision THERAPIES: - Dietary and Nutrition Adequate Nutrition Nutritional Education Nutritional Supplements HISTORY OF PRESENT ILLNESS: He has past medical history significant for LA and R knee arthroscopy that failed conservative treatm ent.He elected for surgery, and on 02/15/2020 was admitted to [facility] for R Knee Arthrop lasty by Dr Hal Bonds. The day after surgery, the patient suffered from cardiac arrest.Pre-morbidl y, Pt. was independent/mod-I in Transfers Control and Locomotion; and he had good Balance, Safety Faby reness, Social Cognition, Sphincter Control, and Communication.Pt. is now referred to [facility] for acute in-patient rehabilitation in order to maximize patient's functional inde pendence in activities of daily living, strength, ROM, and mobility.Pt. is a 69 yo Right-handed white male.Currently, he has deficits of Transfers Control, Balance, Locomotion, Safety Awareness, and Jeane f-Care.- Rehab Goal Patient has realistic goal of being discharged at assistance level 6-Rafael to reside at Home with Spo use. HOSPITAL COURSE: DIET - LIQUID TEXTURE: On 03/04/2020 Pt was upgraded to Regular Diet - Liquid Texture. DIET - SOLID TEXTURE: On 03/04/2020 Pt was upgraded to Regular Diet - Solid Texture. DIET TYPE: On 03/04/2020 Pt was upgraded to Regular Diet Type. TUBE FEED: On 03/04/2020 Pt was changed to N/A Tube Feed. DISCHARGE PHYSICAL EXAM - Gen Alert and awake Lying in bed No apparent distress Oriented to: person, time, and place - Skin Right knee bandage in place with good hemostasis. Normacephalic - Eyes No abnormalities - ENMT No abnormalities - Neck No abnormalities - CVS RRR - Chest No abnormalities - Resp Clear to auscultation - Abd Soft - GI nondistended Deferred - No abnormalities - Ext Right knee surgical site has good hemostasis. - MSK 4+/5 weakness in right lower extremity - Neuro 4/5 strength right lower extremity. - Psych No abnormalities FUNCTIONAL STATUS: - Self-Care A. Eating 7-Ind B. Grooming 7-Ind C. Bathing 7-Ind D. Dressing - Upper 7-Ind E. Dressing - Lower 7-Ind F. Toileting 7-Ind - Sphincter Control G. Bladder control 7-Ind H. Bowel control 7-Ind - Transfers Control I. Bed/Chair/Wheelchair 6-Rafael J. Toilet 6-Rafael K. Tub/Shower 6-Rafael - Locomotion L. Walk/Wheelchair (B) 7-Ind M. Stairs 6-Rafael - Communication N. Comprehension (B) 6-Rafael O. Expression (B) 6-Rafael - Social Cognition P. Social Interaction 6-Rafael Q. Problem Solving 6-Rafael R. Memory 6-Rafael - Endurance Good - Balance Good - Safety Awareness Good QI SCORES: - Self-Care A. Eating 05-Setup or clean-up assistance B. Oral hygiene 05-Setup or clean-up assistance C. Toileting hygiene 01-Dependent E. Shower/bathe self 02-Substantial/maximal assistance F. Upper body dressing 02-Substantial/maximal assistance G. Lower body dressing 01-Dependent H. Putting on/taking off footwear 01-Dependent - Mobility M. 1 step (curb) 88-Not attempted due to medical condition or safety concerns N. 4 steps 88-Not attempted due to medical condition or safety concerns O. 12 steps 88-Not attempted due to medical condition or safety concerns P. Picking up object 88-Not attempted due to medical condition or safety concerns A. Roll left and right 02-Substantial/maximal assistance B. Sit to lying 02-Substantial/maximal assistance C. Lying to sitting on side of bed 02-Substantial/maximal assistance D. Sit to stand 02-Substantial/maximal assistance E. Chair/[id number] transfer 02-Substantial/maximal assistance F. Toilet transfer 02-Substantial/maximal assistance G. Car transfer 88-Not attempted due to medical condition or safety concerns J. Walk 50 feet with two turns 88-Not attempted due to medical condition or safety concerns K. Walk 150 feet 88-Not attempted due to medical condition or safety concerns L. Walking 10 feet on uneven surfaces 88-Not attempted due to medical condition or safety concerns - Bladder and Bowel Bladder continence 0-Always continent Bowel continence 0-Always continent - Endurance Poor - Balance Poor - Safety Awareness Poor DISCHARGE INSTRUCTIONS: - N/A Eliquis 2.5 mg twice daily. DISCHARGE PLAN, FOLLOW UP CARE PROVISIONS: - Estimated Length of Stay (days) 10. - Consensus on plan Discharge plan has been discussed with primary caregiver. Patient/Family is in agreement with the kimmie n. Primary caregiver is in agreement with the plan. - Patient/Family Goals Return home with assistance. - Planned Living Setting Upon Discharge Home, to live with Spouse. SIGNATURE PANEL: (CDT)
== END 2020-03-14 14:15 | disposition home health service (06) | DRG 560 ==
LOC: 5TH 03-04 18:18
PROVIDERS: ADMIT Psychiatry & Neurology Neurology with Special Qualifications in Child Neurology; ATTEND Psychiatry & Neurology Neurology with Special Qualifications in Child Neurology
DX: Z47.1 Aftercare following joint replacement surgery (principal); I50.22 Chronic systolic (congestive) heart failure; I11.0 Hypertensive heart disease with heart failure; I25.10 Atherosclerotic heart disease of native coronary artery without angina pectoris; E78.5 Hyperlipidemia, unspecified; E11.9 Type 2 diabetes mellitus without complications; I25.2 Old myocardial infarction; Z86.718 Personal history of other venous thrombosis and embolism; Z96.651 Presence of right artificial knee joint; Z89.201 Acquired absence of right upper limb, unspecified level; Z95.0 Presence of cardiac pacemaker; Z95.5 Presence of coronary angioplasty implant and graft; Z88.0 Allergy status to penicillin; Z66 Do not resuscitate; Z20.828 Contact with and (suspected) exposure to other viral communicable diseases
CPT/HCPCS: 36415; 80048; 81001; 82040; 82947; 83735; 84132; 84134; 85025; 87070; 87077; 87086; 87088; 87186; 87205; 97110; 97112; 97116; 97161; 97530; 97542; U0003

== ENCOUNTER 2021-07-23 18:33 | Observation (INO) | payer OTHER ==
--- OUTSIDE RECORDS SUMMARY | 2021-07-23 18:36 | XMS REPORT | Continuity of Care Document ---
:1950 Author Organization [facility] t Address [address] [place] [address] Care Team Providers Name Role Phone VIANNEY MCCANN Attending Clinician Unavailable FIDEL Attending Clinician Unavailable YUE Attending Clinician Unavailable ANTONETTE Attending Clinician Unavailable WOJCIECH Attending Clinician Unavailable MD WOJCIECH PAjith Attending Clinician Unavailable MD Abraham TURNER Attending Clinician Unavailable HONEY Attending Clinician Unavailable FIDEL Admitting Clinician Unavailable YUE Admitting Clinician Unavailable MD Abraham TURNER Admitting Clinician Unavailable Payers Payer Name Policy Type Policy Number Effective Date Expiration Date S alec MEDICARE A B [id number] 2016 00:00:00 [place] A[place]: [id number] 2016 VOIQ 00:00:00 - [facility] [id number] INSURANCE COMPANY - PLAN F (MEDICARE SUPPLEMENT) Problems Condition Condition Condition Status Onset Resolution Last Treating Co mments Source Name Details Category Date Date Treatment Clinician Date Congestive Congestive Problem Active [facility] [place] heart Heart 9 da failure Failure [facility] Atrial Atrial Problem Active [place] fibrillati Fibrillati 8-05 da on on 00:00: [facility] Hyperlipid Hyperlipid Problem Active 2019- [facility] [place] emia emia 7- da 00:00[facility] Hypertensi Hypertensi Problem Active 2019 [facility] [place] ve ve 7-12 da disorder Disorder 00:00: [facility] History of History of Problem Active [facility] right Right da below below [facility] elbow Elbow al amputation Amputation He alth [facility] Shoulder Shoulder Problem Active [place] pain Pain da [facility] 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 [facility] Rupture of Rupture of Problem Active [facility] tendon of Tendon of da biceps Biceps [facility] History of History of Problem [facility]olve [facility] Diabetes Diabetes d [facility]y of [place] [facility] History of History of Problem Resolve [facility] high [facility] d [place] of cholestero cholestero [place] [facility] Allergies, Adverse Reactions, Alerts Allergy Allergy Status Severity Reaction(s) Onset Inactive Treating Comm ents Source Name Type Date Date Clinician PENICILL Allergy Active Mild to Rash [place] to moderate 02-10 da substanc 00:00: [facility] Penicill Allergy Active [facility] ins to drug ity of (finding [place] ) [facility] Social History Smoking Status Start Date Stop Date Source Never smoked tobacco (finding) [facility] Medications Ordered Filled Start Stop Current Ordering Indication Dosage Frequency Signature Comments Components Source Medication Medication Date Date Medication? 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 route. day by Program oral route. simvastatin simvastatin No 1 Q1D simvastati [place] 20 mg 20 mg n 20 mg da tablet Take tablet Take tablet [facility] 1 tablet 1 tablet Take 1 al every day every day tablet Hea lth by oral by oral every day Outr eac route at route at by oral h bedtime. bedtime. route at Pro gram bedtime. amLODIPine amLODIPine Yes Uni vers Besylate 5 Besylate 5 ity of MG Oral MG Oral [place] Tablet Tablet Physici ans Atorvastati Atorvastati Yes U nivers n Calcium n Calcium ity o f 40 MG Oral 40 MG Oral Tao as Tablet Tablet Physici ans Aspirin 81 Aspirin 81 Yes Uni vers MG TABS MG TABS ity [facility] [place] [facility] Olmesartan Olmesartan Yes Uni vers Medoxomil Medoxomil ity o f 20 MG Oral 20 MG Oral Tao as Tablet Tablet Physici ans Aldactone Aldactone No 1 Q1D Aldactone [place] 25 mg 25 mg 25 mg da tablet Take tablet Take tablet [facility] 1 tablet 1 tablet Take 1 al every day every day tablet Hea lth by oral by oral every day Outr eac route. route. by oral h route. Program amiodarone amiodarone No 1 Q1D amiodarone [place] 200 mg 200 mg 200 mg da tablet Take tablet Take tablet [facility] 1 tablet 1 tablet Take 1 al every day every day tablet Hea lth by oral by oral every day Outr eac route. route. by oral h route. Program bumetanide bumetanide No 1 Q1D bumetanide [place] 1 mg tablet 1 mg tablet 1 mg d a Take 1 Take 1 tablet [facility] tablet tablet Take 1 al every day every day tablet Hea lth by oral by oral every day Outr eac route in route in by oral h the the route in Program morning. morning. the morning. clopidogrel clopidogrel No 1 Q1D clopidogre [place] 75 mg 75 mg l 75 mg da tablet Take tablet Take tablet [facility] 1 tablet 1 tablet Take 1 al every day every day tablet Hea lth by oral by oral every day Outr eac route. route. by oral h route. Program digoxin 125 digoxin 125 No 1 Q1D digoxin [place] mcg (0.125 mcg (0.125 125 mcg da mg) tablet mg) tablet (0.125 mg) [facility] Take 1 Take 1 tablet al tablet tablet Take 1 Health every day every day tablet Out reac by oral by oral every day h route. route. by oral Program route. Eliquis 5 Eliquis 5 No 1 BID Eliquis 5 [place] mg tablet mg tablet mg tablet da Take 1 Take 1 Take 1 [facility] tablet tablet tablet al twice a day twice a day twice a Health by oral by oral day by Outreac route. route. oral h route. Program ezetimibe ezetimibe No 1 Q1D ezetimibe [place] 10 mg 10 mg 10 mg da tablet Take tablet Take tablet [facility] 1 tablet 1 tablet Take 1 al every day every day tablet Hea lth by oral by oral every day Outr eac route in route in by oral h the the route in Program morning. morning. the morning. ICaps ICaps No ICaps [place] AREDS2 AREDS2 AREDS2 da [facility] levocetiriz levocetiriz No 1 Q1D levocetiri [place] ine 5 mg ine 5 mg zine 5 mg da tablet Take tablet Take tablet [facility] 1 tablet 1 tablet Take 1 al every day every day tablet Hea lth by oral by oral every day Outr eac route at route at by oral h bedtime. bedtime. route at Pro gram for for bedtime. allergies allergies for allergies Immunizations Ordered Immunization Filled Immunization Date Status Commen ts Source Name Name zoster recombinant zoster recombinant 2020-12-29 Completed [place] 00:00:00 [facility] Tdap Tdap 2019-02-25 Completed [place] 11:27:17 [facility] pneumococcal pneumococcal Unknown Completed [place] polysaccharide PPV23 polysaccharide PPV23 [facility] Vital Signs Vital Name Observation Time Observation Value Comments Source BP Diastolic 2021-02-15 00:00:00 [facility] Height 2021-02-15 00:00:00 70 [facility] BMI (Body Mass 2021-02-15 00:00:00 29.4 kg/m2 [place]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 [facility] Index) [facility] BP Systolic 2021-02-15 00:00:00 124 mm[facility]Hg[facility] Body Weight 2021-02-15 00:00:00 3280 [facility]oz_av[facility] BP Diastolic 2020-04-07 00:00:00 75 mm[facility]Hg[facility] Height 2020-04-07 00:00:00 70 [facility] BMI (Body Mass 2020-04-07 00:00:00 31.1 kg/m2 [place]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 [facility]) [facility] BP Systolic 2020-04-07 00:00:00 126 mm[Hg] [place] [facility] Body Weight 2020-04-07 00:00:00 3472 [oz_av] [place] [facility] BP Diastolic 2019-09-09 00:00:00 88 mm[Hg] [place] [facility] Height 2019-09-09 00:00:00 70 [in_i] [place] [facility] BMI (Body Mass 2019-09-09 00:00:00 34.7 kg/m2 [place]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 [facility]) [facility] BP Systolic 2019-09-09 00:00:00 142 mm[Hg] [place] [facility] Body Weight 2019-09-09 00:00:00 242.1 [lb_av] [place] [facility] BP Diastolic 2019-06-14 00:00:00 85 mm[Hg] [place] [facility] Height 2019-06-14 00:00:00 70 [in_i] [place] [facility] BMI (Body Mass 2019-06-14 00:00:00 34.6 kg/m2 [place]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 [facility]) [facility] BP Systolic 2019-06-14 00:00:00 161 mm[Hg] [place] [facility] Body Weight 2019-06-14 00:00:00 241 [lb_av] [place] [facility] Body height 2019-09-29 13:58:00 70 [in_us] [facility] Weight 2019-09-29 13:58:00 242 [lb_av] [facility] Body mass index 2019-09-29 13:58:00 34.72 kg/m2 [facility] (BMI) [Ratio] Physicians Procedures Procedure Date / Time Performing Clinician Source Performed Percutaneous 2020-02-15 00:00:00 Nataliya Soriano iscopal Transluminal [facility] Outr each Angioplasty Program Total Knee Arthroplasty 2020-02-15 00:00:00 Baltazar kee [facility] XR, knee, 3 view 2019-09-09 00:00:00 Nataliya [facility] MRI, shoulder, w/o 2019-09-09 00:00:00 Nataliya [facility] XR, shoulder, 2 or more 2019-08-29 00:00:00 Baltazar kee [facility] Colonoscopy 2018-10-11 00:00:00 [facility] Hernia Repair W/mesh [facility] Amputation of Upper Arm [place] [facility] History of Hernia [employer] [facility] [place] repair Physicians History of Back surgery [facility] History of Arterial [facility] [place] stent placement Physicians History of Upper [employer] [facility] extremity amputation Physicians Plan of Care Planned Activity Planned Date Details Comments Source Future Scheduled Test 2021-05-17 lipid panel, serum [place] 00:00:00 [code = lipid panel, [facility] serum] Outreach [facility] Future Scheduled Test 2021-05-17 BNP (B-type [place]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 00:00:00 natriuretic [facility] peptide), blood Outreach Pro gram [code = BNP (B-type natriuretic peptide), blood] Future Scheduled Test 2021-05-17 CMP, serum or plasma [place] 00:00:00 [code = CMP, serum [facility] or plasma] Outreach [facility] Future Scheduled Test 2021-05-17 digoxin, serum [code [place] 00:00:00 = digoxin, serum] [facility] m Future Scheduled Test 2021-05-17 CBC w/ auto diff [place] 00:00:00 [code = CBC w/ auto [facility] diff] Outreach [facility] Future Scheduled Test 2021-05-17 HbA1c (hemoglobin [place] 00:00:00 A1c), blood [code = [facility] HbA1c (hemoglobin Outreach P rogram A1c), blood] Future Appointment 2021-08-18 Sarah De Anda, [address] [place] 00:00:00 [place] [address] Outreach Program Encounters Start End Encounter Admission Attending Care Care Encounter Source Date/Time Date/Time Type Type Clinicians Facility Department ID 2021-05-10 2021-05-10 Outpatient EL SIOBHANLORIN [facility] [id number] [facility] 11:44:08 23:59:00 2021-02-15 2021-02-15 Outpatient GILBERT_KAT MEHOP CTHOP 106 [place] 03:06:00 03:06:[place] [id number] [place] [facility] 2021-02-15 2021-02-15 Sarah SHAH [place] - [id number] [place] 00:00:00 00:00:00 Jadyn An da Shanthi, [facility] ONLINE TRADER: [address] [facility] [address] Akash sharpe , Ph. 2021-02-14 2021-02-14 Outpatient GILBERT_KAT CTHOP CTHOP 106 [place] 01:56:00 01:56:[place] [id number] [place] [facility] 2020-04-19 2020-04-19 [facility] [id number] [address] [place] [address] 00:00:00 00:00:00 EMANUEL [address] 2020-04-09 2020-04-09 Outpatient GILBERT_KAT MEHOP CTHOP 106 [place] 12:25:00 12:25:[place] [id number] [place] [facility] 2020-04-08 2020-04-08 Outpatient GILBERT_KAT MEHOP CTHOP 106 [place] 12:29:00 12:29:[place] [id number] [facility] 2020-04-07 2020-04-07 Outpatient GILBERT_KAT CTHOP CTHOP 106 [place] 03:46:00 03:46:[place] [id number] [facility] 2020-04-07 2020-04-07 Sarah SHAH [place] - [id number] [place] 00:00:00 00:00:00 Jadyn An da Shanthi, [facility] ONLINE TRADER: [address] [place] [address] Akash sharpe , Ph. 2020-03-29 2020-03-29 [facility] [id number] [address] [place] [address] 00:00:00 00:00:00 EMANUEL [address] 2020-03-23 2020-03-23 Outpatient WHITMAN, [facility] [id number] [place] 00:00:00 00:00:00 APOOR [address] 2020-03-08 2020-03-08 Outpatient MAFFET, [facility] [id number] [place] 00:00:00 00:00:00 EMANUEL [address] 2020-02-15 2020-03-04 Inpatient JOGLEKAR, [facility] [id number] [place] 00:00:00 00:00:00 TITO [address] 2020-02-10 2020-02-10 Outpatient MAFFET, [facility] [id number] [place] 00:00:00 00:00:00 EMANUEL [address] 2019-12-16 2019-12-16 Outpatient MAFFET, [facility] [id number] [place] 00:00:00 00:00:00 EMANUEL [address] 2019-12-01 2019-12-01 Outpatient MAFFET, [facility] [id number] [place] 00:00:00 00:00:00 EMANUEL [address] 2019-12-01 2019-12-01 Outpatient MAFFET, [facility] [id number] [place] 00:00:00 00:00:00 EMANUEL [address] 2019-12-01 2019-12-01 Outpatient MAFFET, [facility] [id number] [place] 00:00:00 00:00:00 EMANUEL [address] 2019-09-29 2019-09-29 Joyce M[facility]NDEZ [facility] [id number] [facility] 13:30:00 13:30:00 t; KIRT MÉNDEZ, - Sugar leif MORALEZ M.D. [place] [address] [place] [facility] 2019-09-09 2019-09-09 Outpatient SHANTHI_CARLY SHAH [id number] [place] 04:16:00 04:16:[place] [id number] [facility] 2019-09-09 2019-09-09 Sarah SHAH [place] - [id number] [place] 00:00:00 00:00:00 Jadyn Cunha, [facility] ONLINE TRADER: [address] [facility] [address], [facility], [facility] [address] Progr am , Ph. 2019-08-28 2019-08-28 Outpatient UMBERTO SHAH [facility] 106 [place] 11:41:00 11:41:[place] [id number] [place] 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 Results Test Description Test Time Test Comments Results Result [facility] e Comments RAD, CHEST, 2 2021-05-10 Reason for VIEWS 12:08:00 Exam:->cad [facility] : 1950 Sex: M *FINAL REPORT INDICATION: cad COMPARISON: None TECHNIQUE: AP and lateral view of the chest. FINDINGS: Lungs and pleura: Clear lungs. No effusion.Heart and mediastinum: Normal heart size. Unremarkable mediastinal contours.Osseous structures: No acute abnormality.Other: None. IMPRESSION: No acute intrathoracic abnormality. Signed: Zelda Soler Verified Date/Time: 05/10/2021 12:08:46 Reading Location: [facility] Radiology Reading Room -CoV-2 (COVID-19) RNA [Presence] in Respiratory sp ecimen by 2020-03-01 14:24:30 LUIS with probe detection Test Item Value Reference Range Interpretation Comme nts SARS-CoV-2 (COVID-19) RNA [Presence] in Respiratory Not detected No t-Detected specimen by LUIS with probe detection (test code = 42481-0) SARS-CoV-2 (COVID-19) RNA [Presence] in Respiratory specimen by LUIS with probe [id number] 23:10:49 Test Item Value Reference Range Interpretation Comments SARS-CoV-2 (COVID-19) RNA Not detected Not-Detected [Presence] in Respiratory specimen by LUIS with probe detection (test code = 12515-8) Hemoglobin A1c/Hemoglobin.total in [id number] 00:00:00 Test Item Value Reference Range Interpretation Comments Hemoglobin A1c/Hemoglobin.total in 5.8 % 4.8-5.6 H Blood (test code = 4548-4) [facility] [id number] 00:00:00 Test Item Value Reference Range Interpretation Comments written authorization (test code = comment written authorization) [facility] citrullinated peptide IgA+IgG Ab [Units/volume] in Serum or Plasma by [id number] 00:00:00 Test Item Value Reference Range Interpretation Comments Cyclic citrullinated peptide IgA+IgG 13 units 0-19 Ab [Units/volume] in Serum or Plasma by Immunoassay (test code = 33655-0) [facility] [Presence] in Serum 2019-08-31 00:00:00 Test Item Value Reference Range Interpretation Comments Nuclear Ab [Presence] in Serum (test negative negative code = 8061-4) [facility] W Auto Differential panel - Blood 2019-08-30 [...] = 706-2) immature cells (test code = pick up worker immature cells) Neutrophils [#/volume] in Blood 3.3 [...] Blood by Automated count (test code = 51448-0) Nucleated erythrocytes/100 pick up worker leukocytes [Ratio] in Blood by Automated count (test code = 82204-3) Morphology [interpretation] in pick up worker Blood Narrative (test code = 15643-1) [facility] 2000 panel - Serum or [id number] 00:00:00 Test Item Value Reference Range Interpretation [...] mg/dL 8.6-10.2 or Plasma (test code = 42085-3) Protein [Mass/volume] in Serum 6.6 g/dL 6.0-8.5 or Plasma (test code = 2885-2) Albumin [Mass/volume] in Serum 4.3 g/dL 3.8-4.8 or Plasma (test code = 1751-7) Globulin [Mass/volume] in 2.3 g/dL 1.5-4.5 Serum by calculation (test code = 38110-0) Albumin/Globulin [Mass Ratio] 1.9 1.2-2.2 in Serum [...] Serum or Plasma (test code = 1742-6) [facility]id 1996 panel - Serum or Plasma 2019-08-30 [...] or Plasma by calculation (test code = 08926-7) Cholesterol in LDL [Mass/volume] in 46 mg/dL 0-99 Serum or Plasma by calculation (test code = 38159-6) comment: (test code = comment:) pick up worker [facility] ProgramRheumatoid factor [Units/volume] in Serum or [id number] 00:00:00 Test Item Value Reference Range Interpretation Comments Rheumatoid factor [Units/volume] in <10.0 0.0-13.9 Serum or Plasma (test code = 52346-9) [facility] ProgramProstate specific Ag [Mass/volume] in Serum or [id number] 00:00:00 Test Item Value Reference Range Interpretation Comments Prostate specific Ag [Mass/volume] 2.8 NG/mL 0.0-4.0 in Serum or Plasma (test code = 2857-1) [facility]rate [Mass/volume] in Serum or [id number] 00:00:00 Test Item Value Reference Range Interpretation Comments Urate [Mass/volume] in Serum or 6.0 mg/dL 3.7-8.6 Plasma (test code = 3084-1) [facility]ryth[facility] sedimentation rate 2019-08-30 00:00:00 Test Item Value Reference Range Interpretation Comments Erythrocyte sedimentation rate by 18 mm/HR 0-30 Westergren method (test code = 4537-7) [facility] reactive protein [Mass/volume] in Serum or [id number] 00:00:00 Test Item Value Reference Range Interpretation Comments C reactive protein [Mass/volume] in 2 mg/L 0-10 Serum or Plasma (test code = 1988-5) [facility] panel, [id number] 00:00:00 Test Item Value Reference Range Interpretation Comments interpretation (test code = note interpretation) pdf image (test code = pdf not applicable image) [facility]
--- NOTE | 2021-07-23 20:02 | RAD REPORT ---
EXAM DESCRIPTION: RAD - Chest Single View - 07/23/2021 7:50 pm CLINICAL HISTORY: COUGH COMPARISON: Chest two views TECHNIQUE: AP portable chest image was obtained 07/23/2021 7:50 pm . FINDINGS: Lungs are clear. Interstitial markings match comparison. Heart and vasculature are normal. No measurable pleural effusion and no pneumothorax. No acute bony abnormality seen. No acute aortic findings suspected. IMPRESSION: No acute cardiopulmonary process. No significant change from comparison study.
[2021-07-23 20:27] LABS: Protime INR 1.12
[2021-07-23 20:29] LABS: Hematocrit 46.3 % (39.6-49.0); Lymphocytes % 24.4 % (15.3-44.8); MPV 8.9 fL (7.6-11.3); RBC Red Blood Cell Count 5.05 M/uL (4.33-5.43)
[2021-07-23 21:09] LABS: SARS-COV-2 RT PCR POSITIVE (NEGATIVE)
[2021-07-23 21:16] LABS: Albumin 3.4 g/dL (3.4-5.0); Bilirubin Direct 0.1 mg/dL (0-0.2); Bilirubin Total 0.4 mg/dL (0.2-1.0); Magnesium 2.2 mg/dL (1.8-2.4); Potassium 4.2 mmol/L (3.5-5.1); Protein, Total 7.5 g/dL (6.4-8.2)
[2021-07-23 21:19] LABS: Troponin High Sensitivity 177.1 pg/mL (<58.9)
--- NOTE | 2021-07-23 21:55 | ER ---
Nurse's Notes [facility] Name: Hunter Rose Age: 71 yrs Sex: Male : 1950 Arrival Date: 07/23/2021 Time: 18:34 Bed 8 Private MD: Diagnosis: SARS-associated coronavirus as the cause of diseases classified elsewhere;NSTEMI Presentation: 07/23 18:37 Chief complaint: Patient states: SOB still even though he is getting treated with ll1 steroids and cefdinir. Has had cough for 3-4 days and sinus drainage. Coronavirus screen: Vaccine status: Patient reports being unvaccinated. Client denies travel out of the [place] in the last 14 days. cough unrelated to allergies, difficulty breathing, shortness of breath, Client presents with at least one sign or symptom that may indicate coronavirus-19. Standard/surgical mask placed on the client. Ebola Screen: Patient denies travel to an Ebola-affected area in the 21 days before illness onset. Initial Sepsis Screen: Does the patient meet any 2 criteria? No. Patient's initial sepsis screen is negative. Does the patient have a suspected source of infection? Yes: Productive cough/pneumonia. Risk Assessment: Do you want to hurt yourself or someone else? Patient reports no desire to harm self or others. Onset of symptoms was July 15, 2021. 18:37 Method Of Arrival: Ambulatory ll1 18:37 Acuity: AVELINO 3 ll1 Historical: - Allergies: 18:36 PENICILLINS; ll1 - PMHx: 18:42 Myocardial infarction; Hypertensive disorder; A fib; ll1 - PSHx: 18:42 Coronary artery bypass graft; R arm amputation; ll1 18:43 heart stents; ll1 - Immunization history:: Client reports having NOT received the Covid vaccine. Flu vaccine status is unknown. - Social history:: Smoking status: Patient denies any tobacco usage or history of. Screenin:08 Abuse screen: Denies threats or abuse. Nutritional screening: No deficits noted. al4 Tuberculosis screening: No symptoms or risk factors identified. Fall Risk No fall in past 12 months (0 pts). IV access (20 points). Ambulatory Aid- None/Bed Rest/Nurse Assist (0 pts). Gait- Normal/Bed Rest/Wheelchair (0 pts) Mental Status- Oriented to own ability (0 pts). Total Edmond Fall Scale indicates No Risk (0-24 pts). Assessment: 19:48 General: Appears in no apparent distress. comfortable, Behavior is calm, cooperative, al4 Reports I have had my cough for a couple of days and sinus congestion for the past week. I am having chest pain 2/10 when I cough. I have been working out in the high wind, and I figured that is where my symptoms came from. I have had pneumonia in the past and wanted to come make sure that I was clear of that." patient stated he had a heart attack February 2020, but these symptoms are not the same. Pain: Complains of pain in chest Pain currently is 2 out of 10 on a pain scale. Aggravated by coughing. Neuro: Level of Consciousness is awake, alert, obeys commands, Oriented to person, place, time, situation. Cardiovascular: Heart tones present Capillary refill < 3 seconds Rhythm is sinus rhythm. Respiratory: Reports productive cough with yellow phlegm Airway is patent Respiratory effort is even, unlabored, Respiratory pattern is regular, symmetrical, Breath sounds are clear Onset: The symptoms/episode began/occurred "last couple of days", the patient has moderate shortness of breath. GI: No signs and/or symptoms were reported involving the gastrointestinal system. : No signs and/or symptoms were reported regarding the genitourinary system. EENT: No signs and/or symptoms were reported regarding the EENT system. Derm: No signs and/or symptoms reported regarding the dermatologic system. Musculoskeletal: No signs and/or symptoms reported regarding the musculoskeletal system. 21:45 General: SpO2 93% RA, plpaced on 2.5 LPM NC . as6 21:51 Reassessment: patient updated on hospital admission. st1 Vital Signs: 18:37 BP 121 / 80; Pulse 77; Resp 16; Temp 98.2; Pulse Ox 96% ; Weight 88.9 kg; Height 5 ft. ll1 10 in. (177.80 cm); Pain 2/10; 20:08 BP 126 / 70; Pulse 66; Resp 20 S; Pulse Ox 95% on R/A; Pain 2/10; al4 21:00 BP 119 / 72; Pulse 60; Resp 32 S; Pulse Ox 96% on R/A; as6 21:47 BP 117 / 71; Pulse 57; Resp 29 S; Pulse Ox 97% on 2.5 lpm NC; as6 22:30 BP 115 / 68; Pulse 59; Resp 29 S; Pulse Ox 96% on 2 lpm NC; as6 23:42 BP 110 / 62; Pulse 57; Resp 29 S; Pulse Ox 98% on 2 lpm NC; as6 18:37 Body Mass Index 28.12 (88.90 kg, 177.80 cm) ll1 ED Course: 18:34 Patient arrived in ED. as 18:37 Arm band placed on. ll1 18:42 Triage completed. ll1 19:03 Ryland Niño, PASTORA is Primary Nurse. as6 19:07 Irene Adams MD is Attending Physician. sp3 19:50 XRAY Chest (1 view) In Process Unspecified. EDMS 20:08 Patient has correct armband on for positive identification. Placed in gown. Bed in low al4 position. Call light in reach. Side rails up X 1. teletypesetter monitor on. Pulse ox on. NIBP on. 20:10 Inserted saline lock: 22 gauge in right antecubital area, using aseptic technique. as6 Blood collected. 20:11 COVID-19/FLU A+B (Document "Date of Onset" if Symptomatic) Sent. as6 20:11 Basic Metabolic Panel Sent. as6 20:11 CBC with Diff Sent. as6 20:11 LFT's Sent. as6 20:11 Magnesium Sent. as6 20:11 NT PRO-BNP Sent. as6 20:11 PT-INR Sent. as6 20:11 Troponin HS Sent. as6 20:35 COVID-19/FLU A+B (Document "Date of Onset" if Symptomatic) Sent. as6 20:35 Basic Metabolic Panel Sent. as6 20:35 LFT's Sent. as6 20:35 Magnesium Sent. as6 20:35 NT PRO-BNP Sent. as6 20:35 Troponin HS Sent. as6 21:54 Lanny Pruitt MD is Hospitalizing Provider. sp3 07/24 00:14 No provider procedures requiring assistance completed. Patient admitted, IV remains in as6 place. Administered Medications: No medications were administered Outcome: 07/23 21:54 Decision to Hospitalize by Provider. sp3 07/24 00:14 Admitted to Tele accompanied by nurse, family with patient, via wheelchair, room 409, as6 with oxygen, with chart, Report called to Karen GUILLORY Condition: stable 00:15 Patient left the ED. as6 Signatures: Dispatcher [employer] Maribel Mcqueen Lynsay, RN RN ll1 Irene Adams MD MD sp3 Ryland Niño RN RN as6 Victoriano Cabezas al4 Sri Funez RN RN st1 Corrections: (The following items were deleted from the chart) 07/23 20:10 19:48 Respiratory: Airway is patent Respiratory effort is even, unlabored, Respiratory al4 pattern is regular, symmetrical, Breath sounds are clear al4 20:12 19:48 Respiratory: Airway is patent Respiratory effort is even, unlabored, Respiratory al4 pattern is regular, symmetrical, Breath sounds are clear Onset: The symptoms/episode began/occurred "last couple of days", the patient has moderate shortness of breath al4
--- NOTE | 2021-07-23 21:55 | EDPHYS ---
Physician Documentation [facility] Name: Hunter Rose Age: 71 yrs Sex: Male : 1950 Arrival Date: 07/23/2021 Time: 18:34 Bed 8 Private MD: ED Physician Irene Adams HPI: 07/23 19:31 This 71 yrs old Male presents to ER via Ambulatory with complaints of Shortness Of sp3 Breath. 19:31 71-year-old male with history of coronary artery disease, myocardial infarction, sp3 hypertension, atrial fibrillation now presents with chief complaint cough, congestion, mild chest pain for 7 days. Patient states that approximately 7 days ago his primary care physician put him on an antibiotic and a steroid for a bronchitis. His last COVID test was 2 weeks ago which was negative. He was not tested 7 days ago prior to his current antibiotic regimen. He states his symptoms have not gotten better or worse but he presents due to the length of them. He denies headache, neck pain, back pain, abdominal pain, nausea, vomiting, diarrhea, syncope, near syncope, neuro symptoms, rash, joint aches, weakness, or any other ROS at this time. Cough is nonproductive and his chest pain is minimal. He also denies fever, other URI symptoms, or any known sick contacts.. Historical: - Allergies: 18:36 PENICILLINS; ll1 - PMHx: 18:42 Myocardial infarction; Hypertensive disorder; A fib; ll1 - PSHx: 18:42 Coronary artery bypass graft; R arm amputation; ll1 18:43 heart stents; ll1 - Immunization history:: Client reports having NOT received the Covid vaccine. Flu vaccine status is unknown. - Social history:: Smoking status: Patient denies any tobacco usage or history of. ROS: 19:33 Constitutional: Negative for fever, chills, and weight loss, Eyes: Negative for injury, sp3 pain, redness, and discharge, ENT: Negative for injury, pain, and discharge, Neck: Negative for injury, pain, and swelling, Abdomen/GI: Negative for abdominal pain, nausea, vomiting, diarrhea, and constipation, Back: Negative for injury and pain, MS/Extremity: Negative for injury and deformity, Skin: Negative for injury, rash, and discoloration, Neuro: Negative for headache, weakness, numbness, tingling, and seizure. 19:33 Respiratory: Positive for cough, . 19:34 Respiratory: Positive for sp3 Exam: 19:34 Constitutional: This is a well developed, well nourished patient who is awake, alert, sp3 and in no acute distress. Head/Face: Normocephalic, atraumatic. Eyes: Pupils equal round and reactive to light, extra-ocular motions intact. Lids and lashes normal. Conjunctiva and sclera are non-icteric and not injected. Cornea within normal limits. Periorbital areas with no swelling, redness, or edema. ENT: Nares patent. No nasal discharge, no septal abnormalities noted. External auditory canals are clear. Oropharynx with no redness, swelling, or masses, exudates, or evidence of obstruction, uvula midline. Mucous membranes moist. Neck: Trachea midline, no thyromegaly or masses palpated, and no cervical lymphadenopathy. Supple, full range of motion without nuchal rigidity, or vertebral point tenderness. No Meningismus. Chest/axilla: Normal chest wall appearance and motion. Nontender with no deformity. No lesions are appreciated. Abdomen/GI: Soft, non-tender, with normal bowel sounds. No distension or tympany. No guarding or rebound. No evidence of tenderness throughout. Back: No spinal tenderness. No costovertebral tenderness. Full range of motion. Skin: Warm, dry with normal turgor. Normal color with no rashes, no lesions, and no evidence of cellulitis. MS/ Extremity: Pulses equal, no cyanosis. Neurovascular intact. Full, normal range of motion. Neuro: Awake and alert, GCS 15, oriented to person, place, time, and situation. Cranial nerves II-XII grossly intact. Motor strength 5/5 in all extremities. Sensory grossly intact. Cerebellar exam normal. Normal gait. Psych: Awake, alert, with orientation to person, place and time. Behavior, mood, and affect are within normal limits. 19:34 Respiratory: Normal breath sounds without evidence of rales, rhonchi, wheezing. Respiratory effort is normal. Pulse oxygenation is also normal on room air. No visible signs of dyspnea noted. Cardiovascular exam is also normal.. 19:47 ECG was reviewed by the Attending Physician. EKG demonstrates normal sinus rhythm at 63 sp3 bpm with a first-degree AV block at 206 CO interval, bifascicular block in the QRS with abnormal axis, and inverse T waves diffuse without ST/T changes or other evidence of ischemia. No prior EKG available at this time. Vital Signs: 18:37 BP 121 / 80; Pulse 77; Resp 16; Temp 98.2; Pulse Ox 96% ; Weight 88.9 kg; Height 5 ft. ll1 10 in. (177.80 cm); Pain 2/10; 20:08 BP 126 / 70; Pulse 66; Resp 20 S; Pulse Ox 95% on R/A; Pain 2/10; al4 21:00 BP 119 / 72; Pulse 60; Resp 32 S; Pulse Ox 96% on R/A; as6 21:47 BP 117 / 71; Pulse 57; Resp 29 S; Pulse Ox 97% on 2.5 lpm NC; as6 22:30 BP 115 / 68; Pulse 59; Resp 29 S; Pulse Ox 96% on 2 lpm NC; as6 23:42 BP 110 / 62; Pulse 57; Resp 29 S; Pulse Ox 98% on 2 lpm NC; as6 18:37 Body Mass Index 28.12 (88.90 kg, 177.80 cm) ll1 MDM: 19:10 Patient medically screened. sp3 19:34 Data reviewed: vital signs, nurses notes. ED course: 71-year-old male with symptoms of sp3 COVID-19, cough, bronchitis, and/or pneumonia. I am not high suspicious for myocardial infarction, stroke, vascular compromise including dissection and aneurysm. Will obtain cardiac work-up including EKG, chest x-ray, troponin, other labs, and COVID-19 test. Patient is otherwise stable will discharge if work-up is negative depending on data results. Patient is okay with this plan at this time.. 07/23 19:09 Order name: Basic Metabolic Panel; Complete Time: 21:44 sp3 07/23 19:09 Order name: CBC with Diff; Complete Time: 21:18 sp3 07/23 19:09 Order name: LFT's; Complete Time: 21:44 sp3 07/23 19:09 Order name: Magnesium; Complete Time: 21:44 sp3 07/23 19:09 Order name: NT PRO-BNP; Complete Time: 21:44 sp3 07/23 19:09 Order name: PT-INR; Complete Time: 21:18 sp3 07/23 19:09 Order name: Troponin HS; Complete Time: 21:44 sp3 07/23 19:09 Order name: XRAY Chest (1 view); Complete Time: 21:18 sp3 07/23 19:09 Order name: EKG; Complete Time: 19:10 sp3 07/23 19:09 Order name: Cardiac monitoring; Complete Time: 19:48 sp3 07/23 19:09 Order name: EKG - Nurse/Tech; Complete Time: 19:48 sp3 07/23 19:09 Order name: IV Saline Lock; Complete Time: 20:11 sp3 07/23 19:09 Order name: COVID-19/FLU A+B (Document "Date of Onset" if Symptomatic); Complete Time: sp3 21:18 07/23 22:45 Order name: CONS Physician Consult [facility] 07/23 19:09 Order name: Labs collected and sent; Complete Time: 20:11 sp3 07/23 19:09 Order name: O2 Per Protocol; Complete Time: 20:11 sp3 07/23 19:09 Order name: O2 Sat Monitoring; Complete Time: 20:11 sp3 Administered Medications: No medications were administered Disposition Summary: 07/23/21 21:54 Hospitalization Ordered Hospitalization Status: Inpatient Admission sp3 Provider: Lanny Pruitt sp3 [facility] sp3 Condition: Stable sp3 Problem: new sp3 Symptoms: are unchanged sp3 Bed/Room Type: Standard sp3 Room Assignment: 409(07/23/21 23:26) cg Diagnosis - SARS-associated coronavirus as the cause of diseases classified elsewhere sp3 - NSTEMI sp3 Forms: - Medication Reconciliation Form sp3 - SBAR form sp3 Signatures: Dispatcher [employer] Florence Carlos RN RN cg Carl Dominguez RN RN ll1 Irene Adams MD MD sp3 Corrections: (The following items were deleted from the chart) 19:34 19:33 Respiratory: Positive for Normal breath sounds without evidence of rales, sp3 rhonchi, wheezing. Respiratory effort is normal. Pulse oxygenation is also normal on room air. No visible signs of dyspnea noted. Cardiovascular exam is also normal., sp3 23:26 21:54 sp3 cg
--- NOTE | 2021-07-23 23:11 | P.HP ---
Certification for Inpatient Patient admitted to: Observation With expected LOS: <2 Midnights Patient will require the following post-hospital care: None Practitioner: I am a practitioner with admitting privileges, knowledge of patient current condition, hospital course, and medical plan of care. Services: Services provided to patient in accordance with Admission requirements found in Title 42 Section 412.3 of the Code of Federal Regulations Patient History Date of Service: 07/23/21 Reason for admission: COVID, elevated troponin History of Present Illness: Mr. Rose is a 71 yo M with CAD (history of NE in 02/2020), HTN, rate controlled atrial fibrillation on chronic anticoagulation, and CHF (EF 35-40%) who presents with one week of fatigue, productive cough, pleuritic pain, and congestion. Denies fever, N/V/D. He received an antibiotic and a steroid from his PCP for suspected bronchitis, with no improvement of symptoms. Today he reports shortness of breath, sats at home in high 80s. Here O2 sats 96%. Today he tests positive for COVID. Plt 145 Na 134 BUN 25 GFR 64 AST 44 ALT 94 high sensitivity troponin 177.1 BNP 1327. Patient reports chest pain only with coughing. He saw his bending roll operator recently for stress test and ECHO and is scheduled to review the results this coming Thursday. CXR IMPRESSION: No acute cardiopulmonary process. No significant change from comparison study. Allergies Penicillins Allergy (Verified 11/09/17 15:31) unknown Home Medications: Acetaminophen [Tylenol*] 650 mg PO Q6HP PRN 03/05/20 Amiodarone HCl [Pacerone] 200 mg PO BID 03/05/20 Apixaban [Eliquis *] 2.5 mg PO BID 03/05/20 Atorvastatin Calcium [Lipitor] 40 mg PO BEDTIME 03/05/20 Bumetanide [Bumex*] 1 mg PO DAILY 03/05/20 Digoxin [Lanoxin*] 0.125 mg PO DAILY 03/05/20 Metformin HCl [Glucophage] 500 mg PO BIDWM 03/05/20 Metoprolol Tartrate [Lopressor*] 12.5 mg PO BID 03/05/20 Potassium Oral Tab [Klor-Con 10 mEq Tab*] 20 meq PO BID 03/05/20 Spironolactone [Aldactone*] 25 mg PO BID 03/05/20 Ticagrelor [Brilinta*] 90 mg PO BID 03/05/20 Docusate/Senna [Senokot-S*] 2 tab PO BEDTIME PRN #30 tab 03/14/20 traMADol HCL [Ultram*] 50 mg PO Q4HP PRN #60 tab 03/14/20 - Past Medical/Surgical History Diabetic: Yes -: Cardiogenick Shock, Cardiac Arrest -: Osteoarthritis of the right knee -: Borderline Diabetes -: HTN -: CAD -: Acute Hypoxemic Respiratory failure -: Acute Renal Failure -: Atrial Fibrillation with RVR -: Pulmonary edema -: CHF -: DVT -: Leukocytosis -: Knee Surgery -: Above R elbow amputation -: hernia repair -: neck surgery - Family History Family History: Reviewed- Non-Contributory - Social History Smoking Status: Never smoker Alcohol use: No CD- Drugs: No Caffeine use: No Place of Residence: Home Review of Systems 10-point ROS is otherwise unremarkable General: Malaise, As per HPI Eyes: Unremarkable ENT: Unremarkable Respiratory: Cough, Shortness of Breath, Sputum, As per HPI Cardiovascular: Chest Pain, As per HPI Gastrointestinal: Unremarkable Genitourinary: Unremarkable Musculoskeletal: Unremarkable Integumentary: Unremarkable Neurological: Unremarkable Lymphatics: Unremarkable Physical Examination - Physical Exam General: Alert, In no apparent distress HEENT: Atraumatic, PERRLA, Mucous membr. moist/pink, EOMI, Sclerae nonicteric Neck: Supple, 2+ carotid pulse no bruit, No LAD, Without JVD or thyroid abnormality Respiratory: Clear to auscultation bilaterally, Normal air movement Cardiovascular: No edema, Regular rate/rhythm, Normal S1 S2 Gastrointestinal: Normal bowel sounds, No tenderness Musculoskeletal: No tenderness Integumentary: No rashes Neurological: Normal speech, Normal strength at 5/5 x4 extr, Normal tone, Normal affect Lymphatics: No axilla or inguinal lymphadenopathy - Studies Laboratory Data (last 24 hrs) 07/23/21 20:08: PT 12.9 H, INR 1.12 07/23/21 20:08: WBC 4.20 L, Hgb 15.2, Hct 46.3, Plt Count 145 L 07/23/21 20:08: Sodium 134 L, Potassium 4.2, BUN 25 H, Creatinine 1.13, Glucose 94, Magnesium 2.2, Total Bilirubin 0.4, AST 44 H, ALT 94 H, Alkaline Phosphatase 72 Assessment and Plan - Problems (Diagnosis) (1) Elevated troponin Current Visit: Yes Status: Acute (2) COVID Current Visit: Yes Status: Acute (3) CAD (coronary artery disease) Current Visit: Yes Status: Chronic Qualifiers: Coronary Disease-Associated Artery/Lesion type: [place] artery [place] vs. transplanted heart: [place] heart Associated angina: without angina Qualified Code(s): I25.10 - Atherosclerotic heart disease of [place] coronary artery without angina pectoris (4) HTN (hypertension) Current Visit: Yes Status: Chronic Qualifiers: Hypertension type: primary hypertension Qualified Code(s): I10 - Essential (primary) hypertension (5) Atrial fibrillation Current Visit: Yes Status: Chronic Qualifiers: Atrial fibrillation type: paroxysmal Qualified Code(s): I48.0 - Paroxysmal atrial fibrillation (6) CHF (congestive heart failure) Current Visit: Yes Status: Chronic Qualifiers: Heart failure type: unspecified Heart failure chronicity: chronic Qualified Code(s): I50.9 - Heart failure, unspecified - Plan consult cardiology on tele, trend troponins, repeat EKG lipid and thyroid levels pending continue covid supplements, O2 as needed, antitussives daily CRP, ferritin, procal continue home amiodarone, digoxin, metoprolol continue home eliquis, plavix continue home simvastatin, ezetimibe continue home bumex, spironolactone Discharge Plan: Home Plan to discharge in: 24 Hours - Advance Directives Does patient have a Living Will: No Does patient have a Durable POA for Healthcare: No - Code Status/Comfort Care Code Status Assessed: Yes (full code ) Critical Care: No Time Spent Managing Pts Care (In Minutes): 70
[2021-07-23] MEDS ORDERED: DIPHENHYDRAMINE 25 MG TAB/CAP PO PRN (23:21)
[2021-07-23] MEDS ORDERED: BENZONATATE 100 MG CAP PO PRN (23:21)
[2021-07-23] MEDS ORDERED: CLOPIDOGREL 75 MG TABLET PO SCH (23:21)
[2021-07-23] MEDS ORDERED: ATORVASTATIN 20 MG TAB PO SCH (23:21)
[2021-07-23] MEDS ORDERED: ACETAMINOPHEN 500 MG TAB PO PRN (23:21)
[2021-07-23] MEDS ORDERED: ONDANSETRON 4 MG/2 ML VIAL IV PRN (23:21)
[2021-07-24 00:18] VITALS: BMI 28.3
[2021-07-24] MEDS: APIXABAN 2.5 MG TABLET PO SCH ×2 (00:27→08:54)
[2021-07-24 04:23] LABS: Absolute Lymphocytes (CBC) 1.1 K/uL (0.7-4.9); Hematocrit 43.7 % (39.6-49.0); Lymphocytes % 28.8 % (15.3-44.8); MPV 8.8 fL (7.6-11.3); RBC Red Blood Cell Count 4.79 M/uL (4.33-5.43)
[2021-07-24 04:45] LABS: Albumin 2.9 g/dL (3.4-5.0); Bilirubin Total 0.4 mg/dL (0.2-1.0); C-Reactive Protein 7.62 mg/L (<3.00); Ferritin 385.1 ng/mL (26-388); Magnesium 2.1 mg/dL (1.8-2.4); Phosphorus 2.7 mg/dL (2.5-4.9); Potassium 3.9 mmol/L (3.5-5.1); Protein, Total 6.5 g/dL (6.4-8.2); Thyroid Stimulating Hormone 1.69 uIU/mL (0.360-3.740)
[2021-07-24] MEDS ORDERED: METOPROLOL TAR 25 MG TAB PO SCH (06:00)
--- NOTE | 2021-07-24 07:47 | EKG ---
Test Date: 2021-07-23 Test Time: 19:46:51 Account Services Representative: RAHUL MEASUREMENT RESULTS: Intervals: Rate: 63 ID: [id number] QRSD: 158 QT: 428 QTc: 437 [place]: P: 10 ID: [id number] QRS: -79 T: 56 INTERPRETIVE STATEMENTS: Normal sinus rhythm Right bundle branch block Left anterior fascicular block Bifascicular block Minimal voltage criteria for LVH, may be normal variant Anteroseptal infarct, age undetermined Abnormal ECG Compared to ECG 11/09/2017 15:40:46 Right bundle-branch block now present Left anterior fascicular block now present Bifascicular block now present Myocardial infarct finding now present Sinus bradycardia no longer present Ventricular premature complex(es) no longer present Electronically Signed On 07-24-21 07:45:38 TUBE WASHER by Colin Cordoba
[2021-07-24] MEDS: ASCORBIC ACID 500 MG TABLET PO SCH ×3 (08:54→16:37)
[2021-07-24] MEDS ORDERED: SPIRONOLACTONE 25 MG TABLET PO SCH (09:00)
[2021-07-24] MEDS ORDERED: POTASSIUM CL SA 10 MEQ TAB PO ONE (09:00)
[2021-07-24] MEDS ORDERED: BUMETANIDE 1 MG TABLET PO SCH (09:00)
[2021-07-24] MEDS ORDERED: ZINC SULFATE 220 MG CAP PO SCH (09:00)
[2021-07-24] MEDS ORDERED: EZETIMIBE 10 MG TAB PO SCH (09:00)
[2021-07-24] MEDS ORDERED: THIAMINE HCL 100 MG TABLET PO SCH (09:00)
[2021-07-24] MEDS ORDERED: AMIODARONE HCL 200 MG TAB PO SCH (09:00)
[2021-07-24] MEDS ORDERED: VITAMIN D 1000 UNIT TAB PO SCH (09:00)
--- NOTE | 2021-07-24 11:25 | CON ---
Date of Consultation: 07/24/[address] Pruitt's service with COVID and positive troponin on 07/23/2021. I saw the patient on 07/24/2021. History Of Present Illness: Mr. Rose is 71. Came in with cough, no chest pain, some shortness of breath. No nausea, vomiting, diaphoresis, PND, orthopnea, pedal edema, palpitations, or syncope. W as found to have COVID positive test, negative chest x-ray. Admitted for observation. Has elevated troponin, elevated CRP, elevated BNP, all consistent with COVID. Past Medical History: Includes CAD, atrial fibrillation, and hypertension. He has had stents in the past. He sees a civil engineering assistant in [place]. Social History: He lives in [place]. No tobacco or alcohol. Review of Systems: Negative. Family History: Noncontributory. Allergies: ALLERGIC TO PENICILLIN. Medications: At home include digoxin, Lipitor, Zocor, Eliquis, Plavix, zinc, Aldactone, and beta-blo cker. He is also on amiodarone and Bumex. Physical Examination: Vital Signs: Stable, afebrile. HEENT: Negative. Neck: Supple with no bruit. Chest: Clear. Cardiac: Regular rhythm and rate. No murmurs, gallops, or rubs. Abdomen: Benign. Extremities: Revealed no clubbing, cyanosis, or edema. Diagnostic Data: As stated earlier. Impression And Plan: 1.Elevated CRP, BNP, and troponin secondary to demand ischemia from COVID. Echocardiogram has been ordered. If his echo is normal, he can go home whenever it is okay with Dr. Pruitt and he will see his civil engineering assistant in the near future. 2.His other problems including atrial fibrillation. He is in sinus rhythm, on amiodarone and Eliqui s and beta-blockers. 3.Hypertension, well controlled. 4.Coronary artery disease, well controlled. 5.Dyslipidemia, well controlled. Continue present regimen. Check the echo and at the moment negati ve. NB/MODL Voice ID: [id number] Report ID: [id number]
--- NOTE | 2021-07-24 12:47 | EKG ---
Test Date: 2021-07-24 Test Time: 07:50:09 Baggage Porter: MICHELLE MEASUREMENT RESULTS: Intervals: Rate: 57 NE: 218 QRSD: 160 QT: 438 QTc: 426 [place]: P: 21 NE: 218 QRS: -80 T: 15 INTERPRETIVE STATEMENTS: Sinus bradycardia with 1st degree AV block Right bundle branch block Left anterior fascicular block Bifascicular block Minimal voltage criteria for LVH, may be normal variant Anteroseptal infarct, age undetermined Abnormal ECG Compared to ECG 07/23/2021 19:46:51 First degree AV block now present Sinus rhythm no longer present Bifascicular block still present Myocardial infarct finding still present Electronically Signed On 07-24-21 12:46:59 CURBER by Colin Cordoba
--- NOTE | 2021-07-24 13:47 | ECHO ---
HEIGHT: 5 ft 10 in WEIGHT: 197 lb 8 oz DATE OF STUDY: 07/24/[address]: Colin Cordoba MD 2-DIMENSIONAL: YES M.MODE: YES DOPPLER: YES COLOR FLOW: YES TDS: NO PORTABLE: NO DEFINITY: NO BUBBLE STUDY: NO DIAGNOSIS: ABNORMAL TROPONIN CARDIAC HISTORY: CATHERIZATION: YES SURGERY: NO PROSTHETIC VALVE: NO PACEMAKER: NO MEASUREMENTS (cm) DIASTOLIC (NORMALS) SYSTOLIC (NORMALS) IVSd 1.1 (0.6-1.2) LA Diam 2.6 (1.9-4.0) LVEF 47% LVIDd 5.5 (3.5-5.7) LVIDs 4.2 (2.0-3.5) %FS 24% LVPWd 1.1 (0.6-1.2) Ao Diam 2.9 (2.0-3.7) 2 DIMENSIONAL ASSESSMENT: RIGHT ATRIUM: NORMAL LEFT ATRIUM: NORMAL RIGHT VENTRICLE: NORMAL LEFT VENTRICLE: NORMAL TRICUSPID VALVE: NORMAL MITRAL VALVE: NORMAL PULMONIC VALVE: NORMAL AORTIC VALVE: NORMAL PERICARDIAL EFFUSION: NONE AORTIC ROOT: NORMAL LEFT VENTRICULAR WALL MOTION: NORMAL DOPPLER/COLOR FLOW: MILD TRICUSPID REGURGITATION. COMMENTS: MILD GLOBAL HYPOKINESIS. LEFT VENTRICULAR EJECTION FRACTION 47%. NO EFFUSION. NO MITRAL VALVE PROLAPSE. TECHNOLOGIST: Dat STREETER
[2021-07-24 16:40] VITALS: BP 116/64; TEMP 97.7
[2021-07-24 18:13] VITALS: O2SAT 96
[2021-07-24] MEDS ORDERED: DIGOXIN 0.125 MG TABLET PO SCH (21:00)
== END 2021-07-24 18:00 | disposition home or self-care (01) ==
LOC: ER 18:33 → ERHOLD 22:50 → 4TH 23:36
PROVIDERS: ADMIT Hospitalist; ATTEND Hospitalist
DX: U07.1 COVID-19 (principal); I24.8 Other forms of acute ischemic heart disease; I11.0 Hypertensive heart disease with heart failure; I50.9 Heart failure, unspecified; I25.10 Atherosclerotic heart disease of native coronary artery without angina pectoris; I48.0 Paroxysmal atrial fibrillation; I25.2 Old myocardial infarction; E78.5 Hyperlipidemia, unspecified; R73.03 Prediabetes; M17.11 Unilateral primary osteoarthritis, right knee; Z79.01 Long term (current) use of anticoagulants; Z79.02 Long term (current) use of antithrombotics/antiplatelets; Z88.0 Allergy status to penicillin; Z95.1 Presence of aortocoronary bypass graft; Z95.5 Presence of coronary angioplasty implant and graft; Z86.718 Personal history of other venous thrombosis and embolism; Z89.221 Acquired absence of right upper limb above elbow
CPT/HCPCS: 93005 ×2; 93306; 85025 ×2; 80048; 36415; 83735 ×2; 84100; 85610; 80061; 80076; 84443; 84484 ×3; 84439; 82728; 80053; 84145; 83880; 0240U; 86140; 71045; 94760 ×3; 99285; G0378 ×2